=== PATIENT | male | born 1945 | race Caucasian/White ===

== ENCOUNTER 2019-12-04 12:25 | Outpatient (CLI) | payer MEDICARE, SELFPAY ==
--- NOTE | ~2019-12-04 | US_ITS ---
EXAMINATION: US thyroid DATE: 12/04/2019 14:14 INDICATION: Enlarged thyroid. TECHNIQUE: Multiple ultrasound images of the thyroid were obtained. COMPARISON: None. FINDINGS: The right thyroid lobe measures 3.4 x 2.0 x 1.7 cm. The left thyroid lobe measures 3.1 x 1.6 x 1.8 c m. There is normal echotexture and echogenicity throughout the thyroid gland. No discrete nodules id entified. Normal vascular flow is present. IMPRESSION: 1. Normal thyroid. Reviewed, dictated and finalized at location A. IMPRESSION: 1. Normal thyroid.
== END 2019-12-04 12:26 | disposition home or self-care (01) ==
PROVIDERS: PCP Family Medicine; Visit Provider Internal Medicine Endocrinology, Diabetes & Metabolism
DX: E04.9 Nontoxic goiter, unspecified (principal)
CPT/HCPCS: 76536

== ENCOUNTER 2020-07-29 08:45 | Outpatient (CLI) | payer MEDICARE, SELFPAY | END 2020-07-29 08:46 | disposition home or self-care (01) | LOC: ANHCOVIDVC 08:45 | PROVIDERS: PCP Family Medicine | DX: Z23 Encounter for immunization (principal) | CPT/HCPCS: 0001A; 91300 ==

== ENCOUNTER 2020-08-19 08:44 | Outpatient (CLI) | payer MEDICARE, SELFPAY | END 2020-08-19 08:45 | disposition home or self-care (01) | LOC: ANHCOVIDVC 08:44 | PROVIDERS: PCP Family Medicine | DX: Z23 Encounter for immunization (principal) | CPT/HCPCS: 0002A; 91300 ==

== ENCOUNTER → 2020-12-05 07:36 | Outpatient (CLI) | payer MEDICARE, SELFPAY ==
--- NOTE | ~2020-12-05 | XR_ITS ---
EXAMINATION: XR knee LT min 4V DATE: 12/05/2020 08:15 INDICATION: Left knee pain. TECHNIQUE: 4 views of left knee were obtained. COMPARISON: None. FINDINGS: Bone alignment is normal. No fracture. There is moderate osteoarthritis of medial compartme nt and mild osteoarthritis of lateral and patellofemoral compartments. No knee joint effusion. IMPRESSION: 1. Moderate left knee osteoarthritis. Reviewed, dictated and finalized at location A.
== END ==
PROVIDERS: PCP Family Medicine; Visit Provider Physician Assistant
DX: M17.12 Unilateral primary osteoarthritis, left knee (principal)
CPT/HCPCS: 73564

== ENCOUNTER → 2021-08-12 10:40 | Outpatient (CLI) | payer MEDICARE, SELFPAY ==
--- NOTE | ~2021-08-12 | XR_ITS ---
XR lumbar spine 2-3V 08/12/2021 11:04 Indication: Low back pain Procedure: 3 views lumbar spine Comparison: No prior studies for comparison. Findings: There is mild wedge-shaped appearance to T12 and L1 which is likely chronic. There are prom inent ventral osteophytes at this level. There is endplate degenerative change at L2-3 and L5-S1. The re is disc narrowing at L4-5 and L5-S1. There is mild facet hypertrophy at these levels. There is ath erosclerosis of the aorta. There are splenic arterial calcifications. Impression: 1: No acute abnormality of the lumbar spine. 2: Moderate lumbar spondylosis. Reviewed, dictated and finalized at location A. Impression: 1: No acute abnormality of the lumbar spine. 2: Moderate lumbar spondylosis.
== END ==
PROVIDERS: PCP Family Medicine; Visit Provider Physician Assistant
DX: M47.896 Other spondylosis, lumbar region (principal)
CPT/HCPCS: 72100

== ENCOUNTER 2021-09-25 14:19 | Inpatient (IN) | payer MEDICARE, SELFPAY ==
[2021-09-25] VITALS (10 sets, daily range): BP systolic 141–224; BP diastolic 61–96; PULSE 72–96; RESP 18–22; TEMP 36.3–36.7; O2SAT 93–96; BMI 46.4
--- NOTE | ~2021-09-25 | XR_ITS ---
EXAMINATION: XR chest 2V DATE: 09/25/2021 14:54 INDICATION: Shortness of breath TECHNIQUE: Frontal and lateral views of the chest are obtained COMPARISON: 03/23/2014 FINDINGS: There is a mild diffuse interstitial pattern. The heart size is upper limits of normal for technique. There are trace pleural effusions. There is no pneumothorax. There is moderate thoracic sp ondylosis. IMPRESSION: 1. Mild pulmonary edema. 2. Small pleural effusions. Reviewed, dictated and finalized at location A.
--- NOTE | ~2021-09-25 | US_ITS ---
EXAMINATION: US venous doppler [facility] DATE: 09/27/2021 09:42 INDICATION: Lower limb swelling and erythema TECHNIQUE: Grayscale ultrasound images without and with compression and Doppler ultrasound images of the bilateral lower extremity veins were obtained. COMPARISON: None. FINDINGS: The visualized portions of right common femoral vein, profunda (deep) femoral vein, femoral vein, pop liteal vein, posterior tibial veins, peroneal veins, gastrocnemius vein and greater saphenous vein ou tflow are patent. The visualized portions of left common femoral vein, profunda femoral vein, femoral vein, popliteal v ein, posterior tibial veins, peroneal veins, gastrocnemius vein and greater saphenous vein outflow ar e patent. IMPRESSION: 1. No deep venous thrombosis in either lower limb. Reviewed, dictated and finalized at location A.
--- NOTE | 2021-09-25 14:27 | ECG_ITS ---
Measurements Intervals [place] Rate: 70 P: 15 RI: 160 QRS: 4 QRSD: 94 T: 23 QT: 391 QTc: 422 Interpretive Statements SINUS RHYTHM LOW QRS VOLTAGE IN PRECORDIAL LEADS BORDERLINE ST-T WAVE ABNORMALITY- HIGH LATERAL LEADS BASELINE ARTIFACT- I, II, AVR, AVL, AVF, V1-V6 BORDERLINE ECG Electronically Signed On 09-25-2021 16:51:50 CDT by Khoi Maldonado D.O.
[2021-09-25 14:44] LABS: Basophils Percent Auto 0.5 % (0.2-1.2); Eosinophils Absolute Auto 0.3 K/mm3 (0-0.3); Eosinophils Percent Auto 4.3 % (0-4.4); Hematocrit 35.6 % (42.0-52.0); Hemoglobin 10.4 g/dL (14.0-18.0); Immature Granulocyte Absolute 0.07 K/mm3 (0.00-0.031); Immature Granulocyte Percent A 0.9 % (0-0.5); Lymphocytes Absolute Auto 1.19 K/mm3 (0.9-3.2); Lymphocytes Percent Auto 15.2 % (18.3-44.2); Mean Corpuscular HGB Conc 29.2 g/dl (32-36); Mean Corpuscular Hemoglobin 25.7 pg (26-34); Mean Corpuscular Volume 87.9 fl (80-100); Monocytes Absolute Auto 0.9 K/mm3 (0.1-0.6); Neutrophils Absolute Auto 5.3 K/mm3 (1.3-6.7); Neutrophils Percent Auto 67.1 % (45.5-73.1); Platelet Count Result 206 k/mm3 (150-375); Red Blood Count 4.05 M/mm3 (4.6-6.20); Red Cell Distribution Width 14.8 % (11.5-14.5); White Blood Count 7.8 K/mm3 (4.5-10.0)
[2021-09-25 14:52] LABS: Alanine Aminotransferase 14 U/L (4-50); Albumin Level 3.9 g/dL (3.5-5.1); Alkaline Phosphatase 82 U/L (38-126); Anion Gap 8 mmol/L (8-16); Aspartate Amino Transferase 19 U/L (17-59); Bilirubin,Total 0.5 mg/dL (0.2-1.3); Blood Urea Nitrogen 15 mg/dL (9-20); Calcium 8.6 mg/dL (8.4-10.2); Carbon Dioxide 29 mmol/L (22-30); Chloride 99 mmol/L (98-107); Estimated CRCL calculation 68 ml/min; Estimated Glomerular Filt Rate > 60; Glucose 124 mg/dL (65-110); Sodium 136 mmol/L (137-145)
[2021-09-25 14:53] LABS: INR 1.1; Prothrombin Time 13.9 Seconds (11.1-14.7)
[2021-09-25 14:54] LABS: Partial Thromboplastin Time 31.1 SECONDS (22.3-36.8)
[2021-09-25 15:00] LABS: Anisocytosis 1+ (NORMAL); Ovalocytes 1+ (NORMAL); Platelet Estimate Adequate (Adequate)
[2021-09-25 15:04] LABS: NT Pro B Type Natriuretic Pept 796 pg/mL (5-100); Troponin I 0.024 ng/mL (0.000-0.034)
[2021-09-25] MEDS: FUROSEMIDE INJ 100 MG/10 ML VIAL 80 MG IV PUSH (18:23)
[2021-09-25 18:46] LABS: Troponin I 0.028 ng/mL (0.000-0.034)
--- NOTE | 2021-09-25 19:01 | ED.SOB ---
HPI - SOB/Dyspnea General Chief Complaint: Shortness of Breath/Dyspnea Stated Complaint: SOB, Cant Sleep, Multiple Issues Time Seen by Provider: 09/25/21 17:12 Source: patient Mode of arrival: ambulatory History of Present Illness HPI Narrative: 76 year old male with history of MO and CHF presents today with complaints of SOB x 2 weeks. Patient takes lasix 40mg po daily and has not missed any doses. He has noticed he cannot walk very far without getting SOB. Patient denies chest pain, cough, but does endorse BLE edema, distended abdomen. Patient sees Dr. Sherman. Related Data Home Medications Medication Instructions Recorded Confirmed amlodipine 10 mg tablet 10 mg PO DAILY 06/18/19 09/25/21 atorvastatin 40 mg tablet 40 mg PO DAILY 06/18/19 09/25/21 aspirin 81 mg tablet,delayed 81 mg PO DAILY 03/04/20 09/25/21 release glimepiride 2 mg tablet 4 mg PO BID tablet 03/04/20 09/25/21 dulaglutide 1.5 mg/0.5 mL 1.5 mg SUBCUT WEEKLY 06/16/20 09/25/21 subcutaneous pen injector insulin degludec 200 unit/mL (3 30 unit SUBCUT DAILY ml 06/16/20 09/25/21 mL) subcutaneous pen ferrous sulfate [FeroSul] 325 mg PO DAILY 09/25/21 09/25/21 furosemide 40 mg PO DAILY 09/25/21 09/25/21 metformin 500 mg PO BID 09/25/21 09/25/21 metoprolol succinate 100 mg PO DAILY 09/25/21 09/25/21 Allergies Allergy/AdvReac Type Severity Reaction Status Date / Time No Known Allergies Allergy Verified 09/25/21 13:51 Review of Systems Review of Systems: CONSTITUTIONAL: Denies fever, chills, or sweats. EYES: Denies visual changes, redness, or discharge. ENT: Denies rhinorrhea, congestion, sore throat, or otalgia. CARDIOVASCULAR: Bilateral lower extremity edema and distended abdomen. Denies chest pain, palpitations. RESPIRATORY: Dyspnea increasing over the last 2 weeks. Denies cough. GASTROINTESTINAL: Denies abdominal pain, nausea, vomiting, or diarrhea. GENITOURINARY: Denies dysuria or hematuria. SKIN: Denies rash or itching. MUSCULOSKELETAL: Denies back pain, joint pain, or myalgia. NEUROLOGIC: Denies headache, numbness, dizziness, or weakness. PSYCHIATRIC: Denies anxiety or depression. [facility] Past Medical History Medical History (Updated 09/26/21 @ 00:11 by Crista Chavez APRN) Hepatitis C antibody test negative (09/10/17) Myocardial infarction Peripheral artery disease Surgical History Surgical History H/O cardiac catheterization H/O colonoscopy History of esophagogastroduodenoscopy (EGD) Family History Family History Grandparent Diabetes mellitus Mother Diabetes mellitus Hypertension Family history of cardiovascular disease Other No family history of cardiovascular disease Social History Social History Smoking packs per day: 2 Smoking cigarettes per day: 40.0 Years smoked: 40 Smoking pack-years: 80.00 Smoking status: Former smoker Tobacco type: cigarettes Second hand tobacco smoke exposure: No Alcohol intake: current Drinks per week: 2 Substance use: never Substance use type: does not use Gender identity (if verbalized by the patient): Male Spiritual care concerns: No Agree to blood products: Yes Exam Narrative: GENERAL: Well-appearing, well-nourished, and in no acute distress. HEAD: Normocephalic, atraumatic. EYES: PERRLA and EOMI. ENT: Nares clear, no rhinorrhea or epistaxis. Mucous membranes moist. Oropharynx without tonsillar hypertrophy exudate or other lesions. Bilateral TMs pearly ybarra nonbulging NECK: Supple. No adenopathy or masses. No carotid bruits or JVD CHEST: Diminished to auscultation. No respiratory distress. No wheezes rales or rhonchi HEART: Regular rate and rhythm. No murmur heard. Normal peripheral pulses. ABDOMEN: Soft, nontender, distended, normal active bowel sounds. EXTREMITIES: Normal range of renata
--- NOTE | 2021-09-25 19:30 | PC.NURSE ---
Report received and care of pt assumed at this time.
--- NOTE | 2021-09-25 19:58 | PC.NURSE ---
KERRY RICKS , INSERT [facility] CATH
[2021-09-25] MEDS: LIDOCAINE HCL 2% GEL UROJET 10 ML PKG MUCOUS MEM (20:12)
--- NOTE | 2021-09-25 21:25 | ADMGEN ---
This patient, Paul Ag, was admitted to Medical Room 249-01. Patient/family oriented to hospital policies and general routines including ID bracelet, bed and alarms, visiting hours, pain management, procedures, bathroom and other care routines, personal items, smoking policy, room service/diet, and visiting hours. Information on how to activate the Rapid Response Team has been discussed. Patient/Family are encouraged to report perceived risks to care and to ask questions if they do not understand what they are told or what they should do.
--- NOTE | 2021-09-25 22:17 | PM.IMHP ---
H&P: HPI History of Present Illness Date/Time: 09/25/21 22:17 Chief Complaint: SOB Narrative: 76 yo M PMHx of CAD, HF, insulin dependent DM c/b neuropathy, CKD, PAD. Presents with 1 week h/o SOB he reports he noticed while cutting the grass. Also reports increasing LE edema and orthopnea for one week. Denies fevers/chills, cough, CP, palpitations, n/v/d/c, trouble urinating, dysuria, hematuria, blood in stool. He states he is compliant with all of his meds, but sometimes forgets to take his evening dose of medications. In ED labs remarkable for 10.4 (baseline around 12-13). BNP 796, CXR showing mild pulmonary edema. EKG showing NSR. Patient given dose of lasix 80 IV in ED. Review of Systems Review of Systems: All systems reviewed & are unremarkable except as noted in HPI and below PMFSH Past Medical History Medical History (Updated 09/25/21 @ 22:29 by Clarke Quintana DO) Hepatitis C antibody test negative (09/10/17) Myocardial infarction Peripheral artery disease Surgical History Surgical History H/O cardiac catheterization H/O colonoscopy History of esophagogastroduodenoscopy (EGD) Family History Family History Grandparent Diabetes mellitus Mother Diabetes mellitus Hypertension Family history of cardiovascular disease Other No family history of cardiovascular disease Social History Social History Smoking packs per day: 2 Smoking cigarettes per day: 40.0 Years smoked: 40 Smoking pack-years: 80.00 Smoking status: Former smoker Tobacco type: cigarettes Second hand tobacco smoke exposure: No Alcohol intake: current Drinks per week: 2 Substance use: never Substance use type: does not use Gender identity (if verbalized by the patient): Male Spiritual care concerns: No Agree to blood products: Yes Meds Home Medications and Allergies Home Medications Medication Instructions Recorded Confirmed Type amlodipine 10 mg tablet 10 mg PO DAILY 06/18/19 09/25/21 History atorvastatin 40 mg tablet 40 mg PO DAILY 06/18/19 09/25/21 History aspirin 81 mg tablet,delayed 81 mg PO DAILY 03/04/20 09/25/21 History release glimepiride 2 mg tablet 4 mg PO BID tablet 03/04/20 09/25/21 History dulaglutide 1.5 mg/0.5 mL 1.5 mg SUBCUT WEEKLY 06/16/20 09/25/21 History subcutaneous pen injector insulin degludec 200 unit/mL (3 30 unit SUBCUT DAILY ml 06/16/20 09/25/21 History mL) subcutaneous pen ramipril 10 mg capsule 10 mg PO DAILY #90 cap 07/13/21 09/25/21 Rx albuterol sulfate 90 mcg/actuation 2 puff INHALATION Q4H PRN #8.5 gm 07/21/21 09/25/21 Rx aerosol inhaler gabapentin 300 mg capsule 300 mg PO QHS #90 cap 08/25/21 09/25/21 Rx ferrous sulfate [FeroSul] 325 mg PO DAILY 09/25/21 09/25/21 History furosemide 40 mg PO DAILY 09/25/21 09/25/21 History metformin 500 mg PO BID 09/25/21 09/25/21 History metoprolol succinate 100 mg PO DAILY 09/25/21 09/25/21 History Allergies Allergy/AdvReac Type Severity Reaction Status Date / Time No Known Allergies Allergy Verified 09/25/21 13:51 Vital Signs Vital Signs - 24 hr 09/25/21 14:26 09/25/21 17:07 09/25/21 17:09 Temperature 98.0 F 97.8 F Pulse Rate 72 91 87 Respiratory Rate 18 21 H 20 Blood Pressure 156/80 H 208/96 H 224/93 H Pulse Oximetry 95 96 95 09/25/21 17:12 09/25/21 18:02 09/25/21 18:25 Temperature Pulse Rate 91 90 88 Respiratory Rate 20 22 H 18 Blood Pressure 208/96 H 173/75 H 167/83 H Pulse Oximetry 96 94 96 09/25/21 19:29 09/25/21 20:21 09/25/21 21:16 Temperature Pulse Rate 96 90 Respiratory Rate 18 20 Blood Pressure 161/67 H 141/74 H 163/95 H Pulse Oximetry 95 93 09/25/21 21:42 Temperature 97.3 F L Pulse Rate 87 Respiratory Rate 20 Blood Pressure 177/61 H Pulse Oximetry 94 Exam Const: General: no acute distress O
[2021-09-25] MEDS: GABAPENTIN 300 MG CAPSULE PO (22:53)
[2021-09-25] MEDS: INSULIN GLARGINE (*BKC) 100 UNITS/ML 39 UNITS SUB-Q (22:54)
[2021-09-26] VITALS (16 sets, daily range): BP systolic 123–175; BP diastolic 63–71; PULSE 66–99; RESP 18–20; TEMP 36.2–36.8; O2SAT 89–96
[2021-09-26 01:15] LABS: Glucose Point of Care 192 mg/dl (65-105)
[2021-09-26 05:17] LABS: Basophils Percent Auto 0.3 % (0.2-1.2); Eosinophils Absolute Auto 0.2 K/mm3 (0-0.3); Hematocrit 32.3 % (42.0-52.0); Hemoglobin 9.9 g/dL (14.0-18.0); Immature Granulocyte Absolute 0.05 K/mm3 (0.00-0.031); Immature Granulocyte Percent A 0.8 % (0-0.5); Lymphocytes Percent Auto 19.8 % (18.3-44.2); Mean Corpuscular HGB Conc 30.7 g/dl (32-36); Mean Corpuscular Hemoglobin 25.8 pg (26-34); Mean Corpuscular Volume 84.3 fl (80-100); Mean Platelet Volume 10.2 fl (7.4-10.4); Monocytes Absolute Auto 0.9 K/mm3 (0.1-0.6); Neutrophils Absolute Auto 3.7 K/mm3 (1.3-6.7); Neutrophils Percent Auto 61.1 % (45.5-73.1); Platelet Count Result 207 k/mm3 (150-375); Red Blood Count 3.83 M/mm3 (4.6-6.20); White Blood Count 6.1 K/mm3 (4.5-10.0)
[2021-09-26 05:33] LABS: Anion Gap 3 mmol/L (8-16); Blood Urea Nitrogen 16 mg/dL (9-20); Calcium 8.3 mg/dL (8.4-10.2); Carbon Dioxide 33 mmol/L (22-30); Chloride 100 mmol/L (98-107); Estimated CRCL calculation 66 ml/min; Estimated Glomerular Filt Rate > 60; Glucose 115 mg/dL (65-110); Potassium 3.8 mmol/L (3.4-5.0); Sodium 136 mmol/L (137-145)
[2021-09-26 05:38] LABS: Hemoglobin A1C 7.5 % (<5.7)
[2021-09-26 05:53] LABS: Iron 31 ug/dL (49-181)
[2021-09-26 06:03] LABS: Percent Iron Saturation 11 % (20-50)
[2021-09-26 07:43] LABS: Glucose Point of Care 98 mg/dl (65-105)
[2021-09-26] MEDS: FUROSEMIDE INJ 40 MG/4 ML VIAL IV PUSH ×3 (08:49→23:12)
[2021-09-26] MEDS: ENOXAPARIN 40 MG/0.4 ML SYRINGE SUB-Q (08:49)
[2021-09-26] MEDS: METOPROLOL SUCCINATE EXT REL 100 MG TABCR PO (08:50)
[2021-09-26] MEDS: amLODIPine BESYLATE 5 MG TABLET 10 MG PO (08:50)
[2021-09-26] MEDS: ASPIRIN 81 MG ENTERIC TABLET PO (08:50)
[2021-09-26] MEDS: ATORVASTATIN 40 MG TABLET PO (08:50)
[2021-09-26] MEDS: PERFLUTREN LIPID MICROSPHERES 1.5 ML VIAL DILUTED TO 10 ML TOTAL VOLUME IV PUSH (10:04)
--- NOTE | 2021-09-26 10:05 | IVDEFINITY ---
Prior to administration of IV Definity the patient was educated on the risks and benefits of the imaging enhancing agent including potential adverse side effects. The patient verbalized understanding. Allergies were verified. No exclusion criteria were identified and at least one of the following inclusion criteria were met: 1) physician request, 2) patient technically difficult to image (per the [place] [employer] Echocardi[employer] guidelines of two or more segments not discernable within the apical view), or 3) questionable left ventricular function. ?
[2021-09-26 11:28] LABS: Glucose Point of Care 152 mg/dl (65-105)
--- NOTE | 2021-09-26 11:32 | PM.CNCAR ---
Assessment and Plan Assessment and plan (1) Acute exacerbation of CHF (congestive heart failure): Qualifiers: Heart failure type: unspecified Qualified Code(s): I50.9 - Heart failure, unspecified Code(s): I50.9 - Heart failure, unspecified Status: Acute Assessment and Plan: Presents with shortness of breath, swelling, orthopnea. Pleural effusions and pulmonary edema on chest Xray consistent with mild CHF exacerbation. Has been diuresed with some symptomatic improvement. Agree with furosemide 40mg IV b.i.d. for now Check echo Monitor renal function and electrolytes with daily BMP Discontinue Rampiril, with plans to start Entresto after 36 hour TEJAL washout period Further optimization of medical regimen to be made when results of echo are available. Daily weights Will have continuity manager hiv counselor him regarding low Na diet He has SISI hose in place (2) Atherosclerotic heart disease of [place] coronary artery with other forms of angina pectoris: Code(s): I25.118 - Atherosclerotic heart disease of [place] coronary artery with other forms of angina pectoris Status: Acute Assessment and Plan: STEMI and PCI in 2014. No angina. This is stable. Continue ASA, statin History of Present Illness History of Present Illness Consult date/time: 09/26/21 11:32 Requesting physician: Clarke Quintana DO Consult reason: congestive heart failure Reason For Visit: acute exacerbation, CHF Narrative: Mr. Ag Is a 75-year-old male with a history of coronary artery disease, history inferior ST-elevation CO, status post primary PCI /drug-eluting stent placement of mid RCA, and balloon angioplasty of the RPDA in 2013, hypertension, asthma, Peripheral arterial disease, insulin-dependent diabetes mellitus, and morbid obesity. This is a patient who presents to the hospital with shortness of breath, swelling, and orthopnea. He began experiencing shortness of breath about 1 week ago and it progressed over a week's time. He also says that he was unable to sleep at night because he was unable to breathe when he was lying down. He is not known to a cardiomyopathy but I am unable to find record of an echocardiogram peer however, his ejection fraction in 2013 was estimated to be 55-60% by left heart catheterization. His initial work up did show evidence of congestive heart failure with pulmonary edema and small pleural effusions on chest x-ray. his BNP was minimally elevated at 796. He was given 80 mg of IV Lasix in the emergency department. He reports improvement in his lower extremity swelling with diuresis. Still having some shortness of breath and orthopnea. He denies any chest pain, palpitations, syncope, presyncope. Review of Systems Constitutional: Constitutional: Denies fatigue, Denies lethargy and Denies weakness Eyes: Eyes: Denies change in vision ENT: Reports Normal hearing present, Denies nasal congestion, Denies nasal discharge and Denies tinnitus Cardiovascular: Cardiovascular: Denies chest pain, Denies diaphoresis, Reports pedal edema, Reports leg edema, Denies lightheadedness and Denies palpitations Respiratory: Respiratory: Denies cough, Denies hemoptysis, Reports dyspnea, Reports dyspnea on exertion and Denies wheezing Gastrointestinal: Gastrointestinal: Denies constipation and Denies diarrhea Genitourinary: Genitourinary: Denies hematuria, Denies dysuria, Denies urinary hesitancy and Denies urinary urgency Musculoskeletal: Musculoskeletal: Denies back pain, Denies neck pain and Reports tingling Integumentary/Breasts: Skin/Breast: Denies pruritus, Denies rash and Denies skin pain Neurologic: Denies Abnormal speech present, Denies abnormal gait, Denies headache(s) and Denies numbness Psychiatric: Psychiatric: Denies anxiety and Denies depression Endocrine: Endocrine: Denies cold intolerance, Denies excessive sweating, Denies fatigue, Denies heat intolerance and Denies palpitations Hematologi
[2021-09-26 16:16] LABS: Glucose Point of Care 166 mg/dl (65-105)
--- NOTE | 2021-09-26 17:59 | PM.IMPN ---
Progress Note: A&P Assessment and Plan (1) Heart failure, unspecified: Code(s): I50.9 - Heart failure, unspecified Status: Acute Assessment and Plan: Patient presents with SOB and pedal edema. BNP 796. Trop negative x3. CXR showing mild pulmonary edema. Echo shows normal LV systolic and diastolic function. EF 60-65%. No significant valve disease and mild pulmonary HTN. Consider right sided failure from untreated JH. Norvasc and Gabapentin can cause pedal edema and he just started the Niki. Lasix IV started with excellent UOP. Medications being adjusted by Cardiology. Will hole Norvasc. Will try to find an alternative to the Niki. Check Apnea link. (2) Iron deficiency anemia: Code(s): D50.9 - Iron deficiency anemia, unspecified Status: Acute Assessment and Plan: Hgb close to normal at baseline but was 10.4 on admission and now 9.9. No evidence of acute blood loss. Iron studies showing iron deficiency. Oral iron on his med list. Start IV iron while here. (3) Diabetic neuropathy: Code(s): E11.40 - Type 2 diabetes mellitus with diabetic neuropathy, unspecified Status: Acute Assessment and Plan: As above. Gabapentin seeming to help him but can worsen pedeal edema. Will check dopplers to exclude DVT but feel less likely. Continue gabapentin for now but will try to find an alternative (4) Atherosclerotic heart disease of [place] coronary artery with other forms of angina pectoris: Code(s): I25.118 - Atherosclerotic heart disease of [place] coronary artery with other forms of angina pectoris Status: Acute Assessment and Plan: Patient with hx of CAD. Continue ASA, Toprol and statin. (5) Chronic kidney disease, stage III (moderate): Code(s): N18.30 - Chronic kidney disease, stage 3 unspecified Status: Acute Assessment and Plan: Baseline Cr 1.2-1.4 but better on admission at 1.1. Creatinine remaining stable with diuresis. Continue to monitor while on diuretic therapy. (6) Essential (primary) hypertension: Code(s): I10 - Essential (primary) hypertension Status: Acute Assessment and Plan: BP elevated yesterday and the morning but better now. Continue Toprol. Will hold amlodipine and use other medications to control BP. If unable, will try to use the lowest dose of amlodipine. Ramipril on hold so may start Entresto per Cards note. (7) Mixed hyperlipidemia: Code(s): E78.2 - Mixed hyperlipidemia Status: Acute Assessment and Plan: LFTs okay. Continue lipitor (8) Type 2 diabetes mellitus with hyperglycemia: Code(s): E11.65 - Type 2 diabetes mellitus with hyperglycemia Status: Acute Assessment and Plan: A1c 7.5. Lantus 39 U qhs resumed. Glucose reasonably well controlled. Continue AccuCheks covering with sliding scale. Hypoglycemia protocol available as needed. Continue current medications. (9) Peripheral artery disease: Code(s): I73.9 - Peripheral vascular disease, unspecified Status: Inactive Assessment and Plan: Patient reports he was taken off cilostazol, but he restarted this because of pain in his legs. Patient was advised that this is not a good medication for him to take in setting of CHF and advised him to discontinue. (10) DVT prophylaxis: Code(s): Z29.9 - Encounter for prophylactic measures, unspecified Status: Acute Assessment and Plan: Lovenox Subjective Date/time seen: 09/26/21 18:00 Interval history: 76yo male with CAD, CHF, DM c/b neuropathy, CKD and PAD who presents with 1 week h/o SOB. Patient was up to a chair today. No n/v. No SOB. No CP. Does have daytime somnolence. Just started Gabapentin 3-4 weeks ago. The pedal edema began 2 weeks ago. No BMs but having flatus. Exam Narrative: AF 97.8 123/63 66 18 96% ra Gen - NARD lyiing semi-recumbent in bed Chest - CTA bilaterally, nml RR CV - RRR S1/S2
[2021-09-26] MEDS: GABAPENTIN 300 MG CAPSULE PO (20:01)
[2021-09-26] MEDS: metFORMIN HCL XR 500 MG TAB.SR.24H PO (20:01)
[2021-09-26] MEDS: INSULIN GLARGINE (*BKC) 100 UNITS/ML 39 UNITS SUB-Q (20:09)
[2021-09-26 21:53] LABS: Glucose Point of Care 210 mg/dl (65-105)
--- NOTE | 2021-09-26 22:07 | ECHO_ITS ---
Patient Info Name: Paul Ag Age: 76 years : 1945 Gender: Male Ht: 65 in Wt: 287 lbs BSA: 2.52 m2 HR: 94 bpm BP: 151 / 71 mmHg Heart Rhythm: Sinus Rhythm Technical Quality: Fair Exam Date: 09/26/2021 9:35 AM Exam Location: [facility] Pulmonary Patient Status: Inpatient Admit Date: 09/25/2021 Staff Ordering Physician: Clarke Quintana DO Wire Bender Hand: Chanell Roberts RDCS Attending Provider: Clarke Quintana DO Exam Type: CA echo dop color flow w con Study Info Indications - chf Complete two-dimensional, color flow and Doppler transthoracic echocardiogram is performed with contrast to opacify the left ventricle and to improve the deliniation of the left ventricle endocardial borders. Contrast/Agitated Saline Contrast/Ag. Saline: Definity Amount: 2.00 ml Administered By: Chanell Roberts RDCS Existing IV Access: Yes IV Access Condition: patent with no signs of infiltration Summary 1. Left ventricular chamber dimension is mildly enlarged. 2. Left ventricular systolic function is normal, estimated at 60-65%. 3. There is mildly increased left ventricular wall thickness. 4. The left ventricular diastolic function is normal. 5. Left atrial chamber dimension is mildly enlarged. 6. There is mild mitral valve regurgitation. 7. Mild pulmonary hypertension, estimated pulmonary arterial systolic pressure is 39 mmHg. Left Ventricle Left ventricular chamber dimension is mildly enlarged. Left ventricular systolic function is normal, estimated at 60-65%. There is mildly increased left ventricular wall thickness. The left ventricular diastolic function is normal. Right Ventricle Right ventricular chamber dimension is normal. Right ventricular systolic function is normal. Left Atria Left atrial chamber dimension is mildly enlarged. Right Atria Right atrial chamber dimension is normal. Atrial Septum Intact interatrial septum visualized by color flow imaging. Aortic Valve The aortic valve is trileaflet. There is mild aortic valve sclerosis. There is no aortic valve stenosis. There is trace aortic valve regurgitation. Pulmonic Valve The pulmonic valve is not well visualized. There is no pulmonic valve stenosis. There is trace pulmonic regurgitation. Mitral Valve The mitral valve has normal leaflets. There is no mitral valve stenosis. There is mild mitral valve regurgitation. Tricuspid Valve The tricuspid valve leaflets are normal. There is no significant tricuspid valve stenosis. There is trace tricuspid valve regurgitation. Mild pulmonary hypertension, estimated pulmonary arterial systolic pressure is 39 mmHg. Pericardium/Pleural The pericardium appears normal. There is trivial pericardial effusion. Inferior Vena Cava Normal inferior vena cava with >50% collapse upon inspiration consistent with normal right atrial pressure, 10 mmHg. Aorta The aortic root size at the sinus of Valsalva is normal. The prox ascending aorta size is normal. Left Ventricular Outflow Tract Name Value Normal LVOT 2D LVOT Diameter 2.12 cm LVOT Doppler
[2021-09-27] VITALS (14 sets, daily range): BP systolic 130–168; BP diastolic 50–65; PULSE 62–90; RESP 16–18; TEMP 36.3–36.4; O2SAT 92–99
--- NOTE | 2021-09-27 02:01 | PCRCNOTE ---
Pt on overnight sleep study ([facility]). Checked patient at approximately 01:55 to ensure equipment was still on patient properly and all lights were green. Pt was awake and wanted to move to chair to sleep. Pt states that he normally sleeps in bed for a couple of hours of then moves to his chair for the remainder of the night. With the assistance of the nurse, pt was moved to the chair. This move took approximately 5 minutes and the pt was left alone to go back to sleep.
[2021-09-27] MEDS: FUROSEMIDE INJ 40 MG/4 ML VIAL IV PUSH ×3 (05:50→21:32)
[2021-09-27 06:00] LABS: Hematocrit 33.1 % (42.0-52.0); Hemoglobin 10.1 g/dL (14.0-18.0); Mean Corpuscular HGB Conc 30.5 g/dl (32-36); Mean Corpuscular Hemoglobin 25.6 pg (26-34); Mean Platelet Volume 10.3 fl (7.4-10.4); Platelet Count Result 195 k/mm3 (150-375); Red Blood Count 3.94 M/mm3 (4.6-6.20); Red Cell Distribution Width 14.9 % (11.5-14.5); White Blood Count 7.2 K/mm3 (4.5-10.0)
[2021-09-27 06:11] LABS: Anion Gap 3 mmol/L (8-16); Blood Urea Nitrogen 21 mg/dL (9-20); Calcium 8.8 mg/dL (8.4-10.2); Carbon Dioxide 35 mmol/L (22-30); Chloride 99 mmol/L (98-107); Estimated CRCL calculation 60 ml/min; Estimated Glomerular Filt Rate 59; Glucose 135 mg/dL (65-110); Phosphorus 4.3 mg/dL (2.5-4.5); Potassium 4.1 mmol/L (3.4-5.0); Sodium 137 mmol/L (137-145)
[2021-09-27 07:40] LABS: Glucose Point of Care 126 mg/dl (65-105)
--- NOTE | 2021-09-27 08:17 | PM.IMPN ---
Progress Note: A&P Assessment and Plan (1) Heart failure, unspecified: Code(s): I50.9 - Heart failure, unspecified Status: Acute Assessment and Plan: Patient presents with SOB and pedal edema. BNP 796. Trop negative x3. CXR showing mild pulmonary edema. Echo shows normal LV systolic and diastolic function. EF 60-65%. No significant valve disease and mild pulmonary HTN. Norvasc and Gabapentin can cause pedal edema and he just started the Gabapentin. Lasix IV started with excellent UOP. Medications being adjusted by Cardiology. We considered right sided failure and ApneaLink obtained on room air. His AHI 6.3 and RI 6.9 with only 4 apnea spells but spent 161 minutes with SpO2<88%. Continue to hold Norvasc. Will arrange for nocturnal O2. (2) Iron deficiency anemia: Code(s): D50.9 - Iron deficiency anemia, unspecified Status: Acute Assessment and Plan: Hgb close to normal at baseline but was 10.4 on admission and dropped to 9.9. Hgb better today. No evidence of acute blood loss. Iron studies showing iron deficiency. Fluid overload could give a falsely lower Hgb as well. Oral iron on his med list. Continue IV iron while here. Stool guaiac ordered. (3) Diabetic neuropathy: Code(s): E11.40 - Type 2 diabetes mellitus with diabetic neuropathy, unspecified Status: Acute Assessment and Plan: As above. Gabapentin seeming to help him but can worsen pedeal edema. LE venous dopplers pending. Lyrica also causes pedal edema so continue Niki for now. (4) Atherosclerotic heart disease of [place] coronary artery with other forms of angina pectoris: Code(s): I25.118 - Atherosclerotic heart disease of [place] coronary artery with other forms of angina pectoris Status: Acute Assessment and Plan: Patient with hx of CAD. Continue ASA, Toprol and statin. (5) Chronic kidney disease, stage III (moderate): Code(s): N18.30 - Chronic kidney disease, stage 3 unspecified Status: Acute Assessment and Plan: Baseline Cr 1.2-1.4 but better on admission at 1.1. Creatinine remaining stable with diuresis. Continue to monitor while on diuretic therapy. (6) Essential (primary) hypertension: Code(s): I10 - Essential (primary) hypertension Status: Acute Assessment and Plan: BP well controlled now. Continue Toprol. Will continue to hold amlodipine. Ramipril on hold to wash out so may start Entresto per Cards note. (7) Mixed hyperlipidemia: Code(s): E78.2 - Mixed hyperlipidemia Status: Acute Assessment and Plan: LFTs okay. Continue Lipitor (8) Type 2 diabetes mellitus with hyperglycemia: Code(s): E11.65 - Type 2 diabetes mellitus with hyperglycemia Status: Acute Assessment and Plan: A1c 7.5. Lantus 39 U qhs resumed. Glucose reasonably well controlled this morning. Continue AccuCheks covering with sliding scale. Hypoglycemia protocol available as needed. Continue current medications. (9) Peripheral artery disease: Code(s): I73.9 - Peripheral vascular disease, unspecified Status: Inactive Assessment and Plan: Patient reports he was taken off cilostazol, but he restarted this because of pain in his legs. Patient was advised that this is not a good medication for him to take in setting of CHF and advised him to discontinue. (10) DVT prophylaxis: Code(s): Z29.9 - Encounter for prophylactic measures, unspecified Status: Acute Assessment and Plan: Lovenox Subjective Date/time seen: 09/27/21 08:17 Interval history: 76yo male with CAD, CHF, DM c/b neuropathy, CKD and PAD who presents with 1 week h/o SOB. Patient up to a chair this morning. SOB better. Denies feeling HERNANDEZ with getting up to the chair. No CP. Eating normally. No n/v. Flatus but no BMs. Exam Narrative: AF 97.6 130/50 73 18 92% ra Gen - NARD sitting up in chair finishing his breakfast
[2021-09-27] MEDS: METOPROLOL SUCCINATE EXT REL 100 MG TABCR PO (09:03)
[2021-09-27] MEDS: IRON SUCROSE COMPLEX 100 MG in SODIUM CHLORIDE 0.9% IV 50 ML 220 MG IVPB (09:03)
[2021-09-27] MEDS: metFORMIN HCL XR 500 MG TAB.SR.24H PO ×2 (09:03→16:26)
[2021-09-27] MEDS: ATORVASTATIN 40 MG TABLET PO (09:04)
[2021-09-27] MEDS: ENOXAPARIN 40 MG/0.4 ML SYRINGE SUB-Q (09:04)
[2021-09-27] MEDS: ASPIRIN 81 MG ENTERIC TABLET PO (09:04)
--- NOTE | 2021-09-27 09:31 | PM.PNCARD ---
Progress Note: A&P Assessment and Plan (1) Acute exacerbation of CHF (congestive heart failure): Qualifiers: Heart failure type: unspecified Qualified Code(s): I50.9 - Heart failure, unspecified Code(s): I50.9 - Heart failure, unspecified Status: Acute Assessment and Plan: Presents with shortness of breath, swelling, orthopnea. Pleural effusions and pulmonary edema on chest Xray consistent with mild CHF exacerbation. Has been diuresed with some symptomatic improvement. I increased furosemide to 40 mg IV q.8 hours yesterday. This should continue. Will order CXR for tomorrow Monitor renal function and electrolytes with daily BMP Discontinue Rampiril, with plans to start Entresto after 36 hour TEJAL washout period Further optimization of medical regimen to be made when results of echo are available. Daily weights Will have naturalist education counselor him regarding low Na diet He has SISI hose in place (2) Atherosclerotic heart disease of [place] coronary artery with other forms of angina pectoris: Code(s): I25.118 - Atherosclerotic heart disease of [place] coronary artery with other forms of angina pectoris Status: Acute Assessment and Plan: STEMI and PCI in 2013. No angina. This is stable. Continue ASA, statin (3) Obstructive sleep apnea: Code(s): G47.33 - Obstructive sleep apnea (adult) (pediatric) Status: Acute Assessment and Plan: Apnea link was abnormal. Evidence of at least mild sleep apnea. Recommend outpatient sleep study Subjective Date/time seen: 09/27/21 09:31 Interval history: 76yo male with CAD, CHF, DM c/b neuropathy, CKD and PAD who presents with 1 week h/o SOB. Date of service 09/27/2021: Is a little better today. Continue to diurese. No chest pain. No dyspnea Review of Systems Constitutional: Constitutional: Denies excessive sweating, Denies fatigue, Denies headache(s), Denies lethargy and Denies weakness Eyes: Eyes: Denies change in vision ENT: Reports Normal hearing present, Denies headache(s), Denies lip swelling, Denies nasal congestion, Denies nasal discharge, Denies neck pain and Denies tinnitus Cardiovascular: Cardiovascular: Denies chest pain, Denies diaphoresis, Reports pedal edema, Reports leg edema, Denies lightheadedness, Denies palpitations, Reports dyspnea and Reports dyspnea on exertion Respiratory: Respiratory: Denies cough, Denies hemoptysis, Reports dyspnea, Reports dyspnea on exertion and Denies wheezing Gastrointestinal: Gastrointestinal: Denies constipation and Denies diarrhea Genitourinary: Genitourinary: Denies hematuria, Denies dysuria, Denies urinary hesitancy and Denies urinary urgency Musculoskeletal: Musculoskeletal: Denies abnormal gait, Denies back pain, Denies neck pain, Denies numbness and Reports tingling Integumentary/Breasts: Skin/Breast: Denies pruritus, Denies rash and Denies skin pain Neurologic: Reports Normal hearing present, Denies Abnormal speech present, Denies abnormal gait, Denies headache(s), Denies numbness, Reports tingling and Denies weakness Psychiatric: Psychiatric: Denies anxiety and Denies depression Endocrine: Endocrine: Denies cold intolerance, Denies excessive sweating, Denies fatigue, Denies heat intolerance and Denies palpitations Hematologic/Lymphatic: Hematologic/Lymphatic: Denies easy bleeding and Denies easy bruising Allergic/Immunologic: Allergic/Immunologic: Denies GI upset with certain foods, Denies lip swelling and Denies wheezing Exam Narrative: Obese male sitting in the chair. Appears stated age. Const: General: comfortable and no acute distress HENMT: Head: normal to inspection Ears: hearing grossly normal bilaterally Face and sinus: normal facial exam Mouth: Yes moist mucous membranes Eyes: General: appearance normal, both eyes and all related structures Pupils: Equal, round and reactive pupils present Neck: Neck: supple and no JVD Resp: Effort
[2021-09-27 11:18] LABS: Glucose Point of Care 201 mg/dl (65-105)
[2021-09-27] MEDS: INSULIN ASPART (*BKC) 100 UNITS/ML SUB-Q (11:31)
--- NOTE | 2021-09-27 12:31 | PCNSR ---
On 09/27/21, the student, Martha Millard, provided care and completed [facility] documentation on this patient. I have reviewed the student's documentation and agree with the findings.
[2021-09-27 13:10] LABS: IFOB Positive Control Positive; Immunochemical Fecal Occult Bl Negative (N)
[2021-09-27 16:21] LABS: Glucose Point of Care 146 mg/dl (65-105)
[2021-09-27 20:17] LABS: Glucose Point of Care 147 mg/dl (65-105)
[2021-09-27] MEDS: GABAPENTIN 300 MG CAPSULE PO (21:33)
[2021-09-27] MEDS: INSULIN GLARGINE (*BKC) 100 UNITS/ML 39 UNITS SUB-Q (21:34)
[2021-09-28] VITALS (8 sets, daily range): BP systolic 141–156; BP diastolic 61–78; PULSE 61–91; RESP 19–20; TEMP 35.9–36.6; O2SAT 94–100
[2021-09-28] MEDS: FUROSEMIDE INJ 40 MG/4 ML VIAL IV PUSH ×2 (06:09→20:59)
[2021-09-28 06:15] LABS: Hemoglobin 10.2 g/dL (14.0-18.0); Mean Corpuscular Hemoglobin 25.4 pg (26-34); Mean Corpuscular Volume 84.8 fl (80-100); Mean Platelet Volume 9.9 fl (7.4-10.4); Platelet Count Result 198 k/mm3 (150-375); Red Blood Count 4.01 M/mm3 (4.6-6.20); Red Cell Distribution Width 14.9 % (11.5-14.5); White Blood Count 7.2 K/mm3 (4.5-10.0)
[2021-09-28 06:30] LABS: Anion Gap 7 mmol/L (8-16); Blood Urea Nitrogen 27 mg/dL (9-20); Calcium 8.6 mg/dL (8.4-10.2); Carbon Dioxide 32 mmol/L (22-30); Chloride 96 mmol/L (98-107); Estimated CRCL calculation 52 ml/min; Estimated Glomerular Filt Rate 49; Glucose 111 mg/dL (65-110); Magnesium 1.9 mg/dL (1.6-2.3); Potassium 3.9 mmol/L (3.4-5.0); Sodium 135 mmol/L (137-145)
[2021-09-28 07:26] LABS: Folic Acid 10.7 ng/mL (2.76->20)
[2021-09-28 07:48] LABS: Glucose Point of Care 105 mg/dl (65-105)
[2021-09-28] MEDS: IRON SUCROSE COMPLEX 100 MG in SODIUM CHLORIDE 0.9% IV 50 ML 220 MG IVPB (08:53)
[2021-09-28] MEDS: metFORMIN HCL XR 500 MG TAB.SR.24H PO ×2 (08:54→16:28)
[2021-09-28] MEDS: ASPIRIN 81 MG ENTERIC TABLET PO (08:54)
[2021-09-28] MEDS: METOPROLOL SUCCINATE EXT REL 100 MG TABCR PO (08:54)
[2021-09-28] MEDS: ATORVASTATIN 40 MG TABLET PO (08:54)
[2021-09-28] MEDS: ENOXAPARIN 40 MG/0.4 ML SYRINGE SUB-Q (08:54)
--- NOTE | 2021-09-28 09:24 | PCOTNOTE ---
Attempted to see patient this am, however patient refused stating, I just got back into bed. Maybe later.
--- NOTE | 2021-09-28 09:31 | PM.PNCARD ---
Progress Note: A&P Assessment and Plan (1) Acute exacerbation of CHF (congestive heart failure): Qualifiers: Heart failure type: unspecified Qualified Code(s): I50.9 - Heart failure, unspecified Code(s): I50.9 - Heart failure, unspecified Status: Acute Assessment and Plan: Presents with shortness of breath, swelling, orthopnea. Pleural effusions and pulmonary edema on chest Xray consistent with mild CHF exacerbation. Has been diuresed with some symptomatic improvement. continue furosemide to 40 mg IV q.12 hours yesterday. Monitor renal function and electrolytes with daily BMP Discontinue Rampiril, with plans to start Entresto after 36 hour TEJAL washout period. Will start Entresto once renal function improves Further optimization of medical regimen to be made when results of echo are available. Daily weights Will have diamond powder mixer counseling services director him regarding low Na diet He has SISI hose in place (2) Atherosclerotic heart disease of [place] coronary artery with other forms of angina pectoris: Code(s): I25.118 - Atherosclerotic heart disease of [place] coronary artery with other forms of angina pectoris Status: Acute Assessment and Plan: STEMI and PCI in 2013. No angina. This is stable. Continue ASA, statin (3) Obstructive sleep apnea: Code(s): G47.33 - Obstructive sleep apnea (adult) (pediatric) Status: Acute Assessment and Plan: Apnea link was abnormal. Evidence of at least mild sleep apnea. Recommend outpatient sleep study Subjective Date/time seen: 09/28/21 09:31 Interval history: 76yo male with CAD, CHF, DM c/b neuropathy, CKD and PAD who presents with 1 week h/o SOB. Date of service 09/28/2021: Continue to diurese. No chest pain. No dyspnea Review of Systems Constitutional: Constitutional: Denies excessive sweating, Denies fatigue, Denies headache(s), Denies lethargy and Denies weakness Eyes: Eyes: Denies change in vision ENT: Reports Normal hearing present, Denies headache(s), Denies lip swelling, Denies nasal congestion, Denies nasal discharge, Denies neck pain and Denies tinnitus Cardiovascular: Cardiovascular: Denies chest pain, Denies diaphoresis, Reports pedal edema, Reports leg edema, Denies lightheadedness, Denies palpitations, Reports dyspnea and Reports dyspnea on exertion Respiratory: Respiratory: Denies cough, Denies hemoptysis, Reports dyspnea, Reports dyspnea on exertion and Denies wheezing Gastrointestinal: Gastrointestinal: Denies constipation and Denies diarrhea Genitourinary: Genitourinary: Denies hematuria, Denies dysuria, Denies urinary hesitancy and Denies urinary urgency Musculoskeletal: Musculoskeletal: Denies abnormal gait, Denies back pain, Denies neck pain, Denies numbness and Reports tingling Integumentary/Breasts: Skin/Breast: Denies pruritus, Denies rash and Denies skin pain Neurologic: Reports Normal hearing present, Denies Abnormal speech present, Denies abnormal gait, Denies headache(s), Denies numbness, Reports tingling and Denies weakness Psychiatric: Psychiatric: Denies anxiety and Denies depression Endocrine: Endocrine: Denies cold intolerance, Denies excessive sweating, Denies fatigue, Denies heat intolerance and Denies palpitations Hematologic/Lymphatic: Hematologic/Lymphatic: Denies easy bleeding and Denies easy bruising Allergic/Immunologic: Allergic/Immunologic: Denies GI upset with certain foods, Denies lip swelling and Denies wheezing Exam Narrative: Obese male sitting in the chair. Appears stated age. Const: General: comfortable and no acute distress HENMT: Head: normal to inspection Ears: hearing grossly normal bilaterally Face and sinus: normal facial exam Mouth: Yes moist mucous membranes Eyes: General: appearance normal, both eyes and all related structures Pupils: Equal, round and reactive pupils present Neck: Neck: supple and no JVD Resp: Effort & Inspection: normal re
[2021-09-28 12:01] LABS: Glucose Point of Care 117 mg/dl (65-105)
--- NOTE | 2021-09-28 13:29 | PM.IMPN ---
Progress Note: A&P Assessment and Plan (1) Heart failure, unspecified: Code(s): I50.9 - Heart failure, unspecified Status: Acute Assessment and Plan: Patient presents with SOB and pedal edema. BNP 796. Trop negative x3. CXR showing mild pulmonary edema. Echo shows normal LV systolic and diastolic function. EF 60-65%. No significant valve disease and mild pulmonary HTN. Norvasc and Gabapentin can cause pedal edema and he just started the Gabapentin. Lasix IV started with excellent UOP (2800mL yesterday). Medications being adjusted by Cardiology. [place] patient with acute on chronic right sided CHF. His ApneaLink obtained on room air showed AHI 6.3 and RI 6.9 with only 4 apnea spells but spent 161 minutes with SpO2<88%. Apnea link on 3L showing improvement in the hypoxia. Continue to hold Norvasc. Will arrange for nocturnal O2 at home. Add Chau hose (2) Iron deficiency anemia: Code(s): D50.9 - Iron deficiency anemia, unspecified Status: Acute Assessment and Plan: Hgb close to normal at baseline but was 10.4 on admission and dropped to 10 range. Hgb stable. No evidence of acute blood loss. Iron studies showing iron deficiency and B12 defciency. Fluid overload could give a falsely lower Hgb as well. Oral iron on his med list. Continue IV iron while here. Stool guaiac ordered. (3) B12 deficiency anemia: Code(s): D51.9 - Vitamin B12 deficiency anemia, unspecified Status: Acute Assessment and Plan: B12 level 193. Add cyanocobalamin IM weekly x 4 weeks and also oral regiment. (4) Diabetic neuropathy: Code(s): E11.40 - Type 2 diabetes mellitus with diabetic neuropathy, unspecified Status: Acute Assessment and Plan: As above. Gabapentin seeming to help him but can worsen pedal edema. LE venous dopplers negative for DVT. Lyrica also causes pedal edema so continue Gabapentin for now. (5) Atherosclerotic heart disease of [place] coronary artery with other forms of angina pectoris: Code(s): I25.118 - Atherosclerotic heart disease of [place] coronary artery with other forms of angina pectoris Status: Acute Assessment and Plan: Patient with hx of CAD. Continue ASA, Toprol and statin. (6) Chronic kidney disease, stage III (moderate): Code(s): N18.30 - Chronic kidney disease, stage 3 unspecified Status: Acute Assessment and Plan: Baseline Cr 1.2-1.4 but better on admission at 1.1. Related to fluid overload? Creatinine back up to 1.4 but more likely this is more his baseline since closer to his dry weight. Continue to monitor while on diuretic therapy. (7) Essential (primary) hypertension: Code(s): I10 - Essential (primary) hypertension Status: Acute Assessment and Plan: BP reasonably well controlled. Continue Toprol. Will continue to hold amlodipine. Ramipril on hold to wash out so may start Entresto per Cards note. (8) Mixed hyperlipidemia: Code(s): E78.2 - Mixed hyperlipidemia Status: Acute Assessment and Plan: LFTs okay. Continue Lipitor (9) Type 2 diabetes mellitus with hyperglycemia: Code(s): E11.65 - Type 2 diabetes mellitus with hyperglycemia Status: Acute Assessment and Plan: A1c 7.5. Lantus 39 U qhs resumed. Glucose well controlled this morning. Continue AccuCheks covering with sliding scale. Hypoglycemia protocol available as needed. Continue current medications. (10) Peripheral artery disease: Code(s): I73.9 - Peripheral vascular disease, unspecified Status: Inactive Assessment and Plan: Patient reports he was taken off cilostazol, but he restarted this because of pain in his legs. Patient was advised that this is not a good medication for him to take in setting of CHF and advised him to discontinue. (11) DVT prophylaxis: Code(s): Z29.9 - Encounter for prophylactic measures, unspecified Status: Acute Ass
[2021-09-28] MEDS: CYANOCOBALAMIN INJ 1,000 MCG/ML VIAL 1000 MCG IM (14:58)
[2021-09-28 16:32] LABS: Glucose Point of Care 157 mg/dl (65-105)
[2021-09-28] MEDS: INSULIN GLARGINE (*BKC) 100 UNITS/ML 39 UNITS SUB-Q (20:59)
[2021-09-28] MEDS: GABAPENTIN 300 MG CAPSULE PO (20:59)
[2021-09-28 23:01] LABS: Glucose Point of Care 119 mg/dl (65-105)
[2021-09-29 04:28] VITALS: BP 129/58; PULSE 69; RESP 20; TEMP 35.9; O2SAT 94
[2021-09-29 05:46] LABS: Hematocrit 34.6 % (42.0-52.0); Hemoglobin 10.4 g/dL (14.0-18.0); Mean Corpuscular HGB Conc 30.1 g/dl (32-36); Mean Corpuscular Hemoglobin 25.5 pg (26-34); Mean Corpuscular Volume 84.8 fl (80-100); Mean Platelet Volume 9.4 fl (7.4-10.4); Platelet Count Result 194 k/mm3 (150-375); Red Blood Count 4.08 M/mm3 (4.6-6.20); Red Cell Distribution Width 14.7 % (11.5-14.5); White Blood Count 7.1 K/mm3 (4.5-10.0)
[2021-09-29 05:59] LABS: Anion Gap 5 mmol/L (8-16); Blood Urea Nitrogen 30 mg/dL (9-20); Calcium 8.8 mg/dL (8.4-10.2); Carbon Dioxide 35 mmol/L (22-30); Chloride 97 mmol/L (98-107); Estimated CRCL calculation 55 ml/min; Estimated Glomerular Filt Rate 54; Glucose 96 mg/dL (65-110); Potassium 4.2 mmol/L (3.4-5.0); Sodium 137 mmol/L (137-145)
--- NOTE | 2021-09-29 08:43 | PM.PNCARD ---
Progress Note: A&P Assessment and Plan (1) Acute exacerbation of CHF (congestive heart failure): Qualifiers: Heart failure type: unspecified Qualified Code(s): I50.9 - Heart failure, unspecified Code(s): I50.9 - Heart failure, unspecified Status: Acute Assessment and Plan: Presents with shortness of breath, swelling, orthopnea. Pleural effusions and pulmonary edema on chest Xray consistent with mild CHF exacerbation. Has been diuresed with symptomatic improvement. Transition furosemide to 40mg p.o. b.i.d. Restart ramipril - no need for Entresto his systolic and diastolic function are normal BMP in 2 weeks as outpatient Follow up in our office in 2-3 weeks Low sodium diet (2) Atherosclerotic heart disease of [place] coronary artery with other forms of angina pectoris: Code(s): I25.118 - Atherosclerotic heart disease of [place] coronary artery with other forms of angina pectoris Status: Acute Assessment and Plan: STEMI and PCI in 2013. No angina. This is stable. Continue ASA, statin (3) Obstructive sleep apnea: Code(s): G47.33 - Obstructive sleep apnea (adult) (pediatric) Status: Acute Assessment and Plan: Apnea link was abnormal. Evidence of at least mild sleep apnea. Recommend outpatient sleep study Subjective Date/time seen: 09/29/21 08:43 Interval history: 76yo male with CAD, CHF, DM c/b neuropathy, CKD and PAD who presents with 1 week h/o SOB. Date of service 09/28/2021: Continue to diurese. No chest pain. No dyspnea Date of service 09/29/2021: Feels better today. Denies shortness of breath, no chest pain. Swelling continues to improve. Review of Systems Constitutional: Constitutional: Denies excessive sweating, Denies fatigue, Denies headache(s), Denies lethargy and Denies weakness Eyes: Eyes: Denies change in vision ENT: Reports Normal hearing present, Denies headache(s), Denies lip swelling, Denies nasal congestion, Denies nasal discharge, Denies neck pain and Denies tinnitus Cardiovascular: Cardiovascular: Denies chest pain, Denies diaphoresis, Reports pedal edema, Reports leg edema, Denies lightheadedness, Denies palpitations, Reports dyspnea and Reports dyspnea on exertion Respiratory: Respiratory: Denies cough, Denies hemoptysis, Reports dyspnea, Reports dyspnea on exertion and Denies wheezing Gastrointestinal: Gastrointestinal: Denies constipation and Denies diarrhea Genitourinary: Genitourinary: Denies hematuria, Denies dysuria, Denies urinary hesitancy and Denies urinary urgency Musculoskeletal: Musculoskeletal: Denies abnormal gait, Denies back pain, Denies neck pain, Denies numbness and Reports tingling Integumentary/Breasts: Skin/Breast: Denies pruritus, Denies rash and Denies skin pain Neurologic: Reports Normal hearing present, Denies Abnormal speech present, Denies abnormal gait, Denies headache(s), Denies numbness, Reports tingling and Denies weakness Psychiatric: Psychiatric: Denies anxiety and Denies depression Endocrine: Endocrine: Denies cold intolerance, Denies excessive sweating, Denies fatigue, Denies heat intolerance and Denies palpitations Hematologic/Lymphatic: Hematologic/Lymphatic: Denies easy bleeding and Denies easy bruising Allergic/Immunologic: Allergic/Immunologic: Denies GI upset with certain foods, Denies lip swelling and Denies wheezing Exam Narrative: Obese male sitting in the chair. Appears stated age. Const: General: comfortable and no acute distress HENMT: Head: normal to inspection Ears: hearing grossly normal bilaterally Face and sinus: normal facial exam Mouth: Yes moist mucous membranes Eyes: General: appearance normal, both eyes and all related structures Pupils: Equal, round and reactive pupils present Neck: Neck: supple and no JVD Resp: Effort & Inspection: normal respiratory effort Cardio: Rate: regular rate Rhythm: regular rhythm Heart sounds: no murmurs GI:
[2021-09-29 08:59] VITALS: PULSE 69
[2021-09-29] MEDS: ATORVASTATIN 40 MG TABLET PO (08:59)
[2021-09-29] MEDS: METOPROLOL SUCCINATE EXT REL 100 MG TABCR PO (08:59)
[2021-09-29] MEDS: ASPIRIN 81 MG ENTERIC TABLET PO (08:59)
[2021-09-29] MEDS: CYANOCOBALAMIN 1,000 MCG TABLET 1000 MCG PO (08:59)
[2021-09-29] MEDS: metFORMIN HCL XR 500 MG TAB.SR.24H PO ×2 (08:59→16:50)
[2021-09-29] MEDS: IRON SUCROSE COMPLEX 100 MG in SODIUM CHLORIDE 0.9% IV 50 ML 220 MG IVPB (09:03)
[2021-09-29] MEDS: FUROSEMIDE INJ 40 MG/4 ML VIAL IV PUSH (09:05)
[2021-09-29] MEDS: ENOXAPARIN 40 MG/0.4 ML SYRINGE SUB-Q (09:05)
[2021-09-29 09:52] LABS: Glucose Point of Care 172 mg/dl (65-105)
[2021-09-29 11:59] LABS: Glucose Point of Care 130 mg/dl (65-105)
[2021-09-29] MEDS: ACETAMINOPHEN 325 MG TABLET 650 MG PO (13:06)
[2021-09-29 14:00] VITALS: BP 130/58; PULSE 71; RESP 18; TEMP 36.9; O2SAT 94
--- NOTE | 2021-09-29 16:15 | PM.DS ---
DS: Admitting Diagnosis Discharge Date 09/29/21 Admitting Diagnosis Shortness of breath DS: Discharge Diagnosis Discharge Diagnosis (1) Heart failure, unspecified: Code(s): I50.9 - Heart failure, unspecified Status: Acute Assessment and Plan: Patient presents with SOB and pedal edema. BNP 796. Trop negative x3. CXR showing mild pulmonary edema. Echo shows normal LV systolic and diastolic function. EF 60-65%. No significant valve disease and mild pulmonary HTN. Norvasc and Gabapentin can cause pedal edema and he just started the Gabapentin. Lasix IV started with excellent UOP. [place] patient with acute on chronic right sided CHF. His ApneaLink obtained on room air showed AHI 6.3 and RI 6.9 with only 4 apnea spells but spent 161 minutes with SpO2<88%. Apnea link on 3L at night showing improvement in the hypoxia. Will arrange for nocturnal O2 at home. Encourage Chau hose use. (2) Iron deficiency anemia: Code(s): D50.9 - Iron deficiency anemia, unspecified Status: Acute Assessment and Plan: Baseline Hgb close to normal but was 10.4 on admission and remained stable. No evidence of acute blood loss. Iron studies showing iron deficiency and B12 deficiency. Fluid overload could give a falsely lower Hgb as well. Oral iron on his med list. Continue IV iron while here. Stool guaiac was negative. (3) B12 deficiency anemia: Code(s): D51.9 - Vitamin B12 deficiency anemia, unspecified Status: Acute Assessment and Plan: B12 level 193. Cyanocobalamin IM weekly x 4 weeks and also oral regiment. (4) Diabetic neuropathy: Code(s): E11.40 - Type 2 diabetes mellitus with diabetic neuropathy, unspecified Status: Acute Assessment and Plan: As above. Gabapentin seeming to help him but this can worsen pedal edema. LE venous dopplers negative for DVT. Lyrica also causes pedal edema so continue Gabapentin for now. (5) Atherosclerotic heart disease of [place] coronary artery with other forms of angina pectoris: Code(s): I25.118 - Atherosclerotic heart disease of [place] coronary artery with other forms of angina pectoris Status: Acute Assessment and Plan: Patient with hx of CAD. We continued ASA, Toprol and statin. (6) Chronic kidney disease, stage III (moderate): Code(s): N18.30 - Chronic kidney disease, stage 3 unspecified Status: Acute Assessment and Plan: Baseline Cr 1.2-1.4 but better on admission at 1.1. Related to fluid overload? Creatinine back up to 1.4 but more likely this is more his baseline since closer to his dry weight. Cr 1.3 at discharge. (7) Essential (primary) hypertension: Code(s): I10 - Essential (primary) hypertension Status: Acute Assessment and Plan: BP reasonably well controlled. We continued Toprol. We held amlodipine. Ramipril was on hold as we considered Entresto but Echo okay so Rampril resumed at discharge. (8) Mixed hyperlipidemia: Code(s): E78.2 - Mixed hyperlipidemia Status: Acute Assessment and Plan: LFTs were okay. We continued Lipitor (9) Type 2 diabetes mellitus with hyperglycemia: Code(s): E11.65 - Type 2 diabetes mellitus with hyperglycemia Status: Acute Assessment and Plan: A1c 7.5. Lantus resumed. Glucose monitored closely with AccuCheks covering with sliding scale. Hypoglycemia protocol was available as needed. (10) Peripheral artery disease: Code(s): I73.9 - Peripheral vascular disease, unspecified Status: Inactive Assessment and Plan: Patient reports he was taken off cilostazol, but he restarted this because of pain in his legs. Patient was advised that this is not a good medication for him to take in setting of CHF and advised him to discontinue. DS: Summary Hospital Course Reason for hospitalization: 76yo male with CAD, CHF, DM c/b neuropathy, CKD and PAD who presents with 1 week h/o
[2021-09-29 16:36] LABS: Glucose Point of Care 176 mg/dl (65-105)
--- NOTE | 2021-10-01 11:20 | PCRCNOTE ---
SET PT. UP WITH NOCTURNAL O2 (3LPM) WITH [facility]. CALLED EXCHANGED AND REQUESTED O2 BE SETUP GRACE.
== END 2021-09-29 18:25 | disposition home or self-care (01) | DRG 292 ==
LOC: ANHED 18:17 → ANH2MED 20:40
PROVIDERS: Emergency Medicine; Admitting Provider Internal Medicine; Emergency Provider Nurse Practitioner Family; PCP Family Medicine; Visit Provider Internal Medicine
DX: I13.0 Hypertensive heart and chronic kidney disease with heart failure and stage 1 through stage 4 chronic kidney disease, or unspecified chronic kidney disease (principal); Z68.41 Body mass index [BMI] 40.0-44.9, adult; I50.813 Acute on chronic right heart failure; N18.30 Chronic kidney disease, stage 3 unspecified; D50.9 Iron deficiency anemia, unspecified; D51.9 Vitamin B12 deficiency anemia, unspecified; E11.42 Type 2 diabetes mellitus with diabetic polyneuropathy; I25.10 Atherosclerotic heart disease of native coronary artery without angina pectoris; E11.65 Type 2 diabetes mellitus with hyperglycemia; E11.22 Type 2 diabetes mellitus with diabetic chronic kidney disease; N18.9 Chronic kidney disease, unspecified; I73.9 Peripheral vascular disease, unspecified; E78.2 Mixed hyperlipidemia; G47.33 Obstructive sleep apnea (adult) (pediatric); E66.01 Morbid (severe) obesity due to excess calories; Z79.82 Long term (current) use of aspirin; I25.2 Old myocardial infarction; Z87.891 Personal history of nicotine dependence
CPT/HCPCS: 36415; 51702; 71046; 80048; 80053; 82274; 82607; 82728; 82746; 82948; 83036; 83540; 83550; 83735; 83880; 84100; 84484; 85025; 85027; 85610; 85730; 93005; 93970; 94762; 96365; 96372; 96374; 96375; 96376; 97161; 97165; 97535; 99285; A9270; C8929; G0378; J1650; J1756; J1815; J1940; J3420; Q9957

== ENCOUNTER 2021-12-10 01:08 | Inpatient (IN) | payer MEDICARE, SELFPAY ==
[2021-12-10] VITALS (39 sets, daily range): BP systolic 115–178; BP diastolic 54–86; PULSE 49–107; RESP 12–25; TEMP 35.9–36.6; O2SAT 95–100; BMI 42.7
--- NOTE | ~2021-12-10 | XR_ITS ---
XR chest 1V portable DATE: 12/10/2021 01:54 INDICATION: Shortness of breath TECHNIQUE: Portable upright AP chest on 12/10/2021 at 0150 hours COMPARISON: 09/25/2021 PA and lateral chest FINDINGS: Cardiomegaly. Aortic arch calcification and minimal aortic tortuosity. Pulmonary vascular c ongestion and redistribution. Mild prominence of the minor fissure consistent with subpleural edema. Mild predominantly central and lower lung zone infiltrates are likely due to pulmonary edema. No blunting of the right costophrenic angle suggests small right pleural effusion. No pneumothorax. Diffuse osteopenia. IMPRESSION: Congestive heart failure, stable or minimally increased since 09/25/2021 Reviewed, dictated and finalized at location A. IMPRESSION: Congestive heart failure, stable or minimally increased since 022
--- NOTE | ~2021-12-10 | XR_ITS ---
EXAMINATION: XR chest 2V Exam Date/Time: 12/11/2021 13:53 CDT HISTORY: shortness of breath Comparison: 12/10/2021. RESULT: Lines, tubes, and devices: None. Lungs and pleura: Improving mid and lower lung opacities. Decreased vascular congestion. Cardiomediastinal silhouette: Stable cardiomediastinal silhouette. Other: No acute osseous or upper abdominal finding. IMPRESSION: Improving pulmonary edema. Reviewed, dictated and finalized at location K. IMPRESSION: Improving pulmonary edema.
--- NOTE | 2021-12-10 01:19 | ECG_ITS ---
Measurements Intervals [place] Rate: 108 P: GA: 0 QRS: 10 QRSD: 101 T: 70 QT: 352 QTc: 473 Interpretive Statements ATRIAL FIBRILLATION WITH RAPID VENTRICULAR RESPONSE VENTRICULAR PREMATURE COMPLEX BORDERLINE R WAVE PROGRESSION, ANTERIOR LEADS BORDERLINE ST-T WAVE ABNORMALITY- INF/HIGH LAT LEADS BASELINE WANDER- I, II, III, AVR, AVL, AVF, V1, V3-V6 ABNORMAL ECG Electronically Signed On 12-10-2021 9:40:28 CDT by Khoi Maldonado D.O.
[2021-12-10] MEDS: IPRATROPIUM BR 0.02% INH SOLN 0.5 MG/2.5 ML VIAL INHALATION ×4 (01:25→20:20)
[2021-12-10] MEDS: ALBUTEROL SULFATE NEB 2.5 MG/3 ML INH 5 MG INHALATION ×3 (01:25→14:33)
--- NOTE | 2021-12-10 01:30 | ED.GENADULT ---
HPI - General Adult General Chief complaint: Shortness of Breath/Dyspnea Stated complaint: sob Time Seen by Provider: 12/10/21 01:16 History of Present Illness HPI narrative: Patient is a 76-year-old gentleman who presents the emergency department with chief complaint of shortness of breath. Patient reports that he has history of congestive heart failure and noticed that he started having increased work of breathing. EMS was called today to the house they found him to be hypoxic and tachypneic they started him on CPAP of which she had significant improvement in his oxygenation status. Patient states that he may have missed 1 doses of his Lasix and reports that he has some mild trace lower extremity edema. Patient denies fever or chills Related Data Home Medications Medication Instructions Recorded Confirmed amlodipine 10 mg tablet 10 mg PO DAILY 06/18/19 11/21/21 atorvastatin 40 mg tablet 40 mg PO DAILY 06/18/19 11/21/21 aspirin 81 mg tablet,delayed 81 mg PO DAILY 03/04/20 11/21/21 release (Adult Aspirin Regimen) glimepiride 2 mg tablet 4 mg PO BID 03/04/20 11/21/21 insulin degludec 200 unit/mL (3 30 unit subcut DAILY 06/16/20 11/21/21 mL) subcutaneous pen (Tresiba FlexTouch U-200 insulin) dulaglutide 4.5 mg/0.5 mL 4.5 mg subcut WEEKLY 10/05/21 11/21/21 subcutaneous pen injector (Trulicity) dapagliflozin 5 mg tablet (Farxiga) 5 mg PO DAILY 11/21/21 11/21/21 furosemide 40 mg tablet 40 mg PO BID 11/21/21 11/21/21 Allergies Allergy/AdvReac Type Severity Reaction Status Date / Time No Known Allergies Allergy Verified 11/21/21 13:42 Review of Systems Review of Systems: A 10 system review of systems was completed on the patient and is negative except for what is stated in the HPI. Nursing and ancillary documentation was reviewed. [facility] Past Medical History Medical History Hepatitis C antibody test negative (09/10/17) Myocardial infarction Peripheral artery disease Surgical History Surgical History H/O cardiac catheterization H/O colonoscopy History of esophagogastroduodenoscopy (EGD) Family History Family History Grandparent Diabetes mellitus Mother Diabetes mellitus Hypertension Family history of cardiovascular disease Other No family history of cardiovascular disease Social History Social History Smoking packs per day: 2 Smoking cigarettes per day: 40.0 Years smoked: 40 Smoking pack-years: 80.00 Smoking status: Former smoker Tobacco type: cigarettes Second hand tobacco smoke exposure: No Alcohol intake: current Drinks per week: 2 Substance use: never Substance use type: does not use Gender identity (if verbalized by the patient): Male Spiritual care concerns: No Agree to blood products: Yes Exam Narrative: GENERAL: Well-appearing, well-nourished, and in moderate acute respiratory distress. HEAD: Normocephalic, atraumatic. EYES: PERRLA and EOMI. ENT: Nares clear, no rhinorrhea or epistaxis. Mucous membranes moist. NECK: Supple. CHEST: Diminished breath sounds to auscultation. Moderate respiratory distress. Tachypnea HEART: Regular rate and rhythm. No murmur heard. Normal peripheral pulses. ABDOMEN: Soft, nontender, nondistended, normal active bowel sounds. EXTREMITIES: Normal range of motion. No edema. SKIN: Warm, dry, no rash. NEURO: No focal deficits. Alert and oriented x3. PSYCH: Normal mood and affect. Course Vital Signs Vital signs: Vital Signs Pulse Rate 97 12/10/21 01:13 Respiratory Rate 25 H 12/10/21 01:13 Pulse Oximetry 96 12/10/21 01:13 Pulse Rate 87 12/10/21 02:31 Respiratory Rate 18 12/10/21 02:31 Blood Pressure 116/62 12/10/21 02:31 Pulse Oximetry 97
[2021-12-10] MEDS: FUROSEMIDE INJ 40 MG/4 ML VIAL IV PUSH ×3 (01:34→20:30)
[2021-12-10 01:36] LABS: Basophils Percent Auto 0.6 % (0.2-1.2); Eosinophils Absolute Auto 0.4 K/mm3 (0-0.3); Eosinophils Percent Auto 5.3 % (0-4.4); Hematocrit 41.8 % (42.0-52.0); Hemoglobin 11.7 g/dL (14.0-18.0); Immature Granulocyte Absolute 0.04 K/mm3 (0.00-0.031); Immature Granulocyte Percent A 0.6 % (0-0.5); Lymphocytes Absolute Auto 1.74 K/mm3 (0.9-3.2); Lymphocytes Percent Auto 24.3 % (18.3-44.2); Mean Corpuscular Hemoglobin 23.9 pg (26-34); Mean Corpuscular Volume 85.5 fl (80-100); Mean Platelet Volume 11.2 fl (7.4-10.4); Monocytes Absolute Auto 0.8 K/mm3 (0.1-0.6); Monocytes Percent Auto 11.2 % (2.6-8.5); Neutrophils Absolute Auto 4.2 K/mm3 (1.3-6.7); Platelet Count Result 183 k/mm3 (150-375); Red Blood Count 4.89 M/mm3 (4.6-6.20); Red Cell Distribution Width 18.6 % (11.5-14.5); White Blood Count 7.2 K/mm3 (4.5-10.0)
[2021-12-10 01:46] LABS: Alanine Aminotransferase 20 U/L (6-50); Albumin Level 4.1 g/dL (3.5-5.1); Alkaline Phosphatase 87 U/L (38-126); Anion Gap 5 mmol/L (8-16); Aspartate Amino Transferase 24 U/L (17-59); Bilirubin,Total 0.3 mg/dL (0.2-1.3); Blood Urea Nitrogen 20 mg/dL (9-20); Calcium 8.7 mg/dL (8.4-10.2); Carbon Dioxide 33 mmol/L (22-30); Chloride 104 mmol/L (98-107); Estimated CRCL calculation 60 ml/min; Estimated Glomerular Filt Rate 59; Glucose 226 mg/dL (65-110); Lactic Acid Reflex 2.1 mmol/L (0.7-2.0); Magnesium 2.1 mg/dL (1.6-2.3); Potassium 3.9 mmol/L (3.4-5.0); Sodium 142 mmol/L (137-145)
[2021-12-10 01:51] LABS: INR 1.2; Prothrombin Time 14.3 Seconds (11.1-14.7)
[2021-12-10 01:52] LABS: Partial Thromboplastin Time 34.9 SECONDS (22.3-36.8)
[2021-12-10 01:55] LABS: Platelet Estimate Adequate (Adequate); Poikilocytosis 1+ (NORMAL)
[2021-12-10 01:57] LABS: NT Pro B Type Natriuretic Pept 2050 pg/mL (5-100); Troponin I 0.022 ng/mL (0.000-0.034)
[2021-12-10 02:17] LABS: Influenza A QL RT-PCR Negative (Negative); Influenza B QL RT-PCR Negative (Negative); SARS-CoV-2 RNA PCR Negative
--- NOTE | 2021-12-10 02:32 | PM.IMHP ---
H&P: HPI History of Present Illness Date/Time: 12/10/21 02:32 Chief Complaint: Shortness of breath Narrative: This is a 76-year-old male with past medical history significant for morbid obesity, obstructive sleep apnea on 3 L by nasal cannula at nighttime, hypertension, type 2 diabetes mellitus, preceptor ejection fraction congestive heart failure. Patient presents to the emergency room due to shortness of breath he does not asleep in his bed and sleeps in a recliner, has been progressively getting in worsening shortness of breast for the last 3 days or so today he called his daughter when he was in respiratory distress when daughter arrived called EMS patient was brought to the emergency room where he was placed on BiPAP. Patient had a recent hospitalization in September 25 [facility] where he was treated for heart failure. Patient has noticed bilateral lower extremity edema as well denies any cough or sputum production or fevers rigors chills no nausea no vomiting no abdominal pain no diarrhea no palpitations no chest pain no syncope or near syncope. Preliminary workup was significant for brain natriuretic peptide of 2050, chest x-ray with pulmonary edema. Patient was placed on BiPAP and somehow history was limited by these daughter who was at bedside aided in history taking. Patient is been admitted for further evaluation management and treatment. Review of Systems Review of Systems: ROS unobtainable: Yes unobtainable due to medical condition (On BiPAP) PMFSH Past Medical History Medical History Hepatitis C antibody test negative (09/10/17) Myocardial infarction Peripheral artery disease Surgical History Surgical History H/O cardiac catheterization H/O colonoscopy History of esophagogastroduodenoscopy (EGD) Family History Family History Grandparent Diabetes mellitus Mother Diabetes mellitus Hypertension Family history of cardiovascular disease Other No family history of cardiovascular disease Social History Social History Smoking packs per day: 2 Smoking cigarettes per day: 40.0 Years smoked: 40 Smoking pack-years: 80.00 Smoking status: Former smoker Tobacco type: cigarettes Second hand tobacco smoke exposure: No Alcohol intake: current Drinks per week: 2 Substance use: never Substance use type: does not use Gender identity (if verbalized by the patient): Male Spiritual care concerns: No Agree to blood products: Yes Meds Home Medications and Allergies Home Medications Medication Instructions Recorded Confirmed Type amlodipine 10 mg tablet 10 mg PO DAILY 06/18/19 11/21/21 History atorvastatin 40 mg tablet 40 mg PO DAILY 06/18/19 11/21/21 History aspirin 81 mg tablet,delayed 81 mg PO DAILY 03/04/20 11/21/21 History release (Adult Aspirin Regimen) glimepiride 2 mg tablet 4 mg PO BID 03/04/20 11/21/21 History insulin degludec 200 unit/mL (3 30 unit subcut DAILY 06/16/20 11/21/21 History mL) subcutaneous pen (Tresiba FlexTouch U-200 insulin) ramipril 10 mg capsule 10 mg PO DAILY #90 caps 07/13/21 11/21/21 Rx albuterol sulfate 90 mcg/actuation 2 puff inhalation Q4H PRN 07/21/21 11/21/21 Rx aerosol inhaler (ProAir HFA) shortness of breath or wheezing #8.5 grams gabapentin 300 mg capsule 300 mg PO QHS #90 caps 08/25/21 11/21/21 Rx cyanocobalamin (vitamin B-12) 1,000 mcg PO QAM #30 tabs 09/29/21 11/21/21 Rx 1,000 mcg tablet (Vitamin B-12) cyanocobalamin (vitamin B-12) 1,000 mcg IM WEEKLY #3 mL 09/29/21 11/21/21 Rx 1,000 mcg/mL injection solution metformin 500 mg tablet,extended 500 mg PO BIDWM #0 tabs 09/29/21 11/21/21 Rx release 24 hr dulaglutide 4.5 mg/0.5 mL 4.5 mg subcut WEEKLY 10/05/21 11/21/21 History bertrand
--- NOTE | 2021-12-10 04:20 | ADMGEN ---
This patient, Paul Ag, was admitted to IMU Room 207-01 on 12/10/21 at 0419. Patient/family oriented to hospital policies and general routines including ID bracelet, bed and alarms, visiting hours, pain management, procedures, bathroom and other care routines, personal items, smoking policy, room service/diet, and visiting hours. Information on how to activate the Rapid Response Team has been discussed. Patient/Family are encouraged to report perceived risks to care and to ask questions if they do not understand what they are told or what they should do.
[2021-12-10 04:35] LABS: Reflex Lactic Acid Yes or No Add Lactic
[2021-12-10 05:01] LABS: Lactic Acid 2.2 mmol/L (0.7-2.0)
[2021-12-10 05:19] LABS: Troponin I 0.083 ng/mL (0.000-0.034)
[2021-12-10 08:22] LABS: Glucose Point of Care 162 mg/dl (65-105)
[2021-12-10] MEDS: ramipriL 5 MG CAPSULE 10 MG PO (08:50)
[2021-12-10] MEDS: ASPIRIN 81 MG ENTERIC TABLET PO (08:50)
[2021-12-10] MEDS: ATORVASTATIN 40 MG TABLET PO (08:50)
[2021-12-10] MEDS: DOCUSATE SODIUM 100 MG CAPSULE PO (08:51)
[2021-12-10] MEDS: FERROUS SULFATE 324 MG TABLET PO ×2 (08:51→18:30)
[2021-12-10] MEDS: METOPROLOL SUCCINATE EXT REL 100 MG TABCR PO (08:51)
[2021-12-10] MEDS: APIXABAN 5 MG TABLET PO ×2 (08:52→20:30)
--- NOTE | 2021-12-10 09:06 | PM.IMPN ---
Progress Note: A&P Additional Plan Please see full H&P after midnight. Patient seen and examined this morning. It is unclear why troponin was checked in the ED as patient denies chest pain but the 2nd troponin is significantly elevated and repeat continues to rise. Cardiology consulted. Patient is already on anticoagulation with apixaban. Also already on BB, high intensity statin and aspirin. Will monitor. Subjective Date/time seen: 12/10/21 09:06 Patient denies chest pain, lightheadedness. Is requiring oxygen at 4LPM at this time but says he does not normally wear oxygen during the day. Says he feels a little better than when he came to the emergency department. Reports having MD about 20 years ago. Previously smoked 2 packs a day but quit when he had the MD. Had stents placed at the time. Currently denies chest pain. Exam Narrative: GENERAL: NAD, cooperative HEENT: Normocephalic, atraumatic, anicteric NECK:Supple CV: Normal S1, S2, RRR, No MRG RESP: Distant breath sounds - poor air movement EXTREMITIES: Warm and well perfused, no clubbing, cyanosis. SKIN: warm, dry and intact. NEURO: CN 2-12 grossly intact. Objective Data Vital Signs Vital Signs: Vital Signs - 24 hr 12/10/21 01:14 12/10/21 01:25 12/10/21 01:25 Temperature Pulse Rate 107 H 102 H 88 Respiratory Rate 24 H 25 H Blood Pressure 178/83 H Pulse Oximetry 96 Oxygen Delivery CPAP Oxygen Flow Rate 10 12/10/21 01:25 12/10/21 01:40 12/10/21 01:43 Temperature Pulse Rate 80 92 Respiratory Rate 22 H 21 H Blood Pressure Pulse Oximetry 96 96 Oxygen Delivery BiPAP BiPAP Oxygen Flow Rate 12/10/21 01:13 12/10/21 01:15 12/10/21 01:16 Temperature Pulse Rate 97 99 107 H Respiratory Rate 25 H 25 H 25 H Blood Pressure 178/83 H Pulse Oximetry 96 96 96 Oxygen Delivery Oxygen Flow Rate 12/10/21 01:30 12/10/21 01:31 12/10/21 01:32 Temperature Pulse Rate 102 H 91 91 Respiratory Rate 23 H 23 H 22 H Blood Pressure 159/86 H Pulse Oximetry 98 98 99 Oxygen Delivery Oxygen Flow Rate 12/10/21 01:45 12/10/21 01:46 12/10/21 02:00 Temperature Pulse Rate 98 89 87 Respiratory Rate 22 H 21 H 20 Blood Pressure 130/74 Pulse Oximetry 95 95 96 Oxygen Delivery Oxygen Flow Rate 12/10/21 02:01 12/10/21 02:15 12/10/21 02:16 Temperature Pulse Rate 79 91 88 Respiratory Rate 21 H 22 H 19 Blood Pressure 136/76 140/84 Pulse Oximetry 96 97 97 Oxygen Delivery Oxygen Flow Rate 12/10/21 02:30 12/10/21 02:31 12/10/21 04:13 Temperature 97.3 F L Pulse Rate 86 87 85 Respiratory Rate 19 18 15 Blood Pressure 116/62 116/62 Pulse Oximetry 97 97 98 Oxygen Delivery Oxygen Flow Rate 12/10/21 04:15 12/10/21 04:25 12/10/21 04:29 Temperature 97.6 F Pulse Rate 100 100 79 Respiratory Rate 20 20 Blood Pressure 136/63 Pulse Oximetry 100 100 Oxygen Delivery Nasal Cannula Oxygen Flow Rate 4 12/10/21 06:00 12/10/21 08:00 12/10/21 08:51 Temperature 96.7 F L Pulse Rate 77 69 80 Respiratory Rate 12 Blood Pressure 140/68 Pulse Oximetry 100 Oxygen Delivery Oxygen Flow Rate Intake/Output Intake/Output: Intake & Output 12/07/21 12/08/21 12/09/21 12/10/21 23:59 23:59 23:59 23:59 Output Total 100 Balance -100 Meds/Results Medications: Active Medications Generic Name Dose Route Start Last Admin Trade Name Freq PRN Reason Stop Dose Admin Acetaminophen 650 mg 12/10/21 02:39 Acetaminophen 325 Mg Tablet PO Q4H PRN Mild Pain (1-3) or Fever Albuterol 5 mg 12/10/21 08:00 Albuterol Sulfate Neb 2.5 Mg/3 Ml Inh INHALATION Q6HRT [facility] Albuterol 2 puff 12/10/21 05:47 Albuterol Sulfate (*Sp) Aerosol 1 Puff INHALATION Q4H PRN shortness of breath or wheezing Apixaban 5 mg 12/10/21 09:00 12/10/21 08:52 Apixaban 5 Mg Tablet PO 5 mg Q12HR [facility] Administration Aspirin 81 mg
[2021-12-10 09:55] LABS: Troponin I 0.144 ng/mL (0.000-0.034)
[2021-12-10 12:58] LABS: Glucose Point of Care 172 mg/dl (65-105)
--- NOTE | 2021-12-10 14:34 | PM.CNCAR ---
Assessment and Plan Assessment and plan (1) Atrial fibrillation by electrocardiogram: Code(s): I48.91 - Unspecified atrial fibrillation Status: Acute Plan This is a 76-year-old man coming into the hospital because of dyspnea. He is found to a have atrial fibrillation back in the end of September of this year in the office. Since then he has been anticoagulated with apixaban and has been compliant with his regimen. He has underlying coronary artery disease as detailed above. Recent echocardiogram in September of this year when he was in the hospital showed good LV systolic function and he is not reporting any ischemic chest pain. I believe at this point we should make an attempt to restore sinus rhythm since he is in the hospital. I am going to start by transitioning him from metoprolol to sotalol and observing his telemetry. After he takes sotalol for a couple of days if AF persists we can consider DC cardioversion since he has been anticoagulated for about 7 weeks Chace Jimenez MD [facility] History of Present Illness History of Present Illness Consult date/time: 12/10/21 14:34 Reason For Visit: Acute CHF Exacerbation Narrative: This is a 76-year-old man with history of coronary artery disease am seeing at the request of the hospitalist because of an elevated troponin level. He came to the hospital yesterday because of shortness of breath which he says was gradually coming on for about a week or so. Last night when he was in bed he felt more significantly dyspneic and so he became obviously concerned and came to the emergency room for evaluation. In the emergency department his electrocardiogram demonstrated atrial fibrillation with a controlled ventricular response. He was not having any chest pain symptoms for reasons that are not entirely clear to us he had a series of troponin levels done and they were modestly elevated. He is reporting some mild lower extremity edema that is present chronically he thinks it might be a little bit worse than it typically is. He is sitting in a bedside chair all watching television when I came in the room to see him today he does not have any significant complaints. Patient has a known history of coronary artery disease dating back to 2013. He came to the hospital at [place] at that time with acute inferior wall AZ and underwent emergent right coronary intervention involving a PTCA and stenting of the mid right coronary and angioplasty of the RPDA. He did have some left main disease and some significant mid circumflex disease. He was brought back to the hospital in a staged fashion I believe over at [facility] and underwent PCI of the mid circumflex. Apparently the procedure was difficult and challenging his left main was not evaluated at that time and not felt to be flow limiting. Since then he had done relatively well I do not believe he is had any additional coronary interventions. He was in the hospital here at [place] in September of this year with some shortness of breath and volume overload. His echocardiogram at that time demonstrated well-preserved left ventricular systolic function and without any significant valvular disease. He was treated with a higher dose of furosemide in became symptomatic Kristin improved and was discharged. He was in sinus rhythm during that hospitalization. He came to our office for a follow-up in the end of September of this year and was doing relatively well and was found to be in atrial fibrillation for the 1st time on 10/17/2021. Since he was asymptomatic with this he was anticoagulated with apixaban and scheduled for ongoing follow-up with Dr Peoples in our office. He now is admitted with the above symptomatology. His current medical regimen consists of apixaban, low-dose aspirin, a tarp a statin, furosemide, metoprolol, ramipril and his insulin. Review of Systems Constitutional: Constitutional: Reports lethargy Eyes: Eyes: Reports no additional eye complaints ENT: Reports
[2021-12-10 17:01] LABS: Glucose Point of Care 209 mg/dl (65-105)
[2021-12-10 20:17] LABS: Glucose Point of Care 225 mg/dl (65-105)
[2021-12-10] MEDS: GABAPENTIN 300 MG CAPSULE PO (20:30)
[2021-12-10] MEDS: CYANOCOBALAMIN 1,000 MCG TABLET 1000 MCG PO (20:30)
[2021-12-10] MEDS: INSULIN GLARGINE (*BKC) 100 UNITS/ML 36 UNITS SUB-Q (20:30)
[2021-12-10] MEDS: MELATONIN 5 MG TABLET 10 MG PO (23:03)
[2021-12-11] VITALS (20 sets, daily range): BP systolic 111–155; BP diastolic 48–65; PULSE 51–80; RESP 16–22; TEMP 36.1–36.9; O2SAT 97–100
--- NOTE | 2021-12-11 08:05 | PM.IMPN ---
Progress Note: A&P Assessment and Plan (1) Atrial fibrillation by electrocardiogram: Code(s): I48.91 - Unspecified atrial fibrillation Status: Acute Assessment and Plan: Metoprolol changed to sotalol overnight. Will monitor. Appreciate recommendations from Cardiology -Continue apixaban -Continue sotalol (2) Acute exacerbation of CHF (congestive heart failure): Code(s): I50.9 - Heart failure, unspecified Status: Acute Assessment and Plan: CXR with cardiomegaly and mild central and lower lung infiltrated likely due to pulmonary edema. Positive 885 yesterday. Continues to require oxygen but is down to 2LPM. -Fluid restriction 1.5L per day -Repeat CXR -Continue furosemide 40 mg IV BID (3) Obstructive sleep apnea: Code(s): G47.33 - Obstructive sleep apnea (adult) (pediatric) Status: Acute Assessment and Plan: On 3 L by nasal cannula at nighttime. (4) Diabetic neuropathy: Code(s): E11.40 - Type 2 diabetes mellitus with diabetic neuropathy, unspecified Status: Acute Assessment and Plan: -Hold metformin -Continue dulaglutide and dapagliflozin home medication -SSI with POC glucose TIDWM (5) Obesity, Class III, BMI 40-49.9 (morbid obesity): Code(s): E66.01 - Morbid (severe) obesity due to excess calories Status: Acute Assessment and Plan: Lifestyle and diet modifications Carb consistent diet (6) Atherosclerotic heart disease of zuni coronary artery with other forms of angina pectoris: Code(s): I25.118 - Atherosclerotic heart disease of zuni coronary artery with other forms of angina pectoris Status: Acute Assessment and Plan: HX of GA and cardiac catheterization. Continue statin, aspirin and nichole. (7) Chronic kidney disease, stage III (moderate): Code(s): N18.30 - Chronic kidney disease, stage 3 unspecified Status: Acute Assessment and Plan: Baseline creatinine 1.1-1.2. Stable. Will monitor. (8) Essential (primary) hypertension: Code(s): I10 - Essential (primary) hypertension Status: Acute Assessment and Plan: Metoprolol changed to sotalol overnight due to heart rhythm. Continue home ramipril. (9) Anemia: Code(s): D64.9 - Anemia, unspecified Status: Acute Assessment and Plan: Hx of iron deficiency anemia based on iron studies 09/26/21 and vitamin b deficiency. -Continue home b12 and iron supplement Subjective Date/time seen: 12/11/21 08:05 Patient reports sotalol was held overnight due to low blood pressure. Patient says he feels about the same as yesterday. Denies chest pain, difficulty breathing, palpitations. Review of Systems Cardiovascular: Cardiovascular: Denies chest pain and Denies palpitations Respiratory: Respiratory: Denies dyspnea Exam Narrative: GENERAL: NAD, cooperative HEENT: Normocephalic, atraumatic, anicteric NECK:Supple CV: regular rate RESP: Distant breath sounds, no rhonchi EXTREMITIES: Warm and well perfused, no clubbing, cyanosis. SKIN: warm, dry and intact. NEURO: CN 2-12 grossly intact. Objective Data Vital Signs Vital Signs: Vital Signs - 24 hr 12/10/21 08:51 12/10/21 09:21 12/10/21 10:00 Temperature Pulse Rate 80 70 76 Respiratory Rate 22 H Blood Pressure Pulse Oximetry Oxygen Delivery Oxygen Flow Rate 12/10/21 12:00 12/10/21 12:00 12/10/21 12:00 Temperature 97.8 F Pulse Rate 77 74 80 Respiratory Rate 16 Blood Pressure 119/54 L Pulse Oximetry 98 100 Oxygen Delivery Nasal Cannula Oxygen Flow Rate 2 12/10/21 14:00 12/10/21 14:30 12/10/21 14:30 Temperature Pulse Rate 63 75 Respiratory Rate 16 Blood Pressure Pulse Oximetry 98 Oxygen Delivery Nasal Cannula Oxygen Flow Rate 2 12/10/21 14:37 12/10/21 14:37 12/10/21 16:00 Temperature Pulse Rate 72 68 Respira
[2021-12-11 08:21] LABS: Glucose Point of Care 123 mg/dl (65-105)
[2021-12-11 08:40] LABS: Basophils Percent Auto 0.5 % (0.2-1.2); Eosinophils Absolute Auto 0.4 K/mm3 (0-0.3); Eosinophils Percent Auto 4.5 % (0-4.4); Hematocrit 34.5 % (42.0-52.0); Hemoglobin 9.8 g/dL (14.0-18.0); Immature Granulocyte Absolute 0.03 K/mm3 (0.00-0.031); Immature Granulocyte Percent A 0.4 % (0-0.5); Lymphocytes Absolute Auto 1.31 K/mm3 (0.9-3.2); Lymphocytes Percent Auto 15.7 % (18.3-44.2); Mean Corpuscular HGB Conc 28.4 g/dl (32-36); Mean Corpuscular Hemoglobin 24.3 pg (26-34); Mean Corpuscular Volume 85.6 fl (80-100); Mean Platelet Volume 11.4 fl (7.4-10.4); Monocytes Percent Auto 11.8 % (2.6-8.5); Neutrophils Absolute Auto 5.6 K/mm3 (1.3-6.7); Neutrophils Percent Auto 67.1 % (45.5-73.1); Platelet Count Result 141 k/mm3 (150-375); Red Blood Count 4.03 M/mm3 (4.6-6.20); Red Cell Distribution Width 18.4 % (11.5-14.5); White Blood Count 8.4 K/mm3 (4.5-10.0)
[2021-12-11 08:49] LABS: Anion Gap 5 mmol/L (8-16); Blood Urea Nitrogen 22 mg/dL (9-20); Calcium 8.4 mg/dL (8.4-10.2); Carbon Dioxide 31 mmol/L (22-30); Chloride 103 mmol/L (98-107); Estimated CRCL calculation 65 ml/min; Estimated Glomerular Filt Rate > 60; Glucose 119 mg/dL (65-110); Potassium 3.9 mmol/L (3.4-5.0); Sodium 139 mmol/L (137-145)
[2021-12-11] MEDS: ramipriL 5 MG CAPSULE 10 MG PO (09:46)
[2021-12-11] MEDS: FUROSEMIDE INJ 40 MG/4 ML VIAL IV PUSH ×2 (09:47→20:18)
[2021-12-11] MEDS: FERROUS SULFATE 324 MG TABLET PO ×2 (09:48→18:11)
[2021-12-11] MEDS: APIXABAN 5 MG TABLET PO ×2 (09:48→20:18)
[2021-12-11] MEDS: SOTALOL HCL 80 MG TABLET PO (09:48)
[2021-12-11 09:49] LABS: Platelet Estimate Adequate (Adequate)
[2021-12-11] MEDS: ATORVASTATIN 40 MG TABLET PO (09:49)
[2021-12-11] MEDS: ASPIRIN 81 MG ENTERIC TABLET PO (09:49)
[2021-12-11] MEDS: DOCUSATE SODIUM 100 MG CAPSULE PO (09:50)
--- NOTE | 2021-12-11 10:36 | PM.PNCARD ---
Progress Note: A&P Assessment and Plan (1) Atrial fibrillation by electrocardiogram: Code(s): I48.91 - Unspecified atrial fibrillation Status: Acute Assessment and Plan: This is a 76-year-old man coming into the hospital because of dyspnea. He is found to a have atrial fibrillation back in the end of September of this year in the office. Since then he has been anticoagulated with apixaban and has been compliant with his regimen. He has been started on sotalol in an attempt to restore sinus rhythm. He remains in sinus rhythm today. Discussed the option of DCCV if his atrial fibrillation persists. Obtain EKG 2 hours post sotalol dose x 5 doses. Daily BMP and mag with K+ goal >4.0, Mag >2.0. QTc stable thus far (435msec) Subjective Date/time seen: 12/11/21 10:36 Cardiology follow up for Afib Feeling better today, not having any shortness of breath or palpitations. Remains in atrial fibrillation Review of Systems Constitutional: Constitutional: Reports lethargy Eyes: Eyes: Reports no additional eye complaints ENT: Reports system reviewed and no additional complaints, except as documented Cardiovascular: Cardiovascular: Reports pedal edema and Reports dyspnea Respiratory: Respiratory: Reports as per HPI and Reports dyspnea Gastrointestinal: Gastrointestinal: Reports no additional gastrointestinal complaints Musculoskeletal: Musculoskeletal: Reports no additional musculoskeletal complaints Integumentary/Breasts: Skin/Breast: Reports system reviewed and no additional complaints, except as docu Neurologic: Reports system reviewed and no additional complaints, except as documented Endocrine: Endocrine: Reports no additional endocrine complaints Hematologic/Lymphatic: Hematologic/Lymphatic: Reports no additional hematologic/lymphatic complaints Allergic/Immunologic: Allergic/Immunologic: Reports no additional allergic/immunologic complaints Exam Const: General: comfortable and no acute distress Other: Morbidly obese gentleman seated in the bedside chair no distress at this time HENMT: Mouth: Yes moist mucous membranes Eyes: Sclera: sclerae normal Pupils: Equal, round and reactive pupils present Neck: Neck: supple and no JVD Resp: Effort & Inspection: normal respiratory effort Auscultation: clear to auscultation bilaterally and diminished lung sounds Cardio: Rhythm: abnormal rhythm irregularly irregular GI: Auscultation: normal bowel sounds Skin: General skin exam: normal color Neuro: Cranial nerves: Yes Equal, round and reactive pupils present Other: Normal cognition Extrem: Other: Mild to moderate bipedal edema Objective Data Vital Signs Vital Signs: Vital Signs - 24 hr 12/10/21 12:00 12/10/21 12:00 12/10/21 12:00 Temperature 36.6 C Pulse Rate 77 74 80 Respiratory Rate 16 Blood Pressure 119/54 L Pulse Oximetry 98 100 Oxygen Delivery Nasal Cannula Oxygen Flow Rate 2 12/10/21 14:00 12/10/21 14:30 12/10/21 14:30 Temperature Pulse Rate 63 75 Respiratory Rate 16 Blood Pressure Pulse Oximetry 98 Oxygen Delivery Nasal Cannula Oxygen Flow Rate 2 12/10/21 14:37 12/10/21 14:37 12/10/21 16:00 Temperature Pulse Rate 72 68 Respiratory Rate 16 Blood Pressure Pulse Oximetry 98 99 Oxygen Delivery Nasal Cannula Oxygen Flow Rate 2 12/10/21 16:00 12/10/21 16:00 12/10/21 18:00 Temperature 36.6 C Pulse Rate 68 76 81 Respiratory Rate 14 Blood Pressure 141/81 H Pulse Oximetry 100 Oxygen Delivery Oxygen Flow Rate 12/10/21 20:20 12/10/21 20:24 12/10/21 20:30 Temperature Pulse Rate 64 64 62 Respiratory Rate 18 18 Blood Pressure Pulse Oximetry 100 Oxygen Delivery Nasal Cannula Oxygen Flow Rate 2 12/10/21 20:00 12/10/21 20:00 12/10/21 20:30 Temperature 36.2 C L Pulse Rate 62 49 L Respiratory Rate 20 Blood Pressure 115/57 L Pulse Oximetry 100 99 Oxygen Delivery Nasal Cannula
[2021-12-11 11:28] LABS: Glucose Point of Care 251 mg/dl (65-105)
--- NOTE | 2021-12-11 11:45 | ECG_ITS ---
Measurements Intervals [place] Rate: 65 P: [place]: 0 QRS: 13 QRSD: 95 T: 76 QT: 416 QTc: 435 Interpretive Statements ATRIAL FIBRILLATION LOW QRS VOLTAGE IN LIMB LEADS T WAVE ABNORMALITY IN ANTERIOR LEADS- CONSIDER ISCHEMIA ABNORMAL ECG Electronically Signed On 12-11-2021 12:03:23 CDT by Khoi Maldonado D.O.
[2021-12-11] MEDS: IPRATROPIUM BR 0.02% INH SOLN 0.5 MG/2.5 ML VIAL INHALATION ×2 (14:21→20:45)
[2021-12-11 16:40] LABS: Glucose Point of Care 164 mg/dl (65-105)
--- NOTE | 2021-12-11 16:54 | PHAR ---
HOME MEDICATION VERIFIED BY PHARMACY: FARXIGA 5MG TABLETS TAKE 1 TAB PO QA RX [id number]
[2021-12-11] MEDS: MELATONIN 5 MG TABLET 10 MG PO (20:18)
[2021-12-11] MEDS: CYANOCOBALAMIN 1,000 MCG TABLET 1000 MCG PO (20:18)
[2021-12-11] MEDS: GABAPENTIN 300 MG CAPSULE PO (20:18)
[2021-12-11] MEDS: INSULIN GLARGINE (*BKC) 100 UNITS/ML 36 UNITS SUB-Q (20:30)
[2021-12-11 20:31] LABS: Glucose Point of Care 180 mg/dl (65-105)
[2021-12-12] VITALS (21 sets, daily range): BP systolic 127–152; BP diastolic 45–80; PULSE 59–78; RESP 16–24; TEMP 36.1–37.2; O2SAT 96–100
[2021-12-12 05:04] LABS: Basophils Percent Auto 0.6 % (0.2-1.2); Eosinophils Absolute Auto 0.5 K/mm3 (0-0.3); Eosinophils Percent Auto 7.4 % (0-4.4); Hematocrit 35.7 % (42.0-52.0); Hemoglobin 9.9 g/dL (14.0-18.0); Immature Granulocyte Absolute 0.03 K/mm3 (0.00-0.031); Immature Granulocyte Percent A 0.4 % (0-0.5); Lymphocytes Absolute Auto 1.26 K/mm3 (0.9-3.2); Lymphocytes Percent Auto 17.6 % (18.3-44.2); Mean Corpuscular HGB Conc 27.7 g/dl (32-36); Mean Corpuscular Volume 86.4 fl (80-100); Mean Platelet Volume 11.1 fl (7.4-10.4); Monocytes Absolute Auto 0.9 K/mm3 (0.1-0.6); Monocytes Percent Auto 12.1 % (2.6-8.5); Neutrophils Absolute Auto 4.4 K/mm3 (1.3-6.7); Neutrophils Percent Auto 61.9 % (45.5-73.1); Platelet Count Result 139 k/mm3 (150-375); Red Blood Count 4.13 M/mm3 (4.6-6.20); Red Cell Distribution Width 18.1 % (11.5-14.5); White Blood Count 7.2 K/mm3 (4.5-10.0)
[2021-12-12 05:18] LABS: Anion Gap 1 mmol/L (8-16); Blood Urea Nitrogen 24 mg/dL (9-20); Calcium 8.3 mg/dL (8.4-10.2); Carbon Dioxide 37 mmol/L (22-30); Chloride 99 mmol/L (98-107); Estimated CRCL calculation 61 ml/min; Estimated Glomerular Filt Rate 59; Glucose 115 mg/dL (65-110); Potassium 4.1 mmol/L (3.4-5.0); Sodium 137 mmol/L (137-145)
--- NOTE | 2021-12-12 06:31 | PCRCNOTE ---
Patient refused 0200 breathing treatment stating he does not want to be awakened.
[2021-12-12 08:38] LABS: Glucose Point of Care 112 mg/dl (65-105)
--- NOTE | 2021-12-12 08:38 | PM.IMPN ---
Progress Note: A&P Assessment and Plan (1) Atrial fibrillation by electrocardiogram: Code(s): I48.91 - Unspecified atrial fibrillation Status: Acute Assessment and Plan: On sotalol with rate control. Appreciate recommendations from Cardiology -Continue apixaban -Continue sotalol (2) Acute exacerbation of CHF (congestive heart failure): Code(s): I50.9 - Heart failure, unspecified Status: Acute Assessment and Plan: CXR with cardiomegaly and mild central and lower lung infiltrated likely due to pulmonary edema. Negative 1.3L. On 1LPM this morning and can probably wean oxygen off today. -Fluid restriction 1.5L per day -Continue furosemide 40 mg IV BID (3) Obstructive sleep apnea: Code(s): G47.33 - Obstructive sleep apnea (adult) (pediatric) Status: Acute Assessment and Plan: On 3 L by nasal cannula at nighttime. (4) Diabetic neuropathy: Code(s): E11.40 - Type 2 diabetes mellitus with diabetic neuropathy, unspecified Status: Acute Assessment and Plan: -Hold metformin -Continue dulaglutide and dapagliflozin home medication -SSI with POC glucose TIDWM (5) Obesity, Class III, BMI 40-49.9 (morbid obesity): Code(s): E66.01 - Morbid (severe) obesity due to excess calories Status: Acute Assessment and Plan: Lifestyle and diet modifications Carb consistent diet (6) Atherosclerotic heart disease of [place] coronary artery with other forms of angina pectoris: Code(s): I25.118 - Atherosclerotic heart disease of [place] coronary artery with other forms of angina pectoris Status: Acute Assessment and Plan: HX of [place] and cardiac catheterization. Continue statin, aspirin and nichole. (7) Chronic kidney disease, stage III (moderate): Code(s): N18.30 - Chronic kidney disease, stage 3 unspecified Status: Acute Assessment and Plan: Baseline creatinine 1.1-1.2. Stable. Will monitor. (8) Essential (primary) hypertension: Code(s): I10 - Essential (primary) hypertension Status: Acute Assessment and Plan: Metoprolol changed to sotalol overnight due to heart rhythm. Continue home ramipril. (9) Anemia: Code(s): D64.9 - Anemia, unspecified Status: Acute Assessment and Plan: Hx of iron deficiency anemia based on iron studies 09/26/21 and vitamin b deficiency. -Continue home b12 and iron supplement Subjective Date/time seen: 12/12/21 08:38 Patient denies chest pain, shortness of breath, difficulty breathing. Says he feels better than when he presented to the ED but is not back to himself. Review of Systems Cardiovascular: Cardiovascular: Denies palpitations Respiratory: Respiratory: Denies dyspnea Exam Narrative: GENERAL: NAD, cooperative HEENT: Normocephalic, atraumatic, anicteric NECK:Supple CV: regular rate RESP: Distant breath sounds, no rhonchi EXTREMITIES: Warm and well perfused, no clubbing, cyanosis. SKIN: warm, dry and intact. NEURO: CN 2-12 grossly intact. Objective Data Vital Signs Vital Signs: Vital Signs - 24 hr 12/11/21 09:48 12/11/21 10:00 12/11/21 12:00 Temperature Pulse Rate 76 70 56 L Respiratory Rate Blood Pressure Pulse Oximetry Oxygen Delivery Oxygen Flow Rate 12/11/21 12:00 12/11/21 12:00 12/11/21 14:15 Temperature 97.4 F L Pulse Rate 75 68 Respiratory Rate 16 18 Blood Pressure 111/51 L Pulse Oximetry 100 100 Oxygen Delivery Nasal Cannula Oxygen Flow Rate 2 12/11/21 14:23 12/11/21 14:00 12/11/21 16:00 Temperature 98.4 F Pulse Rate 70 65 58 L Respiratory Rate 18 16 Blood Pressure 136/59 L Pulse Oximetry 99 Oxygen Delivery Oxygen Flow Rate 12/11/21 16:00 12/11/21 16:00 12/11/21 18:00 Temperature Pulse Rate 57 L 68 Respiratory Rate Blood Pressure Pulse Oximetry 100 Oxygen Delivery
[2021-12-12] MEDS: IPRATROPIUM BR 0.02% INH SOLN 0.5 MG/2.5 ML VIAL INHALATION ×3 (09:11→19:25)
[2021-12-12] MEDS: FUROSEMIDE INJ 40 MG/4 ML VIAL IV PUSH ×2 (09:28→21:04)
[2021-12-12] MEDS: ramipriL 5 MG CAPSULE 10 MG PO (09:29)
[2021-12-12] MEDS: ASPIRIN 81 MG ENTERIC TABLET PO (09:29)
[2021-12-12] MEDS: APIXABAN 5 MG TABLET PO ×2 (09:29→21:06)
[2021-12-12] MEDS: ATORVASTATIN 40 MG TABLET PO (09:29)
[2021-12-12] MEDS: DOCUSATE SODIUM 100 MG CAPSULE PO (09:29)
[2021-12-12] MEDS: FERROUS SULFATE 324 MG TABLET PO ×2 (09:30→17:28)
--- NOTE | 2021-12-12 10:41 | PM.PNCARD ---
Progress Note: A&P Assessment and Plan (1) Atrial fibrillation by electrocardiogram: Code(s): I48.91 - Unspecified atrial fibrillation Status: Acute Assessment and Plan: 76-year-old male with multiple medical problems, admitted with dyspnea. He is found to a have atrial fibrillation back in the end of September of this year in the office. Since then he has been anticoagulated with apixaban and has been compliant with his regimen. He was initiated on sotalol during this hospitalization in an attempt to restore sinus rhythm. He remains in atrial fibrillation. Sotalol was put on hold due to significant bradycardia with heart rate in 30s. Patient is not NPO today. Discussed the option of DCCV and he is in agreement. DC cardioversion will be planned for tomorrow if patient remains in atrial fibrillation. He has been on chronic anticoagulation apixaban, and ISXTO is not necessary. Continue to monitor on telemetry. Subjective Date/time seen: 12/12/21 10:41 Interval history: Date of service 12/12/2021-patient is sitting up in the recliner, reports improvement in shortness of breath. He denies chest pain, palpitation, dizziness or syncope. Lower extremity swelling is modestly improved. His sotalol was put on hold due to significant bradycardia with heart rate in 30s. At present, he is in atrial fibrillation with heart rates in 70s and 80s. Exam Narrative: PHYSICAL EXAMINATION: GENERAL: Obese, Alert, oriented, no acute distress MENTAL STATUS: affect appropriate to mood EYES: Extraocular movements intact, no pallor EARS: External ears appear normal, hearing grossly normal NOSE: Normal and patent, no discharge MOUTH: Mucous membranes moist, tongue normal NECK: Supple, no JVD CHEST: Decreased breath sounds due to body habitus HEART: Normal rate, irregularly irregular rhythm ABDOMEN: Soft, nontender NEUROLOGICAL: Alert, oriented, normal speech, no gross motor deficits MUSCULOSKELETAL: No major deformity, no amputation EXTREMITIES: Bilateral pedal edema SKIN: no rash on the exposed area, no cyanosis PSYCHIATRIC: Normal mood, appropriate affect Objective Data Vital Signs Vital Signs: Vital Signs - 24 hr 12/11/21 12:00 12/11/21 12:00 12/11/21 12:00 Temperature 36.3 C L Pulse Rate 56 L 75 Respiratory Rate 16 Blood Pressure 111/51 L Pulse Oximetry 100 100 Oxygen Delivery Nasal Cannula Oxygen Flow Rate 2 12/11/21 14:15 07/18/22 14:23 12/11/21 14:00 Temperature Pulse Rate 68 70 65 Respiratory Rate 18 18 Blood Pressure Pulse Oximetry Oxygen Delivery Oxygen Flow Rate 12/11/21 16:00 12/11/21 16:00 12/11/21 16:00 Temperature 36.9 C Pulse Rate 58 L 57 L Respiratory Rate 16 Blood Pressure 136/59 L Pulse Oximetry 99 100 Oxygen Delivery Nasal Cannula Oxygen Flow Rate 2 12/11/21 18:00 12/11/21 20:00 12/11/21 20:00 Temperature 36.9 C Pulse Rate 68 62 58 L Respiratory Rate 20 Blood Pressure 146/55 H Pulse Oximetry 100 Oxygen Delivery Oxygen Flow Rate 12/11/21 20:00 12/11/21 20:45 12/11/21 20:46 Temperature Pulse Rate 58 L 69 69 Respiratory Rate 20 18 Blood Pressure Pulse Oximetry 100 98 Oxygen Delivery Nasal Cannula Nasal Cannula Oxygen Flow Rate 2 1 12/11/21 21:00 12/11/21 23:26 12/11/21 22:00 Temperature 36.5 C Pulse Rate 67 70 65 Respiratory Rate 18 22 H Blood Pressure 155/52 H Pulse Oximetry 97 Oxygen Delivery Oxygen Flow Rate 12/12/21 00:00 12/12/21 00:00 12/12/21 02:00 Temperature Pulse Rate 64 64 60 Respiratory Rate 22 H Blood Pressure Pulse Oximetry 97 Oxygen Delivery Nasal Cannula Oxygen Flow Rate 2 12/12/21 03:58 12/12/21 04:00 12/12/21 04:00 Temperature 36.2 C L Pulse Rate 68 64 64 Respiratory Rate 24 H 24 H Blood Pressure 152/80 H Pulse Oximetry 96 96 Oxygen Delivery Nasal Cannula Oxygen Flow Rate 2 12/12/21 05:22 12/12/21 08:00
[2021-12-12 12:45] LABS: Glucose Point of Care 249 mg/dl (65-105)
[2021-12-12] MEDS: INSULIN ASPART (*BKC) 100 UNITS/ML SUB-Q (12:55)
[2021-12-12 17:27] LABS: Glucose Point of Care 150 mg/dl (65-105)
[2021-12-12] MEDS: MELATONIN 5 MG TABLET 10 MG PO (21:05)
[2021-12-12] MEDS: GABAPENTIN 300 MG CAPSULE PO (21:06)
[2021-12-12] MEDS: CYANOCOBALAMIN 1,000 MCG TABLET 1000 MCG PO (21:06)
[2021-12-12] MEDS: INSULIN GLARGINE (*BKC) 100 UNITS/ML 36 UNITS SUB-Q (21:07)
[2021-12-12 21:23] LABS: Glucose Point of Care 170 mg/dl (65-105)
[2021-12-13] VITALS (25 sets, daily range): BP systolic 118–154; BP diastolic 53–92; PULSE 69–92; RESP 16–20; TEMP 36.2–37.1; O2SAT 98–100
--- NOTE | 2021-12-13 02:32 | PCRCNOTE ---
Patient requested to not be awaken for neb treatment if he was asleep. Patient asleep in the chair. Neb not given at this time.
[2021-12-13 05:15] LABS: Basophils Percent Auto 0.4 % (0.2-1.2); Eosinophils Absolute Auto 0.5 K/mm3 (0-0.3); Eosinophils Percent Auto 7.7 % (0-4.4); Hematocrit 36.3 % (42.0-52.0); Hemoglobin 10.1 g/dL (14.0-18.0); Immature Granulocyte Absolute 0.03 K/mm3 (0.00-0.031); Immature Granulocyte Percent A 0.4 % (0-0.5); Lymphocytes Absolute Auto 1.25 K/mm3 (0.9-3.2); Lymphocytes Percent Auto 18.5 % (18.3-44.2); Mean Corpuscular HGB Conc 27.8 g/dl (32-36); Mean Corpuscular Hemoglobin 23.9 pg (26-34); Mean Platelet Volume 10.5 fl (7.4-10.4); Monocytes Absolute Auto 0.8 K/mm3 (0.1-0.6); Monocytes Percent Auto 11.4 % (2.6-8.5); Neutrophils Absolute Auto 4.2 K/mm3 (1.3-6.7); Neutrophils Percent Auto 61.6 % (45.5-73.1); Platelet Count Result 146 k/mm3 (150-375); Red Blood Count 4.22 M/mm3 (4.6-6.20); Red Cell Distribution Width 18.2 % (11.5-14.5); White Blood Count 6.8 K/mm3 (4.5-10.0)
[2021-12-13 05:33] LABS: Anion Gap 3 mmol/L (8-16); Blood Urea Nitrogen 21 mg/dL (9-20); Calcium 8.8 mg/dL (8.4-10.2); Carbon Dioxide 37 mmol/L (22-30); Chloride 99 mmol/L (98-107); Estimated CRCL calculation 60 ml/min; Estimated Glomerular Filt Rate 59; Glucose 115 mg/dL (65-110); Magnesium 2.1 mg/dL (1.6-2.3); Phosphorus 3.9 mg/dL (2.5-4.5); Sodium 139 mmol/L (137-145)
--- NOTE | 2021-12-13 08:30 | ECG_ITS ---
Measurements Intervals [place] Rate: 75 P: [place]: 0 QRS: 12 QRSD: 105 T: 74 QT: 416 QTc: 467 Interpretive Statements ATRIAL FIBRILLATION VENTRICULAR PREMATURE COMPLEX BORDERLINE T WAVE ABNORMALITY- ANTERIOR LEADS ABNORMAL ECG Electronically Signed On 12-13-2021 22:20:01 CDT by Khoi Maldonado D.O.
[2021-12-13] MEDS: ASPIRIN 81 MG ENTERIC TABLET PO (08:36)
[2021-12-13] MEDS: FUROSEMIDE INJ 40 MG/4 ML VIAL IV PUSH ×2 (08:36→20:45)
[2021-12-13] MEDS: APIXABAN 5 MG TABLET PO ×2 (08:36→20:45)
[2021-12-13] MEDS: ATORVASTATIN 40 MG TABLET PO (08:37)
[2021-12-13] MEDS: DOCUSATE SODIUM 100 MG CAPSULE PO (08:37)
[2021-12-13] MEDS: IPRATROPIUM BR 0.02% INH SOLN 0.5 MG/2.5 ML VIAL INHALATION ×3 (09:09→20:51)
--- NOTE | 2021-12-13 10:45 | ECG_ITS ---
Measurements Intervals [place] Rate: 83 P: 266 [place]: 130 QRS: 39 QRSD: 105 T: 83 QT: 400 QTc: 471 Interpretive Statements SINUS RHYTHM VENTRICULAR PREMATURE COMPLEX LOW QRS VOLTAGE IN LIMB LEADS BORDERLINE T WAVE ABNORMALITY- ANT/HIGH LAT LEADS BORDERLINE ECG Electronically Signed On 12-13-2021 22:38:27 CDT by Khoi Maldonado D.O.
--- NOTE | 2021-12-13 11:04 | WPDCDIQUERY2 ---
CDI Query Clarification Request ?12/12 Hositalist documented: Acute exacerbation of CHF (congestive heart failure): ?Code(s): I50.9 - Heart failure, unspecified ?Status:?Acute ?Assessment and Plan: CXR with cardiomegaly and mild central and lower lung infiltrated likely due to pulmonary edema. Negative 1.3L. On 1LPM this morning and can probably wean oxygen off today.? -Fluid restriction 1.5L per day -Continue furosemide 40 mg IV BID ? ? DATE: 12/10/2021 01:54 INDICATION: Shortness of breath? TECHNIQUE: Portable upright AP chest on 12/10/2021 at 0150 hours? COMPARISON: 09/25/2021 PA and lateral chest? FINDINGS: Cardiomegaly. Aortic arch calcification and minimal aortic tortuosity. Pulmonary vascular congestion and redistribution. Mild prominence of the minor fissure consistent with subpleural edema. Mild predominantly central and lower lung zone infiltrates are likely due to pulmonary edema. No blunting of the right costophrenic angle suggests small right pleural effusion. No pneumothorax. Diffuse osteopenia.? IMPRESSION: Congestive heart failure, stable or minimally increased since 09/25/2021? Please clarify if diagnosis: Acute Congestive Heart Failure is: Systolic, Diastolic, Combined or unable to determine. <Karina Abbott - Last Filed: 12/13/21 11:09> ?12/12 Hositalist documented: Acute exacerbation of CHF (congestive heart failure): ?Code(s): I50.9 - Heart failure, unspecified ?Status:?Acute ?Assessment and Plan: CXR with cardiomegaly and mild central and lower lung infiltrated likely due to pulmonary edema. Negative 1.3L. On 1LPM this morning and can probably wean oxygen off today.? -Fluid restriction 1.5L per day -Continue furosemide 40 mg IV BID ? ? Unable to determine DATE: 12/10/2021 01:54 INDICATION: Shortness of breath? TECHNIQUE: Portable upright AP chest on 12/10/2021 at 0150 hours? COMPARISON: 09/25/2021 PA and lateral chest? FINDINGS: Cardiomegaly. Aortic arch calcification and minimal aortic tortuosity. Pulmonary vascular congestion and redistribution. Mild prominence of the minor fissure consistent with subpleural edema. Mild predominantly central and lower lung zone infiltrates are likely due to pulmonary edema. No blunting of the right costophrenic angle suggests small right pleural effusion. No pneumothorax. Diffuse osteopenia.? IMPRESSION: Congestive heart failure, stable or minimally increased since 09/25/2021? Please clarify if diagnosis: Acute Congestive Heart Failure is: Systolic, Diastolic, Combined or unable to determine. <Angelita Hdz MD - Last Filed: 12/14/21 13:02> Clarified Diagnosis (1) Acute on chronic diastolic CHF (congestive heart failure): Code(s): I50.33 - Acute on chronic diastolic (congestive) heart failure <Karina Abbott - Last Filed: 12/13/21 11:09> Status: Acute <Karina Abbott - Last Filed: 12/13/21 11:09> Assessment and Plan: Unable to determine. <Angelita Hdz MD - Last Filed: 12/14/21 13:02>
[2021-12-13] MEDS: ramipriL 5 MG CAPSULE 10 MG PO (11:49)
[2021-12-13 12:16] LABS: Glucose Point of Care 127 mg/dl (65-105)
--- NOTE | 2021-12-13 13:34 | WPDHPUPDATE1 ---
History and Physical Update Update Date/Time: 12/13/21 13:34 Patient with recent recurrence of atrial fibrillation, followed by Dr. Valente, chronically anticoagulated with and a Eliquis, has not missed any doses. Loading on sotalol which was started 12/11/2021 Feeling okay today, breathing back to baseline, some edema, no chest pain. Was on CPAP but says he no longer has sleep apnea. Diuresing well, 4 L out yesterday. Planning cardioversion today with anesthesia assistance. Exam reveals a morbidly obese male, sitting up in a chair no distress. Decreased breath sounds in the right base. Heart is irregular. Mild to moderate lower pretibial edema. EKG this morning on my personal review shows AFib rate 75 with a QTC of 467 milliseconds, acceptable. One PVC. Labs reviewed History and Physical has been reviewed, including an updated exam of the patient. There are NO changes in the patient's condition. Risks, benefits, and alternatives have been discussed and questions answered. Patient agrees to proceed with procedure.
--- NOTE | 2021-12-13 13:37 | WPDANESEPPF ---
Anes - Initial Pre Proc Eval Procedure: Operation Date: 12/13/21 14:00 Proposed Procedures p Electrical Cardioversion - Maria A Dunlap MD Date/Time: 12/13/21 13:37 Surgeon: Efrain Shannon MD Pre Op Diagnosis: Acute CHF Exacerbation Patient Data Age: 76 Gender: M Height: 1.7 m Weight: 124.3 kg Last Vital Signs Temp 97.1 F L 12/13/21 12:00 Pulse 74 12/13/21 13:27 Resp 18 12/13/21 13:27 BP 132/59 L 12/13/21 12:00 Pulse Ox 100 12/13/21 12:00 O2 Del Method Nasal Cannula 12/13/21 09:11 O2 Flow Rate 2 12/13/21 09:11 Allergies Allergy/AdvReac Type Severity Reaction Status Date / Time No Known Allergies Allergy Verified 12/10/21 04:31 Home Medications Medication Instructions Recorded Confirmed Type atorvastatin 40 mg tablet 40 mg PO DAILY 06/18/19 12/10/21 History aspirin 81 mg tablet,delayed 81 mg PO DAILY 03/04/20 12/10/21 History release (Adult Aspirin Regimen) insulin degludec 200 unit/mL (3 36 unit subcut HS 06/16/20 12/10/21 History mL) subcutaneous pen (Tresiba FlexTouch U-200 insulin) ramipril 10 mg capsule 10 mg PO DAILY #90 caps 07/13/21 12/10/21 Rx albuterol sulfate 90 mcg/actuation 2 puff inhalation Q4H PRN 07/21/21 12/10/21 Rx aerosol inhaler (ProAir HFA) shortness of breath or wheezing #8.5 grams gabapentin 300 mg capsule 300 mg PO QHS #90 caps 08/25/21 12/10/21 Rx metformin 500 mg tablet,extended 500 mg PO BIDWM #0 tabs 09/29/21 12/10/21 Rx release 24 hr dulaglutide 4.5 mg/0.5 mL 4.5 mg subcut WEEKLY 10/05/21 12/10/21 History subcutaneous pen injector (Trulicity) dapagliflozin 5 mg tablet (Farxiga) 5 mg PO DAILY 11/21/21 12/10/21 History ferrous sulfate 325 mg (65 mg 325 mg PO BIDWM #60 tabs 11/21/21 12/10/21 Rx iron) tablet (FeroSul) furosemide 40 mg tablet 40 mg PO BID 11/21/21 12/10/21 History apixaban 5 mg tablet (Eliquis) 5 mg PO BID 12/10/21 12/10/21 History cyanocobalamin (vitamin B-12) 1,000 mcg PO QHS 12/10/21 12/10/21 History 1,000 mcg tablet (Vitamin B-12) docusate sodium 100 mg capsule 100 mg PO DAILY 12/10/21 12/10/21 History (Colace) glipizide 5 mg tablet 2 tablet PO BIDWM 12/10/21 12/10/21 History melatonin 10 mg tablet 10 mg PO HS 12/10/21 12/10/21 History metoprolol succinate 100 mg 100 mg PO DAILY 12/10/21 12/10/21 History tablet,extended release 24 hr Laboratory Tests 12/12/21 12/12/21 12/13/21 16:28 20:27 04:54 WBC 6.8 K/mm3 K/mm3 (4.5-10.0) RBC 4.22 M/mm3 L M/mm3 (4.6-6.20) Hgb 10.1 g/dL L g/dL (14.0-18.0) Hct 36.3 % L % (42.0-52.0) MCV 86.0 fl fl (80-100) MCH 23.9 pg L pg (26-34) MCHC 27.8 g/dl L g/dl (32-36) RDW 18.2 % H % (11.5-14.5) Plt Count 146 k/mm3 L k/mm3 (150-375) MPV 10.5 fl H fl (7.4-10.4) Immature Gran % (Auto) 0.4 % % (0-0.5) Neut % (Auto) 61.6 % % (45.5-73.1) Lymph % (Auto) 18.5 % % (18.3-44.2) [place] % (Auto) 11.4 % H % (2.6-8.5) Eos % (Auto) 7.7 % H % (0-4.4) Baso % (Auto) 0.4 % % (0.2-1.2) Lymph # (Auto) 1.25 K/mm3 K/mm3 (0.9-3.2) [place] # (Auto) 0.8 K/mm3 H K/mm3 (0.1-0.6) Eos # (Auto) 0.5 K/mm3 H K/mm3 (0-0.3) Baso # (Auto) 0.0 K/mm3 K/mm3 (0.0-0.1) Abs Immat Gran (auto) 0.03 K/mm3 K/mm3 (0.00-0.031) Absolute Neuts (auto) 4.2 K/mm3 K/mm3 (1.3-6.7) Absolute Nucleated RBC 0.0 K/mm3 K/mm3 (0.0-0.012) Nucleated RBC % 0.0 % % (0.0-0.2) Sodium Potassium Chloride Carbon Dioxide Anion Gap BUN Creatinine Estim Creat Clear Calc Estimated GFR Glucose POC Capillary Glucose 150 mg/dl H mg/dl 170 mg/dl H mg/dl (65-105) (65-105) Calcium Phosphorus
--- NOTE | 2021-12-13 14:25 | PM.OP ---
Procedure Note - Brief Procedure Note - Brief Date of procedure: 12/13/21 Pre-op diagnosis: Acute CHF Exacerbation Atrial fibrillation Post-op diagnosis: Other (Successful cardioversion) Procedure performed: Sedation with anesthesia Cardioversion Description of procedure: Successful cardioversion after 3 attempts to normal sinus rhythm Surgeon: Maria A Dunlap MD Findings: Normal sinus rhythm Continue diuresis for CHF
--- NOTE | 2021-12-13 14:26 | W.PM.PROC2 ---
Procedure Note - Detailed Date of Procedure 12/13/21 Pre-op Diagnosis Atrial fibrillation, Acute CHF Exacerbation Post-op Diagnosis Other (Status post successful cardioversion) Procedure Performed Cardioversion Surgeon Maria A Dunlap MD Anesthesia MAC (See anesthesia notes) Indications Symptomatic atrial fibrillation Description of Procedure Conscious sedation/anesthesia: See anesthesia flow sheet Cardioversion: After informed consent and after some sedation with the assistance of anesthesia, the patient underwent elective electrical synchronized cardioversion with 300 joules of biphasic energy and remained in atrial fibrillation. The patches were adjusted and he underwent a repeat cardioversion with 360 joules of synchronized biphasic energy, converting to an atrial flutter. He then underwent a 3rd cardioversion with 200 joules of synchronized energy and converted to sinus rhythm with APCs. There were no complications. Plan: 1. Resume sotalol at a lower dose, 40 mg b.i.d. (had been held due to bradycardia). 2. Continue Eliquis 3. Continue IV furosemide 40 mg IV push b.i.d. for CHF 4. Daily BMP 5. Add Jardiance 10 mg daily for diastolic CHF 6. Daily EKG monitoring to check QT interval 7. Discharge when CHF improved and after at least 5 doses of sotalol. Urine Output 950 Complications No immediate complications Condition Stable Disposition Floor
--- NOTE | 2021-12-13 14:28 | PC.NURSE ---
1340- To cardiac agriculture laboratory technician for cardioversion accompanied by [facility] staff
--- NOTE | 2021-12-13 15:40 | PC.NURSE ---
1510- pt returned to room post cardioversion- VSS- monitor SR with PVC's - denies pain
[2021-12-13 16:08] LABS: Glucose Point of Care 105 mg/dl (65-105)
[2021-12-13] MEDS: FERROUS SULFATE 324 MG TABLET PO (18:13)
--- NOTE | 2021-12-13 19:41 | PM.IMPN ---
Progress Note: A&P Assessment and Plan (1) Atrial fibrillation by electrocardiogram: Code(s): I48.91 - Unspecified atrial fibrillation Status: Acute Assessment and Plan: On sotalol with rate control. Appreciate recommendations from Cardiology. Planned for cardioversion today. -NPO -Continue apixaban -Continue sotalol (2) Acute exacerbation of CHF (congestive heart failure): Code(s): I50.9 - Heart failure, unspecified Status: Acute Assessment and Plan: CXR with cardiomegaly and mild central and lower lung infiltrated likely due to pulmonary edema. Negative -2.6L. Oxygen increased this morning but appears clinically stable. -Fluid restriction 1.5L per day -Continue furosemide 40 mg IV BID (3) Obstructive sleep apnea: Code(s): G47.33 - Obstructive sleep apnea (adult) (pediatric) Status: Acute Assessment and Plan: On 3 L by nasal cannula at nighttime. 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 Continue statin, aspirin and nichole. (7) Chronic kidney disease, stage III (moderate): Code(s): N18.30 - Chronic kidney disease, stage 3 unspecified Status: Acute Assessment and Plan: Baseline creatinine 1.1-1.2. Stable. Will monitor. (8) Essential (primary) hypertension: Code(s): I10 - Essential (primary) hypertension Status: Acute Assessment and Plan: Metoprolol changed to sotalol overnight due to heart rhythm. Continue home ramipril. (9) Anemia: Code(s): D64.9 - Anemia, unspecified Status: Acute Assessment and Plan: Hx of iron deficiency anemia based on iron studies 09/26/21 and vitamin b deficiency. -Continue home b12 and iron supplement Subjective Date/time seen: 12/13/21 09:41 Patient denies palpitations, shortness of breath, chest pain. Review of Systems Cardiovascular: Cardiovascular: Denies chest pain and Denies palpitations Respiratory: Respiratory: Denies dyspnea Exam Narrative: GENERAL: NAD, cooperative HEENT: Normocephalic, atraumatic, anicteric NECK:Supple CV: regular rate RESP: Distant breath sounds, no rhonchi EXTREMITIES: Warm and well perfused, no clubbing, cyanosis. SKIN: warm, dry and intact. NEURO: CN 2-12 grossly intact. Objective Data Vital Signs Vital Signs: Vital Signs - 24 hr 12/12/21 20:00 12/12/21 20:00 12/12/21 20:00 Temperature 99.0 F Pulse Rate 67 77 77 Respiratory Rate 20 20 Blood Pressure 150/68 H Pulse Oximetry 100 100 Oxygen Delivery Nasal Cannula Oxygen Flow Rate 1 12/12/21 22:00 12/12/21 23:49 12/13/21 00:00 Temperature 97.5 F L Pulse Rate 75 69 76 Respiratory Rate 20 Blood Pressure 136/58 L Pulse Oximetry 98 Oxygen Delivery Oxygen Flow Rate 12/13/21 00:00 12/13/21 02:00 12/13/21 04:00 Temperature Pulse Rate 76 86 88 Respiratory Rate 20 Blood Pressure Pulse Oximetry 98 Oxygen Delivery Nasal Cannula Oxygen Flow Rate 2 12/13/21 04:00 12/13/21 04:00 12/13/21 06:00 Temperature 97.5 F L Pulse Rate 88 75 92 Respiratory Rate 20 20 Blood Pressure 154/82 H Pulse Oximetry 98 100 Oxygen
[2021-12-13 20:25] LABS: Glucose Point of Care 192 mg/dl (65-105)
[2021-12-13] MEDS: INSULIN GLARGINE (*BKC) 100 UNITS/ML 36 UNITS SUB-Q (20:42)
[2021-12-13] MEDS: CYANOCOBALAMIN 1,000 MCG TABLET 1000 MCG PO (20:44)
[2021-12-13] MEDS: SOTALOL HCL 40 MG TABLET PO (20:44)
[2021-12-13] MEDS: GABAPENTIN 300 MG CAPSULE PO (20:45)
--- NOTE | 2021-12-13 22:30 | ECG_ITS ---
Measurements Intervals [place] Rate: 79 P: 265 SD: 116 QRS: 12 QRSD: 100 T: 71 QT: 399 QTc: 458 Interpretive Statements SINUS RHYTHM BORDERLINE R WAVE PROGRESSION, ANTERIOR LEADS BORDERLINE ST-T WAVE ABNORMALITY- ANT/HIGH LAT LEADS BORDERLINE ECG Electronically Signed On 12-13-2021 22:50:54 CDT by Khoi Maldonado D.O.
[2021-12-13] MEDS: MELATONIN 5 MG TABLET 10 MG PO (22:34)
[2021-12-14] VITALS (25 sets, daily range): BP systolic 98–169; BP diastolic 41–71; PULSE 70–102; RESP 12–24; TEMP 36.1–37.6; O2SAT 85–100
[2021-12-14] MEDS: IPRATROPIUM BR 0.02% INH SOLN 0.5 MG/2.5 ML VIAL INHALATION ×4 (01:55→20:48)
[2021-12-14 04:53] LABS: Basophils Percent Auto 0.6 % (0.2-1.2); Eosinophils Absolute Auto 0.4 K/mm3 (0-0.3); Eosinophils Percent Auto 5.9 % (0-4.4); Hematocrit 36.9 % (42.0-52.0); Hemoglobin 10.7 g/dL (14.0-18.0); Immature Granulocyte Absolute 0.02 K/mm3 (0.00-0.031); Immature Granulocyte Percent A 0.3 % (0-0.5); Lymphocytes Absolute Auto 1.07 K/mm3 (0.9-3.2); Lymphocytes Percent Auto 16.1 % (18.3-44.2); Mean Corpuscular Hemoglobin 24.5 pg (26-34); Mean Corpuscular Volume 84.6 fl (80-100); Mean Platelet Volume 10.7 fl (7.4-10.4); Monocytes Absolute Auto 0.8 K/mm3 (0.1-0.6); Monocytes Percent Auto 11.8 % (2.6-8.5); Neutrophils Absolute Auto 4.3 K/mm3 (1.3-6.7); Neutrophils Percent Auto 65.3 % (45.5-73.1); Platelet Count Result 160 k/mm3 (150-375); Red Blood Count 4.36 M/mm3 (4.6-6.20); Red Cell Distribution Width 17.9 % (11.5-14.5); White Blood Count 6.6 K/mm3 (4.5-10.0)
[2021-12-14 05:15] LABS: Blood Urea Nitrogen 25 mg/dL (9-20); Calcium 8.7 mg/dL (8.4-10.2); Carbon Dioxide > 40 mmol/L (22-30); Chloride 96 mmol/L (98-107); Estimated CRCL calculation 52 ml/min; Estimated Glomerular Filt Rate 49; Glucose 109 mg/dL (65-110); Potassium 4.3 mmol/L (3.4-5.0); Sodium 139 mmol/L (137-145)
--- NOTE | 2021-12-14 08:00 | ECG_ITS ---
Measurements Intervals [place] Rate: 79 P: [place]: 0 QRS: 14 QRSD: 101 T: 71 QT: 412 QTc: 475 Interpretive Statements SINUS RHYTHM VENTRICULAR PREMATURE COMPLEX BORDERLINE R WAVE PROGRESSION, ANTERIOR LEADS LOW QRS VOLTAGE IN PRECORDIAL LEADS BORDERLINE ST-T WAVE ABNORMALITY- ANT/HIGH LAT LEADS BORDERLINE ECG Electronically Signed On 12-14-2021 16:18:46 CDT by Khoi Maldonado D.O.
[2021-12-14 08:10] LABS: Glucose Point of Care 112 mg/dl (65-105)
[2021-12-14] MEDS: SOTALOL HCL 40 MG TABLET PO ×2 (08:51→20:14)
[2021-12-14] MEDS: FUROSEMIDE INJ 40 MG/4 ML VIAL IV PUSH (08:51)
[2021-12-14] MEDS: DOCUSATE SODIUM 100 MG CAPSULE PO (08:51)
[2021-12-14] MEDS: ramipriL 5 MG CAPSULE 10 MG PO (08:51)
[2021-12-14] MEDS: ASPIRIN 81 MG ENTERIC TABLET PO (08:51)
[2021-12-14] MEDS: FERROUS SULFATE 324 MG TABLET PO ×2 (08:52→17:12)
[2021-12-14] MEDS: ATORVASTATIN 40 MG TABLET PO (08:52)
[2021-12-14] MEDS: EMPAGLIFLOZIN 10 MG TABLET PO (08:52)
[2021-12-14] MEDS: APIXABAN 5 MG TABLET PO ×2 (08:52→20:14)
--- NOTE | 2021-12-14 09:11 | PM.PNCARD ---
Progress Note: A&P Assessment and Plan (1) Persistent atrial fibrillation: Code(s): I48.19 - Other persistent atrial fibrillation Status: Acute Assessment and Plan: Atrial fibrillation since September, anticoagulated Status post successful cardioversion on 12/13/2021, maintaining sinus rhythm Continue Eliquis (2) Medication monitoring encounter: Code(s): Z51.81 - Encounter for therapeutic drug level monitoring Status: Acute Assessment and Plan: Being loaded on sotalol. On 80 mg b.i.d. he was bradycardic. So far tolerating 40 mg b.i.d.. Needs periodic monitoring of QT interval to avoid prolongation and proarrhythmic effect. So for the QT interval is acceptable. Continue to monitor EKG and QT interval (3) Acute on chronic diastolic CHF (congestive heart failure): Code(s): I50.33 - Acute on chronic diastolic (congestive) heart failure Status: Acute Assessment and Plan: Acute on chronic diastolic heart failure. Diuresing well Renal function relatively stable Continue furosemide 40 mg IV push BID Home Saturday or Saturday, when oxygenation is better Taking Jardiance in the hospital but takes Farxiga at home; will resume Farxiga on discharge. Reviewed risk of UTI etc. which the patient has already experienced. Very inactive; will request a Ph Tx eval (4) Hypertension: Code(s): I10 - Essential (primary) hypertension Status: Acute Assessment and Plan: Intermittent high blood pressure Metoprolol was discontinued when sotalol was started. Continue treatment with diuretic, ramipril Add amlodipine 2.5 mg daily (5) Chronic kidney disease, stage III (moderate): Code(s): N18.30 - Chronic kidney disease, stage 3 unspecified Status: Acute Assessment and Plan: Relatively stable renal function Daily BMP Subjective Date/time seen: 12/14/21 09:11 Interval history: FU recurrent AF and Acute/chronic diastolic CHF. Loading w/ sotalol. 12/12/2021-patient is sitting up in the recliner, reports improvement in shortness of breath. He denies chest pain, palpitation, dizziness or syncope. Lower extremity swelling is modestly improved. His sotalol was put on hold due to significant bradycardia with heart rate in 30s. At present, he is in atrial fibrillation with heart rates in 70s and 80s. 12/13/2021: Successful cardioversion; sotalol resumed at lower dose. Date of service 12/14/2021: Doing OK, only moves fr bed to chair to bed. Remains in NSR. Diuresing. 3 L NC; apparently O2 sat in low 80's on RA. BP mildly elevated. Telemetry: NSR, occasional PVCs 12/13/2021 EKG: NSR rate 79, QTc 458 msec, acceptable, nonspecific T changed, personally reviewed. 12/14/2021 EKG: NSR rate 79, 1 PVC, QTC 475 milliseconds, acceptable, personally reviewed Review of Systems Constitutional: Constitutional: Reports difficulty sleeping (chronic) and Denies fever(s) Cardiovascular: Cardiovascular: Denies chest pain, Reports pedal edema, Denies lightheadedness and Denies dyspnea Respiratory: Respiratory: Denies chest congestion and Denies dyspnea Gastrointestinal: Gastrointestinal: Denies abdominal pain and Denies hematochezia Musculoskeletal: Musculoskeletal: Reports no additional musculoskeletal complaints Integumentary/Breasts: Skin/Breast: Reports system reviewed and no additional complaints, except as docu Neurologic: Reports system reviewed and no additional complaints, except as documented, Denies behavioral changes and Denies confusion Psychiatric: Psychiatric: Denies behavioral changes and Denies confusion Exam Const: General: cooperative and comfortable; No confusion Nutritional Appearance: obese morbidly obese Orientation/consciousness: oriented to person, patient oriented x3 and No confusion Other: Sitting up in chair, alert,
--- NOTE | 2021-12-14 09:19 | PM.IMPN ---
Progress Note: A&P Assessment and Plan (1) Atrial fibrillation by electrocardiogram: Code(s): I48.91 - Unspecified atrial fibrillation Status: Acute Assessment and Plan: S/p cardioversion yesterday. -Continue apixaban -Continue sotalol (2) Acute exacerbation of CHF (congestive heart failure): Code(s): I50.9 - Heart failure, unspecified Status: Acute Assessment and Plan: CXR with cardiomegaly and mild central and lower lung infiltrated likely due to pulmonary edema. Negative -2.6L. Oxygen increased this morning but appears clinically stable. -Fluid restriction 1.5L per day -Will hold furosemide today due RADHA (3) Chronic kidney disease, stage III (moderate): Code(s): N18.30 - Chronic kidney disease, stage 3 unspecified Status: Acute Assessment and Plan: Baseline creatinine 1.1-1.2. Stable. Will monitor. Up to 1.4 today. Will hold furosemide but will continue fluid restriction for now. (4) Obstructive sleep apnea: Code(s): G47.33 - Obstructive sleep apnea (adult) (pediatric) Status: Acute Assessment and Plan: On 3 L by nasal cannula at nighttime. (5) Diabetic neuropathy: Code(s): E11.40 - Type 2 diabetes mellitus with diabetic neuropathy, unspecified Status: Acute Assessment and Plan: -Hold metformin -Continue dulaglutide and dapagliflozin home medication -SSI with POC glucose TIDWM (6) Obesity, Class III, BMI 40-49.9 (morbid obesity): Code(s): E66.01 - Morbid (severe) obesity due to excess calories Status: Acute Assessment and Plan: Lifestyle and diet modifications Carb consistent diet (7) Atherosclerotic heart disease of [place] coronary artery with other forms of angina pectoris: Code(s): I25.118 - Atherosclerotic heart disease of [place] coronary artery with other forms of angina pectoris Status: Acute Assessment and Plan: HX of VT and cardiac catheterization. Continue statin, aspirin and nichole. (8) Essential (primary) hypertension: Code(s): I10 - Essential (primary) hypertension Status: Acute Assessment and Plan: Metoprolol changed to sotalol overnight due to heart rhythm. Continue home ramipril. (9) Anemia: Code(s): D64.9 - Anemia, unspecified Status: Acute Assessment and Plan: Hx of iron deficiency anemia based on iron studies 5/3/22 and vitamin b deficiency. -Continue home b12 and iron supplement Subjective Date/time seen: 12/14/21 09:19 Patient denies shortness of breath but says overnight his oxygen was increased because he dropped to the 80s. Denies chest pain, palpitations, lightheadedness. Review of Systems Cardiovascular: Cardiovascular: Denies chest pain and Denies palpitations Respiratory: Respiratory: Denies dyspnea Exam Narrative: GENERAL: NAD, cooperative HEENT: Normocephalic, atraumatic, anicteric NECK:Supple CV: regular rate RESP: Distant breath sounds, no rhonchi EXTREMITIES: Warm and well perfused, no clubbing, cyanosis. SKIN: warm, dry and intact. NEURO: CN 2-12 grossly intact. Objective Data Vital Signs Vital Signs: Vital Signs - 24 hr 12/13/21 10:00 12/13/21 12:00 12/13/21 09:20 Temperature 97.1 F L Pulse Rate 82 73 73 Respiratory Rate 20 18 Blood Pressure 132/59 L Pulse Oximetry 100 Oxygen Delivery Oxygen Flow Rate 12/13/21 13:20 12/13/21 13:27 12/13/21 14:30 Temperature Pulse Rate 72 74 83 Respiratory Rate 18 18 20 Blood Pressure 147/56 H Pulse Oximetry 100 Oxygen Delivery Nasal Cannula Oxygen Flow Rate 3 12/13/21 14:51 12/13/21 14:43 12/13/21 15:20 Temperature Pulse Rate 90 85 85 Respiratory Rate 18 18 Blood Pressure 149/78 H 141/53 H Pulse Oximetry 100 100 Oxygen Delivery Nasal Cannula Nasal Cannula Oxygen Flow Rate 3 3 12/13/21 15:20 12/13/21 16:00 12/13/21 15:1
[2021-12-14 12:15] LABS: Glucose Point of Care 186 mg/dl (65-105)
[2021-12-14] MEDS: PHENYLEPHRINE 1% NA SPR (*BKC) 15 ML BTL 1 SPRAY NASAL ×2 (12:22→20:13)
[2021-12-14] MEDS: FLUTICASONE PROPIONATE 0.05% NA SPR 16 GM BTL (*BKC) 1 SPRAY NASAL ×2 (12:23→20:13)
[2021-12-14 16:27] LABS: Glucose Point of Care 181 mg/dl (65-105)
[2021-12-14] MEDS: MELATONIN 5 MG TABLET 10 MG PO (20:12)
[2021-12-14] MEDS: INSULIN GLARGINE (*BKC) 100 UNITS/ML 36 UNITS SUB-Q (20:12)
[2021-12-14] MEDS: GABAPENTIN 300 MG CAPSULE PO (20:14)
[2021-12-14] MEDS: CYANOCOBALAMIN 1,000 MCG TABLET 1000 MCG PO (20:14)
--- NOTE | 2021-12-14 22:00 | ECG_ITS ---
Measurements Intervals [place] Rate: 76 P: -86 OR: 120 QRS: 9 QRSD: 98 T: 68 QT: 425 QTc: 480 Interpretive Statements SINUS RHTYHM LOW QRS VOLTAGE IN PRECORDIAL LEADS BORDERLINE R WAVE PROGRESSION, ANTERIOR LEADS BORDERLINE ST-T WAVE ABNORMALITY- ANT/HIGH LAT LEADS BORDERLINE ECG Electronically Signed On 12-15-2021 16:41:21 CDT by Khoi Maldonado D.O.
[2021-12-15] VITALS (26 sets, daily range): BP systolic 128–152; BP diastolic 59–64; PULSE 66–92; RESP 16–22; TEMP 36.2–36.6; O2SAT 95–100
[2021-12-15] MEDS: IPRATROPIUM BR 0.02% INH SOLN 0.5 MG/2.5 ML VIAL INHALATION ×4 (02:04→20:17)
[2021-12-15 08:30] LABS: Glucose Point of Care 124 mg/dl (65-105)
[2021-12-15] MEDS: SOTALOL HCL 40 MG TABLET PO ×2 (08:56→20:31)
[2021-12-15] MEDS: ramipriL 5 MG CAPSULE 10 MG PO (08:56)
[2021-12-15] MEDS: PHENYLEPHRINE 1% NA SPR (*BKC) 15 ML BTL 1 SPRAY NASAL (08:57)
[2021-12-15] MEDS: ASPIRIN 81 MG ENTERIC TABLET PO (08:57)
[2021-12-15] MEDS: FLUTICASONE PROPIONATE 0.05% NA SPR 16 GM BTL (*BKC) 1 SPRAY NASAL (08:57)
--- NOTE | 2021-12-15 08:57 | PM.IMPN ---
Progress Note: A&P Assessment and Plan (1) Atrial fibrillation by electrocardiogram: Code(s): I48.91 - Unspecified atrial fibrillation Status: Acute Assessment and Plan: S/p cardioversion 12/13. -Continue apixaban -Continue sotalol (2) Acute exacerbation of CHF (congestive heart failure): Code(s): I50.9 - Heart failure, unspecified Status: Acute Assessment and Plan: CXR with cardiomegaly and mild central and lower lung infiltrated likely due to pulmonary edema. Negative -500 yesterday. Still requiring oxygen. -Fluid restriction 1.5L per day ordered again -Furosemide 40 mg IV x 1 given today (3) Chronic kidney disease, stage III (moderate): Code(s): N18.30 - Chronic kidney disease, stage 3 unspecified Status: Acute Assessment and Plan: Baseline creatinine 1.1-1.2. Back down to 1.1 today after RADHA to 1.4 yesterday. -Avoid nephrotoxic agents -Renally dose medications (4) Obstructive sleep apnea: Code(s): G47.33 - Obstructive sleep apnea (adult) (pediatric) Status: Acute Assessment and Plan: On 3 L by nasal cannula at nighttime. (5) Diabetic neuropathy: Code(s): E11.40 - Type 2 diabetes mellitus with diabetic neuropathy, unspecified Status: Acute Assessment and Plan: -Hold metformin -Continue dulaglutide and dapagliflozin home medication -SSI with POC glucose TIDWM (6) Obesity, Class III, BMI 40-49.9 (morbid obesity): Code(s): E66.01 - Morbid (severe) obesity due to excess calories Status: Acute Assessment and Plan: Lifestyle and diet modifications Carb consistent diet (7) Atherosclerotic heart disease of [place] coronary artery with other forms of angina pectoris: Code(s): I25.118 - Atherosclerotic heart disease of [place] coronary artery with other forms of angina pectoris Status: Acute Assessment and Plan: HX of [place] and cardiac catheterization. Continue statin, aspirin and nichole. (8) Essential (primary) hypertension: Code(s): I10 - Essential (primary) hypertension Status: Acute Assessment and Plan: Metoprolol changed to sotalol overnight due to heart rhythm. Continue home ramipril. (9) Anemia: Code(s): D64.9 - Anemia, unspecified Status: Acute Assessment and Plan: Hx of iron deficiency anemia based on iron studies 09/26/21 and vitamin b deficiency. -Continue home b12 and iron supplement Subjective Date/time seen: 12/15/21 08:57 Patient says when the staff tries to take him off of oxygen he drops, so they always put it back on. Patient denies chest pain, shortness of breath, difficulty breathing. Review of Systems Cardiovascular: Cardiovascular: Denies palpitations Respiratory: Respiratory: Reports dyspnea Exam Narrative: GENERAL: NAD, cooperative HEENT: Normocephalic, atraumatic, anicteric NECK:Supple CV: regular rate, no murmur, RESP: Distant breath sounds, no rhonchi EXTREMITIES: Warm and well perfused, no clubbing, cyanosis. SKIN: warm, dry and intact. NEURO: CN 2-12 grossly intact. Objective Data Vital Signs Vital Signs: Vital Signs - 24 hr 12/14/21 10:00 12/14/21 12:00 12/14/21 12:00 Temperature Pulse Rate 86 86 72 Respiratory Rate 14 Blood Pressure Pulse Oximetry 100 Oxygen Delivery Nasal Cannula Oxygen Flow Rate 3 12/14/21 12:00 12/14/21 13:38 12/14/21 13:41 Temperature 99.2 F Pulse Rate 72 72 78 Respiratory Rate 18 12 12 Blood Pressure 98/41 L Pulse Oximetry 98 Oxygen Delivery Oxygen Flow Rate 12/14/21 14:00 12/14/21 16:00 12/14/21 16:00 Temperature Pulse Rate 70 70 80 Respiratory Rate 12 Blood Pressure Pulse Oximetry 95 Oxygen Delivery Nasal Cannula Oxygen Flow Rate 1 12/14/21 16:00 12/14/21 18:00 12/14/21 20:14 Temperature 98.6 F Pulse Rate 78 77 86 Respiratory Rate 24 H
[2021-12-15] MEDS: ATORVASTATIN 40 MG TABLET PO (08:59)
[2021-12-15] MEDS: APIXABAN 5 MG TABLET PO ×2 (08:59→20:32)
[2021-12-15] MEDS: FERROUS SULFATE 324 MG TABLET PO ×2 (08:59→17:30)
[2021-12-15] MEDS: amLODIPine BESYLATE 2.5 MG TABLET PO (08:59)
[2021-12-15] MEDS: EMPAGLIFLOZIN 10 MG TABLET PO (09:00)
[2021-12-15] MEDS: DOCUSATE SODIUM 100 MG CAPSULE PO (09:00)
[2021-12-15 09:40] LABS: Anion Gap 2 mmol/L (8-16); Blood Urea Nitrogen 24 mg/dL (9-20); Calcium 9.1 mg/dL (8.4-10.2); Carbon Dioxide 36 mmol/L (22-30); Chloride 99 mmol/L (98-107); Estimated CRCL calculation 65 ml/min; Estimated Glomerular Filt Rate > 60; Glucose 119 mg/dL (65-110); Potassium 4.7 mmol/L (3.4-5.0); Sodium 137 mmol/L (137-145)
[2021-12-15] MEDS: polyethylene glycoL 3350 17 GM POWD.PACK PO (09:48)
--- NOTE | 2021-12-15 11:00 | ECG_ITS ---
Rate 76 [place] 148 QRSd 98 QT 415 QTc 467 --[place]-- P 26 QRS 5 T 62 SINUS RHYTHM SUPRAVENTRICULAR TRIGEMINY BORDERLINE R WAVE PROGRESSION, ANTERIOR LEADS T WAVE ABNORMALITY IN ANTERIOR LEADS- CONSIDER ISCHEMIA ABNORMAL ECG Electronically Signed On 12-15-2021 16:45:32 CDT by Khoi OSORIO
[2021-12-15 11:58] LABS: Glucose Point of Care 259 mg/dl (65-105)
[2021-12-15] MEDS: INSULIN ASPART (*BKC) 100 UNITS/ML SUB-Q (12:07)
--- NOTE | 2021-12-15 14:48 | PM.PNCARD ---
Progress Note: A&P Assessment and Plan (1) Persistent atrial fibrillation: Code(s): I48.19 - Other persistent atrial fibrillation Status: Acute Assessment and Plan: Atrial fibrillation since September, anticoagulated Status post successful cardioversion on 12/13/2021, maintaining sinus rhythm Continue Eliquis (2) Medication monitoring encounter: Code(s): Z51.81 - Encounter for therapeutic drug level monitoring Status: Acute Assessment and Plan: Being loaded on sotalol. On 80 mg b.i.d. he was bradycardic. So far tolerating 40 mg b.i.d. Needs periodic monitoring of QT interval to avoid prolongation and proarrhythmic effect. So for the QT interval is acceptable, 467 msec today Continue to monitor EKG and QT interval (3) Acute on chronic diastolic CHF (congestive heart failure): Code(s): I50.33 - Acute on chronic diastolic (congestive) heart failure Status: Acute Assessment and Plan: Acute on chronic diastolic heart failure. Diuresing well Renal function relatively stable Will shift him to p.o. furosemide today with the intention of discharge perhaps tomorrow. Taking Jardiance in the hospital but takes Farxiga at home; will resume Farxiga on discharge. Reviewed risk of UTI etc. which the patient has already experienced. Very inactive, PT eval (4) Hypertension: Code(s): I10 - Essential (primary) hypertension Status: Acute Assessment and Plan: Intermittent high blood pressure Metoprolol was discontinued when sotalol was started. Continue treatment with diuretic, ramipril Add amlodipine 2.5 mg daily (5) Chronic kidney disease, stage III (moderate): Code(s): N18.30 - Chronic kidney disease, stage 3 unspecified Status: Acute Assessment and Plan: Relatively stable renal function Daily BMP Subjective Date/time seen: 12/15/21 14:48 Cardiology follow up for Afib, CHF Interval history: FU recurrent AF and Acute/chronic diastolic CHF. Loading w/ sotalol. 12/12/2021-patient is sitting up in the recliner, reports improvement in shortness of breath. He denies chest pain, palpitation, dizziness or syncope. Lower extremity swelling is modestly improved. His sotalol was put on hold due to significant bradycardia with heart rate in 30s. At present, he is in atrial fibrillation with heart rates in 70s and 80s. 12/13/2021: Successful cardioversion; sotalol resumed at lower dose. Date of service 12/14/2021: Doing OK, only moves fr bed to chair to bed. Remains in NSR. Diuresing. 3 L NC; apparently O2 sat in low 80's on RA. BP mildly elevated. Telemetry: NSR, occasional PVCs 12/13/2021 EKG: NSR rate 79, QTc 458 msec, acceptable, nonspecific T changed, personally reviewed. 12/14/2021 EKG: NSR rate 79, 1 PVC, QTC 475 milliseconds, acceptable, personally reviewed Date of service 12/15/2021: Feeling okay. Does not have any shortness of breath today. Swelling is improving. EKG showing NSR with PAC's, QTc stable, 467msec Review of Systems Constitutional: Constitutional: Reports difficulty sleeping (chronic), Denies fever(s) and Reports lethargy Eyes: Eyes: Reports no additional eye complaints ENT: Reports system reviewed and no additional complaints, except as documented Cardiovascular: Cardiovascular: Denies chest pain, Reports pedal edema, Denies lightheadedness and Denies dyspnea Respiratory: Respiratory: Reports as per HPI, Denies chest congestion and Denies dyspnea Gastrointestinal: Gastrointestinal: Reports no additional gastrointestinal complaints, Denies abdominal pain and Denies hematochezia Musculoskeletal: Musculoskeletal: Reports no additional musculoskeletal complaints Integumentary/Breasts: Skin/Breast: Reports system reviewed and no additional complaints, except as docu Neurologic: Reports system reviewed and no
[2021-12-15 16:38] LABS: Glucose Point of Care 176 mg/dl (65-105)
[2021-12-15] MEDS: FUROSEMIDE 40 MG TABLET PO (17:30)
[2021-12-15] MEDS: FUROSEMIDE INJ 40 MG/4 ML VIAL IV PUSH (19:17)
[2021-12-15 20:02] LABS: Glucose Point of Care 204 mg/dl (65-105)
[2021-12-15] MEDS: CYANOCOBALAMIN 1,000 MCG TABLET 1000 MCG PO (20:31)
[2021-12-15] MEDS: GABAPENTIN 300 MG CAPSULE PO (20:32)
[2021-12-15] MEDS: INSULIN GLARGINE (*BKC) 100 UNITS/ML 36 UNITS SUB-Q (20:33)
--- NOTE | 2021-12-15 22:15 | ECG_ITS ---
Measurements Intervals [place] Rate: 77 P: 266 [place]: 128 QRS: 6 QRSD: 102 T: 68 QT: 433 QTc: 492 Interpretive Statements SINUS OR ECTOPIC ATRIAL RHYTHM DELAYED PRECORDIAL R/S TRANSITION LOW QRS VOLTAGE IN PRECORDIAL LEADS BORDERLINE ST-T WAVE ABNORMALITY- ANT/HIGH LAT LEADS BORDERLINE ECG Electronically Signed On 12-16-2021 7:05:34 CDT by Khoi Maldonado D.O.
[2021-12-15] MEDS: MELATONIN 5 MG TABLET 10 MG PO (22:50)
[2021-12-16] VITALS (20 sets, daily range): BP systolic 116–157; BP diastolic 48–79; PULSE 50–92; RESP 14–24; TEMP 36.4–37.1; O2SAT 95–100
[2021-12-16] MEDS: IPRATROPIUM BR 0.02% INH SOLN 0.5 MG/2.5 ML VIAL INHALATION ×2 (02:00→19:59)
[2021-12-16 07:47] LABS: Glucose Point of Care 130 mg/dl (65-105)
[2021-12-16] MEDS: APIXABAN 5 MG TABLET PO ×2 (08:28→20:12)
[2021-12-16] MEDS: SOTALOL HCL 40 MG TABLET PO ×2 (08:28→20:12)
[2021-12-16] MEDS: FERROUS SULFATE 324 MG TABLET PO ×2 (08:28→17:17)
[2021-12-16] MEDS: amLODIPine BESYLATE 2.5 MG TABLET PO (08:29)
[2021-12-16] MEDS: FUROSEMIDE 40 MG TABLET PO ×2 (08:29→17:17)
[2021-12-16] MEDS: DOCUSATE SODIUM 100 MG CAPSULE PO (08:29)
[2021-12-16] MEDS: ramipriL 5 MG CAPSULE 10 MG PO (08:29)
[2021-12-16] MEDS: ASPIRIN 81 MG ENTERIC TABLET PO (08:29)
[2021-12-16] MEDS: ATORVASTATIN 40 MG TABLET PO (08:29)
[2021-12-16] MEDS: EMPAGLIFLOZIN 10 MG TABLET PO (08:29)
[2021-12-16] MEDS: FLUTICASONE PROPIONATE 0.05% NA SPR 16 GM BTL (*BKC) 1 SPRAY NASAL ×2 (08:29→20:13)
[2021-12-16] MEDS: PHENYLEPHRINE 1% NA SPR (*BKC) 15 ML BTL 1 SPRAY NASAL ×2 (08:29→20:13)
[2021-12-16] MEDS: polyethylene glycoL 3350 17 GM POWD.PACK PO (08:31)
--- NOTE | 2021-12-16 10:30 | ECG_ITS ---
Measurements Intervals [place] Rate: 84 P: [place]: 0 QRS: 9 QRSD: 97 T: 69 QT: 429 QTc: 507 Interpretive Statements ATRIAL FIBRILLATION VENTRICULAR PREMATURE COMPLEXES LOW QRS VOLTAGE IN PRECORDIAL LEADS BORDERLINE ST-T WAVE ABNORMALITY- HIGH LATERAL LEADS ABNORMAL ECG Electronically Signed On 12-16-2021 16:57:20 CDT by Khoi Maldonado D.O.
[2021-12-16 11:44] LABS: Glucose Point of Care 205 mg/dl (65-105)
--- NOTE | 2021-12-16 12:53 | PM.IMPN ---
Progress Note: A&P Assessment and Plan (1) Atrial fibrillation by electrocardiogram: Code(s): I48.91 - Unspecified atrial fibrillation Status: Acute Assessment and Plan: S/p cardioversion 12/13. -Continue apixaban -Continue sotalol (2) Acute exacerbation of CHF (congestive heart failure): Code(s): I50.9 - Heart failure, unspecified Status: Acute Assessment and Plan: CXR with cardiomegaly and mild central and lower lung infiltrated likely due to pulmonary edema. Negative -500 yesterday. Still requiring oxygen. -Fluid restriction 1.5L per day ordered again -Furosemide 40 mg IV x 1 given today (3) Chronic kidney disease, stage III (moderate): Code(s): N18.30 - Chronic kidney disease, stage 3 unspecified Status: Acute Assessment and Plan: Baseline creatinine 1.1-1.2. Back down to 1.1 today after RADHA to 1.4 yesterday. -Avoid nephrotoxic agents -Renally dose medications (4) Obstructive sleep apnea: Code(s): G47.33 - Obstructive sleep apnea (adult) (pediatric) Status: Acute Assessment and Plan: On 3 L by nasal cannula at nighttime. (5) Diabetic neuropathy: Code(s): E11.40 - Type 2 diabetes mellitus with diabetic neuropathy, unspecified Status: Acute Assessment and Plan: -Hold metformin -Continue dulaglutide and dapagliflozin home medication -SSI with POC glucose TIDWM (6) Obesity, Class III, BMI 40-49.9 (morbid obesity): Code(s): E66.01 - Morbid (severe) obesity due to excess calories Status: Acute Assessment and Plan: Lifestyle and diet modifications Carb consistent diet (7) Atherosclerotic heart disease of [place] coronary artery with other forms of angina pectoris: Code(s): I25.118 - Atherosclerotic heart disease of [place] coronary artery with other forms of angina pectoris Status: Acute Assessment and Plan: HX of DC and cardiac catheterization. Continue statin, aspirin and nichole. (8) Essential (primary) hypertension: Code(s): I10 - Essential (primary) hypertension Status: Acute Assessment and Plan: Metoprolol changed to sotalol overnight due to heart rhythm. Continue home ramipril. (9) Anemia: Code(s): D64.9 - Anemia, unspecified Status: Acute Assessment and Plan: Hx of iron deficiency anemia based on iron studies 09/26/21 and vitamin b deficiency. -Continue home b12 and iron supplement Additional Plan 12/16/2021 plan is to continue current treatment. Continue with Lasix. Patient Is improving, will increase activity as tolerated. Discharge home soon. Subjective Date/time seen: 12/16/21 12:53 patient was seen during the morning rounds today. Patient is feeling slightly better. Decreased shortness of breath. No chest pain. No abdominal pain, nausea, no vomiting. Mood stable. Review of Systems Review of Systems: ROS unobtainable: Yes unobtainable due to medical condition (On BiPAP) Cardiovascular: Cardiovascular: Denies chest pain, Denies palpitations and Reports dyspnea Respiratory: Respiratory: Reports dyspnea Endocrine: Endocrine: Denies palpitations Exam Narrative: GENERAL: NAD, cooperative HEENT: Normocephalic, atraumatic, anicteric NECK:Supple CV: regular rate, no murmur, RESP: Distant breath sounds, no rhonchi EXTREMITIES: Warm and well perfused, no clubbing, cyanosis. 1+ edema SKIN: warm, dry and intact. NEURO: CN 2-12 grossly intact. Const: General: comfortable, no acute distress, well developed, alert, awake and ill appearing acutely Nutritional Appearance: obese morbidly obese Orientation/consciousness: patient oriented x3 HENMT: Head: normal to inspection, normocephalic and atraumatic Ears: hearing grossly normal bilaterally Face and sinus: normal facial exam Eyes: General: appearance normal, both eyes and all related structures Pupils
[2021-12-16] MEDS: INSULIN ASPART (*BKC) 100 UNITS/ML SUB-Q (12:58)
--- NOTE | 2021-12-16 13:55 | PM.PNCARD ---
Progress Note: A&P Assessment and Plan (1) Persistent atrial fibrillation: Code(s): I48.19 - Other persistent atrial fibrillation Status: Acute Assessment and Plan: Atrial fibrillation since September, anticoagulated Status post successful cardioversion on 12/13/2021, patient back in atrial fibrillation although heart rate well controlled. Remains on sotalol 40 mg twice daily. QT corrected interval stable repeat EKG later this morning. Continue Eliquis Stable for discharge from this perspective. (2) Medication monitoring encounter: Code(s): Z51.81 - Encounter for therapeutic drug level monitoring Status: Acute Assessment and Plan: Being loaded on sotalol. On 80 mg b.i.d. he was bradycardic. So far tolerating 40 mg b.i.d. Needs periodic monitoring of QT interval to avoid prolongation and proarrhythmic effect. So for the QT interval is acceptable, 467 msec repeat 12 lead EKG. QT corrected interval stable. EKG earlier today difficult to interpret given PVC versus aberrant conduction and AFib. Will repeat for better assessment prior to discharge consideration. Continue to monitor EKG and QT interval (3) Acute on chronic diastolic CHF (congestive heart failure): Code(s): I50.33 - Acute on chronic diastolic (congestive) heart failure Status: Acute Assessment and Plan: Acute on chronic diastolic heart failure. Diuresing well Renal function relatively stable Continue Lasix 40 mg p.o. b.i.d.. Taking Jardiance in the hospital but takes Farxiga at home; resume Farxiga on discharge. Reviewed risk of UTI etc. which the patient has already experienced. Very inactive, PT eval Wean O2 during the day as tolerated. Defer to hospitalist service. Stable for discharge home from cardiac perspective at this time. Follow-up in 2 weeks with Cardiology as an outpatient. (4) Hypertension: Code(s): I10 - Essential (primary) hypertension Status: Acute Assessment and Plan: Intermittent high blood pressure Metoprolol was discontinued when sotalol was started. Continue treatment with diuretic, ramipril Continue amlodipine 2.5 mg daily BP stable. (5) Chronic kidney disease, stage III (moderate): Code(s): N18.30 - Chronic kidney disease, stage 3 unspecified Status: Acute Assessment and Plan: Relatively stable renal function Subjective Date/time seen: Date of service: 12/16/21 13:55 Interval history: FU recurrent AF and Acute/chronic diastolic CHF. Loading w/ sotalol. 12/12/2021-patient is sitting up in the recliner, reports improvement in shortness of breath. He denies chest pain, palpitation, dizziness or syncope. Lower extremity swelling is modestly improved. His sotalol was put on hold due to significant bradycardia with heart rate in 30s. At present, he is in atrial fibrillation with heart rates in 70s and 80s. 12/13/2021: Successful cardioversion; sotalol resumed at lower dose. Date of service 12/14/2021: Doing OK, only moves fr bed to chair to bed. Remains in NSR. Diuresing. 3 L NC; apparently O2 sat in low 80's on RA. BP mildly elevated. Telemetry: NSR, occasional PVCs 12/13/2021 EKG: NSR rate 79, QTc 458 msec, acceptable, nonspecific T changed, personally reviewed. 12/14/2021 EKG: NSR rate 79, 1 PVC, QTC 475 milliseconds, acceptable, personally reviewed Date of service 12/15/2021: Feeling okay. Does not have any shortness of breath today. Swelling is improving. EKG showing NSR with PAC's, QTc stable, 467msec 12/16/2021 patient feeling fairly well. Ambulated up and down the angulo without significant difficulty. Denies significant exertional dyspnea, chest pain or palpitation. Denies dizziness or lightheadedness. Edema much improved but not completely resolved. Patient states he feels well enough to go home. He remains on o
--- NOTE | 2021-12-16 13:58 | ECG_ITS ---
Measurements Intervals [place] Rate: 65 P: VA: 0 QRS: -3 QRSD: 109 T: 54 QT: 476 QTc: 496 Interpretive Statements ATRIAL FIBRILLATION VENTRICULAR PREMATURE COMPLEXES LOW QRS VOLTAGE IN PRECORDIAL LEADS BORDERLINE R WAVE PROGRESSION, ANTERIOR LEADS T WAVE ABNORMALITY IN ANTERIOR LEADS- CONSIDER ISCHEMIA BASELINE WANDER- II, III, V2 ABNORMAL ECG Electronically Signed On 12-16-2021 17:04:55 CDT by Khoi Maldonado D.O.
[2021-12-16 16:31] LABS: Glucose Point of Care 154 mg/dl (65-105)
[2021-12-16] MEDS: CYANOCOBALAMIN 1,000 MCG TABLET 1000 MCG PO (20:12)
[2021-12-16] MEDS: GABAPENTIN 300 MG CAPSULE PO (20:12)
[2021-12-16 20:13] LABS: Glucose Point of Care 213 mg/dl (65-105)
[2021-12-16] MEDS: INSULIN GLARGINE (*BKC) 100 UNITS/ML 36 UNITS SUB-Q (20:13)
[2021-12-16] MEDS: MELATONIN 5 MG TABLET 10 MG PO (23:06)
[2021-12-17] VITALS (9 sets, daily range): BP systolic 110–137; BP diastolic 43–63; PULSE 50–104; RESP 16–24; TEMP 36.7–36.9; O2SAT 90–100
[2021-12-17 08:09] LABS: Glucose Point of Care 112 mg/dl (65-105)
[2021-12-17] MEDS: IPRATROPIUM BR 0.02% INH SOLN 0.5 MG/2.5 ML VIAL INHALATION (08:17)
[2021-12-17] MEDS: FUROSEMIDE 40 MG TABLET PO (08:59)
[2021-12-17] MEDS: FERROUS SULFATE 324 MG TABLET PO (08:59)
[2021-12-17] MEDS: SOTALOL HCL 40 MG TABLET PO (08:59)
[2021-12-17] MEDS: ramipriL 5 MG CAPSULE 10 MG PO (08:59)
[2021-12-17] MEDS: APIXABAN 5 MG TABLET PO (08:59)
[2021-12-17] MEDS: ATORVASTATIN 40 MG TABLET PO (08:59)
[2021-12-17] MEDS: DOCUSATE SODIUM 100 MG CAPSULE PO (08:59)
[2021-12-17] MEDS: amLODIPine BESYLATE 2.5 MG TABLET PO (08:59)
[2021-12-17] MEDS: ASPIRIN 81 MG ENTERIC TABLET PO (08:59)
[2021-12-17] MEDS: EMPAGLIFLOZIN 10 MG TABLET PO (08:59)
[2021-12-17] MEDS: FLUTICASONE PROPIONATE 0.05% NA SPR 16 GM BTL (*BKC) 1 SPRAY NASAL (09:00)
[2021-12-17] MEDS: PHENYLEPHRINE 1% NA SPR (*BKC) 15 ML BTL 1 SPRAY NASAL (09:00)
[2021-12-17] MEDS: polyethylene glycoL 3350 17 GM POWD.PACK PO (09:01)
--- NOTE | 2021-12-17 11:00 | ECG_ITS ---
Measurements Intervals [place] Rate: 69 P: VT: 0 QRS: 5 QRSD: 108 T: 56 QT: 455 QTc: 489 Interpretive Statements ATRIAL FIBRILLATION VENTRICULAR PREMATURE COMPLEX BORDERLINE R WAVE PROGRESSION, ANTERIOR LEADS CONSIDER INFERIOR INFARCT, AGE INDETERMINATE T WAVE ABNORMALITY IN ANTERIOR LEADS- CONSIDER ISCHEMIA ABNORMAL ECG Electronically Signed On 12-17-2021 14:17:14 CDT by Khoi Maldonado D.O.
[2021-12-17 11:42] LABS: Glucose Point of Care 319 mg/dl (65-105)
[2021-12-17] MEDS: INSULIN ASPART (*BKC) 100 UNITS/ML SUB-Q (12:11)
--- NOTE | 2021-12-17 12:18 | PM.DS ---
DS: Admitting Diagnosis Discharge Date 12/17/2021 Admitting Diagnosis atrial fibrillation acute exacerbation of CHF DS: Discharge Diagnosis Discharge Diagnosis (1) Atrial fibrillation by electrocardiogram: Code(s): I48.91 - Unspecified atrial fibrillation Status: Acute (2) Acute exacerbation of CHF (congestive heart failure): Code(s): I50.9 - Heart failure, unspecified Status: Acute (3) Chronic kidney disease, stage III (moderate): Code(s): N18.30 - Chronic kidney disease, stage 3 unspecified Status: Acute (4) Obstructive sleep apnea: Code(s): G47.33 - Obstructive sleep apnea (adult) (pediatric) Status: Acute (5) Diabetic neuropathy: Code(s): E11.40 - Type 2 diabetes mellitus with diabetic neuropathy, unspecified Status: Acute (6) Obesity, Class III, BMI 40-49.9 (morbid obesity): Code(s): E66.01 - Morbid (severe) obesity due to excess calories Status: Acute (7) Atherosclerotic heart disease of [place] coronary artery with other forms of angina pectoris: Code(s): I25.118 - Atherosclerotic heart disease of [place] coronary artery with other forms of angina pectoris Status: Acute (8) Essential (primary) hypertension: Code(s): I10 - Essential (primary) hypertension Status: Acute (9) Anemia: Code(s): D64.9 - Anemia, unspecified Status: Acute DS: Summary Hospital Course Reason for hospitalization: atrial fibrillation acute exacerbation of CHF Hospital Course: 76 years old male was admitted complains of having shortness of breath patient was found to have atrial fibrillation acute exacerbation congestive heart failure. Patient was given diuresis and sotalol, cardiology was also consulted. Patient was continued on treatment for his diabetes. Today patient is feeling better so patient discharged in stable condition. Time Spent with Patient Time attestation: Total time spent providing and/or coordinating discharge services: DS: Data Data Completed and Pending Labs on day of discharge: Labs from last 24 hours 12/17/21 12/17/21 12/16/21 11:31 07:56 20:10 POC Capillary Glucose 319 H 112 H 213 H 12/16/21 16:17 POC Capillary Glucose 154 H Discharge Plan Discharge Attending physician on discharge: Joshua Hayes Consulting providers: Chace Jimenez Discharging Clinician: Joshua Hayes Patient Disposition: Home, Self-Care Activity: as tolerated Diet: as tolerated and heart healthy Patient Instructions: Antibiotic Form, Sotalol (By mouth), Apixaban (By mouth), Heart Failure (DC) Stand Alone Forms: General Discharge Information Follow-up/Referrals: Chace Jimenez MD [Physician] - Adela Gillespie DO [Primary Care Provider] - Discharge Medications: New amlodipine 2.5 mg Tablet 2.5 mg PO QAM Qty: 30 0RF sotalol [Betapace] 80 mg tablet 40 mg PO BID Qty: 30 0RF Continued atorvastatin 40 mg tablet 40 mg PO DAILY aspirin [Adult Aspirin Regimen] 81 mg tablet,delayed release (DR/EC) 81 mg PO DAILY Tresiba FlexTouch U-200 200 unit/mL (3 mL) insulin pen 36 unit subcut HS albuterol sulfate [ProAir HFA] 90 mcg/actuation HFA aerosol inhaler 2 puff INHALATION Q4H PRN (Reason: shortness of breath or wheezing) Qty: 8.5 5RF Farxiga 5 mg tablet 5 mg PO DAILY furosemide 40 mg tablet 40 mg PO BID ferrous sulfate [FeroSul] 325 mg (65 mg iron) tablet 325 mg PO BIDWM Qty: 60 5RF Trulicity 4.5 mg/0.5 mL pen injector 4.5 mg subcut WEEKLY Rx Instructions: Wednesdays gabapentin 300 mg capsule 300 mg PO QHS Qty: 90 1RF metformin 500 mg tablet extended release 24 hr 500 mg PO BIDWM Qty: 0 0RF glipizide 5 mg tablet 2 tablet PO BIDWM Eliquis 5 mg tablet 5 mg PO BID cyanocobalamin (vitamin B-12) [Vitamin B-12] 1,000 mcg tablet 1,000 mcg PO QHS docusate sodium [Cola
--- NOTE | 2021-12-17 12:41 | PM.PNCARD ---
Progress Note: A&P Assessment and Plan (1) Persistent atrial fibrillation: Code(s): I48.19 - Other persistent atrial fibrillation Status: Acute Assessment and Plan: Atrial fibrillation since September, anticoagulated Status post successful cardioversion on 12/13/2021, patient back in atrial fibrillation although heart rate well controlled. Remains on sotalol 40 mg twice daily. Continue Eliquis Stable for discharge follow-up as an outpatient. (2) Medication monitoring encounter: Code(s): Z51.81 - Encounter for therapeutic drug level monitoring Status: Acute Assessment and Plan: Being loaded on sotalol. On 80 mg b.i.d. he was bradycardic. So far tolerating 40 mg b.i.d. Needs periodic monitoring of QT interval to avoid prolongation and proarrhythmic effect. So for the QT interval is acceptable. QT corrected interval stable manually measured approximately 460 milliseconds by EKG this a.m.. Twelve lead EKG in 2 weeks as an outpatient. Continue to monitor EKG and QT interval (3) Acute on chronic diastolic CHF (congestive heart failure): Code(s): I50.33 - Acute on chronic diastolic (congestive) heart failure Status: Acute Assessment and Plan: Acute on chronic diastolic heart failure. Diuresing well Renal function relatively stable Continue Lasix 40 mg p.o. b.i.d.. Taking Jardiance in the hospital but takes Farxiga at home; resume Farxiga on discharge. Reviewed risk of UTI etc. which the patient has already experienced. Very inactive, PT eval Off O2 nasal cannula while awake. (4) Hypertension: Code(s): I10 - Essential (primary) hypertension Status: Acute Assessment and Plan: Intermittent high blood pressure Metoprolol was discontinued when sotalol was started. Continue treatment with diuretic, ramipril Continue amlodipine 2.5 mg daily BP stable. (5) Chronic kidney disease, stage III (moderate): Code(s): N18.30 - Chronic kidney disease, stage 3 unspecified Status: Acute Assessment and Plan: Relatively stable renal function Subjective Date/time seen: Date of service: 12/17/21 12:41 Follow-up for atrial fibrillation, acute on chronic diastolic heart failure, sotalol loading Patient was not discharged home yesterday. Patient feels the same ambulating halls without great difficulty. Edema persists although slightly improved. Denies significant shortness of breath, chest pain or dizziness. Remains in atrial fibrillation with controlled ventricular response on telemetry. Review of Systems Constitutional: Constitutional: Reports difficulty sleeping (chronic), Denies fever(s) and Reports lethargy Eyes: Eyes: Reports no additional eye complaints ENT: Reports system reviewed and no additional complaints, except as documented Cardiovascular: Cardiovascular: Denies chest pain, Reports pedal edema, Denies lightheadedness and Denies dyspnea Respiratory: Respiratory: Reports as per HPI, Denies chest congestion and Denies dyspnea Gastrointestinal: Gastrointestinal: Reports no additional gastrointestinal complaints, Denies abdominal pain and Denies hematochezia Musculoskeletal: Musculoskeletal: Reports no additional musculoskeletal complaints Integumentary/Breasts: Skin/Breast: Reports system reviewed and no additional complaints, except as docu Neurologic: Reports system reviewed and no additional complaints, except as documented, Denies behavioral changes and Denies confusion Psychiatric: Psychiatric: Denies behavioral changes and Denies confusion Endocrine: Endocrine: Reports no additional endocrine complaints Hematologic/Lymphatic: Hematologic/Lymphatic: Reports no additional hematologic/lymphatic complaints Allergic/Immunologic: Allergic/Immunologic: Reports no additional allergic/immunologic complaints Exam Const:
== END 2021-12-17 13:45 | disposition home or self-care (01) | DRG 308 ==
LOC: ANHED 02:43 → ANHIMU 02:56
PROVIDERS: Family Medicine; Internal Medicine Cardiovascular Disease; Admitting Provider Internal Medicine; Emergency Provider Emergency Medicine; PCP Family Medicine; Visit Provider Internal Medicine
PROC: 5A2204Z Restoration of Cardiac Rhythm, Single (ICD-10-PCS; principal; 2021-12-13 14:00)
DX: I48.19 Other persistent atrial fibrillation (principal); I50.33 Acute on chronic diastolic (congestive) heart failure; I13.0 Hypertensive heart and chronic kidney disease with heart failure and stage 1 through stage 4 chronic kidney disease, or unspecified chronic kidney disease; Z68.41 Body mass index [BMI] 40.0-44.9, adult; E11.22 Type 2 diabetes mellitus with diabetic chronic kidney disease; N18.30 Chronic kidney disease, stage 3 unspecified; G47.33 Obstructive sleep apnea (adult) (pediatric); E66.01 Morbid (severe) obesity due to excess calories; I25.10 Atherosclerotic heart disease of native coronary artery without angina pectoris; D64.9 Anemia, unspecified; Z20.822 Contact with and (suspected) exposure to COVID-19; R00.1 Bradycardia, unspecified; I73.9 Peripheral vascular disease, unspecified; E11.42 Type 2 diabetes mellitus with diabetic polyneuropathy; D51.9 Vitamin B12 deficiency anemia, unspecified; D50.9 Iron deficiency anemia, unspecified; R09.02 Hypoxemia; Z51.81 Encounter for therapeutic drug level monitoring; Z79.82 Long term (current) use of aspirin; Z79.4 Long term (current) use of insulin; I25.2 Old myocardial infarction; Z87.891 Personal history of nicotine dependence; Z79.01 Long term (current) use of anticoagulants
CPT/HCPCS: 36415; 71045; 71046; 80048; 80053; 82948; 83605; 83735; 83880; 84100; 84484; 85025; 85610; 85730; 87040; 87502; 92960; 93005; 94002; 94640; 96374; 96376; 97161; 99285; A9270; C9803; G0378; J1815; J1940; J2704; J7040; U0003; U0005

== ENCOUNTER 2022-01-18 20:27 | Inpatient (IN) | payer MEDICARE, SELFPAY ==
[2022-01-18] VITALS (12 sets, daily range): BP systolic 127–174; BP diastolic 63–93; PULSE 86–119; RESP 16–28; TEMP 36.4; O2SAT 96–100
--- NOTE | ~2022-01-18 | XR_ITS ---
EXAMINATION: XR chest 1V portable DATE: 01/18/2022 21:29 INDICATION: Shortness of breath TECHNIQUE: frontal view of the chest was obtained. COMPARISON: Chest radiograph dated 12/11/2021 FINDINGS: Persistent mild opacities in the bilateral mid and lower lung zones with bronchial wall thickening ve rsus peribronchial cuffing in the right infrahilar region. No pleural effusion or pneumothorax. Borde rline heart size accounting for AP technique. Atherosclerotic aorta. IMPRESSION: 1. Mild opacities in bilateral mid and lower lung zones which could represent pulmonary edema or pneu monia. Reviewed, dictated and finalized at location A. IMPRESSION: 1. Mild opacities in bilateral mid and lower lung zones which could represent p ulmonary edema or pneumonia.
--- NOTE | 2022-01-18 20:31 | ECG_ITS ---
Measurements Intervals [place] Rate: 109 P: AR: 0 QRS: 12 QRSD: 95 T: 84 QT: 328 QTc: 442 Interpretive Statements ATRIAL FIBRILLATION WITH RAPID VENTRICULAR RESPONSE WITH VENTRICULAR PREMATURE COMPLEXES OCCURRING IN A PATTERN OF BIGEMINY LOW QRS VOLTAGE IN PRECORDIAL LEADS [QRS DEFLECTION < 1.0 mV IN CHEST LEADS] COMPARED TO ECG 12/17/2021 11:03:05 MORE VENTRICULAR ECTOPIC ACTIVITY Electronically Signed On 01-19-2022 12:44:54 CDT by Chace Jimenez M.D.
[2022-01-18] MEDS: NITROGLYCERIN SL 0.4 MG TABLET SUBLINGUAL (20:41)
[2022-01-18] MEDS: FUROSEMIDE INJ 40 MG/4 ML VIAL IV PUSH (20:57)
[2022-01-18 21:15] LABS: Basophils Percent Auto 0.4 % (0.2-1.2); Eosinophils Absolute Auto 0.5 K/mm3 (0-0.3); Eosinophils Percent Auto 4.2 % (0-4.4); Hematocrit 40.8 % (42.0-52.0); Hemoglobin 11.7 g/dL (14.0-18.0); Immature Granulocyte Absolute 0.05 K/mm3 (0.00-0.031); Immature Granulocyte Percent A 0.5 % (0-0.5); Lymphocytes Absolute Auto 1.18 K/mm3 (0.9-3.2); Mean Corpuscular HGB Conc 28.7 g/dl (32-36); Mean Corpuscular Hemoglobin 24.2 pg (26-34); Mean Corpuscular Volume 84.5 fl (80-100); Mean Platelet Volume 10.5 fl (7.4-10.4); Monocytes Absolute Auto 0.8 K/mm3 (0.1-0.6); Monocytes Percent Auto 7.5 % (2.6-8.5); Neutrophils Absolute Auto 8.2 K/mm3 (1.3-6.7); Neutrophils Percent Auto 76.4 % (45.5-73.1); Platelet Count Result 188 k/mm3 (150-375); Red Blood Count 4.83 M/mm3 (4.6-6.20); Red Cell Distribution Width 18.4 % (11.5-14.5); White Blood Count 10.7 K/mm3 (4.5-10.0)
[2022-01-18 21:24] LABS: Hypochromasia 1+ (NORMAL); Lactic Acid Reflex 1.7 mmol/L (0.7-2.0); Ovalocytes 1+ (NORMAL); Platelet Estimate Adequate (Adequate)
[2022-01-18 21:26] LABS: Alanine Aminotransferase 19 U/L (6-50); Albumin Level 4.2 g/dL (3.5-5.1); Alkaline Phosphatase 82 U/L (38-126); Anion Gap 9 mmol/L (8-16); Aspartate Amino Transferase 29 U/L (17-59); Bilirubin,Total 0.6 mg/dL (0.2-1.3); Blood Urea Nitrogen 25 mg/dL (9-20); Calcium 8.8 mg/dL (8.4-10.2); Carbon Dioxide 33 mmol/L (22-30); Chloride 97 mmol/L (98-107); Estimated CRCL calculation 63 ml/min; Estimated Glomerular Filt Rate > 60; Glucose 167 mg/dL (65-110); Potassium 4.6 mmol/L (3.4-5.0); Sodium 139 mmol/L (137-145)
[2022-01-18 21:38] LABS: NT Pro B Type Natriuretic Pept 2610 pg/mL (5-100); Troponin I 0.015 ng/mL (0.000-0.034)
[2022-01-18 21:53] LABS: Influenza A QL RT-PCR Negative (Negative); Influenza B QL RT-PCR Negative (Negative); SARS-CoV-2 RNA PCR Negative
[2022-01-18 22:08] LABS: INR 1.4; Prothrombin Time 16.2 Seconds (11.1-14.7)
--- NOTE | 2022-01-18 22:17 | ED.GENADULT ---
HPI - General Adult General Chief complaint: Shortness of Breath/Dyspnea Stated complaint: SOB, CHF Time Seen by Provider: 01/18/22 20:28 History of Present Illness HPI narrative: Patient 76-year-old gentleman who presents the emergency department with chief complaint of shortness of breath. The patient reports that he has history of CHF reports he may have missed a couple doses of his diuretic and reports that he is noticed that he has had increased peripheral edema. The patient states that he started getting very short of breath when EMS arrived the patient was extremely tachypneic and required CPAP in the field. Patient was also extremely hypertensive with a pressure in the 200s. The patient was given sublingual nitro in the field and had some improvement in his blood pressure and breathing. Related Data Home Medications Medication Instructions Recorded Confirmed atorvastatin 40 mg tablet 40 mg PO DAILY 06/18/19 12/10/21 aspirin 81 mg tablet,delayed 81 mg PO DAILY 03/04/20 12/10/21 release (Adult Aspirin Regimen) insulin degludec 200 unit/mL (3 36 unit subcut HS 06/16/20 12/10/21 mL) subcutaneous pen (Tresiba FlexTouch U-200 insulin) dulaglutide 4.5 mg/0.5 mL 4.5 mg subcut WEEKLY 10/05/21 12/10/21 subcutaneous pen injector (Trulicity) apixaban 5 mg tablet (Eliquis) 5 mg PO BID 12/10/21 12/10/21 cyanocobalamin (vitamin B-12) 1,000 mcg PO QHS 12/10/21 12/10/21 1,000 mcg tablet (Vitamin B-12) docusate sodium 100 mg capsule 100 mg PO DAILY 12/10/21 12/10/21 (Colace) glipizide 5 mg tablet 2 tablet PO BIDWM 12/10/21 12/10/21 melatonin 10 mg tablet 10 mg PO HS 12/10/21 12/10/21 dapagliflozin 10 mg tablet 10 mg PO DAILY 12/28/21 (Farxiga) Allergies Allergy/AdvReac Type Severity Reaction Status Date / Time No Known Allergies Allergy Verified 12/28/21 09:28 Review of Systems Review of Systems: A 10 system review of systems was completed on the patient and is negative except for what is stated in the HPI. Nursing and ancillary documentation was reviewed. [facility] Past Medical History Medical History Hepatitis C antibody test negative (09/10/17) Myocardial infarction Peripheral artery disease Surgical History Surgical History H/O cardiac catheterization H/O colonoscopy History of esophagogastroduodenoscopy (EGD) Family History Family History Grandparent Diabetes mellitus Mother Family history of cardiovascular disease Diabetes mellitus Hypertension Social History Social History Smoking packs per day: 2 Smoking cigarettes per day: 40.0 Years smoked: 50 Smoking pack-years: 100.00 Smoking status: Former smoker Tobacco type: cigarettes Second hand tobacco smoke exposure: No Alcohol intake: never Drinks per week: 2 Substance use: never Substance use type: does not use Gender identity (if verbalized by the patient): Male Spiritual care concerns: No Agree to blood products: Yes Exam Narrative: GENERAL: Well-appearing, well-nourished, and in no acute distress. HEAD: Normocephalic, atraumatic. EYES: PERRLA and EOMI. ENT: Nares clear, no rhinorrhea or epistaxis. Mucous membranes moist. NECK: Supple. CHEST: Clear to auscultation. No respiratory distress. HEART: Regular rate and rhythm. No murmur heard. Normal peripheral pulses. ABDOMEN: Soft, nontender, nondistended, normal active bowel sounds. EXTREMITIES: Normal range of motion. +2 edema. SKIN: Warm, dry, no rash. NEURO: No focal deficits. Alert and oriented x3. PSYCH: Normal mood and affect. Course Course Emergency Course: The patient was given sublingual nitro and IV Lasix in the emergency department patient's blood pressure has come down to 170s over
--- NOTE | 2022-01-18 22:25 | PM.IMHP ---
H&P: HPI History of Present Illness Date/Time: 01/18/22 22:25 Chief Complaint: shortness of breath Narrative: This is a 76-year-old male with past medical history significant for morbid obesity, hypertension, coronary artery disease, type 2 diabetes mellitus,Persistent atrial fibrillation, rate controlled anticoagulated, cardioversion, on 3 L by nasal cannula at nighttime for sleep. Patient was brought to the emergency room due to acute onset shortness of breath most of the history has been obtained by daughter who is at bedside as patient is currently on BiPAP. Patient was found to have a systolic blood pressure of 200 and required nitro which brought his blood pressure down had a 2nd dose of nitro patient was placed on BiPAP. Patient has been in his usual state of health up until this time he had prior or hospitalization on in November and went home after he was treated for persistent atrial fibrillation was cardioverted and congestive heart failure as well. Preliminary workup was significant for BNP of 2500. patient received Lasix in the emergency room and brought further relieve. Patient found to be on atrial fibrillation with rapid ventricular response. Patient admitted for further evaluation management and treatment. Review of Systems Review of Systems: ROS unobtainable: Yes unobtainable due to medical condition ( On BiPAP) PMFSH Past Medical History Medical History Hepatitis C antibody test negative (09/10/17) Myocardial infarction Peripheral artery disease Surgical History Surgical History H/O cardiac catheterization H/O colonoscopy History of esophagogastroduodenoscopy (EGD) Family History Family History Grandparent Diabetes mellitus Mother Family history of cardiovascular disease Diabetes mellitus Hypertension Social History Social History Smoking packs per day: 2 Smoking cigarettes per day: 40.0 Years smoked: 50 Smoking pack-years: 100.00 Smoking status: Former smoker Tobacco type: cigarettes Second hand tobacco smoke exposure: No Alcohol intake: current Drinks per week: 2 Substance use: never Substance use type: does not use Gender identity (if verbalized by the patient): Male Spiritual care concerns: No Agree to blood products: Yes Meds Home Medications and Allergies Home Medications Medication Instructions Recorded Confirmed Type atorvastatin 40 mg tablet 40 mg PO DAILY 06/18/19 01/19/22 History aspirin 81 mg tablet,delayed 81 mg PO DAILY 03/04/20 01/19/22 History release (Adult Aspirin Regimen) insulin degludec 200 unit/mL (3 36 unit subcut HS 06/16/20 01/19/22 History mL) subcutaneous pen (Tresiba FlexTouch U-200 insulin) albuterol sulfate 90 mcg/actuation 2 puff inhalation Q4H PRN 07/21/21 01/19/22 Rx aerosol inhaler (ProAir HFA) shortness of breath or wheezing #8.5 grams gabapentin 300 mg capsule 300 mg PO QHS #90 caps 08/25/21 01/19/22 Rx metformin 500 mg tablet,extended 500 mg PO BIDWM #0 tabs 09/29/21 01/19/22 Rx release 24 hr dulaglutide 4.5 mg/0.5 mL 4.5 mg subcut WEEKLY 10/05/21 01/19/22 History subcutaneous pen injector (Trulicity) ferrous sulfate 325 mg (65 mg 325 mg PO BIDWM #60 tabs 11/21/21 01/19/22 Rx iron) tablet (FeroSul) apixaban 5 mg tablet (Eliquis) 5 mg PO BID 12/10/21 01/19/22 History cyanocobalamin (vitamin B-12) 1,000 mcg PO QHS 12/10/21 01/19/22 History 1,000 mcg tablet (Vitamin B-12) docusate sodium 100 mg capsule 100 mg PO DAILY 12/10/21 01/19/22 History (Colace) glipizide 5 mg tablet 2 tablet PO BIDWM 12/10/21 01/19/22 History melatonin 10 mg tablet 10 mg PO HS 12/10/21 01/19/22 History amlodipine 2.5 mg tablet 2.5 mg PO QAM #30 tabs 12/17/21 01/19/22
[2022-01-19] VITALS (18 sets, daily range): BP systolic 116–167; BP diastolic 46–70; PULSE 55–86; RESP 14–24; TEMP 36.4–37.1; O2SAT 98–100; BMI 42.2
[2022-01-19 00:36] LABS: Troponin I 0.024 ng/mL (0.000-0.034)
--- NOTE | 2022-01-19 02:30 | ADMGEN ---
This patient, Paul Ag, was admitted to IMU Room 207-01 @ 0013. Patient/family oriented to hospital policies and general routines including ID bracelet, bed and alarms, visiting hours, pain management, procedures, bathroom and other care routines, personal items, smoking policy, room service/diet, and visiting hours. Information on how to activate the Rapid Response Team has been discussed. Patient/Family are encouraged to report perceived risks to care and to ask questions if they do not understand what they are told or what they should do.
[2022-01-19 04:19] LABS: Basophils Percent Auto 0.5 % (0.2-1.2); Eosinophils Absolute Auto 0.2 K/mm3 (0-0.3); Eosinophils Percent Auto 2.5 % (0-4.4); Hematocrit 35.1 % (42.0-52.0); Hemoglobin 10.2 g/dL (14.0-18.0); Immature Granulocyte Absolute 0.03 K/mm3 (0.00-0.031); Immature Granulocyte Percent A 0.4 % (0-0.5); Lymphocytes Absolute Auto 1.36 K/mm3 (0.9-3.2); Lymphocytes Percent Auto 16.9 % (18.3-44.2); Mean Corpuscular HGB Conc 29.1 g/dl (32-36); Mean Corpuscular Hemoglobin 24.3 pg (26-34); Mean Corpuscular Volume 83.8 fl (80-100); Mean Platelet Volume 11.1 fl (7.4-10.4); Monocytes Absolute Auto 0.9 K/mm3 (0.1-0.6); Monocytes Percent Auto 11.1 % (2.6-8.5); Neutrophils Absolute Auto 5.5 K/mm3 (1.3-6.7); Neutrophils Percent Auto 68.6 % (45.5-73.1); Platelet Count Result 161 k/mm3 (150-375); Red Blood Count 4.19 M/mm3 (4.6-6.20); Red Cell Distribution Width 18.4 % (11.5-14.5); White Blood Count 8.1 K/mm3 (4.5-10.0)
[2022-01-19 04:38] LABS: Anion Gap 4 mmol/L (8-16); Blood Urea Nitrogen 24 mg/dL (9-20); Calcium 8.4 mg/dL (8.4-10.2); Carbon Dioxide 36 mmol/L (22-30); Chloride 99 mmol/L (98-107); Estimated CRCL calculation 65 ml/min; Estimated Glomerular Filt Rate > 60; Glucose 109 mg/dL (65-110); Potassium 4.2 mmol/L (3.4-5.0); Sodium 139 mmol/L (137-145)
[2022-01-19 05:11] LABS: Troponin I 0.035 ng/mL (0.000-0.034)
[2022-01-19 05:24] LABS: Anisocytosis 1+ (NORMAL); Hypochromasia 1+ (NORMAL); Platelet Estimate Adequate (Adequate)
[2022-01-19 07:52] LABS: Glucose Point of Care 107 mg/dl (65-105)
[2022-01-19] MEDS: METOPROLOL SUCCINATE EXT REL 100 MG TABCR PO (08:05)
[2022-01-19] MEDS: FERROUS SULFATE 324 MG TABLET PO ×2 (08:05→17:03)
[2022-01-19] MEDS: ASPIRIN 81 MG ENTERIC TABLET PO (08:06)
[2022-01-19] MEDS: ramipriL 5 MG CAPSULE 10 MG PO (08:06)
[2022-01-19] MEDS: ATORVASTATIN 40 MG TABLET PO (08:07)
[2022-01-19] MEDS: DOCUSATE SODIUM 100 MG CAPSULE PO (08:07)
[2022-01-19] MEDS: FUROSEMIDE INJ 40 MG/4 ML VIAL IV PUSH ×2 (08:07→20:08)
[2022-01-19] MEDS: APIXABAN 5 MG TABLET PO ×2 (08:07→20:08)
[2022-01-19] MEDS: amLODIPine BESYLATE 2.5 MG TABLET PO (09:29)
--- NOTE | 2022-01-19 09:59 | PM.IMPN ---
Progress Note: A&P Assessment and Plan (1) Acute exacerbation of CHF (congestive heart failure): Code(s): I50.9 - Heart failure, unspecified Status: Acute Assessment and Plan: Likely precipitated by hypertensive urgency. Symptomatically improving with aggressive diuresis. Continue Lasix IV 40 q.12, monitor urine output. Patient had echo done 09/2021 that showed LVEF 60-65%, mildly enlarged LA, with mild pulmonary hypertension RVSP 39 mmHg. (2) Hypertensive emergency: Code(s): I16.1 - Hypertensive emergency Status: Acute Assessment and Plan: Patient reports he had missed a dose of his home meds prior to coming in to the ED. significant improvement in blood pressure after restarting home meds. Continue ramipril, amlodipine (3) Persistent atrial fibrillation: Code(s): I48.19 - Other persistent atrial fibrillation Status: Acute Assessment and Plan: Continue Toprol and Eliquis (4) Obstructive sleep apnea: Code(s): G47.33 - Obstructive sleep apnea (adult) (pediatric) Status: Acute Assessment and Plan: Patient refusing BiPAP (5) Iron deficiency anemia: Code(s): D50.9 - Iron deficiency anemia, unspecified Status: Acute Assessment and Plan: Continue iron supplement (6) Diabetes mellitus: Code(s): E11.9 - Type 2 diabetes mellitus without complications Status: Acute Assessment and Plan: Blood sugar in the low 100s this a.m.. Lower Lantus to 32 units, start medium dose sliding scale insulin. Check A1c Subjective Date/time seen: 01/19/22 09:59 Patient examined, chart reviewed. Pressures improved today, patient with adequate urine output. Reports symptomatically feeling much better. Review of Systems Review of Systems: Ten point ROS reviewed, negative unless otherwise specified for subjective Exam Const: General: comfortable, no acute distress, well developed, alert and awake Nutritional Appearance: obese morbidly obese Orientation/consciousness: patient oriented x3 HENMT: Head: normal to inspection, normocephalic and atraumatic Ears: hearing grossly normal bilaterally Face and sinus: normal facial exam Eyes: General: appearance normal, both eyes and all related structures Pupils: Equal, round and reactive pupils present EOM: EOMs intact bilaterally Neck: Neck: full ROM, no lymphadenopathy and no JVD Thyroid: thyroid normal Lymphatic: no lymphadenopathy noted Resp: Effort & Inspection: normal respiratory effort and able to speak in complete sentences Auscultation: crackles bilateral at the base and diminished lung sounds Cardio: Jugular venous distension: no JVD Rate: regular rate Rhythm: abnormal rhythm irregularly irregular Heart sounds: S1 normal heart sound present and S2 normal heart sound present GI: Inspection: Pannus present and obesity GI Palp: Yes Soft to palpation and Yes No hepatosplenomegaly present : General: Yes deferred Skin: Rashes: no rashes Wounds: no wounds Neuro: General: patient oriented x3 and CN's II-XI intact bilaterally Cranial nerves: Yes CN's II-XII intact bilaterally and Yes Equal, round and reactive pupils present Cognition (Neuro): normal cognition Speech: normal speech Gait exam (Neuro): Unable to assess gait Motor exam (neuro): 5/5 motor strength present throughout Extrem: General: edema bilateral (pitting 1+ up to mid locke) Objective Data Vital Signs Vital Signs: Vital Signs - 24 hr 01/18/22 20:28 01/18/22 20:35 01/18/22 21:00 Temperature 97.6 F Pulse Rate 102 H 93 99 Respiratory Rate 17 24 H Blood Pressure 174/92 H 174/92 H Pulse Oximetry 96 98 Oxygen Delivery Oxygen Flow Rate 01/18/22 21:15 01/18/22 21:30 01/18/22 21:45 Temperature Pulse Rate 98 98 86 Respiratory Rate 21 H 18 17 Blood Pressure Pulse Oximetry 100 100 Oxygen Delivery Oxygen Flow Rate 01/18/22 20:40 01/18/22 22:21 01/18/22 22:45 Temperat
--- NOTE | 2022-01-19 10:53 | PM.CNCAR ---
Assessment and Plan Assessment and plan (1) Persistent atrial fibrillation: Code(s): I48.19 - Other persistent atrial fibrillation Status: Acute (2) Acute on chronic diastolic CHF (congestive heart failure): Code(s): I50.33 - Acute on chronic diastolic (congestive) heart failure Status: Acute Plan This is a 76-year-old man with coronary disease revascularization emergently in 2013 as described above. He has not had any clinically relevant ischemic problems since then. He has been in the hospital now couple of times recently shortness of breath presumably because of the combination of diastolic dysfunction and the development of atrial fibrillation. His Lasix is being given intravenously now with nice response. I would continue this at least another 24-48 hours I would expect he probably will be able to be discharged over the weekend. Given this situation it would be reasonable to arrange for an electrophysiology consult as an outpatient to see if he cannot be restored in sinus rhythm more effectively since he has been hospitalized a couple of times at were after going into atrial fibrillation. I do not see any reason to repeat cardioversion in the hospital this time since he was cardioverted a 1 month ago and he was only in sinus rhythm for approximately 48 hours after that Chace Jimenez MD [facility] History of Present Illness History of Present Illness Consult date/time: 01/19/22 10:53 Consult reason: atrial fibrillation and congestive heart failure Reason For Visit: acute CHF exacerbation Narrative: This is a 76-year-old man known to our practice who follows with my partner, Dr. Peoples. He has a history of coronary artery disease as well as atrial fibrillation and has the diagnosis of diastolic heart failure. The patient came into the hospital yesterday evening when his family who came to see him in his home perceived him to be more short of breath than he typically has. The patient states that of for the last 5 or 6 days he has been noticing some increasing breathlessness it apparently was concerning enough last evening where they brought him to the hospital. He has not really noticed the sense of increasing lower extremity edema orthopnea or PND. He is not having any chest pain. Upon evaluation in the emergency room he was felt to have some a volume overload by exam and by chest x-ray he was admitted and has been given some intravenous furosemide. He feels relatively well this morning he is seated in the bedside chair watching television Aranda catheter bag is nearly full of urinary output. He does not have any other complaints at this time. He is history of coronary artery disease as well delineated in recent notes in the chart. In summary he presented in 2013 with an acute inferior infarction and underwent emergency right coronary revascularization in this hospital. He underwent staged circumflex intervention I believe over at [facility] following that as that procedure was angiographically more complex and higher risk. In any event he did well and has not had any obvious ischemic problems since then. He was found to be in atrial fibrillation for the 1st time I believe in September of this year. He was anticoagulated and admitted to the hospital about a month ago with shortness of breath. I thought a an attempt at restoring sinus rhythm might be beneficial so I transition to his beta-karen to sotalol and anticipated cardioverting him electrically if he persisted in AFib. The sotalol was actually discontinued because apparently he became significantly bradycardic on that medication. He was electrically cardioverted back to sinus rhythm but unfortunately that did not persist for more than about 48 hours. He was discharged home in improved condition. He saw my nurse practitioner in the office couple of weeks after the discharge and was doing reasonably well. He enters the hospital now again the as yeny
[2022-01-19 11:30] LABS: Glucose Point of Care 134 mg/dl (65-105)
[2022-01-19 16:10] LABS: Glucose Point of Care 158 mg/dl (65-105)
[2022-01-19] MEDS: MELATONIN 5 MG TABLET 10 MG PO (20:09)
[2022-01-19] MEDS: GABAPENTIN 300 MG CAPSULE PO (20:09)
[2022-01-19 21:40] LABS: Glucose Point of Care 197 mg/dl (65-105)
[2022-01-19] MEDS: INSULIN GLARGINE (*BKC) 100 UNITS/ML 32 UNITS SUB-Q (21:54)
[2022-01-20] VITALS (15 sets, daily range): BP systolic 116–131; BP diastolic 51–69; PULSE 51–89; RESP 18–20; TEMP 36.2–36.9; O2SAT 95–100
[2022-01-20 05:27] LABS: Hemoglobin A1C 6.5 % (<5.7)
[2022-01-20 08:14] LABS: Glucose Point of Care 122 mg/dl (65-105)
[2022-01-20] MEDS: amLODIPine BESYLATE 2.5 MG TABLET PO (10:25)
[2022-01-20] MEDS: APIXABAN 5 MG TABLET PO ×2 (10:25→20:13)
[2022-01-20] MEDS: DOCUSATE SODIUM 100 MG CAPSULE PO (10:25)
[2022-01-20] MEDS: FERROUS SULFATE 324 MG TABLET PO ×2 (10:25→18:08)
[2022-01-20] MEDS: ramipriL 5 MG CAPSULE 10 MG PO (10:25)
[2022-01-20] MEDS: ATORVASTATIN 40 MG TABLET PO (10:25)
[2022-01-20] MEDS: ASPIRIN 81 MG ENTERIC TABLET PO (10:25)
[2022-01-20] MEDS: METOPROLOL SUCCINATE EXT REL 100 MG TABCR PO (10:25)
[2022-01-20] MEDS: FUROSEMIDE INJ 40 MG/4 ML VIAL IV PUSH ×2 (10:26→20:13)
[2022-01-20 12:35] LABS: Glucose Point of Care 181 mg/dl (65-105)
--- NOTE | 2022-01-20 14:15 | PM.PNCARD ---
Progress Note: A&P Assessment and Plan (1) Persistent atrial fibrillation: Code(s): I48.19 - Other persistent atrial fibrillation Status: Acute Assessment and Plan: On anticoagulation. Heart rate control. (2) Acute on chronic diastolic CHF (congestive heart failure): Code(s): I50.33 - Acute on chronic diastolic (congestive) heart failure Status: Acute Assessment and Plan: Continue IV Lasix. Will give a dose of metolazone 2.5 mg p.o. x1. Basic metabolic panel morning. Continue his other regimen (3) Hypertension: Code(s): I10 - Essential (primary) hypertension Status: Acute Assessment and Plan: Near goal (4) Obstructive sleep apnea: Code(s): G47.33 - Obstructive sleep apnea (adult) (pediatric) Status: Acute Assessment and Plan: Imperative that he uses his CPAP Plan Given this situation it would be reasonable to arrange for an electrophysiology consult as an outpatient to see if he cannot be restored in sinus rhythm more effectively since [facility]. Subjective Date/time seen: 01/20/22 14:15 Interval history: 76-year-old with CAD and CHF. Admitted for worsening shortness of breath Date of service 01/20/2022: Still has significant lower extremity edema. Still has some shortness of breath. Not wearing CPAP while napping. No chest pain. Review of Systems Constitutional: Constitutional: Reports no additional constitutional complaints Eyes: Eyes: Reports no additional eye complaints ENT: Reports system reviewed and no additional complaints, except as documented Cardiovascular: Cardiovascular: Reports no additional cardiovascular complaints and Reports dyspnea Respiratory: Respiratory: Reports dyspnea Gastrointestinal: Gastrointestinal: Reports no additional gastrointestinal complaints Musculoskeletal: Musculoskeletal: Reports back pain Integumentary/Breasts: Skin/Breast: Reports system reviewed and no additional complaints, except as docu Neurologic: Reports system reviewed and no additional complaints, except as documented Endocrine: Endocrine: Reports no additional endocrine complaints Hematologic/Lymphatic: Hematologic/Lymphatic: Reports no additional hematologic/lymphatic complaints Allergic/Immunologic: Allergic/Immunologic: Reports no additional allergic/immunologic complaints Exam Const: General: comfortable and no acute distress Other: Morbidly obese man appears his stated age seated in the bedside chair with nasal cannula oxygen and Aranda catheter in place. Watching television no distress of any kind HENMT: Mouth: Yes moist mucous membranes Eyes: Sclera: sclerae normal Neck: Neck: supple Other: Cannot examine jugular veins given his body habitus Resp: Effort & Inspection: normal respiratory effort Other: Breath sounds largely clear possibly some dullness at the bases Cardio: Rhythm: abnormal rhythm irregularly irregular Other: No murmur no gallop GI: Auscultation: normal bowel sounds Urinary Catheter: Urinary Catheter: patent and draining Skin: General skin exam: normal color Neuro: Other: Alert and oriented x3 Extrem: Other: Modest pretibial edema, significantly obese Objective Data Vital Signs Vital Signs: Vital Signs - 24 hr 01/19/22 16:00 01/19/22 16:00 01/19/22 16:00 Temperature 36.6 C Pulse Rate 72 69 Respiratory Rate 20 Blood Pressure 116/46 L Pulse Oximetry 100 100 Oxygen Delivery Nasal Cannula Oxygen Flow Rate 3 01/19/22 18:00 01/19/22 20:00 01/19/22 20:52 Temperature 37.1 C Pulse Rate 81 70 Respiratory Rate 14 Blood Pressure 133/59 L Pulse Oximetry 100 99 Oxygen Delivery Nasal Cannula Oxygen Flow Rate 2 01/19/22 20:00 01/19/22 20:00 01/19/22 22:00 Temperature Pulse Rate 70 74 74 Respiratory Rate 14 Blood Pressure Pulse Oximetry 100
[2022-01-20 14:50] LABS: Basophils Percent Auto 0.5 % (0.2-1.2); Eosinophils Absolute Auto 0.5 K/mm3 (0-0.3); Eosinophils Percent Auto 6.7 % (0-4.4); Hematocrit 37.9 % (42.0-52.0); Hemoglobin 10.6 g/dL (14.0-18.0); Immature Granulocyte Absolute 0.02 K/mm3 (0.00-0.031); Immature Granulocyte Percent A 0.3 % (0-0.5); Lymphocytes Absolute Auto 1.11 K/mm3 (0.9-3.2); Lymphocytes Percent Auto 15.2 % (18.3-44.2); Mean Corpuscular Hemoglobin 23.9 pg (26-34); Mean Corpuscular Volume 85.6 fl (80-100); Mean Platelet Volume 10.4 fl (7.4-10.4); Monocytes Absolute Auto 0.8 K/mm3 (0.1-0.6); Monocytes Percent Auto 11.5 % (2.6-8.5); Neutrophils Absolute Auto 4.8 K/mm3 (1.3-6.7); Neutrophils Percent Auto 65.8 % (45.5-73.1); Platelet Count Result 160 k/mm3 (150-375); Red Blood Count 4.43 M/mm3 (4.6-6.20); Red Cell Distribution Width 18.2 % (11.5-14.5); White Blood Count 7.3 K/mm3 (4.5-10.0)
[2022-01-20 14:58] LABS: Hypochromasia 1+ (NORMAL); Platelet Estimate Adequate (Adequate)
[2022-01-20 14:59] LABS: Anion Gap 7 mmol/L (8-16); Blood Urea Nitrogen 30 mg/dL (9-20); Calcium 9.1 mg/dL (8.4-10.2); Carbon Dioxide 35 mmol/L (22-30); Chloride 94 mmol/L (98-107); Estimated CRCL calculation 60 ml/min; Estimated Glomerular Filt Rate 59; Glucose 171 mg/dL (65-110); Ovalocytes 1+ (NORMAL); Potassium 4.6 mmol/L (3.4-5.0); Sodium 136 mmol/L (137-145)
[2022-01-20] MEDS: metOLazone 2.5 MG TABLET PO (14:59)
--- NOTE | 2022-01-20 16:20 | PM.IMPN ---
Progress Note: A&P Assessment and Plan (1) Acute exacerbation of CHF (congestive heart failure): Code(s): I50.9 - Heart failure, unspecified Status: Acute Assessment and Plan: Likely precipitated by hypertensive urgency. Symptomatically improving with aggressive diuresis. Cardiology following, continue IV Lasix. Patient given 1 time dose of metolazone 2.5. Patient had echo done 09/2021 that showed LVEF 60-65%, mildly enlarged LA, with mild pulmonary hypertension RVSP 39 mmHg. (2) Hypertensive emergency: Code(s): I16.1 - Hypertensive emergency Status: Acute Assessment and Plan: Patient reports he had missed a dose of his home meds prior to coming in to the ED. significant improvement in blood pressure after restarting home meds. Continue ramipril, amlodipine (3) Persistent atrial fibrillation: Code(s): I48.19 - Other persistent atrial fibrillation Status: Acute Assessment and Plan: Continue Toprol and Eliquis. Cardiology recommending EP consult as an outpatient to evaluate for potential ablation (4) Obstructive sleep apnea: Code(s): G47.33 - Obstructive sleep apnea (adult) (pediatric) Status: Acute Assessment and Plan: Patient refusing BiPAP (5) Iron deficiency anemia: Code(s): D50.9 - Iron deficiency anemia, unspecified Status: Acute Assessment and Plan: Continue iron supplement (6) Diabetes mellitus: Code(s): E11.9 - Type 2 diabetes mellitus without complications Status: Acute Assessment and Plan: Lantus to 32 units, medium dose sliding scale insulin. A1c 6.5% Subjective Date/time seen: 01/20/22 16:20. Patient examined, chart reviewed. No new events, responding well to diuresis. Review of Systems Review of Systems: Ten point ROS reviewed, negative unless otherwise specified for subjective Exam Const: General: comfortable, no acute distress, well developed, alert and awake Nutritional Appearance: obese morbidly obese Orientation/consciousness: patient oriented x3 HENMT: Head: normal to inspection, normocephalic and atraumatic Ears: hearing grossly normal bilaterally Face and sinus: normal facial exam Eyes: General: appearance normal, both eyes and all related structures Pupils: Equal, round and reactive pupils present EOM: EOMs intact bilaterally Neck: Neck: full ROM, no lymphadenopathy and no JVD Thyroid: thyroid normal Lymphatic: no lymphadenopathy noted Resp: Effort & Inspection: normal respiratory effort and able to speak in complete sentences Auscultation: diminished lung sounds Cardio: Jugular venous distension: no JVD Rate: regular rate Rhythm: abnormal rhythm irregularly irregular Heart sounds: S1 normal heart sound present and S2 normal heart sound present GI: Inspection: Pannus present and obesity GI Palp: Yes Soft to palpation and Yes No hepatosplenomegaly present : General: Yes deferred Skin: Rashes: no rashes Wounds: no wounds Neuro: General: patient oriented x3 and CN's II-XI intact bilaterally Cranial nerves: Yes CN's II-XII intact bilaterally and Yes Equal, round and reactive pupils present Cognition (Neuro): normal cognition Speech: normal speech Gait exam (Neuro): Unable to assess gait Motor exam (neuro): 5/5 motor strength present throughout Extrem: General: edema bilateral (pitting 1+ up to mid locke) Objective Data Vital Signs Vital Signs: Vital Signs - 24 hr 01/19/22 18:00 01/19/22 20:00 01/19/22 20:52 Temperature 98.7 F Pulse Rate 81 70 Respiratory Rate 14 Blood Pressure 133/59 L Pulse Oximetry 100 99 Oxygen Delivery Nasal Cannula Oxygen Flow Rate 2 01/19/22 20:00 01/19/22 20:00 01/19/22 22:00 Temperature Pulse Rate 70 74 74 Respiratory Rate 14 Blood Pressure Pulse Oximetry 100 Oxygen Delivery Nasal Cannula Oxygen Flow Rate 2 01/19/22 23:44 01/20/22 00:00 01/20/22 00:00 Temperature 97.9 F Pulse
[2022-01-20 17:18] LABS: Glucose Point of Care 161 mg/dl (65-105)
--- NOTE | 2022-01-20 18:20 | PC.NURSE ---
Patient transferred from IMU to [address] [place] [address] at 1810 via bed.
[2022-01-20] MEDS: INSULIN GLARGINE (*BKC) 100 UNITS/ML 32 UNITS SUB-Q (20:13)
[2022-01-20] MEDS: GABAPENTIN 300 MG CAPSULE PO (20:13)
[2022-01-20] MEDS: MELATONIN 5 MG TABLET 10 MG PO (20:13)
[2022-01-20 20:41] LABS: Glucose Point of Care 158 mg/dl (65-105)
[2022-01-21] VITALS (12 sets, daily range): BP systolic 102–113; BP diastolic 50–63; PULSE 46–85; RESP 18–20; TEMP 36.4–36.8; O2SAT 95–100
[2022-01-21 05:59] LABS: Basophils Percent Auto 0.4 % (0.2-1.2); Eosinophils Absolute Auto 0.5 K/mm3 (0-0.3); Eosinophils Percent Auto 7.4 % (0-4.4); Hematocrit 37.4 % (42.0-52.0); Hemoglobin 10.6 g/dL (14.0-18.0); Immature Granulocyte Absolute 0.04 K/mm3 (0.00-0.031); Immature Granulocyte Percent A 0.6 % (0-0.5); Lymphocytes Absolute Auto 1.04 K/mm3 (0.9-3.2); Lymphocytes Percent Auto 14.8 % (18.3-44.2); Mean Corpuscular HGB Conc 28.3 g/dl (32-36); Mean Corpuscular Hemoglobin 24.2 pg (26-34); Mean Corpuscular Volume 85.4 fl (80-100); Mean Platelet Volume 10.7 fl (7.4-10.4); Monocytes Absolute Auto 0.8 K/mm3 (0.1-0.6); Monocytes Percent Auto 10.8 % (2.6-8.5); Neutrophils Absolute Auto 4.7 K/mm3 (1.3-6.7); Platelet Count Result 154 k/mm3 (150-375); Red Blood Count 4.38 M/mm3 (4.6-6.20); White Blood Count 7.1 K/mm3 (4.5-10.0)
[2022-01-21 06:11] LABS: Anion Gap 7 mmol/L (8-16); Blood Urea Nitrogen 34 mg/dL (9-20); Calcium 9.1 mg/dL (8.4-10.2); Carbon Dioxide 38 mmol/L (22-30); Chloride 93 mmol/L (98-107); Estimated CRCL calculation 60 ml/min; Estimated Glomerular Filt Rate 59; Glucose 108 mg/dL (65-110); Potassium 4.5 mmol/L (3.4-5.0); Sodium 138 mmol/L (137-145)
[2022-01-21 07:45] LABS: Platelet Estimate Adequate (Adequate)
[2022-01-21 07:46] LABS: Ovalocytes 2+ (NORMAL)
[2022-01-21 08:02] LABS: Glucose Point of Care 127 mg/dl (65-105)
[2022-01-21] MEDS: FUROSEMIDE INJ 40 MG/4 ML VIAL IV PUSH (08:08)
[2022-01-21] MEDS: METOPROLOL SUCCINATE EXT REL 100 MG TABCR PO (08:08)
[2022-01-21] MEDS: FERROUS SULFATE 324 MG TABLET PO ×2 (08:08→17:01)
[2022-01-21] MEDS: amLODIPine BESYLATE 2.5 MG TABLET PO (08:08)
[2022-01-21] MEDS: ASPIRIN 81 MG ENTERIC TABLET PO (08:08)
[2022-01-21] MEDS: ramipriL 5 MG CAPSULE 10 MG PO (08:08)
[2022-01-21] MEDS: DOCUSATE SODIUM 100 MG CAPSULE PO (08:08)
[2022-01-21] MEDS: APIXABAN 5 MG TABLET PO ×2 (08:09→20:00)
[2022-01-21] MEDS: ATORVASTATIN 40 MG TABLET PO (08:09)
--- NOTE | 2022-01-21 09:06 | PM.PNCARD ---
Progress Note: A&P Assessment and Plan (1) Persistent atrial fibrillation: Code(s): I48.19 - Other persistent atrial fibrillation Status: Acute Assessment and Plan: On anticoagulation. Heart rate control. (2) Acute on chronic diastolic CHF (congestive heart failure): Code(s): I50.33 - Acute on chronic diastolic (congestive) heart failure Status: Acute Assessment and Plan: Will reduce IV furosemide down is 20 mg IV b.i.d.. Transition oral tomorrow and hopefully discharge. Continue his other regimen (3) Hypertension: Code(s): I10 - Essential (primary) hypertension Status: Acute Assessment and Plan: Near goal (4) Obstructive sleep apnea: Code(s): G47.33 - Obstructive sleep apnea (adult) (pediatric) Status: Acute Assessment and Plan: Imperative that he uses his CPAP Plan Given this situation it would be reasonable to arrange for an electrophysiology consult as an outpatient to see if he cannot be restored in sinus rhythm more effectively since he has been hospitalized a couple of times at [facility] after going into atrial fibrillation. Subjective Date/time seen: 01/21/22 09:06 Interval history: 76-year-old with CAD and CHF. Admitted for worsening shortness of breath Date of service 01/20/2022: Still has significant lower extremity edema. Still has some shortness of breath. Not wearing CPAP while napping. No chest pain. Date of service 01/21/2022: Edema has improved. Less short of breath. No chest pain Review of Systems Constitutional: Constitutional: Reports no additional constitutional complaints Eyes: Eyes: Reports no additional eye complaints ENT: Reports system reviewed and no additional complaints, except as documented Cardiovascular: Cardiovascular: Reports no additional cardiovascular complaints and Reports dyspnea Respiratory: Respiratory: Reports dyspnea Gastrointestinal: Gastrointestinal: Reports no additional gastrointestinal complaints Musculoskeletal: Musculoskeletal: Reports back pain Integumentary/Breasts: Skin/Breast: Reports system reviewed and no additional complaints, except as docu Neurologic: Reports system reviewed and no additional complaints, except as documented Endocrine: Endocrine: Reports no additional endocrine complaints Hematologic/Lymphatic: Hematologic/Lymphatic: Reports no additional hematologic/lymphatic complaints Allergic/Immunologic: Allergic/Immunologic: Reports no additional allergic/immunologic complaints Exam Const: General: comfortable and no acute distress Other: Morbidly obese man appears his stated age seated in the bedside chair with nasal cannula oxygen and Aranda catheter in place. Watching television no distress of any kind HENMT: Mouth: Yes moist mucous membranes Eyes: Sclera: sclerae normal Neck: Neck: supple Other: Cannot examine jugular veins given his body habitus Resp: Effort & Inspection: normal respiratory effort Other: Breath sounds largely clear possibly some dullness at the bases Cardio: Rhythm: abnormal rhythm irregularly irregular Other: No murmur no gallop GI: Auscultation: normal bowel sounds Urinary Catheter: Urinary Catheter: patent and draining Skin: General skin exam: normal color Neuro: Other: Alert and oriented x3 Extrem: Other: Mild pretibial edema, significantly obese Objective Data Vital Signs Vital Signs: Vital Signs - 24 hr 01/20/22 09:15 01/20/22 12:00 01/20/22 10:00 Temperature 36.3 C L Pulse Rate 68 67 Respiratory Rate 20 Blood Pressure 120/64 Pulse Oximetry 98 100 Oxygen Delivery Nasal Cannula Oxygen Flow Rate 3 01/20/22 12:00 01/20/22 12:00 01/20/22 14:00 Temperature Pulse Rate 76 58 L Respiratory Rate Blood Pressure Pulse Oximetry 100 Oxygen Delivery Nasal Cannula Oxygen Flow Rate 2 01/20/22 16:00 01/20/22 16:00 01/20/22 21:12 Temperature 36.2 C L Pu
[2022-01-21 11:24] LABS: Glucose Point of Care 141 mg/dl (65-105)
--- NOTE | 2022-01-21 12:14 | PM.IMPN ---
Progress Note: A&P Assessment and Plan (1) Acute exacerbation of CHF (congestive heart failure): Code(s): I50.9 - Heart failure, unspecified Status: Acute Assessment and Plan: Likely precipitated by hypertensive urgency. Symptomatically improving with aggressive diuresis. Cardiology following, continue IV Lasix. Patient given 1 time dose of metolazone 2.5. Patient had echo done 09/2021 that showed LVEF 60-65%, mildly enlarged LA, with mild pulmonary hypertension RVSP 39 mmHg. 01/21/2022 interval history: 76-year-old male morbidly obese presented with emergently elevated blood pressure secondary to missing his blood pressure medication which was resumed non the blood pressure is trending close to normal, patient also shortness of seen by process chemist suspect congestive heart failure patient had a cardiac echo and September of 2021 which showed preserved LV function and normal diastolic function patient is being diuresed symptoms are improving seen by cardiology and reduced Lasix IV 20mg b.i.d. plan is to taper it to oral tomorrow and possibly discharge, upon arrival patient also had persistent elevated atrial fibrillation, heart rate is controlled with metoprolol succinate 100 mg q.day and anticoagulated, will continue to monitor will have a PT OT evaluate and further recommendation to follow. (2) Hypertensive emergency: Code(s): I16.1 - Hypertensive emergency Status: Acute Assessment and Plan: Patient reports he had missed a dose of his home meds prior to coming in to the ED. significant improvement in blood pressure after restarting home meds. Continue ramipril, amlodipine (3) Persistent atrial fibrillation: Code(s): I48.19 - Other persistent atrial fibrillation Status: Acute Assessment and Plan: Continue Toprol and Eliquis. Cardiology recommending EP consult as an outpatient to evaluate for potential ablation (4) Obstructive sleep apnea: Code(s): G47.33 - Obstructive sleep apnea (adult) (pediatric) Status: Acute Assessment and Plan: Patient refusing BiPAP (5) Iron deficiency anemia: Code(s): D50.9 - Iron deficiency anemia, unspecified Status: Acute Assessment and Plan: Continue iron supplement (6) Diabetes mellitus: Code(s): E11.9 - Type 2 diabetes mellitus without complications Status: Acute Assessment and Plan: Lantus to 32 units, medium dose sliding scale insulin. A1c 6.5% Subjective Date/time seen: 01/21/22 12:14 01/21/2022 interval history: 76-year-old male morbidly obese presented with emergently elevated blood pressure secondary to missing his blood pressure medication which was resumed non the blood pressure is trending close to normal, patient also shortness of seen by process chemist suspect congestive heart failure patient had a cardiac echo and September of 2021 which showed preserved LV function and normal diastolic function patient is being diuresed symptoms are improving seen by cardiology and reduced Lasix IV 20mg b.i.d. plan is to taper it to oral tomorrow and possibly discharge, upon arrival patient also had persistent elevated atrial fibrillation, heart rate is controlled with metoprolol succinate 100 mg q.day and anticoagulated, will continue to monitor will have a PT OT evaluate and further recommendation to follow. Review of Systems Constitutional: Constitutional: Reports no additional constitutional complaints Cardiovascular: Cardiovascular: Reports no additional cardiovascular complaints and Reports dyspnea Exam Narrative: morbidly obese Patient is comfortable, NAD HEENT: eyes are clear and none icteric LUNGS: bilateral fair entry with minimal rales ABD: distended. Lower extremities: no edema SKIN: nonjaundiced Neuro: grossly intact. Objective Data Vital Signs Vital Signs: Vital Signs - 24 hr 01/20/22 14:00 01/20/22 16:00 01/20/22 16:00 Temperature 97.1 F L Pulse Rate 58 L 5
[2022-01-21 16:27] LABS: Glucose Point of Care 132 mg/dl (65-105)
[2022-01-21 19:42] LABS: Glucose Point of Care 214 mg/dl (65-105)
[2022-01-21] MEDS: GABAPENTIN 300 MG CAPSULE PO (20:00)
[2022-01-21] MEDS: MELATONIN 5 MG TABLET 10 MG PO (20:00)
[2022-01-21] MEDS: INSULIN GLARGINE (*BKC) 100 UNITS/ML 32 UNITS SUB-Q (20:01)
[2022-01-21] MEDS: FUROSEMIDE INJ 40 MG/4 ML VIAL 20 MG IV PUSH (20:15)
[2022-01-22] VITALS: PULSE 67
[2022-01-22 04:00] VITALS: PULSE 75
[2022-01-22 05:56] VITALS: BP 111/62; PULSE 95; RESP 20; TEMP 37.5; O2SAT 94
[2022-01-22 06:12] LABS: Basophils Percent Auto 0.4 % (0.2-1.2); Eosinophils Absolute Auto 0.5 K/mm3 (0-0.3); Eosinophils Percent Auto 6.9 % (0-4.4); Hematocrit 37.3 % (42.0-52.0); Hemoglobin 10.7 g/dL (14.0-18.0); Immature Granulocyte Absolute 0.02 K/mm3 (0.00-0.031); Immature Granulocyte Percent A 0.3 % (0-0.5); Lymphocytes Absolute Auto 1.41 K/mm3 (0.9-3.2); Lymphocytes Percent Auto 19.5 % (18.3-44.2); Mean Corpuscular HGB Conc 28.7 g/dl (32-36); Mean Corpuscular Hemoglobin 24.3 pg (26-34); Mean Corpuscular Volume 84.6 fl (80-100); Mean Platelet Volume 10.2 fl (7.4-10.4); Monocytes Percent Auto 13.1 % (2.6-8.5); Neutrophils Absolute Auto 4.3 K/mm3 (1.3-6.7); Neutrophils Percent Auto 59.8 % (45.5-73.1); Platelet Count Result 163 k/mm3 (150-375); Red Blood Count 4.41 M/mm3 (4.6-6.20); Red Cell Distribution Width 17.8 % (11.5-14.5); White Blood Count 7.2 K/mm3 (4.5-10.0)
[2022-01-22 06:23] LABS: Anion Gap 7 mmol/L (8-16); Blood Urea Nitrogen 41 mg/dL (9-20); Calcium 8.8 mg/dL (8.4-10.2); Carbon Dioxide 37 mmol/L (22-30); Chloride 92 mmol/L (98-107); Estimated CRCL calculation 58 ml/min; Estimated Glomerular Filt Rate 59; Glucose 106 mg/dL (65-110); Magnesium 2.1 mg/dL (1.6-2.3); Potassium 4.2 mmol/L (3.4-5.0); Sodium 136 mmol/L (137-145)
[2022-01-22 06:52] LABS: Platelet Estimate Adequate (Adequate)
[2022-01-22 06:53] LABS: Anisocytosis 1+ (NORMAL); Hypochromasia 1+ (NORMAL)
[2022-01-22 07:40] LABS: Glucose Point of Care 114 mg/dl (65-105)
[2022-01-22 08:00] VITALS: PULSE 88
[2022-01-22] MEDS: ATORVASTATIN 40 MG TABLET PO (08:45)
[2022-01-22] MEDS: FUROSEMIDE INJ 40 MG/4 ML VIAL 20 MG IV PUSH (08:45)
[2022-01-22] MEDS: DOCUSATE SODIUM 100 MG CAPSULE PO (08:46)
[2022-01-22] MEDS: METOPROLOL SUCCINATE EXT REL 100 MG TABCR PO (08:46)
[2022-01-22] MEDS: ASPIRIN 81 MG ENTERIC TABLET PO (08:46)
[2022-01-22] MEDS: amLODIPine BESYLATE 2.5 MG TABLET PO (08:46)
[2022-01-22] MEDS: APIXABAN 5 MG TABLET PO (08:46)
[2022-01-22] MEDS: ramipriL 5 MG CAPSULE 10 MG PO (08:46)
[2022-01-22] MEDS: FERROUS SULFATE 324 MG TABLET PO (08:46)
[2022-01-22 09:56] VITALS: O2SAT 92
[2022-01-22 11:25] LABS: Glucose Point of Care 197 mg/dl (65-105)
[2022-01-22 12:00] VITALS: PULSE 80
--- NOTE | 2022-01-22 12:45 | PM.PNCARD ---
Progress Note: A&P Assessment and Plan (1) Persistent atrial fibrillation: Code(s): I48.19 - Other persistent atrial fibrillation Status: Acute Assessment and Plan: On anticoagulation. Heart rate control. (2) Acute on chronic diastolic CHF (congestive heart failure): Code(s): I50.33 - Acute on chronic diastolic (congestive) heart failure Status: Acute Assessment and Plan: Will shift him back to oral furosemide 40mg b.i.d. in anticipation for discharge today. (3) Hypertension: Code(s): I10 - Essential (primary) hypertension Status: Acute Assessment and Plan: Near goal (4) Obstructive sleep apnea: Code(s): G47.33 - Obstructive sleep apnea (adult) (pediatric) Status: Acute Assessment and Plan: Imperative that he uses his CPAP Subjective Date/time seen: 01/22/22 10:45 Cardiology follow up for CHF, Afib He feels well today. Denies any shortness of breath, chest pain, palpitations, or swelling Review of Systems Constitutional: Constitutional: Reports no additional constitutional complaints Eyes: Eyes: Reports no additional eye complaints ENT: Reports system reviewed and no additional complaints, except as documented Cardiovascular: Cardiovascular: Reports no additional cardiovascular complaints and Reports dyspnea Respiratory: Respiratory: Reports dyspnea Gastrointestinal: Gastrointestinal: Reports no additional gastrointestinal complaints Musculoskeletal: Musculoskeletal: Reports back pain Integumentary/Breasts: Skin/Breast: Reports system reviewed and no additional complaints, except as docu Neurologic: Reports system reviewed and no additional complaints, except as documented Endocrine: Endocrine: Reports no additional endocrine complaints Hematologic/Lymphatic: Hematologic/Lymphatic: Reports no additional hematologic/lymphatic complaints Allergic/Immunologic: Allergic/Immunologic: Reports no additional allergic/immunologic complaints Exam Const: General: comfortable and no acute distress Other: Morbidly obese man appears his stated age seated in the bedside chair. Comfortable, no distress. HENMT: Mouth: Yes moist mucous membranes Eyes: Sclera: sclerae normal Neck: Neck: supple Other: Cannot examine jugular veins given his body habitus Resp: Effort & Inspection: normal respiratory effort Other: Breath sounds largely clear possibly some dullness at the bases Cardio: Rate: regular rate Rhythm: abnormal rhythm irregularly irregular Heart sounds: no murmurs GI: Auscultation: normal bowel sounds Urinary Catheter: Urinary Catheter: patent and draining Skin: General skin exam: normal color Neuro: Other: Alert and oriented x3 Extrem: Other: No edema Objective Data Vital Signs Vital Signs: Vital Signs - 24 hr 01/21/22 16:00 01/21/22 17:15 01/21/22 14:00 Temperature 36.4 C L Pulse Rate 61 85 Respiratory Rate 20 Blood Pressure 102/63 Pulse Oximetry 95 98 Oxygen Delivery Room Air 01/21/22 22:01 01/21/22 22:00 01/21/22 20:00 Temperature 36.7 C Pulse Rate 69 65 68 Respiratory Rate 18 Blood Pressure 113/50 L Pulse Oximetry 95 100 Oxygen Delivery Room Air 01/21/22 20:00 01/22/22 00:00 01/22/22 04:00 Temperature Pulse Rate 67 75 Respiratory Rate Blood Pressure Pulse Oximetry Oxygen Delivery Room Air 01/22/22 05:56 01/22/22 08:54 01/22/22 09:56 Temperature 37.5 C Pulse Rate 95 Respiratory Rate 20 Blood Pressure 111/62 Pulse Oximetry 94 92 Oxygen Delivery Room Air Room Air Intake/Output Intake/Output: Intake & Output 01/19/22 01/20/22 01/21/22 01/22/22 23:59 23:59 23:59 23:59 Intake Total 1020 990 720 240 Output Total 2700 1600 1600 4237 [facility] [phone] Meds/Results Medications: Active Medications Generic Name Dose Route Start Last Admin Trade Name Freq PRN Reason Stop Dose Admin Albuterol
--- NOTE | 2022-01-22 13:32 | PM.DS ---
DS: Admitting Diagnosis Discharge Date 01/22/2022 Admitting Diagnosis shortness of breath DS: Discharge Diagnosis Discharge Diagnosis (1) Acute exacerbation of CHF (congestive heart failure): Code(s): I50.9 - Heart failure, unspecified Status: Acute Assessment and Plan: Likely precipitated by hypertensive urgency. Symptomatically improving with aggressive diuresis. Cardiology following, continue IV Lasix. Patient given 1 time dose of metolazone 2.5. Patient had echo done 09/2021 that showed LVEF 60-65%, mildly enlarged LA, with mild pulmonary hypertension RVSP 39 mmHg. 01/21/2022 interval history: 76-year-old male morbidly obese presented with emergently elevated blood pressure secondary to missing his blood pressure medication which was resumed non the blood pressure is trending close to normal, patient also shortness of seen by welfare eligibility worker suspect congestive heart failure patient had a cardiac echo and September of 2021 which showed preserved LV function and normal diastolic function patient is being diuresed symptoms are improving seen by cardiology and reduced Lasix IV 20mg b.i.d. plan is to taper it to oral tomorrow and possibly discharge, upon arrival patient also had persistent elevated atrial fibrillation, heart rate is controlled with metoprolol succinate 100 mg q.day and anticoagulated, will continue to monitor will have a PT OT evaluate and further recommendation to follow. (2) Hypertensive emergency: Code(s): I16.1 - Hypertensive emergency Status: Acute Assessment and Plan: Patient reports he had missed a dose of his home meds prior to coming in to the ED. significant improvement in blood pressure after restarting home meds. Continue ramipril, amlodipine (3) Persistent atrial fibrillation: Code(s): I48.19 - Other persistent atrial fibrillation Status: Acute Assessment and Plan: Continue Toprol and Eliquis. Cardiology recommending EP consult as an outpatient to evaluate for potential ablation (4) Obstructive sleep apnea: Code(s): G47.33 - Obstructive sleep apnea (adult) (pediatric) Status: Acute Assessment and Plan: Patient refusing BiPAP (5) Iron deficiency anemia: Code(s): D50.9 - Iron deficiency anemia, unspecified Status: Acute Assessment and Plan: Continue iron supplement (6) Diabetes mellitus: Code(s): E11.9 - Type 2 diabetes mellitus without complications Status: Acute Assessment and Plan: Lantus to 32 units, medium dose sliding scale insulin. A1c 6.5% DS: Summary Hospital Course Reason for hospitalization: shortness of breath Narrative: ?This is a 76-year-old male with past medical history significant for morbid obesity, hypertension, coronary artery disease, type 2 diabetes mellitus,Persistent atrial fibrillation, rate controlled anticoagulated, cardioversion, on 3 L by nasal cannula at nighttime for sleep.? Patient was brought to the emergency room due to acute onset shortness of breath? most of the history has been obtained by daughter who is at bedside as patient is currently on BiPAP.? Patient was found to have a systolic blood pressure of 200 and required nitro which brought his blood pressure down had a 2nd dose of nitro patient was placed on BiPAP.? Patient has been in his usual state of health up until this time he had prior or hospitalization on in November and went home after he was treated for persistent atrial fibrillation was cardioverted and congestive heart failure as well.? Preliminary workup was significant for? BNP of 2500. patient received Lasix in the emergency room and brought further relieve.? Patient found to be on? atrial fibrillation with rapid ventricular response.? Patient admitted for further evaluation management and treatment. Hospital Course: 76-year-old male morbidly obese presented with emergently elevated blood pressure secondary to missing his blood pressure medication which w
== END 2022-01-22 14:01 | disposition home or self-care (01) | DRG 291 ==
LOC: ANHED 22:21 → ANHIMU 23:28 → ANH3MEDSUR 01-20 18:00
PROVIDERS: Internal Medicine; Admitting Provider Internal Medicine; Emergency Provider Emergency Medicine; PCP Family Medicine; Visit Provider Family Medicine
DX: I11.0 Hypertensive heart disease with heart failure (principal); I50.33 Acute on chronic diastolic (congestive) heart failure; I48.19 Other persistent atrial fibrillation; Z68.41 Body mass index [BMI] 40.0-44.9, adult; I16.1 Hypertensive emergency; G47.33 Obstructive sleep apnea (adult) (pediatric); E11.65 Type 2 diabetes mellitus with hyperglycemia; Z20.822 Contact with and (suspected) exposure to COVID-19; D50.9 Iron deficiency anemia, unspecified; I73.9 Peripheral vascular disease, unspecified; E66.01 Morbid (severe) obesity due to excess calories; I25.10 Atherosclerotic heart disease of native coronary artery without angina pectoris; I25.2 Old myocardial infarction; Z79.82 Long term (current) use of aspirin; Z79.4 Long term (current) use of insulin; Z87.891 Personal history of nicotine dependence; Z79.84 Long term (current) use of oral hypoglycemic drugs; Z91.11 Patient's noncompliance with dietary regimen
CPT/HCPCS: 36415; 71045; 80048; 80053; 82948; 83036; 83605; 83735; 83880; 84484; 85025; 85610; 85730; 87040; 87502; 93005; 94002; 97161; 97165; A9270; C9803; J1815; J1940; U0003; U0005

== ENCOUNTER 2022-08-20 09:36 | Inpatient (IN) | payer MEDICARE, SELFPAY ==
[2022-08-20] VITALS (30 sets, daily range): BP systolic 110–151; BP diastolic 54–84; PULSE 61–82; RESP 12–24; TEMP 36.5–36.9; O2SAT 90–100
--- NOTE | ~2022-08-20 | XR_ITS ---
EXAMINATION: XR chest 1V portable INDICATION: Pleural effusion TECHNIQUE: Portable AP chest at 0805 hours COMPARISON: 08/28/2022 FINDINGS: Cardiomegaly is noted. There are small to moderate-sized pleural effusions with slight wors ening. There are bilateral perihilar opacities. More focal airspace opacities are seen in the lung ba ses. There is no pneumothorax. IMPRESSION: 1. Cardiomegaly with possible mild pulmonary edema. 2. Moderate-sized pleural effusions. 3. Bibasilar airspace opacities, likely atelectasis. Reviewed, dictated and finalized at location B.
--- NOTE | ~2022-08-20 | US_ITS ---
EXAMINATION: US abdomen complete DATE: 08/25/2022 09:23 INDICATION: Abdominal distention. TECHNIQUE: Multiple grayscale and Doppler ultrasound images of the abdomen were obtained. COMPARISON: CT abdomen and pelvis 08/21/2010 FINDINGS: The visualized portions of the head, body, and tail of the pancreas are normal. There is a 1.7 cm hyperechoic mass in the liver. There is antegrade flow in main portal vein. The gallbladder is normal in size. No gallstones or gallbladder wall thickening. There is no sonographic Cummins sign. T he common duct is normal and measures 5 mm. The kidneys are normal in size. The spleen is normal in s ize. Abdominal aorta is normal in caliber. The inferior vena cava is normal. There is trace ascites. IMPRESSION: 1. 1.7 cm hyperechoic liver mass. In the absence of known malignancy or chronic liver disease, this f inding is likely a benign finding such as a hemangioma. Reviewed, dictated and finalized at location A. IMPRESSION: 1. 1.7 cm hyperechoic liver mass. In the absence of known malignancy or chronic liver disease, this finding is likely a benign finding such as a hemangioma.
--- NOTE | ~2022-08-20 | US_ITS ---
EXAMINATION: US venous doppler [facility] DATE: 08/24/2022 17:50 INDICATION: Lower limb swelling TECHNIQUE: Burgos scale images without and with compression and Doppler images of the bilateral lower e xtremity veins were obtained. COMPARISON: 09/27/2021 FINDINGS: The right common femoral vein, profunda femoral vein, femoral vein, popliteal vein, peroneal trunk, p osterior tibial veins, and greater saphenous vein are patent. The left common femoral vein, profunda femoral vein, femoral vein, popliteal vein, peroneal trunk, po sterior tibial veins, and greater saphenous vein are patent. IMPRESSION: 1. Patent bilateral lower extremity veins. No evidence of deep venous thrombosis. Reviewed, dictated and finalized at location F. IMPRESSION: 1. Patent bilateral lower extremity veins. No evidence of deep venous thrombosi s.
--- NOTE | ~2022-08-20 | US_ITS ---
EXAMINATION: US renal BI DATE: 08/23/2022 17:56 INDICATION: Acute on chronic kidney disease TECHNIQUE: Multiple grayscale and Doppler ultrasound images of the kidneys were obtained. COMPARISON: None. FINDINGS: The right kidney measures 11.0 x 5.8 x 6.4 cm. The left kidney measures 10.9 x 5.4 x 6.5 cm . The kidneys demonstrate normal parenchymal echogenicity. There is no hydronephrosis. The bladder is decompressed by Aranda catheter. IMPRESSION: 1. Normal kidneys without hydronephrosis. Reviewed, dictated and finalized at location F.
--- NOTE | ~2022-08-20 | US_ITS ---
EXAMINATION: US venous doppler E DATE: 08/24/2022 17:51 INDICATION: Upper extremity swelling TECHNIQUE: Grayscale ultrasound images without and with compression and Doppler ultrasound images of the bilateral upper extremity veins were obtained. COMPARISON: None. FINDINGS: The right internal jugular vein, subclavian vein, axillary vein, basilic vein, radial vein, and ulnar vein are patent. The distal brachial vein is not well demonstrated. The cephalic vein is obscured by dressing material. The left internal jugular vein, subclavian vein, axillary vein, brachial veins, basilic vein, and ul lamin vein are patent. The left cephalic and radial veins have reportedly been harvested. IMPRESSION: 1. No evidence of deep venous thrombosis. Reviewed, dictated and finalized at location F.
--- NOTE | ~2022-08-20 | US_ITS ---
EXAMINATION: US thoracentesis DATE: 08/28/2022 13:31 INDICATION: Left pleural effusion TECHNIQUE: The procedure and its risks and benefits were discussed with the patient. Potential risks discussed included bleeding, infection, and pneumothorax. The patient understood the risks and agreed to proceed. The skin was prepped and draped in sterile fashion. 1% lidocaine was used for local anes thesia. Under ultrasound guidance, a 5 Fr catheter with trochar was advanced into the left pleural ef fusion. Fluid was aspirated. The catheter was removed, and a dressing was applied. There were no imme diate complications. FINDINGS: Ultrasound images demonstrate a small to moderate left pleural effusion and the catheter within the f luid. IMPRESSION: 1. Successful ultrasound-guided thoracentesis yielding 1000 mL of slightly turbid ramesh-colored flui d. Reviewed, dictated and finalized at location A. IMPRESSION: 1. Successful ultrasound-guided thoracentesis yielding 1000 mL of slightly tur bid ramesh-colored fluid.
--- NOTE | ~2022-08-20 | XR_ITS ---
EXAMINATION: XR chest 1V portable DATE: 08/25/2022 05:21 INDICATION: Fluid overload. TECHNIQUE: A single frontal view of the chest was obtained. COMPARISON: Chest single view 08/24/2022, CT abdomen and pelvis 08/21/2010 FINDINGS: There are airspace opacities in all lung zones with a perihilar and lower lung predominance . There are small pleural effusions. No pneumothorax. Cardiomegaly is noted. There is a closure devic e at left atrial appendage. There are changes of median sternotomy. IMPRESSION: 1. Diffuse lung disease with mild worsening on the right, consistent with pulmonary edema versus pneu monia. 2. Stable small pleural effusions. 3. Cardiomegaly. Reviewed, dictated and finalized at location A. IMPRESSION: 1. Diffuse lung disease with mild worsening on the right, consistent with pulmo nary edema versus pneumonia. 2. Stable small pleural effusions. 3. Cardiomegaly.
--- NOTE | ~2022-08-20 | XR_ITS ---
EXAMINATION: [id number] DATE: 08/28/2022 13:09 INDICATION: Left pleural effusion status post thoracentesis. TECHNIQUE: A single frontal view of the chest was obtained. COMPARISON: Chest CT 08/27/2022, chest single view 08/25/2022 FINDINGS: There are small pleural effusions. There are airspace opacities in the mid and lower lung z ones. No pneumothorax. Cardiomegaly is noted. There are changes of median sternotomy. There is a clos ure device at the left atrial appendage. There is displacement of the inferior sternotomy wire, consi stent with sternal dehiscence. IMPRESSION: 1. Small pleural effusions with improvement on the left status post thoracentesis. 2. Airspace opacities in the mid and lower lung zones with interval improvement, consistent with atel ectasis versus pneumonia. 3. Cardiomegaly. 4. Inferior sternal dehiscence. Reviewed, dictated and finalized at location A. IMPRESSION: 1. Small pleural effusions with improvement on the left status post thoracentes is. 2. Airspace opacities in the mid and lower lung zones with interval improvement , consistent with atelectasis versus pneumonia. 3. Cardiomegaly. 4. Inferior sternal dehiscence.
--- NOTE | ~2022-08-20 | XR_ITS ---
Portable chest x-ray Comparison: 08/20/2022 Clinical History: Heart failure Findings: Small bilateral pleural effusions are present. Moderate pulmonary edema pattern present, p robably minimally improved. Cardiomediastinal silhouette is stable. Bones and soft tissues are unrem arkable. Impression: Moderate pulmonary edema pattern is probably minimally improved from prior exam. Small bilateral pleural effusions. Reviewed, dictated and finalized at location . Impression: Moderate pulmonary edema pattern is probably minimally improved from prior exam . Small bilateral pleural effusions.
--- NOTE | ~2022-08-20 | CT_ITS ---
EXAMINATION:CT diagnostic chest wo con DATE: 08/27/2022 13:30 INDICATION: Fluid overload. TECHNIQUE: Computed tomography (CT) of the chest was performed without intravenous contrast. Automate d exposure control and iterative reconstruction technique were employed. The dose-length product (DLP ) was 977.35 mGy-cm. COMPARISON: CT abdomen and pelvis 08/21/2010 FINDINGS: There is a moderate-sized right pleural effusion. There is a large loculated left pleural e ffusion. There is atelectasis bilaterally with a dependent predominance. There are centrilobular nodu les and tree-in-bud opacities in right upper lobe and right middle lobe, consistent with mild pneumon ia. Cardiomegaly is noted. There are coronary artery calcifications. There are changes of recent yuan nary artery bypass grafting. There is a closure device at the left atrial appendage. No pericardial e ffusion. The central pulmonary arteries are enlarged, consistent with pulmonary arterial hypertension . There is mild mediastinal lymphadenopathy, likely reactive. There is sternal dehiscence inferiorly. There is a 8.0 x 6.8 x 4.5 cm mass around the inferior sternum. There is mild thoracic spondylosis. There is mild chronic anterior wedging of T10-T12 vertebral bodies. IMPRESSION: 1. Moderate-sized right pleural effusion and large loculated left pleural effusion. 2. Mild right-sided pneumonia. 3. Recent median sternotomy with inferior dehiscence. 4. 8.0 x 6.8 x 4.5 cm mass around the inferior sternum, likely hematoma. 5. Mild mediastinal lymphadenopathy, likely reactive. Reviewed, dictated and finalized at location A. IMPRESSION: 1. Moderate-sized right pleural effusion and large loculated left pleural effus ion. 2. Mild right-sided pneumonia. 3. Recent median sternotomy with inferior dehiscence. 4. 8.0 x 6.8 x 4.5 cm mass around the inferior sternum, likely hematoma. 5. Mild mediastinal lymphadenopathy, likely reactive.
--- NOTE | ~2022-08-20 | XR_ITS ---
EXAMINATION: XR chest 1V portable DATE: 08/20/2022 10:17 INDICATION: Dyspnea. TECHNIQUE: A single frontal view of the chest was obtained. COMPARISON: Chest single view 01/18/2022 FINDINGS: There are small right and moderate-sized left pleural effusions. There are airspace opaciti es in the mid and lower lung zones with a basilar predominance. No pneumothorax. Cardiomegaly is note d. There is a closure device at left atrial appendage. There are changes of median sternotomy. IMPRESSION: 1. Small right and moderate-sized left pleural effusion. 2. Airspace opacities in the mid and lower lung zones, consistent with atelectasis versus pneumonia. 3. Cardiomegaly. Reviewed, dictated and finalized at location A. IMPRESSION: 1. Small right and moderate-sized left pleural effusion. 2. Airspace opacities in the mid and lower lung zones, consistent with atelecta sis versus pneumonia. 3. Cardiomegaly.
--- NOTE | 2022-08-20 09:43 | ECG_ITS ---
Measurements Intervals [place] Rate: 74 P: [place]: 0 QRS: 0 QRSD: 130 T: 2 QT: 401 QTc: 445 Interpretive Statements ATRIAL FIBRILLATION BORDERLINE R WAVE PROGRESSION, ANTERIOR LEADS CONSIDER INFERIOR INFARCT, AGE INDETERMINATE BASELINE WANDER- III, V1, V3-4 ABNORMAL ECG COMPARED TO ECG 01/18/2022 20:34:51 HEART RATE HAS DECREASED Electronically Signed On 08-20-2022 14:15:00 CDT by Khoi Maldonado D.O.
--- NOTE | 2022-08-20 09:55 | ED.SOB ---
HPI - SOB/Dyspnea General Chief Complaint: Shortness of Breath/Dyspnea Stated Complaint: sob Time Seen by Provider: 08/20/22 09:55 Source: patient and EMS Mode of arrival: EMS History of Present Illness HPI Narrative: Patient came to the emergency room by ambulance from [facility] with increasing shortness of breath over the last few days. Patient arrived to the ED on BiPAP. 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 Patient on Eliquis. Related Data Home Medications Medication Instructions Recorded Confirmed atorvastatin 40 mg tablet 40 mg PO DAILY 06/18/19 01/19/22 aspirin 81 mg tablet,delayed 81 mg PO DAILY 03/04/20 01/19/22 release (Adult Aspirin Regimen) insulin degludec 200 unit/mL (3 36 unit subcut HS 06/16/20 01/19/22 mL) subcutaneous pen (Tresiba FlexTouch U-200 insulin) dulaglutide 4.5 mg/0.5 mL 4.5 mg subcut WEEKLY 10/05/21 01/19/22 subcutaneous pen injector (Trulicity) apixaban 5 mg tablet (Eliquis) 5 mg PO BID 12/10/21 01/19/22 cyanocobalamin (vitamin B-12) 1,000 mcg PO QHS 12/10/21 01/19/22 1,000 mcg tablet (Vitamin B-12) docusate sodium 100 mg capsule 100 mg PO DAILY 12/10/21 01/19/22 (Colace) glipizide 5 mg tablet 2 tablet PO BIDWM 12/10/21 01/19/22 melatonin 10 mg tablet 10 mg PO HS 12/10/21 01/19/22 dapagliflozin 10 mg tablet 10 mg PO DAILY 12/28/21 01/19/22 (Farxiga) furosemide 40 mg tablet 40 mg PO BID 01/19/22 01/19/22 metoprolol succinate 100 mg 100 mg PO DAILY 01/19/22 01/19/22 tablet,extended release 24 hr pantoprazole 40 mg tablet,delayed 40 mg PO QAM 08/07/22 release Allergies Allergy/AdvReac Type Severity Reaction Status Date / Time ciprofloxacin Allergy Hives Verified 08/20/22 11:07 Review of Systems Review of Systems: ROS unobtainable: Yes unobtainable due to medical condition PMFSH Past Medical History Medical History Hepatitis C antibody test negative (09/10/17) Myocardial infarction Peripheral artery disease Surgical History Surgical History H/O cardiac catheterization H/O colonoscopy History of esophagogastroduodenoscopy (EGD) Family History Family History Grandparent Diabetes mellitus Mother Family history of cardiovascular disease Diabetes mellitus Hypertension Social History Social History Smoking packs per day: 2 Smoking cigarettes per day: 40.0 Years smoked: 50 Smoking pack-years: 100.00 Smoking status: Former smoker Second hand tobacco smoke exposure: No Alcohol intake: unknown Drinks per week: 2 Substance use: unknown Substance use type: does not use Lack of Transportation: No Lack of Food: Never True Current Housing: I Have Housing Concerned About Future Housing: No Difficulty Paying Gas/Electric Bills: No Difficulty Paying for Meds: No Currently Unemployed: No Education: High School Diploma/GED Difficulty w/ Childcare or Family Care: No Living arrangements: alone Occupation/Education: retired Gender identity (if verbalized by the patient): Male Spiritual care concerns: No Agree to blood products: Yes Exam Narrative: General appearance: Well-developed, well-nourished Skin: Normal color, chest surgical wound, clean and dry Head: Normocephalic, nontraumatic Eyes: Clear conjunctiva ENT: Oropharynx normal, ears normal, nose normal Neck: Supple, nontender Chest and respiratory: Generalized diminution of air entry bilaterally Heart: Regular rate/rhythm Abdomen: Soft, nontender, no organomegaly, quiet bowel sounds Vascular: Normal peripheral pulses, normal capillary refill. Neurologic: Alert and oriented ?3
[2022-08-20 10:02] LABS: Basophils Percent Auto 0.1 % (0.2-1.2); Eosinophils Percent Auto 0.1 % (0-4.4); Hematocrit 28.7 % (42.0-52.0); Hemoglobin 7.9 g/dL (14.0-18.0); Immature Granulocyte Absolute 0.14 K/mm3 (0.00-0.031); Immature Granulocyte Percent A 1.7 % (0-0.5); Lymphocytes Absolute Auto 0.48 K/mm3 (0.9-3.2); Lymphocytes Percent Auto 5.9 % (18.3-44.2); Mean Corpuscular HGB Conc 27.5 g/dl (32-36); Mean Corpuscular Hemoglobin 27.6 pg (26-34); Mean Corpuscular Volume 100.3 fl (80-100); Monocytes Absolute Auto 0.9 K/mm3 (0.1-0.6); Monocytes Percent Auto 10.5 % (2.6-8.5); Neutrophils Absolute Auto 6.6 K/mm3 (1.3-6.7); Neutrophils Percent Auto 81.7 % (45.5-73.1); Nucleated Red Blood Cells Absolute Auto 0.1 K/mm3 (0.0-0.012); Nucleated Red Blood Cells Perc 0.9 % (0.0-0.2); Platelet Count Result 140 k/mm3 (150-375); Red Blood Count 2.86 M/mm3 (4.6-6.20); Red Cell Distribution Width 18.6 % (11.5-14.5); White Blood Count 8.1 K/mm3 (4.5-10.0)
[2022-08-20 10:10] LABS: Anisocytosis 1+ (NORMAL); Hypochromasia 1+ (NORMAL); Platelet Estimate Adequate (Adequate); Stomatocytes 2+ (NORMAL)
[2022-08-20 10:11] LABS: Schistocytes None Seen (NORMAL)
[2022-08-20 10:13] LABS: INR 1.3; Prothrombin Time 15.2 Seconds (11.1-14.7)
[2022-08-20 10:14] LABS: Partial Thromboplastin Time 33.5 SECONDS (22.3-36.8)
[2022-08-20] MEDS: NITROGLYCERIN OINTMENT 1 INCH DOSE TRANSDERM ×2 (10:15→19:56)
[2022-08-20] MEDS: FUROSEMIDE INJ 40 MG/4 ML VIAL 60 MG IV PUSH (10:15)
[2022-08-20 10:24] LABS: Alanine Aminotransferase 28 U/L (6-50); Albumin Level 3.6 g/dL (3.5-5.1); Alkaline Phosphatase 116 U/L (38-126); Aspartate Amino Transferase 27 U/L (17-59); Bilirubin,Total 0.5 mg/dL (0.2-1.3); Blood Urea Nitrogen 83 mg/dL (9-20); Calcium 8.2 mg/dL (8.4-10.2); Carbon Dioxide > 40 mmol/L (22-30); Chloride 82 mmol/L (98-107); Estimated CRCL calculation 27 ml/min; Estimated Glomerular Filt Rate 23; Glucose 293 mg/dL (65-110); NT Pro B Type Natriuretic Pept 9240 pg/mL (19.9-100); Potassium 6.4 mmol/L (3.4-5.0); Sodium 127 mmol/L (137-145)
[2022-08-20 10:27] LABS: Alveolar/Arterial O2 Gradient 273.5 mmHg; Base Excess ABG 8.6 mEq/l (+/-2.0); Carboxyhemoglobin 1.7 % THb (0-2.0); Fractional Inspired Oxygen 80 %; HCO3 ABG 38.4 mEq/l (22.0-26.0); Methemoglobin ABG 0.1 %THb (0-1.5); Oxygen Content ABG 12.9 %vol (16.0-22.0); Oxyhemoglobin 97.1 % THb (90.0-100.0); PO2 ABG 196.2 mmHg (80.0-100.0); PO2 FiO2 Ratio Arterial Blood 2.45 %; Reduced Hemoglobin 1.1 %THb (0-5.0); Total Hemoglobin 9.1 g/dL (12.0-18.0)
[2022-08-20 10:28] LABS: Device NON-INVASIVE VENT; Modified Allen's Test Pass; PCO2 ABG 95.9 mmHg (35.0-45.0); Site Drawn RIGHT RADIAL
[2022-08-20 10:29] LABS: Non-Invasive Expiratory Pressure 8 CMH2O; Non-Invasive Inspiratory Pressure 14 CMH2O; Non-Invasive Vent Rate 16 /MIN
[2022-08-20] MEDS: ALBUTEROL SULFATE NEB 2.5 MG/3 ML INH 5 MG INHALATION ×3 (10:35→10:36)
[2022-08-20] MEDS: SODIUM BICARBONATE 8.4% 50 MEQ/50 ML SYRINGE IV PUSH (11:17)
[2022-08-20] MEDS: INSULIN HUMAN REGULAR (*BKC) 100 UNITS/ML 10 UNITS IV PUSH (11:17)
[2022-08-20] MEDS: DEXTROSE 50% 25 GM/50 ML SYRINGE IV PUSH (11:17)
[2022-08-20] MEDS: CALCIUM GLUCONATE 1,000 MG/10 ML VIAL 1000 MG IV PUSH (11:18)
[2022-08-20] MEDS: SODIUM CHLORIDE 0.9% IV 50 ML 500 ML (11:24)
[2022-08-20 11:35] LABS: Alveolar/Arterial O2 Gradient 68.1 mmHg; Fractional Inspired Oxygen 30 %; HCO3 ABG 40.5 mEq/l (22.0-26.0); Oxygen Content ABG 10.4 %vol (16.0-22.0); PO2 ABG 58.7 mmHg (80.0-100.0); PO2 FiO2 Ratio Arterial Blood 1.96 %; Total Hemoglobin 8.4 g/dL (12.0-18.0); pH ABG 7.355 (7.350-7.450)
[2022-08-20 11:36] LABS: PCO2 ABG 74.1 mmHg (35.0-45.0)
[2022-08-20 11:37] LABS: Oxygen Saturation ABG 87.9 % (95.0-100.0)
[2022-08-20 11:38] LABS: Device NON-INVASIVE VENT; Modified Allen's Test Pass; Non-Invasive Expiratory Pressure 8 CMH2O; Non-Invasive Inspiratory Pressure 16 CMH2O; Non-Invasive Vent Rate 20 /MIN; Oxyhemoglobin 87.2 % THb (90.0-100.0); Site Drawn RIGHT RADIAL
[2022-08-20] MEDS: IPRATROPIUM BR 0.02% INH SOLN 0.5 MG/2.5 ML VIAL INHALATION ×2 (13:30→20:23)
[2022-08-20] MEDS: ALBUTEROL SULFATE NEB 2.5 MG/3 ML INH INHALATION ×2 (13:30→20:22)
[2022-08-20 15:43] LABS: Troponin I 0.059 ng/mL (0.000-0.034)
--- NOTE | 2022-08-20 17:00 | PM.IMHP ---
H&P: HPI History of Present Illness Date/Time: 08/20/22 17:00 Chief Complaint: Shortness of breath. Narrative: This is a 77-year-old male with hypertension, hyperlipidemia, chronic obstructive pulmonary disease, type 2 diabetes mellitus, chronic kidney disease, paroxysmal atrial fibrillation, chronic respiratory failure on nocturnal oxygen, and coronary artery disease status post 2 vessel bypass (WATSON to LAD, radial T graft to OM), left atrial appendage clip, and sternal plating per Dr. Chappell at [facility] on 07/23/2022 who presented to the emergency department via EMS from [facility] for evaluation of shortness of breath. The patient is currently on BiPAP is not able to provide a good history. His daughter Dorian provides a majority of the following. His electronic medical records were also reviewed. He was hospitalized for 3 weeks at the time of his bypass and Dorian indicates that he had several setbacks including symptomatic anemia requiring transfusion (upper and lower endoscopies reportedly did not show evidence of bleeding) and acute on chronic kidney disease. He was discharged to rehab on August 15 and daughter indicates that he has gained 20 lb since the surgery. He has had several adjustments in his diuretics without much improvement. The last couple of days he has had some mild confusion and she noticed yesterday that he seemed to be short of breath. Yesterday he was very sleepy and was less interactive. Today he was more short of breath and confused and was brought to the ER. ABG on arrival showed a pH of 7.220, pCO2 95.9, and a bicarb of 38.4. He was immediately placed on BiPAP with significant improvement on his repeat ABG. Pertinent labs include a WBC count 8.1, hemoglobin 7.9, platelets 140, sodium 127, potassium 6.4, BUN 83, creatinine 2.70, troponin 0.06 for, proBNP 9240. Chest x-ray showed small right and moderate size left pleural effusions and airspace opacities in the mid and lower lung zones consistent with atelectasis versus pneumonia and cardiomegaly. In the ED he was given furosemide 60 mg IV push in addition to appropriate treatment for hyperkalemia. Repeat BMP has showed improvement in his electrolyte abnormalities. At the time my evaluation he has had out over 1500 and mL of urine. He is currently resting comfortably and will open his eyes and follow commands. He still has difficulty speaking through the BiPAP. He denies fever, chills, sweats, chest pain, shortness a breath, abdominal pain, nausea, and vomiting. He has not necessarily noticed a decrease in urine output. Review of Systems Review of Systems: Twelve systems were reviewed and are negative except for as per HPI. [facility] Past Medical History Medical History Atrial fibrillation Benign hypertension Chronic kidney disease Coronary artery disease Hepatitis C antibody test negative (09/10/17) Myocardial infarction Peripheral artery disease Type 2 diabetes mellitus Surgical History Surgical History History of cardiac catheterization History of colonoscopy History of coronary artery bypass graft x 2 (07/23/22) WATSON to the Left anterior descending, radial artery T graft off the WATSON to the OM by Dr. Chappell at [facility]. History of esophagogastroduodenoscopy (EGD) Family History Family History Grandparent Diabetes mellitus Mother Family history of cardiovascular disease Diabetes mellitus Hypertension Social History Social History (Updated 08/22/22 @ 13:52 by Mandie Kim PA-C) Social History: Surrogate medical decision maker: Ashwin Silverman, daughter. Code status: Full code. Smoking packs per day: 1 Smoking cigarettes per day: 20.0 Years smoked: 50 Smoking pack-years: 50.00 Smoking status: Former smoker Second hand tobacco smoke exposure: No Al
[2022-08-20 18:16] LABS: Blood Urea Nitrogen 85 mg/dL (9-20); Calcium 8.3 mg/dL (8.4-10.2); Carbon Dioxide > 40 mmol/L (22-30); Chloride 81 mmol/L (98-107); Estimated CRCL calculation 27 ml/min; Estimated Glomerular Filt Rate 23; Glucose 164 mg/dL (65-110); Magnesium 2.8 mg/dL (1.6-2.3); Potassium 5.5 mmol/L (3.4-5.0); Sodium 129 mmol/L (137-145)
[2022-08-20 18:47] LABS: Troponin I 0.062 ng/mL (0.000-0.034)
[2022-08-20] MEDS: FUROSEMIDE INJ 40 MG/4 ML VIAL IV PUSH (21:39)
[2022-08-21] VITALS (17 sets, daily range): BP systolic 112–162; BP diastolic 67–91; PULSE 58–86; RESP 14–23; TEMP 36.3–37; O2SAT 93–100
--- NOTE | 2022-08-21 | ECHO_ITS ---
Patient Info Name: Paul Ag Age: 77 years : 1945 Gender: Male Ht: 65 in Wt: 291 lbs BSA: 2.54 m2 HR: 86 bpm BP: 125 / 89 mmHg Heart Rhythm: Sinus Rhythm Technical Quality: Poor Exam Date: 08/21/2022 1:27 PM Exam Location: [facility] Patient Status: Inpatient Admit Date: 08/20/2022 Staff Ordering Physician: Carie Gaston DO Production Support Consultant: Chanell Roberts RDCS Attending Provider: Carie Gaston DO Referring Physician: Marilin RAMON; Exam Type: CA echo dop color flow w con Study Info Indications R06.02 - Shortness of breath Complete two-dimensional, color flow and Doppler transthoracic echocardiogram is performed with contrast to opacify the left ventricle and to improve the deliniation of the left ventricle endocardial borders. Contrast/Agitated Saline Contrast/Ag. Saline: Definity Amount: 3.00 ml Administered By: Chanell Roberts RDCS Existing IV Access: Yes IV Access Condition: patent with no signs of infiltration Summary 1. Technically difficult study with limited views. 2. Left ventricular chamber dimension is normal. 3. Left ventricular systolic function is normal, estimated at 65-70%. 4. There is mildly increased left ventricular wall thickness. 5. Right ventricular chamber dimension is enlarged. 6. Right ventricular systolic function is reduced. 7. Left atrial chamber dimension is mildly enlarged. 8. Right atrial chamber dimension is mildly enlarged. 9. There is mild mitral valve regurgitation. 10. There is mild tricuspid valve regurgitation. 11. There is trivial pericardial effusion. 12. Large left pleural effusion seen. Left Ventricle Left ventricular chamber dimension is normal. Left ventricular systolic function is normal, estimated at 65-70%. There is mildly increased left ventricular wall thickness. Right Ventricle Right ventricular chamber dimension is enlarged. Right ventricular systolic function is reduced. Left Atria Left atrial chamber dimension is mildly enlarged. Right Atria Right atrial chamber dimension is mildly enlarged. Aortic Valve The aortic valve is not well visualized. There is no aortic valve stenosis. There is no aortic valve regurgitation. Pulmonic Valve The pulmonic valve is not well visualized. Mitral Valve There is mild mitral valve regurgitation. Tricuspid Valve There is mild tricuspid valve regurgitation. Pericardium/Pleural Large left pleural effusion seen. The pericardium appears epicardial fat pad. There is trivial pericardial effusion. Aorta The aortic root size at the sinus of Valsalva is normal. Left Ventricular Outflow Tract Name Value Normal LVOT 2D LVOT Diameter 2.12 cm LVOT Doppler LVOT Peak Gradient 5 mmHg LVOT Mean Gradient 2 mmHg LVOT VTI 18.07 cm LVOT VTI/AV VTI Ratio 0.69 LVOT Stroke Volume 64.00 ml LVOT CO 5.85 l/min LVOT CI
[2022-08-21 00:29] LABS: Glucose Point of Care 67 mg/dl (65-105)
[2022-08-21] MEDS: DEXTROSE 50% 25 GM/50 ML SYRINGE IV PUSH ×2 (00:31→05:43)
[2022-08-21 00:57] LABS: Glucose Point of Care 113 mg/dl (65-105)
[2022-08-21 05:12] LABS: Hematocrit 27.6 % (42.0-52.0); Hemoglobin 7.7 g/dL (14.0-18.0); Mean Corpuscular HGB Conc 27.9 g/dl (32-36); Mean Corpuscular Hemoglobin 27.4 pg (26-34); Mean Corpuscular Volume 98.2 fl (80-100); Mean Platelet Volume 10.7 fl (7.4-10.4); Platelet Count Result 134 k/mm3 (150-375); Red Blood Count 2.81 M/mm3 (4.6-6.20); Red Cell Distribution Width 18.9 % (11.5-14.5); White Blood Count 7.6 K/mm3 (4.5-10.0)
[2022-08-21 05:20] LABS: Hemoglobin A1C 5.9 % (<5.7)
[2022-08-21 05:32] LABS: Alanine Aminotransferase 24 U/L (6-50); Albumin Level 3.3 g/dL (3.5-5.1); Alkaline Phosphatase 98 U/L (38-126); Aspartate Amino Transferase 28 U/L (17-59); Bilirubin,Total 0.6 mg/dL (0.2-1.3); Magnesium 2.9 mg/dL (1.6-2.3)
[2022-08-21 05:35] LABS: Blood Urea Nitrogen 89 mg/dL (9-20); Calcium 8.4 mg/dL (8.4-10.2); Carbon Dioxide > 40 mmol/L (22-30); Chloride 85 mmol/L (98-107); Estimated CRCL calculation 28 ml/min; Estimated Glomerular Filt Rate 24; Glucose 50 mg/dL (65-110); Potassium 5.2 mmol/L (3.4-5.0); Sodium 131 mmol/L (137-145)
[2022-08-21 05:39] LABS: Glucose Point of Care 67 mg/dl (65-105)
[2022-08-21 05:42] LABS: Alveolar/Arterial O2 Gradient 165.4 mmHg; Base Excess ABG 15.7 mEq/l (+/-2.0); Carboxyhemoglobin 0.7 % THb (0-2.0); Fractional Inspired Oxygen 45 %; HCO3 ABG 41.5 mEq/l (22.0-26.0); Methemoglobin ABG 0.4 %THb (0-1.5); Oxygen Content ABG 11.6 %vol (16.0-22.0); Oxygen Saturation ABG 96.8 % (95.0-100.0); Oxyhemoglobin 95.1 % THb (90.0-100.0); PCO2 ABG 60.1 mmHg (35.0-45.0); PO2 ABG 87.1 mmHg (80.0-100.0); PO2 FiO2 Ratio Arterial Blood 1.94 %; Reduced Hemoglobin 3.8 %THb (0-5.0); Total Hemoglobin 8.6 g/dL (12.0-18.0); pH ABG 7.457 (7.350-7.450)
[2022-08-21 05:43] LABS: Device BIPAP; Modified Allen's Test Pass; Site Drawn RIGHT RADIAL
[2022-08-21 05:44] LABS: Expiratory Pressure 8 cmH2O; Inspiratory Pressure 16 cmH2O
[2022-08-21 05:45] LABS: Iron 19 ug/dL (49-181)
[2022-08-21 05:54] LABS: Percent Iron Saturation 6 % (20-50)
[2022-08-21 05:56] LABS: Glucose Point of Care 119 mg/dl (65-105)
[2022-08-21 06:51] LABS: Folic Acid 5.7 ng/mL (2.76->20); Vitamin B12 > 1000.0 pg/mL (239-931)
[2022-08-21 07:24] LABS: Free T4 Free Thyroxine Reflex 1.05 ng/dL (0.78-2.19)
[2022-08-21 08:17] LABS: Glucose Point of Care 100 mg/dl (65-105)
--- NOTE | 2022-08-21 08:36 | PM.IMPN ---
Progress Note: A&P Assessment and Plan (1) Acute respiratory failure with hypoxia and hypercarbia: Code(s): J96.01 - Acute respiratory failure with hypoxia; J96.02 - Acute respiratory failure with hypercapnia Status: Acute Assessment and Plan: Weaned from BiPAP admission 08/20 to 93% on 3 L nasal cannula 08/21 Bilateral effusions may require thoracentesis, monitor with diuresis Some concern for pneumonia noted on chest x-ray, no real signs of infection clinically or on CBC Check procalcitonin/CRP/lactate/D-dimer 08/21, continue to monitor off antibiotics for now, although he would be high risk for pneumonia due to his recent CABG and residence at rehab, recently completed course of bactrim for UTI (2) Volume overload: Code(s): E87.70 - Fluid overload, unspecified Status: Acute Assessment and Plan: Concern for possible heart failure exacerbation, echo pending Cardiology consult pending Monitor strict I's/O's and daily weights while IV diuresing Hold oral diuretics, patient was on Lasix 60 mg po twice daily as well as metolazone 10 mg daily per home med rec and rehab notes Nephrology was seeing patient at rehab, will defer diuretic dosing to their management at this time (3) Dqldh-sn-eybovzy kidney injury: Code(s): N17.9 - Acute kidney failure, unspecified; N18.9 - Chronic kidney disease, unspecified Status: Acute Assessment and Plan: Continue Aranda catheter for strict I's/O's documentation Appreciate nephrology consultation, pending (4) Hyperkalemia: Code(s): E87.5 - Hyperkalemia Status: Acute Assessment and Plan: Treated appropriately in ED with improvement in repeat potassium level. Continue to monitor closely. (5) Hyponatremia: Code(s): E87.1 - Hypo-osmolality and hyponatremia Status: Acute Assessment and Plan: Probably due to volume overload. Monitor while diuresing. (6) Coronary artery disease: Code(s): I25.10 - Atherosclerotic heart disease of hughes coronary artery without angina pectoris Status: Acute Assessment and Plan: Status post 2 vessel bypass at [facility] 07/23/22 Continue aspirin 81 mg, Lipitor 40 mg (7) Anemia: Code(s): D64.9 - Anemia, unspecified Status: Acute Assessment and Plan: Likely secondary to chronic disease and recent surgery Iron studies show iron deficiency anemia Venofer to complete 3 doses started 08/21, last dose 08/23 Would discharge on oral iron replacement B12/folate/TSH all within normal limits Trend hemoglobin and hematocrit and transfuse if indicated. Upper GI performed for melena 08/07/22, biopsies taken, showed chronic gastritis and recommended Protonix 40 mg daily (8) Type 2 diabetes mellitus: Code(s): E11.9 - Type 2 diabetes mellitus without complications Status: Acute Assessment and Plan: Initiate sliding scale insulin, Accu-Cheks, and hypoglycemic protocol. A1c 5.9 Lantus increased to 22 units q.h.s. at rehab facility 08/17 Blood glucose reviewed 08/21 (9) Atrial fibrillation: Code(s): I48.91 - Unspecified atrial fibrillation Status: Acute Assessment and Plan: He is rate controlled. Not currently on Eliquis due to anemia. Status post left atrial appendage clip last month. History of cardioversion November 2021 (10) Hypercapnic respiratory failure: Code(s): J96.92 - Respiratory failure, unspecified with hypercapnia Status: Acute Assessment and Plan: Significant hypercapnia noted, no history of COPD, could be secondary to diuresis, may need pulmonology consult, hold off for now, monitor for improvement with further diuresis Plan DVT prophylaxis with SCDs GI prophylaxis with PPI Code status full code Of note, Bactrim seen on patient's home med list, per notes from rehab facility, this was started 08/10 for possible UTI, last date per re
[2022-08-21] MEDS: FUROSEMIDE INJ 40 MG/4 ML VIAL IV PUSH ×2 (09:42→21:18)
--- NOTE | 2022-08-21 11:27 | PM.CNNEP ---
Assessment and Plan Assessment and plan (1) RADHA (acute kidney injury): Code(s): N17.9 - Acute kidney failure, unspecified Status: Acute Assessment and Plan: suspect due to CHF exacerbation possibly worsened by recent use of Bactrim check renal ultrasound (for completeness of evaluation hold off on check urne electrolytes -- on diuretics and needs to continue use for now check urine eosinophils and culture follow repeat labs and UOP (2) Stage 3b chronic kidney disease: Code(s): N18.32 - Chronic kidney disease, stage 3b Status: Chronic Assessment and Plan: prior to recent acute hospitalization, creatinine was running ~ 1.1 - 1.4mg/dl however, now creatinine has been fluctuating between 1.5 - 2.0mg/dl his baseline renal insufficiency is a manifestation of his diabetes, vascular disease (CAD + hyperlipidemia), hypertension and age his higher creatinine currently is due to resolving post-operative ATN coupled with the need of high dose diuretic therapy to maintain his volume/fluid status careful with use of Bactrim follow trend of repeat labs and UOP (3) Acute respiratory failure with hypoxia and hypercarbia: Code(s): J96.01 - Acute respiratory failure with hypoxia; J96.02 - Acute respiratory failure with hypercapnia Status: Acute Assessment and Plan: suspect multifactorial: #4 possible underlying JH/OHS deconditioning pleural effusions element of CHF improved with use of BiPAP supplemental oxygen continue IV diuresis follow respiratory status (4) Volume overload: Code(s): E87.70 - Fluid overload, unspecified Status: Acute Assessment and Plan: IV diuresis suspect due to acute on chronic diastolic heart failure follow daily weights, I/Os, and respiratory status may need to consider thoracentesis depending on response to diuretics follow renal function (suspect some fluctuations/worsening to occur) (5) Hyperkalemia: Code(s): E87.5 - Hyperkalemia Status: Acute Assessment and Plan: better s/p medical management ongoing IV diuresis should help due to RADHA and possible use of bactrim (started at rehab) follow repeat K+ levels (6) Hyponatremia: Code(s): E87.1 - Hypo-osmolality and hyponatremia Status: Acute Assessment and Plan: likdely due to volume overload status as well as RADHA follow trend with current therapy (7) Anemia: Code(s): D64.9 - Anemia, unspecified Status: Acute Assessment and Plan: likely due to RADHA on CKD, and acute illness recent upper and lower endoscopies done at [facility] without no evidence of bleed follow-up on anemia studies trend H/H (8) Hypertension: Code(s): I10 - Essential (primary) hypertension Status: Chronic Assessment and Plan: reasonable control at this time follow trend of hemodynamics (9) Type 2 diabetes mellitus with hyperglycemia: Code(s): E11.65 - Type 2 diabetes mellitus with hyperglycemia Status: Chronic Assessment and Plan: follow accuchecks glycemic control per hospitalists Long extensive discussion (> 25 minutes) with both the patient as well as daughter at bedside with regard to his fluctuating renal function in the context of volume overload /respiratory distress with ongoing interventions as outlined above in the hopes of stabilizing both his respiratory and volume status as well as his overall renal function. I will continue to follow the patient with you while he remains hospitalized and make further recommendations as needed. Thank you for allowing me to participate in the care this patient. History of Present Illness Reason for Consult Consult date: 08/21/22 Reason for consult: acute renal failure (on chronic kidney disease) Chief Complaint Chief complaint: Acute Hypoxic Respiratory Failure/CHF/Hyperkalemia History of Present Illness Narrative:
--- NOTE | 2022-08-21 11:27 | P.CONNP_ITS ---
Assessment and Plan Assessment and plan (1) RADHA (acute kidney injury): Code(s): N17.9 - Acute kidney failure, unspecified Status: Acute Assessment and Plan: * suspect due to CHF exacerbation possibly worsened by recent use of Bactrim * check renal ultrasound (for completeness of evaluation * hold off on check urne electrolytes -- on diuretics and needs to continue use for now * check urine eosinophils and culture * follow repeat labs and UOP (2) Stage 3b chronic kidney disease: Code(s): N18.32 - Chronic kidney disease, stage 3b Status: Chronic Assessment and Plan: * prior to recent acute hospitalization, creatinine was running ~ 1.1 - 1.4mg/dl * however, now creatinine has been fluctuating between 1.5 - 2.0mg/dl * his baseline renal insufficiency is a manifestation of his diabetes, vascular disease (CAD + hyperlipidemia), hypertension and age * his higher creatinine currently is due to resolving post-operative ATN coupled with the need of high dose diuretic therapy to maintain his volume/fluid status * careful with use of Bactrim * follow trend of repeat labs and UOP (3) Acute respiratory failure with hypoxia and hypercarbia: Code(s): J96.01 - Acute respiratory failure with hypoxia; J96.02 - Acute respiratory failure with hypercapnia Status: Acute Assessment and Plan: * suspect multifactorial: * #4 * possible underlying JH/OHS * deconditioning * pleural effusions * element of CHF * improved with use of BiPAP * supplemental oxygen * continue IV diuresis * follow respiratory status (4) Volume overload: Code(s): E87.70 - Fluid overload, unspecified Status: Acute Assessment and Plan: * IV diuresis * suspect due to acute on chronic diastolic heart failure * follow daily weights, I/Os, and respiratory status * may need to consider thoracentesis depending on response to diuretics * follow renal function (suspect some fluctuations/worsening to occur) (5) Hyperkalemia: Code(s): E87.5 - Hyperkalemia Status: Acute Assessment and Plan: * better s/p medical management * ongoing IV diuresis should help * due to RADHA and possible use of bactrim (started at rehab) * follow repeat K+ levels (6) Hyponatremia: Code(s): E87.1 - Hypo-osmolality and hyponatremia Status: Acute Assessment and Plan: * likdely due to volume overload status as well as RADHA * follow trend with current therapy (7) Anemia: Code(s): D64.9 - Anemia, unspecified Status: Acute Assessment and Plan: * likely due to RADHA on CKD, and acute illness * recent upper and lower endoscopies done at [facility] without no evidence of bleed * follow-up on anemia studies * trend H/H (8) Hypertension: Code(s): I10 - Essential (primary) hypertension Status: Chronic Assessment and Plan: * reasonable control at this time * follow trend of hemodynamics (9) Type 2 diabetes mellitus with hyperglycemia: Code(s): E11.65 - Type 2 diabetes mellitus with hyperglycemia Status: Chronic Assessment and Plan: * follow accuchecks * glycemic control per hospitalists Long extensive discussion (> 25 minutes) with both the patient as well as daughter at bedside with regard to his fluctuating renal function in the context of volume overload /respiratory distress with ongoing interventions as outlined above in the hopes of stabilizing both his respiratory and volume status as well as his overall renal functio
[2022-08-21 11:34] LABS: CRP 2.2 mg/dL (<1.0)
[2022-08-21 11:50] LABS: Procalcitonin 0.4 ng/mL
[2022-08-21 11:57] LABS: Lactic Acid Reflex 1.2 mmol/L (0.7-2.0)
[2022-08-21 12:06] LABS: D Dimer 2.85 ug/mL (<0.48)
[2022-08-21 12:15] LABS: Glucose Point of Care 175 mg/dl (65-105)
[2022-08-21] MEDS: IRON SUCROSE COMPLEX 500 MG in SODIUM CHLORIDE 0.9% IV 250 ML 78.57 MG IVPB (12:35)
--- NOTE | 2022-08-21 12:44 | PM.CNCAR ---
Assessment and Plan Assessment and plan (1) Acute on chronic diastolic CHF (congestive heart failure): Code(s): I50.33 - Acute on chronic diastolic (congestive) heart failure Status: Acute Assessment and Plan: Patient has acute on chronic diastolic heart failure with significant volume overload and pleural effusions. This is complicated by his chronic kidney disease. He has been diuresing well since he has been here but his creatinine has increased as well. -- Continue furosemide 40 mg IV push b.i.d. -- continue Jardiance -- daily BMP --DVT prophylasis w/ SCD; change to Lovenox if H&H remains stable. (2) Acute respiratory failure with hypoxia and hypercarbia: Code(s): J96.01 - Acute respiratory failure with hypoxia; J96.02 - Acute respiratory failure with hypercapnia Status: Acute Assessment and Plan: on BiPAP, follow respiratory status (3) RADHA (acute kidney injury): Code(s): N17.9 - Acute kidney failure, unspecified Status: Acute Assessment and Plan: Acute on chronic kidney disease, being followed by Dr. Evans. (4) Coronary artery disease: Code(s): I25.10 - Atherosclerotic heart disease of [place] coronary artery without angina pectoris Status: Acute Assessment and Plan: History of CAD, remote [place], coronary stent, and on 07/23/2022 a 2 vessel CABG. -- CAD is stable. -- Continue aspirin if no overt GI bleeding, continue statin therapy. (5) Persistent atrial fibrillation: Code(s): I48.19 - Other persistent atrial fibrillation Status: Acute Assessment and Plan: Long-term persistent atrial fibrillation with a controlled heart rate. Tends to be bradycardic. Not anticoagulated due to anemia, GI bleeding, and the history of left atrial appendage clipping. (6) Iron deficiency anemia: Code(s): D50.9 - Iron deficiency anemia, unspecified Status: Acute Assessment and Plan: Patient with anemia, status post 2 units of packed cells when hospitalized at [facility]. Anemia. Stable but he is getting another unit of pack cells here. Appears iron deficient. --Agree with iron infusion. --Daily CBC History of Present Illness History of Present Illness Consult date/time: 08/21/22 12:44 Reason For Visit: Acute Hypoxic Respiratory Failure/CHF/Hyperkalemia Narrative: Paul Ag is a 77-year-old male whom we are asked to see at the request of Mandie Kim for our advice and opinion regarding his CHF and pleural effusions status post CABG. He has a history of hypertension, HI, coronary disease with stent, diastolic CHF, CKD, and persistent atrial fibrillation. The patient had CABG x2 ( WATSON to the LAD and radial artery T graft off the WATSON to the OM, and left atrial appendage clip by Dr. Chappell on 07/23/2022. The patient's course was complicated by persistent atrial fibrillation, bradycardia, chronic kidney disease,and a GI bleed requiring 2 units PRBCs ( had colon polyps clipped). Eliquis was held due to his left atrial appendage closure and GI bleed. He was discharged from the hospital on 08/14/2022 To [facility] rehab. Echo prior to discharge showed an ejection fraction of 55%. Hematocrit was 28, BUN 68, creatinine 1.6 on discharge. His discharge medications included furosemide 60 mg b.i.d., metolazone 5 mg daily, aspirin 81 mg daily among others. He is followed by Dr. Peoples. The patient has felt progressive problems with shortness of breath and increased work of breathing of the last few days. His lower extremity edema may be somewhat worse. He denies any anginal symptoms, or overt bleeding. No cough fevers or chills. Much of the history is obtained from the patient's daughter , who was at the bedside, as the patient is in distress and on BiPAP. No h/o JH. Review of Systems Constitutional: Constitutional: Denies fever(s) Eyes: Eyes: Reports no additional eye complaints ENT:
[2022-08-21] MEDS: PERFLUTREN LIPID MICROSPHERES 1.5 ML VIAL DILUTED TO 10 ML TOTAL VOLUME IV PUSH (14:14)
--- NOTE | 2022-08-21 14:15 | IVDEFINITY ---
Prior to administration of IV Definity the patient was educated on the risks and benefits of the imaging enhancing agent including potential adverse side effects. The patient verbalized understanding. Allergies were verified. No exclusion criteria were identified and at least one of the following inclusion criteria were met: 1) physician request, 2) patient technically difficult to image (per the [place] [employer] guidelines of two or more segments not discernable within the apical view), or 3) questionable left ventricular function. ?
[2022-08-21] MEDS: FERROUS SULFATE 324 MG TABLET BY MOUTH (16:41)
[2022-08-21] MEDS: TAMSULOSIN HCL 0.4 MG CAPSULE PO (16:41)
[2022-08-21 17:30] LABS: Glucose Point of Care 171 mg/dl (65-105)
[2022-08-21] MEDS: GABAPENTIN 300 MG CAPSULE PO (21:18)
[2022-08-21] MEDS: MELATONIN 5 MG TABLET 10 MG PO (21:18)
[2022-08-21 23:47] LABS: Glucose Point of Care 198 mg/dl (65-105)
[2022-08-22] VITALS (20 sets, daily range): BP systolic 109–149; BP diastolic 54–74; PULSE 61–100; RESP 18–26; TEMP 36–36.6; O2SAT 95–100
[2022-08-22 04:35] LABS: Hematocrit 25.7 % (42.0-52.0); Hemoglobin 7.2 g/dL (14.0-18.0); Mean Corpuscular Volume 96.3 fl (80-100); Mean Platelet Volume 10.8 fl (7.4-10.4); Platelet Count Result 122 k/mm3 (150-375); Red Blood Count 2.67 M/mm3 (4.6-6.20); White Blood Count 5.3 K/mm3 (4.5-10.0)
[2022-08-22 04:52] LABS: Blood Urea Nitrogen 83 mg/dL (9-20); Carbon Dioxide > 40 mmol/L (22-30); Chloride 83 mmol/L (98-107); Estimated CRCL calculation 25 ml/min; Estimated Glomerular Filt Rate 21; Glucose 135 mg/dL (65-110); Potassium 4.9 mmol/L (3.4-5.0); Sodium 130 mmol/L (137-145)
[2022-08-22 08:27] LABS: Troponin I 0.064 ng/mL (0.000-0.034)
[2022-08-22] MEDS: ASPIRIN 81 MG ENTERIC TABLET PO (08:35)
[2022-08-22] MEDS: CYANOCOBALAMIN 1,000 MCG TABLET 1000 MCG PO (08:35)
[2022-08-22] MEDS: EMPAGLIFLOZIN 10 MG TABLET BY MOUTH (08:35)
[2022-08-22] MEDS: PANTOPRAZOLE 40 MG TABLET PO (08:35)
[2022-08-22] MEDS: ATORVASTATIN 40 MG TABLET PO (08:35)
[2022-08-22] MEDS: FUROSEMIDE INJ 40 MG/4 ML VIAL IV PUSH ×2 (08:35→20:46)
[2022-08-22] MEDS: DOCUSATE SODIUM 100 MG CAPSULE PO (08:35)
[2022-08-22] MEDS: polyethylene glycoL 3350 17 GM POWD.PACK PO (08:35)
[2022-08-22] MEDS: FERROUS SULFATE 324 MG TABLET BY MOUTH ×2 (08:35→17:27)
[2022-08-22 09:30] LABS: Glucose Point of Care 113 mg/dl (65-105)
[2022-08-22] MEDS: ALBUTEROL SULFATE (*SP) AEROSOL 1 PUFF 2 PUFF INHALATION (09:54)
--- NOTE | 2022-08-22 11:53 | PM.IMPN ---
Progress Note: A&P Assessment and Plan (1) Acute respiratory failure with hypoxia and hypercarbia: Code(s): J96.01 - Acute respiratory failure with hypoxia; J96.02 - Acute respiratory failure with hypercapnia Status: Acute Assessment and Plan: Patient presents with acute respiratory failure. Chest x-ray shows small right and moderate size left pleural effusion. He has airspace opacities noted consistent with atelectasis versus pneumonia. Would also consider heart failure. ABG 7.22/96/196 on BiPAP. BiPAP continued. Repeat ABG showing improvement 7.45/60/87. Weaned from BiPAP to 3 L nasal cannula 08/21 but back on BiPAP now. Bilateral effusions may require thoracentesis. Some concern for pneumonia noted on CXR but no real signs of infection clinically. Started on Lasix with excellent UOP. Given his chronic hypercarbia, felt patient has untreated JH. He states he has never been diagnosed with JH but it is listed in his medical hx and he does require O2 at night. Suspect also right sided failure related to his untreated JH. (2) Acute on chronic diastolic CHF (congestive heart failure): Code(s): I50.33 - Acute on chronic diastolic (congestive) heart failure Status: Acute Assessment and Plan: Chest x-ray consistent with CHF. BNP 9240. Echo shows EF of 65-70% with mildly increased LV wall thickness. The RV chamber is enlarged and the RV systolic function is reduced. There is mild biatrial enlargement and mild mitral regurgitation. The right atrial pressure is 10. Patient was on Lasix 60 mg po twice daily as well as metolazone 10 mg daily per home med rec and rehab notes. Nephrology was seeing patient at rehab. He has been started on IV Lasix with excellent urine output. Continue current diuresis plan. Appreciate Cardiology input. (3) [id number] kidney injury: Code(s): N17.9 - Acute kidney failure, unspecified; N18.9 - Chronic kidney disease, unspecified Status: Acute Assessment and Plan: Creatinine was 1.6-2.0 prior to admission at the rehab facility but patient was fluid overloaded so these might have been falsely low. He did abnormal renal function last year last creatinine listed was in December at 1.2. He was also on Bactrim which could have contributed to the worsening renal funciton. Continue Aranda catheter for strict I's/O's documentation. Nephrology is consulted and appreciate their input. Continue IV diuretics. Continue monitor renal function closely. (4) Hyperkalemia: Code(s): E87.5 - Hyperkalemia Status: Acute Assessment and Plan: Potassium was 6.4. This has been treated appropriately. Related to the acute kidney injury. Potassium is now normal today. Continue to follow. (5) Hyponatremia: Code(s): E87.1 - Hypo-osmolality and hyponatremia Status: Acute Assessment and Plan: Sodium was 127. Related to volume overload. Sodium has improved with diuresis. Continue to follow. (6) Coronary artery disease: Code(s): I25.10 - Atherosclerotic heart disease of [place] coronary artery without angina pectoris Status: Acute Assessment and Plan: Patient with CAD status post 2 vessel bypass at [facility] 07/23/22. Continue aspirin 81 mg, Lipitor 40 mg (7) Anemia: Code(s): D64.9 - Anemia, unspecified Status: Acute Assessment and Plan: Likely secondary to chronic disease and recent surgery. Iron studies show iron deficiency anemia B12/folate/TSH all within normal limits Upper GI performed for melena 08/07/22, biopsies taken, showed chronic gastritis and recommended Protonix 40 mg daily Venofer to complete 3 doses started 08/21, last dose 08/23 then would discharge on oral iron replacement Trend hemoglobin and hematocrit and transfuse if indicated. (8) Type 2 diabetes mellitus: Code(s): E11.9 - Type 2 diabetes mellitus without complications Status: Acute Assess
--- NOTE | 2022-08-22 12:42 | P.PNNP_ITS ---
Progress Note: A&P Assessment and Plan (1) RADHA (acute kidney injury): Code(s): N17.9 - Acute kidney failure, unspecified Status: Acute Assessment and Plan: * suspect due to CHF exacerbation possibly worsened by recent use of Bactrim * check renal ultrasound (for completeness of evaluation * hold off on check urne electrolytes -- on diuretics and needs to continue use for now * check urine eosinophils and culture * follow repeat labs and UOP (2) Stage 3b chronic kidney disease: Code(s): N18.32 - Chronic kidney disease, stage 3b Status: Chronic Assessment and Plan: * prior to recent acute hospitalization, creatinine was running ~ 1.1 - 1.4mg/dl * however, now creatinine has been fluctuating between 1.5 - 2.0mg/dl * his baseline renal insufficiency is a manifestation of his diabetes, vascular disease (CAD + hyperlipidemia), hypertension and age * his higher creatinine currently is due to resolving post-operative ATN coupled with the need of high dose diuretic therapy to maintain his volume/fluid status * careful with use of Bactrim * follow trend of repeat labs and UOP (3) Acute respiratory failure with hypoxia and hypercarbia: Code(s): J96.01 - Acute respiratory failure with hypoxia; J96.02 - Acute respiratory failure with hypercapnia Status: Acute Assessment and Plan: * suspect multifactorial: * #4 * possible underlying JH/OHS * deconditioning * pleural effusions * element of CHF * improved with use of BiPAP * supplemental oxygen * continue IV diuresis * follow respiratory status (4) Acute exacerbation of CHF (congestive heart failure): Code(s): I50.9 - Heart failure, unspecified Status: Acute Assessment and Plan: * IV diuresis * suspect due to acute on chronic diastolic heart failure * follow daily weights, I/Os, and respiratory status * may need to consider thoracentesis depending on response to diuretics * Cardiology following * follow renal function (suome worsening noted) (5) Hyperkalemia: Code(s): E87.5 - Hyperkalemia Status: Acute Assessment and Plan: * better s/p medical management * ongoing IV diuresis should help * due to RADHA and possible use of bactrim (started at rehab) * follow repeat K+ levels (6) Hyponatremia: Code(s): E87.1 - Hypo-osmolality and hyponatremia Status: Acute Assessment and Plan: * likdely due to volume overload status as well as RADHA * follow trend with current therapy (7) Anemia: Code(s): D64.9 - Anemia, unspecified Status: Acute Assessment and Plan: * likely due to RADHA on CKD, and acute illness * recent upper and lower endoscopies done at [facility] without no evidence of bleed * evidence of iron deficiency by anemia work-up - dose with IV venofer * follow trend H/H (8) Hypertension: Code(s): I10 - Essential (primary) hypertension Status: Chronic Assessment and Plan: * reasonable control at this time * follow trend of hemodynamics (9) Type 2 diabetes mellitus with hyperglycemia: Code(s): E11.65 - Type 2 diabetes mellitus with hyperglycemia Status: Chronic Assessment and Plan: * follow accuchecks * glycemic control per hospitalists Will continue to follow. Subjective Date/time seen: 08/22/22 12:42 Since last seen, it would seem his breathing/respiratory status seems to be doing better but not back to baseline; he is still requiring supplemental oxygen
--- NOTE | 2022-08-22 12:42 | PM.PNNEP ---
Progress Note: A&P Assessment and Plan (1) RADHA (acute kidney injury): Code(s): N17.9 - Acute kidney failure, unspecified Status: Acute Assessment and Plan: suspect due to CHF exacerbation possibly worsened by recent use of Bactrim check renal ultrasound (for completeness of evaluation hold off on check urne electrolytes -- on diuretics and needs to continue use for now check urine eosinophils and culture follow repeat labs and UOP (2) Stage 3b chronic kidney disease: Code(s): N18.32 - Chronic kidney disease, stage 3b Status: Chronic Assessment and Plan: prior to recent acute hospitalization, creatinine was running ~ 1.1 - 1.4mg/dl however, now creatinine has been fluctuating between 1.5 - 2.0mg/dl his baseline renal insufficiency is a manifestation of his diabetes, vascular disease (CAD + hyperlipidemia), hypertension and age his higher creatinine currently is due to resolving post-operative ATN coupled with the need of high dose diuretic therapy to maintain his volume/fluid status careful with use of Bactrim follow trend of repeat labs and UOP (3) Acute respiratory failure with hypoxia and hypercarbia: Code(s): J96.01 - Acute respiratory failure with hypoxia; J96.02 - Acute respiratory failure with hypercapnia Status: Acute Assessment and Plan: suspect multifactorial: #4 possible underlying JH/OHS deconditioning pleural effusions element of CHF improved with use of BiPAP supplemental oxygen continue IV diuresis follow respiratory status (4) Acute exacerbation of CHF (congestive heart failure): Code(s): I50.9 - Heart failure, unspecified Status: Acute Assessment and Plan: IV diuresis suspect due to acute on chronic diastolic heart failure follow daily weights, I/Os, and respiratory status may need to consider thoracentesis depending on response to diuretics Cardiology following follow renal function (suome worsening noted) (5) Hyperkalemia: Code(s): E87.5 - Hyperkalemia Status: Acute Assessment and Plan: better s/p medical management ongoing IV diuresis should help due to RADHA and possible use of bactrim (started at rehab) follow repeat K+ levels (6) Hyponatremia: Code(s): E87.1 - Hypo-osmolality and hyponatremia Status: Acute Assessment and Plan: likdely due to volume overload status as well as RADHA follow trend with current therapy (7) Anemia: Code(s): D64.9 - Anemia, unspecified Status: Acute Assessment and Plan: likely due to RADHA on CKD, and acute illness recent upper and lower endoscopies done at [facility] without no evidence of bleed evidence of iron deficiency by anemia work-up - dose with IV venofer follow trend H/H (8) Hypertension: Code(s): I10 - Essential (primary) hypertension Status: Chronic Assessment and Plan: reasonable control at this time follow trend of hemodynamics (9) Type 2 diabetes mellitus with hyperglycemia: Code(s): E11.65 - Type 2 diabetes mellitus with hyperglycemia Status: Chronic Assessment and Plan: follow accuchecks glycemic control per hospitalists Will continue to follow. Subjective Date/time seen: 08/22/22 12:42 Since last seen, it would seem his breathing/respiratory status seems to be doing better but not back to baseline; he is still requiring supplemental oxygen support; reasonable diuresis but it appears to be at the expense of his renal function. Exam Narrative: General: elderly WD/WN Caucaisan male in NAD Heart: normal S1 and S2; no rub Lungs: coarse and decreased at bases with some bibasilar crackles Abdomen: soft, nontender, nondistended, positive bowel sounds Extremities: no cyanosis or clubbing; 2+ edema Skin: warm and dry Objective Data Vital Signs Vital Signs: Vital Signs Temp Pulse Resp BP Pulse Ox O2 Del Method O
[2022-08-22] MEDS: IRON SUCROSE COMPLEX 500 MG in SODIUM CHLORIDE 0.9% IV 250 ML 78.57 MG IVPB (13:02)
--- NOTE | 2022-08-22 13:29 | PM.PNCARD ---
Progress Note: A&P Assessment and Plan (1) Acute on chronic diastolic CHF (congestive heart failure): Code(s): I50.33 - Acute on chronic diastolic (congestive) heart failure Status: Acute Assessment and Plan: Patient has acute on chronic diastolic heart failure with significant volume overload and pleural effusions. This is complicated by his chronic kidney disease. He has been diuresing well since he has been here but his creatinine has increased as well. Modest diuresis. -- Prefer to continue furosemide 40 mg IV push b.i.d. , though diuretic management per Dr. Evans. -- continue Jardiance -- daily BMP -- DVT prophylaxis w/ SCD; change to Lovenox if H&H remains stable. (2) Acute respiratory failure with hypoxia and hypercarbia: Code(s): J96.01 - Acute respiratory failure with hypoxia; J96.02 - Acute respiratory failure with hypercapnia Status: Acute Assessment and Plan: on BiPAP, follow respiratory status (3) RADHA (acute kidney injury): Code(s): N17.9 - Acute kidney failure, unspecified Status: Acute Assessment and Plan: Acute on chronic kidney disease, being followed by Dr. Evans. Creatinine rising. (4) Coronary artery disease: Code(s): I25.10 - Atherosclerotic heart disease of [place] coronary artery without angina pectoris Status: Acute Assessment and Plan: History of CAD, remote [place], coronary stent, and on 07/23/2022 a 2 vessel CABG. -- CAD is stable. -- Continue aspirin if no overt GI bleeding, continue statin therapy. (5) Persistent atrial fibrillation: Code(s): I48.19 - Other persistent atrial fibrillation Status: Acute Assessment and Plan: Long-term persistent atrial fibrillation with a controlled heart rate. Tends to be bradycardic. Not anticoagulated due to anemia, GI bleeding, and the history of left atrial appendage clipping. (6) Iron deficiency anemia: Code(s): D50.9 - Iron deficiency anemia, unspecified Status: Acute Assessment and Plan: Patient with anemia, status post 2 units of packed cells when hospitalized at [facility]. H&H has declined. Appears iron deficient. --Agree with iron infusions. --Daily CBC Subjective Date/time seen: FU for Acute on chronic diastolic CHF. Paul Ag is a ? 77-year-old male whom we are asked to see at the request of Mandie Kim for our advice and opinion regarding his CHF and pleural effusions status post CABG.? ? He has a history of hypertension, ME, coronary disease with stent,? diastolic CHF, CKD, and persistent atrial fibrillation.? The patient had CABG x2 ( WATSON to the LAD and radial artery T graft off the WATSON to the OM, and left atrial appendage clip by Dr. Chappell on 07/23/2022. ? The patient's course was complicated by persistent atrial fibrillation, bradycardia, chronic kidney disease,and a GI bleed requiring 2 units PRBCs ( had gastritis, and colon polyps clipped).? Eliquis was held due to his left atrial appendage closure and GI bleed.? He was discharged from the hospital on 08/14/2022?to [facility] rehab.? ? Echo prior to discharge showed an ejection fraction of 55%.? ? 08/21/2022: Continue furosemide 40 mg IV push b.i.d. Jardiance, BiPAP. Rec'd 1 unit PRBCs. 08/22/22 13:29 Pt has been on BiPAP much of the time, occasionally 5 L by nasal cannula. I's and O's yesterday: 960 in, 1300 out. Hematocrit has declined despite the unit of packed cells yesterday. Getting iorn infusion. Review of Systems Review of Systems: difficult to obtain ROS as the patient is on BiPAP but he denies any pain, not short of breath at the present time, no apparent bleeding or melena. Exam Narrative: Lying in bed, napping with BiPAP on, looks more comfortable today. Const: General: cooperative and comfortable; No confusion Orientation/consciousness: oriented to person, patient oriented x3 and No confusion Other: patient nods yes or no
[2022-08-22 13:39] LABS: Glucose Point of Care 186 mg/dl (65-105)
[2022-08-22 17:25] LABS: Glucose Point of Care 168 mg/dl (65-105)
[2022-08-22] MEDS: TAMSULOSIN HCL 0.4 MG CAPSULE PO (17:27)
[2022-08-22 20:09] LABS: Glucose Point of Care 206 mg/dl (65-105)
[2022-08-22] MEDS: GABAPENTIN 300 MG CAPSULE PO (20:46)
[2022-08-22] MEDS: MELATONIN 5 MG TABLET 10 MG PO (20:46)
[2022-08-23] VITALS (17 sets, daily range): BP systolic 123–140; BP diastolic 44–62; PULSE 62–108; RESP 18–26; TEMP 36.2–36.5; O2SAT 88–100
[2022-08-23 04:23] LABS: Basophils Percent Auto 0.6 % (0.2-1.2); Eosinophils Absolute Auto 0.5 K/mm3 (0-0.3); Eosinophils Percent Auto 8.3 % (0-4.4); Hematocrit 27.8 % (42.0-52.0); Hemoglobin 7.6 g/dL (14.0-18.0); Immature Granulocyte Absolute 0.09 K/mm3 (0.00-0.031); Immature Granulocyte Percent A 1.7 % (0-0.5); Lymphocytes Absolute Auto 0.65 K/mm3 (0.9-3.2); Mean Corpuscular HGB Conc 27.3 g/dl (32-36); Mean Corpuscular Hemoglobin 27.5 pg (26-34); Mean Corpuscular Volume 100.7 fl (80-100); Mean Platelet Volume 10.8 fl (7.4-10.4); Monocytes Absolute Auto 0.8 K/mm3 (0.1-0.6); Monocytes Percent Auto 14.8 % (2.6-8.5); Neutrophils Absolute Auto 3.4 K/mm3 (1.3-6.7); Neutrophils Percent Auto 62.6 % (45.5-73.1); Nucleated Red Blood Cells Absolute Auto 0.1 K/mm3 (0.0-0.012); Platelet Count Result 125 k/mm3 (150-375); Red Blood Count 2.76 M/mm3 (4.6-6.20); Red Cell Distribution Width 19.4 % (11.5-14.5); White Blood Count 5.4 K/mm3 (4.5-10.0)
[2022-08-23 04:39] LABS: Alanine Aminotransferase 23 U/L (6-50); Albumin Level 3.2 g/dL (3.5-5.1); Alkaline Phosphatase 100 U/L (38-126); Aspartate Amino Transferase 25 U/L (17-59); Bilirubin,Total 0.8 mg/dL (0.2-1.3); Blood Urea Nitrogen 82 mg/dL (9-20); Calcium 7.9 mg/dL (8.4-10.2); Carbon Dioxide > 40 mmol/L (22-30); Chloride 84 mmol/L (98-107); Creatine Kinase 25 U/L (55-170); Estimated CRCL calculation 32 ml/min; Estimated Glomerular Filt Rate 28; Glucose 121 mg/dL (65-110); Phosphorus 4.5 mg/dL (2.5-4.5); Potassium 4.2 mmol/L (3.4-5.0); Sodium 130 mmol/L (137-145)
[2022-08-23 05:25] LABS: Anisocytosis 1+ (NORMAL); Hypochromasia 1+ (NORMAL); Ovalocytes 1+ (NORMAL); Platelet Estimate Decreased (Adequate); Polychromasia 1+ (NORMAL); Stomatocytes 2+ (NORMAL)
[2022-08-23 05:26] LABS: Schistocytes None Seen (NORMAL)
[2022-08-23 07:21] LABS: Creatinine Urine 95.6 mg/dL; Total Protein Urine Random 19 mg/dL
[2022-08-23] MEDS: ASPIRIN 81 MG ENTERIC TABLET PO (08:07)
[2022-08-23] MEDS: ATORVASTATIN 40 MG TABLET PO (08:08)
[2022-08-23] MEDS: DOCUSATE SODIUM 100 MG CAPSULE PO (08:08)
[2022-08-23] MEDS: CYANOCOBALAMIN 1,000 MCG TABLET 1000 MCG PO (08:08)
[2022-08-23] MEDS: PANTOPRAZOLE 40 MG TABLET PO (08:09)
[2022-08-23] MEDS: EMPAGLIFLOZIN 10 MG TABLET BY MOUTH (08:09)
[2022-08-23] MEDS: FUROSEMIDE INJ 40 MG/4 ML VIAL IV PUSH ×2 (08:09→21:55)
[2022-08-23] MEDS: FERROUS SULFATE 324 MG TABLET BY MOUTH ×2 (08:09→18:00)
[2022-08-23] MEDS: polyethylene glycoL 3350 17 GM POWD.PACK PO (08:10)
[2022-08-23 08:11] LABS: Eosinophil Urine None Seen % (None Seen); Urine Eos QC 2nd Tech Confirmed
[2022-08-23 09:19] LABS: Glucose Point of Care 118 mg/dl (65-105)
--- NOTE | 2022-08-23 10:05 | PM.PNCARD ---
Progress Note: A&P Assessment and Plan (1) Acute on chronic diastolic CHF (congestive heart failure): Code(s): I50.33 - Acute on chronic diastolic (congestive) heart failure Status: Acute Assessment and Plan: Patient has acute on chronic diastolic heart failure with significant volume overload and pleural effusions. This is complicated by his chronic kidney disease. He has been diuresing well since he has been here but his creatinine has increased as well. Modest diuresis. -- Prefer to continue furosemide 40 mg IV push b.i.d. , though diuretic management per Dr. Evans. -- continue Jardiance -- daily BMP -- DVT prophylaxis w/ SCD; change to Lovenox if H&H remains stable. -- Daily standing weights -- Strict I&O (2) Acute respiratory failure with hypoxia and hypercarbia: Code(s): J96.01 - Acute respiratory failure with hypoxia; J96.02 - Acute respiratory failure with hypercapnia Status: Acute Assessment and Plan: Improving, now on supplemental O2 per nasal cannula. BiPAP at night, follow respiratory status (3) RADHA (acute kidney injury): Code(s): N17.9 - Acute kidney failure, unspecified Status: Acute Assessment and Plan: Acute on chronic kidney disease, being followed by Dr. Evans. Creatinine rising. (4) Coronary artery disease: Code(s): I25.10 - Atherosclerotic heart disease of [place] coronary artery without angina pectoris Status: Acute Assessment and Plan: History of CAD, remote [place], coronary stent, and on 07/23/2022 a 2 vessel CABG. -- CAD is stable. -- Continue aspirin if no overt GI bleeding, continue statin therapy. (5) Persistent atrial fibrillation: Code(s): I48.19 - Other persistent atrial fibrillation Status: Acute Assessment and Plan: Long-term persistent atrial fibrillation with a controlled heart rate. Tends to be bradycardic. Not anticoagulated due to anemia, GI bleeding, and the history of left atrial appendage clipping. (6) Iron deficiency anemia: Code(s): D50.9 - Iron deficiency anemia, unspecified Status: Acute Assessment and Plan: Patient with anemia, status post 2 units of packed cells when hospitalized at [facility]. H&H has declined. Appears iron deficient. --Agree with iron infusions. --Daily CBC Subjective Date/time seen: 08/23/22 10:05 Cardiology follow up for CHF He feels like his breathing is a little better today. Still has significant LE edema. No chest pain or palpitations. He just finished getting up to the chair with PT when I saw him, so is having some increased dyspnea. Review of Systems Constitutional: Constitutional: Denies fever(s) Eyes: Eyes: Reports no additional eye complaints ENT: Denies epistaxis Cardiovascular: Cardiovascular: Denies chest pain, Reports pedal edema, Reports leg edema, Denies lightheadedness, Reports dyspnea and Reports dyspnea on exertion Respiratory: Respiratory: Denies chest congestion, Denies cough, Reports dyspnea and Reports dyspnea on exertion Gastrointestinal: Gastrointestinal: Denies abdominal pain and Denies hematochezia Genitourinary: Genitourinary: Denies hematuria Musculoskeletal: Musculoskeletal: Reports no additional musculoskeletal complaints Integumentary/Breasts: Skin/Breast: Reports system reviewed and no additional complaints, except as docu Neurologic: Reports system reviewed and no additional complaints, except as documented, Denies behavioral changes and Denies confusion Psychiatric: Psychiatric: Denies behavioral changes and Denies confusion Exam Narrative: Obese male sitting in the chair with nasal cannula oxygen in place Const: General: cooperative, comfortable, alert and awake Orientation/consciousness: oriented to person, patient oriented x3 and No confusion Other: HENMT: Face/Nose/Sinus: Normal nares present Eyes: EOM: EOMs intact bilaterally Neck: Neck
--- NOTE | 2022-08-23 11:20 | PCOTNOTE ---
Attempted to see Patient for OT treatment session. Patient eating, unavailable.
--- NOTE | 2022-08-23 12:08 | P.PNNP_ITS ---
Progress Note: A&P Assessment and Plan (1) RADHA (acute kidney injury): Code(s): N17.9 - Acute kidney failure, unspecified Status: Acute Assessment and Plan: * suspect due to CHF exacerbation possibly worsened by recent use of Bactrim * hold off on check urne electrolytes -- on diuretics and needs to continue use for now * renal ultrasound without acute issues * urine eosinophils negative * may have to accept a higher creatinine to help stabilize his volume status * follow repeat labs and UOP (2) Stage 3b chronic kidney disease: Code(s): N18.32 - Chronic kidney disease, stage 3b Status: Chronic Assessment and Plan: * prior to recent acute hospitalization, creatinine was running ~ 1.1 - 1.4mg/dl * however, now creatinine has been fluctuating between 1.5 - 2.0mg/dl * his baseline renal insufficiency is a manifestation of his diabetes, vascular disease (CAD + hyperlipidemia), hypertension and age * his higher creatinine currently is due to resolving post-operative ATN coupled with the need of high dose diuretic therapy to maintain his volume/fluid status * as noted above, may need a higher creatinine to maintain/achieve relative euvolemia * follow trend of repeat labs and UOP (3) Acute respiratory failure with hypoxia and hypercarbia: Code(s): J96.01 - Acute respiratory failure with hypoxia; J96.02 - Acute respiratory failure with hypercapnia Status: Acute Assessment and Plan: * suspect multifactorial: * #4 * possible underlying JH/OHS * deconditioning * pleural effusions * element of CHF * improved with use of BiPAP * supplemental oxygen as needed * continue IV diuresis * follow respiratory status (4) Acute exacerbation of CHF (congestive heart failure): Code(s): I50.9 - Heart failure, unspecified Status: Acute Assessment and Plan: * IV diuresis * suspect due to acute on chronic diastolic heart failure * follow daily weights, I/Os, and respiratory status * Cardiology following * follow renal function (some worsening noted) (5) Hyperkalemia: Code(s): E87.5 - Hyperkalemia Status: Acute Assessment and Plan: * better s/p medical management * ongoing IV diuresis should help * due to RADHA and possible use of bactrim (started at rehab) * follow repeat K+ levels (6) Hyponatremia: Code(s): E87.1 - Hypo-osmolality and hyponatremia Status: Acute Assessment and Plan: * likely due to volume overload status as well as RADHA * follow trend with current therapy (7) Anemia: Code(s): D64.9 - Anemia, unspecified Status: Acute Assessment and Plan: * likely due to RADHA on CKD, and acute illness * recent upper and lower endoscopies done at [facility] without no evidence of bleed * evidence of iron deficiency by anemia work-up - dose with IV venofer * follow trend H/H (8) Hypertension: Code(s): I10 - Essential (primary) hypertension Status: Chronic Assessment and Plan: * reasonable control at this time * follow trend of hemodynamics (9) Type 2 diabetes mellitus with hyperglycemia: Code(s): E11.65 - Type 2 diabetes mellitus with hyperglycemia Status: Chronic Assessment and Plan: * follow accuchecks * glycemic control per hospitalists Will continue to follow. Subjective Date/time seen: 08/23/22 12:08 States he feels a little better but still reports some shortness of breath even at rest; off BiPAP a
--- NOTE | 2022-08-23 12:08 | PM.PNNEP ---
Progress Note: A&P Assessment and Plan (1) RADHA (acute kidney injury): Code(s): N17.9 - Acute kidney failure, unspecified Status: Acute Assessment and Plan: suspect due to CHF exacerbation possibly worsened by recent use of Bactrim hold off on check urne electrolytes -- on diuretics and needs to continue use for now renal ultrasound without acute issues urine eosinophils negative may have to accept a higher creatinine to help stabilize his volume status follow repeat labs and UOP (2) Stage 3b chronic kidney disease: Code(s): N18.32 - Chronic kidney disease, stage 3b Status: Chronic Assessment and Plan: prior to recent acute hospitalization, creatinine was running ~ 1.1 - 1.4mg/dl however, now creatinine has been fluctuating between 1.5 - 2.0mg/dl his baseline renal insufficiency is a manifestation of his diabetes, vascular disease (CAD + hyperlipidemia), hypertension and age his higher creatinine currently is due to resolving post-operative ATN coupled with the need of high dose diuretic therapy to maintain his volume/fluid status as noted above, may need a higher creatinine to maintain/achieve relative euvolemia follow trend of repeat labs and UOP (3) Acute respiratory failure with hypoxia and hypercarbia: Code(s): J96.01 - Acute respiratory failure with hypoxia; J96.02 - Acute respiratory failure with hypercapnia Status: Acute Assessment and Plan: suspect multifactorial: #4 possible underlying JH/OHS deconditioning pleural effusions element of CHF improved with use of BiPAP supplemental oxygen as needed continue IV diuresis follow respiratory status (4) Acute exacerbation of CHF (congestive heart failure): Code(s): I50.9 - Heart failure, unspecified Status: Acute Assessment and Plan: IV diuresis suspect due to acute on chronic diastolic heart failure follow daily weights, I/Os, and respiratory status Cardiology following follow renal function (some worsening noted) (5) Hyperkalemia: Code(s): E87.5 - Hyperkalemia Status: Acute Assessment and Plan: better s/p medical management ongoing IV diuresis should help due to RADHA and possible use of bactrim (started at rehab) follow repeat K+ levels (6) Hyponatremia: Code(s): E87.1 - Hypo-osmolality and hyponatremia Status: Acute Assessment and Plan: likely due to volume overload status as well as RADHA follow trend with current therapy (7) Anemia: Code(s): D64.9 - Anemia, unspecified Status: Acute Assessment and Plan: likely due to RADHA on CKD, and acute illness recent upper and lower endoscopies done at [facility] without no evidence of bleed evidence of iron deficiency by anemia work-up - dose with IV venofer follow trend H/H (8) Hypertension: Code(s): I10 - Essential (primary) hypertension Status: Chronic Assessment and Plan: reasonable control at this time follow trend of hemodynamics (9) Type 2 diabetes mellitus with hyperglycemia: Code(s): E11.65 - Type 2 diabetes mellitus with hyperglycemia Status: Chronic Assessment and Plan: follow accuchecks glycemic control per hospitalists Will continue to follow. Subjective Date/time seen: 08/23/22 12:08 States he feels a little better but still reports some shortness of breath even at rest; off BiPAP at the time of my visit but did not appear in any respiratory distress; renal function a tad better by AM labs and continues to have reasonable diuresis with ongoing diuretic therapy; daughter at bedside and we discussed the case. Exam Narrative: General: elderly WD/WN male in NAD Heart: IRRR, normal S1 and S2; no rub Lungs: coarse and decreased at bases Abdomen: soft, nontender, nondistended, positive bowel sounds Extremities: no cyanosis or clubbing; 2+ edema Skin: warm and i
[2022-08-23] MEDS: INSULIN ASPART (*BKC) 100 UNITS/ML SUB-Q ×2 (12:13→18:00)
[2022-08-23] MEDS: IRON SUCROSE COMPLEX 500 MG in SODIUM CHLORIDE 0.9% IV 250 ML 78.6 MG IVPB (12:13)
[2022-08-23 12:45] LABS: Glucose Point of Care 219 mg/dl (65-105)
--- NOTE | 2022-08-23 16:00 | PM.IMPN ---
Progress Note: A&P Assessment and Plan (1) Acute respiratory failure with hypoxia and hypercarbia: Code(s): J96.01 - Acute respiratory failure with hypoxia; J96.02 - Acute respiratory failure with hypercapnia Status: Acute Assessment and Plan: Patient presents with acute respiratory failure. Chest x-ray shows small right and moderate size left pleural effusion. He has airspace opacities noted consistent with atelectasis versus pneumonia. Would also consider heart failure. ABG 7.22/96/196 on BiPAP. BiPAP continued. Repeat ABG showing improvement 7.45/60/87. Weaned from BiPAP. Effusions may require thoracentesis. Some concern for pneumonia noted on CXR but no real signs of infection clinically. Started on Lasix with excellent UOP. Given his chronic hypercarbia, felt patient has untreated JH. He states he has never been diagnosed with JH but it is listed in his medical hx and he does require O2 at night. Suspect also right sided failure related to his untreated JH. Continue IV diuresis. (2) Acute on chronic diastolic CHF (congestive heart failure): Code(s): I50.33 - Acute on chronic diastolic (congestive) heart failure Status: Acute Assessment and Plan: Chest x-ray consistent with CHF. BNP 9240. Echo shows EF of 65-70% with mildly increased LV wall thickness. The RV chamber is enlarged and the RV systolic function is reduced. There is mild biatrial enlargement and mild mitral regurgitation. The right atrial pressure is 10. Patient was on Lasix 60 mg po twice daily as well as metolazone 10 mg daily per home med rec and rehab notes. Nephrology was seeing patient at rehab. He has been started on IV Lasix with excellent urine output. I/O -5.6L. Continue current diuresis plan. Appreciate Cardiology input. (3) Hoaja-fa-wovxzkz kidney injury: Code(s): N17.9 - Acute kidney failure, unspecified; N18.9 - Chronic kidney disease, unspecified Status: Acute Assessment and Plan: Creatinine was 1.6-2.0 prior to admission at the rehab facility but patient was fluid overloaded so these might have been falsely low. He did have normal renal function last year with last creatinine listed was in December at 1.2. He was also on Bactrim just prior to admission which could have contributed to the worsening renal function. Cr peaked at 2.9 but better today. Continue Aranda catheter for strict I's/O's documentation. Nephrology is consulted and appreciate their input. Continue IV diuretics. Continue monitor renal function closely. (4) Hyperkalemia: Code(s): E87.5 - Hyperkalemia Status: Acute Assessment and Plan: Potassium was 6.4. This has been treated appropriately. Related to the acute kidney injury. Potassium is now normal today. Continue to follow. (5) Hyponatremia: Code(s): E87.1 - Hypo-osmolality and hyponatremia Status: Acute Assessment and Plan: Sodium was 127. Related to volume overload. Sodium has improved with diuresis. Continue to follow. (6) Coronary artery disease: Code(s): I25.10 - Atherosclerotic heart disease of [place] coronary artery without angina pectoris Status: Acute Assessment and Plan: Patient with CAD status post 2 vessel bypass at [facility] 07/23/22. Continue aspirin 81 mg, Lipitor 40 mg (7) Anemia: Code(s): D64.9 - Anemia, unspecified Status: Acute Assessment and Plan: Likely secondary to chronic disease and recent surgery. Iron studies show iron deficiency anemia B12/folate/TSH all within normal limits Upper GI with biopsies performed for melena 08/07/22. Biopsies showed chronic gastritis and recommended Protonix 40 mg daily Venofer to complete 3 doses started 08/21, last dose 08/23 then would discharge on oral iron replacement Hgb stable in the 7 range. Trend hemoglobin and hematocrit and transfuse if indicated. (8) Type 2 diabetes mellitus: Code(s): E11.9 - Ty
[2022-08-23 16:33] LABS: Glucose Point of Care 262 mg/dl (65-105)
[2022-08-23] MEDS: TAMSULOSIN HCL 0.4 MG CAPSULE PO (18:00)
[2022-08-23 21:23] LABS: Glucose Point of Care 222 mg/dl (65-105)
[2022-08-23] MEDS: MELATONIN 5 MG TABLET 10 MG PO (21:55)
[2022-08-23] MEDS: GABAPENTIN 300 MG CAPSULE PO (21:55)
[2022-08-24] VITALS (26 sets, daily range): BP systolic 120–139; BP diastolic 50–80; PULSE 60–76; RESP 18–23; TEMP 36.3–36.7; O2SAT 92–100
[2022-08-24 05:24] LABS: Alveolar/Arterial O2 Gradient 104.9 mmHg; Fractional Inspired Oxygen 40 %; HCO3 ABG 49.1 mEq/l (22.0-26.0); Oxygen Content ABG 12.5 %vol (16.0-22.0); Oxygen Saturation ABG 95.7 % (95.0-100.0); Oxyhemoglobin 94.6 % THb (90.0-100.0); PO2 ABG 84.9 mmHg (80.0-100.0); PO2 FiO2 Ratio Arterial Blood 2.12 %; Total Hemoglobin 9.3 g/dL (12.0-18.0)
[2022-08-24 05:27] LABS: Device NON-INVASIVE VENT; Modified Allen's Test Pass; Site Drawn RIGHT RADIAL
[2022-08-24 05:28] LABS: Non-Invasive Expiratory Pressure 8 CMH2O; Non-Invasive Inspiratory Pressure 16 CMH2O; Non-Invasive Vent Rate 18 /MIN
[2022-08-24 07:51] LABS: Basophils Percent Auto 0.3 % (0.2-1.2); Eosinophils Absolute Auto 0.6 K/mm3 (0-0.3); Eosinophils Percent Auto 8.7 % (0-4.4); Hematocrit 30.9 % (42.0-52.0); Hemoglobin 8.2 g/dL (14.0-18.0); Immature Granulocyte Percent A 1.4 % (0-0.5); Lymphocytes Absolute Auto 0.76 K/mm3 (0.9-3.2); Lymphocytes Percent Auto 10.7 % (18.3-44.2); Mean Corpuscular HGB Conc 26.5 g/dl (32-36); Mean Corpuscular Hemoglobin 27.4 pg (26-34); Mean Corpuscular Volume 103.3 fl (80-100); Mean Platelet Volume 10.2 fl (7.4-10.4); Monocytes Absolute Auto 0.9 K/mm3 (0.1-0.6); Monocytes Percent Auto 12.7 % (2.6-8.5); Neutrophils Absolute Auto 4.7 K/mm3 (1.3-6.7); Neutrophils Percent Auto 66.2 % (45.5-73.1); Nucleated Red Blood Cells Absolute Auto 0.2 K/mm3 (0.0-0.012); Nucleated Red Blood Cells Perc 2.4 % (0.0-0.2); Platelet Count Result 129 k/mm3 (150-375); Red Blood Count 2.99 M/mm3 (4.6-6.20); Red Cell Distribution Width 20.3 % (11.5-14.5); White Blood Count 7.1 K/mm3 (4.5-10.0)
[2022-08-24 08:09] LABS: Glucose Point of Care 145 mg/dl (65-105)
[2022-08-24] MEDS: FUROSEMIDE INJ 40 MG/4 ML VIAL IV PUSH ×2 (08:10→21:13)
[2022-08-24] MEDS: polyethylene glycoL 3350 17 GM POWD.PACK PO (08:10)
[2022-08-24] MEDS: EMPAGLIFLOZIN 10 MG TABLET BY MOUTH (08:10)
[2022-08-24] MEDS: ASPIRIN 81 MG ENTERIC TABLET PO (08:10)
[2022-08-24] MEDS: PANTOPRAZOLE 40 MG TABLET PO (08:10)
[2022-08-24] MEDS: CYANOCOBALAMIN 1,000 MCG TABLET 1000 MCG PO (08:10)
[2022-08-24] MEDS: FERROUS SULFATE 324 MG TABLET BY MOUTH ×2 (08:10→18:05)
[2022-08-24] MEDS: DOCUSATE SODIUM 100 MG CAPSULE PO (08:10)
[2022-08-24] MEDS: ATORVASTATIN 40 MG TABLET PO (08:10)
[2022-08-24 08:31] LABS: Albumin Level 3.2 g/dL (3.5-5.1); Blood Urea Nitrogen 74 mg/dL (9-20); Carbon Dioxide > 40 mmol/L (22-30); Chloride 83 mmol/L (98-107); Estimated CRCL calculation 32 ml/min; Estimated Glomerular Filt Rate 28; Glucose 134 mg/dL (65-110); Magnesium 2.9 mg/dL (1.6-2.3); Phosphorus 4.5 mg/dL (2.5-4.5); Sodium 133 mmol/L (137-145)
[2022-08-24 08:49] LABS: Anisocytosis 2+ (NORMAL); Hypochromasia 2+ (NORMAL); Platelet Estimate Decreased (Adequate); Polychromasia 1+ (NORMAL); Schistocytes None Seen (NORMAL)
[2022-08-24] MEDS: ALBUTEROL SULFATE (*SP) AEROSOL 1 PUFF 2 PUFF INHALATION (09:31)
--- NOTE | 2022-08-24 11:00 | P.PNNP_ITS ---
Progress Note: A&P Assessment and Plan (1) RADHA (acute kidney injury): Code(s): N17.9 - Acute kidney failure, unspecified Status: Acute Assessment and Plan: * suspect due to CHF exacerbation possibly worsened by recent use of Bactrim * hold off on check urne electrolytes -- on diuretics and needs to continue use for now * renal ultrasound without acute issues * urine eosinophils negative * may have to accept a higher creatinine to help stabilize his volume status * follow repeat labs and UOP (2) Stage 3b chronic kidney disease: Code(s): N18.32 - Chronic kidney disease, stage 3b Status: Chronic Assessment and Plan: * prior to recent acute hospitalization, creatinine was running ~ 1.1 - 1.4mg/dl * however, now creatinine has been fluctuating between 1.5 - 2.0mg/dl * his baseline renal insufficiency is a manifestation of his diabetes, vascular disease (CAD + hyperlipidemia), hypertension and age * his higher creatinine currently is due to resolving post-operative ATN coupled with the need of high dose diuretic therapy to maintain his volume/fluid status * as noted above, may need a higher creatinine to maintain/achieve relative euvolemia * follow trend of repeat labs and UOP (3) Acute respiratory failure with hypoxia and hypercarbia: Code(s): J96.01 - Acute respiratory failure with hypoxia; J96.02 - Acute respiratory failure with hypercapnia Status: Acute Assessment and Plan: * suspect multifactorial: * #4 * possible underlying JH/OHS * deconditioning * pleural effusions * element of CHF * improved with use of BiPAP * supplemental oxygen as needed * continue IV diuresis * follow respiratory status * Pulmonary consulted for further recommendations (4) Acute exacerbation of CHF (congestive heart failure): Code(s): I50.9 - Heart failure, unspecified Status: Acute Assessment and Plan: * IV diuresis * will add acetazolamide to regimen given elevated CO2 * suspect due to acute on chronic diastolic heart failure * follow daily weights, I/Os, and respiratory status * Cardiology following * follow renal function (5) Hyperkalemia: Code(s): E87.5 - Hyperkalemia Status: Acute Assessment and Plan: * better s/p medical management * ongoing IV diuresis should help * due to RADHA and possible use of bactrim (started at rehab) * follow repeat K+ levels (6) Hyponatremia: Code(s): E87.1 - Hypo-osmolality and hyponatremia Status: Acute Assessment and Plan: * likely due to volume overload status as well as RADHA * follow trend with current therapy (7) Anemia: Code(s): D64.9 - Anemia, unspecified Status: Acute Assessment and Plan: * likely due to RADHA on CKD, and acute illness * recent upper and lower endoscopies done at [facility] without no evidence of bleed * evidence of iron deficiency by anemia work-up - dose with IV venofer * follow trend H/H (8) Hypertension: Code(s): I10 - Essential (primary) hypertension Status: Chronic Assessment and Plan: * reasonable control at this time * follow trend of hemodynamics (9) Type 2 diabetes mellitus with hyperglycemia: Code(s): E11.65 - Type 2 diabetes mellitus with hyperglycemia Status: Chronic Assessment and Plan: * follow accuchecks * glycemic control per hospitalists Will continue to follow. Subjective Date/time seen: 08/24/22 11:00 Toleratin
--- NOTE | 2022-08-24 11:00 | PM.PNNEP ---
Progress Note: A&P Assessment and Plan (1) RADHA (acute kidney injury): Code(s): N17.9 - Acute kidney failure, unspecified Status: Acute Assessment and Plan: suspect due to CHF exacerbation possibly worsened by recent use of Bactrim hold off on check urne electrolytes -- on diuretics and needs to continue use for now renal ultrasound without acute issues urine eosinophils negative may have to accept a higher creatinine to help stabilize his volume status follow repeat labs and UOP (2) Stage 3b chronic kidney disease: Code(s): N18.32 - Chronic kidney disease, stage 3b Status: Chronic Assessment and Plan: prior to recent acute hospitalization, creatinine was running ~ 1.1 - 1.4mg/dl however, now creatinine has been fluctuating between 1.5 - 2.0mg/dl his baseline renal insufficiency is a manifestation of his diabetes, vascular disease (CAD + hyperlipidemia), hypertension and age his higher creatinine currently is due to resolving post-operative ATN coupled with the need of high dose diuretic therapy to maintain his volume/fluid status as noted above, may need a higher creatinine to maintain/achieve relative euvolemia follow trend of repeat labs and UOP (3) Acute respiratory failure with hypoxia and hypercarbia: Code(s): J96.01 - Acute respiratory failure with hypoxia; J96.02 - Acute respiratory failure with hypercapnia Status: Acute Assessment and Plan: suspect multifactorial: #4 possible underlying JH/OHS deconditioning pleural effusions element of CHF improved with use of BiPAP supplemental oxygen as needed continue IV diuresis follow respiratory status Pulmonary consulted for further recommendations (4) Acute exacerbation of CHF (congestive heart failure): Code(s): I50.9 - Heart failure, unspecified Status: Acute Assessment and Plan: IV diuresis will add acetazolamide to regimen given elevated CO2 suspect due to acute on chronic diastolic heart failure follow daily weights, I/Os, and respiratory status Cardiology following follow renal function (5) Hyperkalemia: Code(s): E87.5 - Hyperkalemia Status: Acute Assessment and Plan: better s/p medical management ongoing IV diuresis should help due to RADHA and possible use of bactrim (started at rehab) follow repeat K+ levels (6) Hyponatremia: Code(s): E87.1 - Hypo-osmolality and hyponatremia Status: Acute Assessment and Plan: likely due to volume overload status as well as RADHA follow trend with current therapy (7) Anemia: Code(s): D64.9 - Anemia, unspecified Status: Acute Assessment and Plan: likely due to RADHA on CKD, and acute illness recent upper and lower endoscopies done at [facility] without no evidence of bleed evidence of iron deficiency by anemia work-up - dose with IV venofer follow trend H/H (8) Hypertension: Code(s): I10 - Essential (primary) hypertension Status: Chronic Assessment and Plan: reasonable control at this time follow trend of hemodynamics (9) Type 2 diabetes mellitus with hyperglycemia: Code(s): E11.65 - Type 2 diabetes mellitus with hyperglycemia Status: Chronic Assessment and Plan: follow accuchecks glycemic control per hospitalists Will continue to follow. Subjective Date/time seen: 08/24/22 11:00 Tolerating BiPAP therapy at night but reports shortness of breath during the day and uses BiPAP during the day for this reason; reasonably urine output with current diuretic therapy with relative stability in renal function/creatinine; no acute distress voiced at the time of my visit. Exam Narrative: General: elderly WD/WN male in NAD Heart: IRRR, normal S1 and S2; no rub Lungs: coarse and decreased at bases Abdomen: soft, nontender, nondistended, positive bowel sounds Extremities: no cyanosis
[2022-08-24] MEDS: INSULIN ASPART (*BKC) 100 UNITS/ML SUB-Q ×2 (11:44→17:04)
[2022-08-24] MEDS: acetaZOLAMIDE SODIUM FOR INJ 500 MG VIAL 250 MG IV PUSH (11:44)
[2022-08-24] MEDS: IRON SUCROSE COMPLEX 500 MG in SODIUM CHLORIDE 0.9% IV 250 ML 78.6 MG IVPB (11:44)
[2022-08-24 13:01] LABS: Glucose Point of Care 331 mg/dl (65-105)
[2022-08-24 13:01] LABS: Glucose Point of Care 405 mg/dl (65-105)
--- NOTE | 2022-08-24 13:03 | PM.PNCARD ---
Progress Note: A&P Assessment and Plan (1) Acute on chronic diastolic CHF (congestive heart failure): Code(s): I50.33 - Acute on chronic diastolic (congestive) heart failure Status: Acute Assessment and Plan: Patient has acute on chronic diastolic heart failure with significant volume overload and pleural effusions. This is complicated by his chronic kidney disease. He has been diuresing well since he has been here, ~6.5L negative at this point. Cautiously/slowly diuresing because of his renal function. -- Prefer to continue furosemide 40 mg IV push b.i.d. , though diuretic management per Dr. Evans. -- continue Jardiance -- daily BMP -- DVT prophylaxis Lovenox -- Daily standing weights -- Strict I&O -- CXR continues to show smalll pleural effusions (2) Acute respiratory failure with hypoxia and hypercarbia: Code(s): J96.01 - Acute respiratory failure with hypoxia; J96.02 - Acute respiratory failure with hypercapnia Status: Acute Assessment and Plan: Requiring BiPAP (3) RADHA (acute kidney injury): Code(s): N17.9 - Acute kidney failure, unspecified Status: Acute Assessment and Plan: Acute on chronic kidney disease, being followed by Dr. Evans. (4) Coronary artery disease: Code(s): I25.10 - Atherosclerotic heart disease of [place] coronary artery without angina pectoris Status: Acute Assessment and Plan: History of CAD, remote OR, coronary stent, and on 07/23/2022 a 2 vessel CABG. -- CAD is stable. -- Continue aspirin if no overt GI bleeding, continue statin therapy. (5) Persistent atrial fibrillation: Code(s): I48.19 - Other persistent atrial fibrillation Status: Acute Assessment and Plan: Long-term persistent atrial fibrillation with a controlled heart rate. Tends to be bradycardic. Not anticoagulated due to anemia, GI bleeding, and the history of left atrial appendage clipping. (6) Iron deficiency anemia: Code(s): D50.9 - Iron deficiency anemia, unspecified Status: Acute Assessment and Plan: Patient with anemia, status post 2 units of packed cells when hospitalized at [facility]. H&H has declined. Appears iron deficient. --Agree with iron infusions. --Daily CBC Subjective Date/time seen: 08/24/22 13:03 Cardiology follow up for CAD, CHF, Afib Respiratory status is worse today, he is back to requiring BiPAP. Review of Systems Constitutional: Constitutional: Denies fever(s) Eyes: Eyes: Reports no additional eye complaints ENT: Denies epistaxis Cardiovascular: Cardiovascular: Denies chest pain, Reports pedal edema, Reports leg edema, Denies lightheadedness, Reports dyspnea and Reports dyspnea on exertion Respiratory: Respiratory: Denies chest congestion, Denies cough, Reports dyspnea and Reports dyspnea on exertion Gastrointestinal: Gastrointestinal: Denies abdominal pain and Denies hematochezia Genitourinary: Genitourinary: Denies hematuria Musculoskeletal: Musculoskeletal: Reports no additional musculoskeletal complaints Integumentary/Breasts: Skin/Breast: Reports system reviewed and no additional complaints, except as docu Neurologic: Reports system reviewed and no additional complaints, except as documented, Denies behavioral changes and Denies confusion Psychiatric: Psychiatric: Denies behavioral changes and Denies confusion Exam Narrative: Obese male sitting in the chair with BiPAP mask in place. Daughter at bedside. Const: General: cooperative, comfortable, alert, awake and in distress ( in some respiratory distress due to work of breathing, just put on BiPAP) moderate; No confusion Orientation/consciousness: oriented to person, patient oriented x3 and No confusion Other: HENMT: Face/Nose/Sinus: Normal nares present Eyes: EOM: EOMs intact bilaterally Neck: Neck: supple and no JVD ( Obese neck, could not see any JVD) Thyroid: thyroi
--- NOTE | 2022-08-24 14:02 | PM.CNPUL ---
Assessment and Plan Assessment and plan (1) Acute respiratory failure with hypoxia and hypercarbia: Code(s): J96.01 - Acute respiratory failure with hypoxia; J96.02 - Acute respiratory failure with hypercapnia Status: Acute Plan Patient tells me has asthma all his life and has been on p.r.n. albuterol that does provide him with a benefit. The patient has 80 pack year history of tobacco use and quit in 2011 but has never been told he has COPD. He was never on maintenance bronchodilators. I have no PFTs or CT scan. 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 He were 3 L nasal cannula at night. He is morbidly obese but has never had a sleep study. Currently the patient has fluid overload, chronic renal insufficiency, anasarca with no leukocytosis, no sputum production no focal infiltrates on his chest x-ray. The patient has been off Eliquis for GIB, anemia and left atrial clipping. etiology of his acute on chronic hypercarbic and hypoxemic respiratory failure include fluid overload, post median sternotomy with restrictive physiology, cardiac dysfunction, possible asthma and COPD. I doubt he has pneumonia, asthma exacerbation, COPD exacerbation or pulmonary embolism. Agree with as aggressive diuresis as tolerated by his cardiac and renal Systems per hospitalist, personnel director and medical claims manager. Median sternotomy can cause chest wall restriction and this can take up to 6 months for chest wall remodeling to occur. There is no specific treatment for this other than supportive care. The patient says that he does have a clinical benefit with albuterol for his lifelong asthma. I will initiate levalbuterol 1.25 mg nebs q.6 hours and ipratropium 0.5 mg nebulized Q 6 hours as a therapeutic trial of standing bronchodilators. he has no active wheezing and I do not see a need for inhaled or systemic steroids at this time. I do not feel there is bacterial infection and do not see a need for antibiotics. Patient does have a positive D-dimer but cannot undergo CT angiogram of the chest and a V/Q scan would be difficult to interpret given his chest x-ray. At this time I will order upper and lower extremity Dopplers. His most recent blood gas 7.39/83/85 on BiPAP set rate 18, 6 pressure 16/8 and 40% demonstrate adequate oxygenation and ventilation at this time. The settings were somewhat uncomfortable for the patient and I have switched him to noninvasive ventilator with the AVAPS mode and adjusted settings to comfort which are rate of 20, tidal volume 500, EPAP 8, minimal inspiratory pressure 9, maximal inspiratory pressure 25, inspiratory time 1.2, rise of 5 which is are slowest and 30% FiO2. I will obtain an overnight oximetry on these settings and a blood gas in the morning prior to removal. Discussed with Dr. Pitt Will follow with you History of Present Illness History of Present Illness Consult date: 08/24/22 Chief complaint: Acute Hypoxic Respiratory Failure/CHF/Hyperkalemia Narrative: 08/24/2022: This is a new pulmonary consultation for respiratory failure 76-year-old white male with history of COPD 100 PY tobacco use on no maintenance inhalers on albuterol PRN, no PFTs or CT chest available now, morbid obesity not on CPAP but wears 3 L nasal cannula at night, hypertension, hyperlipidemia, asthma, type 2 diabetes mellitus- hemoglobin A1c 7.7, chronic kidney disease with baseline creatinine of 1.5, myocardial infarction with right coronary stent in 2012, atrial fibrillation on Eliquis. patient was status post CABG x2 on 07/23/2022 at [facility] and admitted to [facility] on 08/15/2022. He has 80 pack year history of tobacco use and quit in 2011 when he had a heart attack. He has never been told he had COPD. He has no remembrance of performing PFTs in the past. He wears 3 L nasal cannula at night and this was prescribed in the summer of 2021 when he
--- NOTE | 2022-08-24 14:40 | PCOTNOTE ---
Attempted to see Patient at this time. Patient unavailable to be seen due to Pulmonologists in the room with respiratory switching out machines.
--- NOTE | 2022-08-24 15:11 | PM.IMPN ---
Progress Note: A&P Assessment and Plan (1) Acute respiratory failure with hypoxia and hypercarbia: Code(s): J96.01 - Acute respiratory failure with hypoxia; J96.02 - Acute respiratory failure with hypercapnia Status: Acute Assessment and Plan: Patient presents with acute respiratory failure. Chest x-ray shows small right and moderate size left pleural effusion and airspace opacities noted consistent with atelectasis versus pneumonia. Would also consider heart failure. ABG 7.22/96/196 on BiPAP. BiPAP adjusted and repeat ABG today showing improvement 7.39/83/85. Weaned from BiPAP during the day. Some concern for pneumonia noted on CXR but no real signs of infection clinically. Started on Lasix with excellent UOP. Given his chronic hypercarbia, felt patient has untreated JH. His pCO2 higher related to metabolic alkalosis. Diamox added. He states he has never been diagnosed with JH but it is listed in his medical hx and he does require O2 at night. Brilliant resp failure from CHF exacerbation, untreated JH and right sided failure. CXR showing onl small effusions and pulmonary edema. Continue IV diuresis. Pulmonary consult since he will need BiPAP at home. Still mildly somnolent. Not taking narcotics. Could be related to increasing pCO2 despite the normal pH . BUN elevated but now trending down. Check ammonia level. Check for ascites (but not seen by renal US) Discussed with Pulmonary and appreciate their input (2) Acute on chronic diastolic CHF (congestive heart failure): Code(s): I50.33 - Acute on chronic diastolic (congestive) heart failure Status: Acute Assessment and Plan: Chest x-ray consistent with CHF. BNP 9240. Echo shows EF of 65-70% with mildly increased LV wall thickness. The RV chamber is enlarged and the RV systolic function is reduced. There is mild biatrial enlargement and mild mitral regurgitation. The right atrial pressure is 10. Patient was on Lasix 40 mg po twice daily as well as metolazone 10 mg daily per home med rec. He has been started on IV Lasix here. Cardiology following. Excellent urine output and cumulative I/O -6.5L. Continue Lasix IV. Add back metolazone at half dose. Monitor elevated serum bicarb. Appreciate Cardiology input. (3) [id number] kidney injury: Code(s): N17.9 - Acute kidney failure, unspecified; N18.9 - Chronic kidney disease, unspecified Status: Acute Assessment and Plan: Creatinine was 1.6-2.0 at the rehab facility but patient was fluid overloaded so these might have been falsely low. He did have normal renal function last year with last creatinine listed was in December at 1.2. He was also on Bactrim just prior to admission which could have contributed to the worsening renal function. Here, Cr peaked at 2.9 but better at 2.3 Continue Aranda catheter. Nephrology followin and appreciate their input. Continue IV diuretics. Continue monitor renal function closely. (4) Hyponatremia: Code(s): E87.1 - Hypo-osmolality and hyponatremia Status: Acute Assessment and Plan: Sodium was 127. Related to volume overload. Sodium has improved with diuresis. Continue to follow. (5) Coronary artery disease: Code(s): I25.10 - Atherosclerotic heart disease of [place] coronary artery without angina pectoris Status: Acute Assessment and Plan: Patient with CAD status post 2 vessel bypass at [facility] 07/23/22. Continue aspirin 81 mg, Lipitor 40 mg (6) Anemia: Code(s): D64.9 - Anemia, unspecified Status: Acute Assessment and Plan: Likely secondary to chronic disease and recent surgery. Iron studies show iron deficiency anemia B12/folate/TSH all within normal limits Upper GI with biopsies performed for melena 08/07/22. Biopsies showed chronic gastritis and recommended Protonix 40 mg daily. Venofer given for 4 doses. Hgb stable in the 7-8 range. Trend hemoglobin and hematocrit and transfuse i
[2022-08-24 16:46] LABS: Glucose Point of Care 254 mg/dl (65-105)
[2022-08-24] MEDS: metOLazone 5 MG TABLET PO (18:05)
[2022-08-24] MEDS: ENOXAPARIN 40 MG/0.4 ML SYRINGE SUB-Q (18:05)
[2022-08-24] MEDS: TAMSULOSIN HCL 0.4 MG CAPSULE PO (18:06)
[2022-08-24] MEDS: LEVALBUTEROL NEB 1.25 MG/3 ML INHALATION (20:15)
[2022-08-24] MEDS: IPRATROPIUM BR 0.02% INH SOLN 0.5 MG/2.5 ML VIAL INHALATION (20:15)
[2022-08-24 20:19] LABS: Glucose Point of Care 228 mg/dl (65-105)
[2022-08-24] MEDS: GABAPENTIN 100 MG CAPSULE PO (21:13)
[2022-08-24] MEDS: MELATONIN 5 MG TABLET 10 MG PO (21:13)
[2022-08-24 21:35] LABS: Ammonia < 9 umol/L (9-30)
[2022-08-25] VITALS (30 sets, daily range): BP systolic 126–140; BP diastolic 47–52; PULSE 60–95; RESP 20–28; TEMP 35.9–37.3; O2SAT 85–99
--- NOTE | 2022-08-25 01:37 | PCRCNOTE ---
Pt on apnea link monitor 0000 tx not given.
[2022-08-25] MEDS: LEVALBUTEROL NEB 1.25 MG/3 ML INHALATION ×5 (04:57→20:36)
[2022-08-25] MEDS: IPRATROPIUM BR 0.02% INH SOLN 0.5 MG/2.5 ML VIAL INHALATION ×5 (04:57→20:36)
[2022-08-25 05:31] LABS: Alveolar/Arterial O2 Gradient 72.6 mmHg; Fractional Inspired Oxygen 30 %; HCO3 ABG 45.5 mEq/l (22.0-26.0); Oxygen Content ABG 12.1 %vol (16.0-22.0); Oxygen Saturation ABG 95.6 % (95.0-100.0); Oxyhemoglobin 93.7 % THb (90.0-100.0); PO2 ABG 73.2 mmHg (80.0-100.0); PO2 FiO2 Ratio Arterial Blood 2.44 %; Total Hemoglobin 9.1 g/dL (12.0-18.0)
[2022-08-25 05:41] LABS: Site Drawn RIGHT RADIAL; pH ABG 7.512 (7.350-7.450)
[2022-08-25 05:42] LABS: Device NON-INVASIVE VENT; Modified Allen's Test Pass
[2022-08-25 05:43] LABS: Non-Invasive Expiratory Pressure 8 CMH2O; Non-Invasive Vent Rate 20 /MIN
--- NOTE | 2022-08-25 06:40 | PM.PNPUL ---
Progress Note: A&P Assessment and Plan (1) Acute respiratory failure with hypoxia and hypercarbia: Code(s): J96.01 - Acute respiratory failure with hypoxia; J96.02 - Acute respiratory failure with hypercapnia Status: Acute Plan Patient tells me has asthma all his life and has been on p.r.n. albuterol that does provide him with a benefit. The patient has 80 pack year history of tobacco use and quit in 2011 but has never been told he has COPD. He was never on maintenance bronchodilators. I have no PFTs or CT scan. 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 He were 3 L nasal cannula at night. He is morbidly obese but has never had a sleep study. 08/24 Currently the patient has fluid overload, chronic renal insufficiency, anasarca with no leukocytosis, no sputum production no focal infiltrates on his chest x-ray. The patient has been off Eliquis for GIB, anemia and left atrial clipping. etiology of his acute on chronic hypercarbic and hypoxemic respiratory failure include fluid overload, post median sternotomy with restrictive physiology, cardiac dysfunction, possible asthma and COPD. I doubt he has pneumonia, asthma exacerbation, COPD exacerbation or pulmonary embolism. Agree with as aggressive diuresis as tolerated by his cardiac and renal Systems per hospitalist, electric drill operator and chemical test engineer. Cumulative diuresis since admission minus 6.5 L. Median sternotomy can cause chest wall restriction and this can take up to 6 months for chest wall remodeling to occur. There is no specific treatment for this other than supportive care. The patient says that he does have a clinical benefit with albuterol for his lifelong asthma. I will initiate levalbuterol 1.25 mg nebs q.6 hours and ipratropium 0.5 mg nebulized Q 6 hours as a therapeutic trial of standing bronchodilators. he has no active wheezing and I do not see a need for inhaled or systemic steroids at this time. I do not feel there is bacterial infection and do not see a need for antibiotics. Patient does have a positive D-dimer but cannot undergo CT angiogram of the chest and a V/Q scan would be difficult to interpret given his chest x-ray. At this time I will order upper and lower extremity Dopplers. His most recent blood gas 7.39/83/85 on BiPAP set rate 18, 6 pressure 16/8 and 40% demonstrate adequate oxygenation and ventilation at this time. The settings were somewhat uncomfortable for the patient and I have switched him to noninvasive ventilator with the AVAPS mode and adjusted settings to comfort which are rate of 20, tidal volume 500, EPAP 8, minimal inspiratory pressure 9, maximal inspiratory pressure 25, inspiratory time 1.2, rise of 5 which is are slowest and 30% FiO2. I will obtain an overnight oximetry on these settings and a blood gas in the morning prior to removal. upper and lower extremity Dopplers are negative for DVT 08/25 patient remained on the noninvasive ventilator with the AVAPS mode as above overnight and per the nighttime nurse slept well with no issues. Patient is currently on that noninvasive ventilator and he says that the breath is comfortable and he is breathing fine. patient had an overnight oximetry on these settings with average saturation 96%, low saturation 88%, time with saturation less than or equal to 88% was 0 minutes, oxygen desaturation index was 17.1. Patient had a blood gas prior to removal of the noninvasive ventilator with a pH of 7.51/58/73. The patient does not remember receiving the in-line nebulization treatments therefore he is unsure if they are helping him. In's and out's for yesterday -680 mL. Cumulative diuresis from admission is 8.1 L. Weight today 131 kilos (admission weight 08/14 at rehab = 127.5, admission weight to [facility] on 08/19 =129.5, weight on 04/03/2021 = 117.48) Plan: Current noninvasive ventilator settings provide adequate ventilation and oxygenation. Would christine
[2022-08-25 07:44] LABS: Glucose Point of Care 146 mg/dl (65-105)
[2022-08-25 08:14] LABS: Albumin Level 3.2 g/dL (3.5-5.1); Blood Urea Nitrogen 62 mg/dL (9-20); Calcium 8.1 mg/dL (8.4-10.2); Carbon Dioxide > 40 mmol/L (22-30); Chloride 85 mmol/L (98-107); Estimated CRCL calculation 33 ml/min; Estimated Glomerular Filt Rate 29; Glucose 162 mg/dL (65-110); Phosphorus 3.9 mg/dL (2.5-4.5); Potassium 3.5 mmol/L (3.4-5.0); Sodium 137 mmol/L (137-145)
[2022-08-25 08:35] LABS: NT Pro B Type Natriuretic Pept 6120 pg/mL (19.9-100)
[2022-08-25] MEDS: ATORVASTATIN 40 MG TABLET PO (09:01)
[2022-08-25] MEDS: FUROSEMIDE INJ 40 MG/4 ML VIAL IV PUSH ×2 (09:01→20:25)
[2022-08-25] MEDS: polyethylene glycoL 3350 17 GM POWD.PACK PO (09:01)
[2022-08-25] MEDS: PANTOPRAZOLE 40 MG TABLET PO (09:01)
[2022-08-25] MEDS: ENOXAPARIN 40 MG/0.4 ML SYRINGE SUB-Q (09:01)
[2022-08-25] MEDS: ASPIRIN 81 MG ENTERIC TABLET PO (09:01)
[2022-08-25] MEDS: metOLazone 5 MG TABLET PO (09:01)
[2022-08-25] MEDS: FERROUS SULFATE 324 MG TABLET BY MOUTH ×2 (09:01→16:24)
[2022-08-25] MEDS: DOCUSATE SODIUM 100 MG CAPSULE PO (09:01)
[2022-08-25] MEDS: CYANOCOBALAMIN 1,000 MCG TABLET 1000 MCG PO (09:02)
[2022-08-25] MEDS: EMPAGLIFLOZIN 10 MG TABLET BY MOUTH (09:02)
[2022-08-25] MEDS: acetaZOLAMIDE TAB 250 MG TABLET PO ×2 (09:02→16:24)
--- NOTE | 2022-08-25 10:15 | P.PNNP_ITS ---
Progress Note: A&P Assessment and Plan (1) RADHA (acute kidney injury): Code(s): N17.9 - Acute kidney failure, unspecified Status: Acute Assessment and Plan: * suspect due to CHF exacerbation possibly worsened by recent use of Bactrim * hold off on checking urne electrolytes -- on diuretics and needs to continue use for now * renal ultrasound without acute issues * urine eosinophils negative * may have to accept a higher creatinine to help stabilize his volume status * follow repeat labs and UOP (2) Stage 3b chronic kidney disease: Code(s): N18.32 - Chronic kidney disease, stage 3b Status: Chronic Assessment and Plan: * prior to recent acute hospitalization, creatinine was running ~ 1.1 - 1.4mg/dl * however, more recently, creatinine has been fluctuating between 1.5 - 2.0mg/dl * his baseline renal insufficiency is a manifestation of his diabetes, vascular disease (CAD + hyperlipidemia), hypertension and age * his higher creatinine currently is due to resolving post-operative ATN coupled with the need of high dose diuretic therapy to maintain his vol ume/fluid status * as noted above, may need a higher creatinine to maintain/achieve relative euvolemia * follow trend of repeat labs and UOP (3) Acute respiratory failure with hypoxia and hypercarbia: Code(s): J96.01 - Acute respiratory failure with hypoxia; J96.02 - Acute respiratory failure with hypercapnia Status: Acute Assessment and Plan: * suspect multifactorial: * #4 * possible underlying JH/OHS * deconditioning * pleural effusions * element of CHF * improved with use of BiPAP * supplemental oxygen as needed * continue IV diuresis * follow respiratory status * Pulmonary following (4) Acute exacerbation of CHF (congestive heart failure): Code(s): I50.9 - Heart failure, unspecified Status: Acute Assessment and Plan: * IV diuresis * added acetazolamide to regimen given elevated CO2 * suspect due to acute on chronic diastolic heart failure * follow daily weights, I/Os, and respiratory status * Cardiology following * follow renal function (5) Hyperkalemia: Code(s): E87.5 - Hyperkalemia Status: Acute Assessment and Plan: * better s/p medical management * ongoing IV diuresis should help * due to RADHA and possible use of bactrim (started at rehab) * follow repeat K+ levels (6) Hyponatremia: Code(s): E87.1 - Hypo-osmolality and hyponatremia Status: Acute Assessment and Plan: * resolved * likely due to volume overload status as well as RADHA * follow trend with current therapy (7) Anemia: Code(s): D64.9 - Anemia, unspecified Status: Acute Assessment and Plan: * likely due to RADHA on CKD, and acute illness * recent upper and lower endoscopies done at [facility] without no evidence of bleed * evidence of iron deficiency by anemia work-up - dosed with IV venofer and on oral iron * follow trend H/H (8) Hypertension: Code(s): I10 - Essential (primary) hypertension Status: Chronic Assessment and Plan: * reasonable control at this time * follow trend of hemodynamics (9) Type 2 diabetes mellitus with hyperglycemia: Code(s): E11.65 - Type 2 diabetes mellitus with hyperglycemia Status: Chronic Assessment and Plan: * follow accuchecks * glycemic control per hospitalists Will continue to follow. Subjective Date/time seen: 08/25/22 10:
--- NOTE | 2022-08-25 10:15 | PM.PNNEP ---
Progress Note: A&P Assessment and Plan (1) RADHA (acute kidney injury): Code(s): N17.9 - Acute kidney failure, unspecified Status: Acute Assessment and Plan: suspect due to CHF exacerbation possibly worsened by recent use of Bactrim hold off on checking urne electrolytes -- on diuretics and needs to continue use for now renal ultrasound without acute issues urine eosinophils negative may have to accept a higher creatinine to help stabilize his volume status follow repeat labs and UOP (2) Stage 3b chronic kidney disease: Code(s): N18.32 - Chronic kidney disease, stage 3b Status: Chronic Assessment and Plan: prior to recent acute hospitalization, creatinine was running ~ 1.1 - 1.4mg/dl however, more recently, creatinine has been fluctuating between 1.5 - 2.0mg/dl his baseline renal insufficiency is a manifestation of his diabetes, vascular disease (CAD + hyperlipidemia), hypertension and age his higher creatinine currently is due to resolving post-operative ATN coupled with the need of high dose diuretic therapy to maintain his volume/fluid status as noted above, may need a higher creatinine to maintain/achieve relative euvolemia follow trend of repeat labs and UOP (3) Acute respiratory failure with hypoxia and hypercarbia: Code(s): J96.01 - Acute respiratory failure with hypoxia; J96.02 - Acute respiratory failure with hypercapnia Status: Acute Assessment and Plan: suspect multifactorial: #4 possible underlying JH/OHS deconditioning pleural effusions element of CHF improved with use of BiPAP supplemental oxygen as needed continue IV diuresis follow respiratory status Pulmonary following (4) Acute exacerbation of CHF (congestive heart failure): Code(s): I50.9 - Heart failure, unspecified Status: Acute Assessment and Plan: IV diuresis added acetazolamide to regimen given elevated CO2 suspect due to acute on chronic diastolic heart failure follow daily weights, I/Os, and respiratory status Cardiology following follow renal function (5) Hyperkalemia: Code(s): E87.5 - Hyperkalemia Status: Acute Assessment and Plan: better s/p medical management ongoing IV diuresis should help due to RADHA and possible use of bactrim (started at rehab) follow repeat K+ levels (6) Hyponatremia: Code(s): E87.1 - Hypo-osmolality and hyponatremia Status: Acute Assessment and Plan: resolved likely due to volume overload status as well as RADHA follow trend with current therapy (7) Anemia: Code(s): D64.9 - Anemia, unspecified Status: Acute Assessment and Plan: likely due to RADHA on CKD, and acute illness recent upper and lower endoscopies done at [facility] without no evidence of bleed evidence of iron deficiency by anemia work-up - dosed with IV venofer and on oral iron follow trend H/H (8) Hypertension: Code(s): I10 - Essential (primary) hypertension Status: Chronic Assessment and Plan: reasonable control at this time follow trend of hemodynamics (9) Type 2 diabetes mellitus with hyperglycemia: Code(s): E11.65 - Type 2 diabetes mellitus with hyperglycemia Status: Chronic Assessment and Plan: follow accuchecks glycemic control per hospitalists Will continue to follow. Subjective Date/time seen: 08/25/22 10:15 States theodora feels okay at the time of my visit; reasonable diuresis at this time with current interventions/therapy with relative stability in renal function/creatinine; seen by Pulmonary yesterday as well as this AM with recommendations noted; no acute issues/events overnight or earlier this morning; discussed with daughter at bedside. Exam Narrative: General: elderly WD/WN male in NAD Heart: IRRR, normal S1 and S2; no rub Lungs: coarse and decreased at bases Abdomen: soft, nonten
--- NOTE | 2022-08-25 11:40 | PC.NURSE ---
Wound found on patient's coccyx. Pt's daughter stated pt was having wound issues while at his rehab center prior to admission. Assessed and charted, see separate documentation. Zinc ointment and mepilex applied to area. Educated pt on frequent turns. pt verbalized understanding. pt turned to right side.
[2022-08-25 11:53] LABS: Glucose Point of Care 243 mg/dl (65-105)
[2022-08-25] MEDS: INSULIN ASPART (*BKC) 100 UNITS/ML SUB-Q ×2 (12:33→16:24)
--- NOTE | 2022-08-25 12:48 | PCOTNOTE ---
Per RN, pt is not appropriate due to being very fatigue and wanting to take a nap. Will continue per POC duration/frequency tomorrow.
--- NOTE | 2022-08-25 12:59 | PM.PNCARD ---
Progress Note: A&P Assessment and Plan (1) Acute on chronic diastolic CHF (congestive heart failure): Code(s): I50.33 - Acute on chronic diastolic (congestive) heart failure Status: Acute Assessment and Plan: Patient has acute on chronic diastolic heart failure with significant volume overload and pleural effusions. This is complicated by his chronic kidney disease. He recently had CABG and prolonged hospitalization at [facility]. -diuresis with furosemide along with metolazone. Nephrology following. Monitor electrolytes and renal function closely. -continue SGLT 2 inhibitor. -- DVT prophylaxis Lovenox -- Daily standing weights -- Strict I&O (2) Atrial fibrillation: Code(s): I48.91 - Unspecified atrial fibrillation Status: Acute Assessment and Plan: Patient in AFib with controlled ventricular response. He recently had clipping of his left atrial appendage during surgical revascularization. He also had GI bleed postoperatively. Anticoagulation not recommended at this time. (3) Obstructive sleep apnea: Code(s): G47.33 - Obstructive sleep apnea (adult) (pediatric) Status: Acute Assessment and Plan: On CPAP (4) CAD (coronary artery disease): Code(s): I25.10 - Atherosclerotic heart disease of [place] coronary artery without angina pectoris Status: Acute Assessment and Plan: No active ischemic symptoms. Status post recent CABG. Continue aspirin and statin. Time Spent With Patient Time with patient: 25 - 35 minutes Subjective Date/time seen: 08/25/22 12:59 Interval history: 08/24/2022: This is a new pulmonary consultation for respiratory failure 76-year-old white male with history of COPD 100 PY tobacco use on no maintenance inhalers on albuterol PRN, no PFTs or CT chest available now,? morbid obesity not on CPAP but wears 3 L nasal cannula at night, hypertension, hyperlipidemia, asthma, type 2 diabetes mellitus- hemoglobin A1c 7.7, chronic kidney disease with baseline creatinine of 1.5, myocardial infarction with right coronary stent in 2012, atrial fibrillation on Eliquis.? patient was status post CABG x2 on 07/23/2022 at [facility] and? admitted to [facility] on 08/15/2022. ? He has 80 pack year history of tobacco use and quit in 2011 when he had a heart attack.? He has never been told he had COPD.? He has no remembrance of performing PFTs in the past.? He wears 3 L nasal cannula at night and this was prescribed in the summer of 2021 when he was hospitalized for fluid overload.? Before his CABG he could walk 1/2 a block. ? The patient does tell me that he had asthma since childhood and that he has had all his life and he takes? albuterol inhaler and that this does help him breathe.? He has never been on maintenance bronchodilators. ? Patient was transferred to the emergency department on 08/20/2021 for shortness of breath.? He arrived on BiPAP.? He had a white blood cell count of 8.1, creatinine of 2.70, BUN of 83, serum bicarb greater than 40, potassium 6.4, sodium 127, BNP 9240, ABG on BiPAP rate of 18 pressure 16/8 and 45% FiO2 of 7.22/96/196. Chest x-ray showed small right and moderate size left pleural effusions and airspace opacities in the mid and lower lung zones consistent with atelectasis versus pneumonia and cardiomegaly. Patient was ? Admitted with volume overload, acute kidney injury and acute on chronic hypercarbic and hypoxemic respiratory failure. Treated for fluid overload with Lasix, nitroglycerin and given bronchodilators.? Cardiology and Nephrology were consulted. 08/21 ? Improved and in no acute distress,? ABG at 5:12 a.m. 7.46/60/87 on BiPAP with no rate listed pressures 16/8 and 45% FiO2.? weight is 132 kilos 08/22 ? Shortness of breath was better. 08/23 ? per cardiology note breathing is a little better today, still has significant lower extremity edema was up to the chair with physical therapy and had increased dysp
--- NOTE | 2022-08-25 16:10 | PCPTNOTE ---
Attempted to see patient for PT and sit patient edge of bed, however patient became very shaky and seemed lethargic. Assisted patient back to supine with nursing staff. Patient unable to participate with therapy this date.
[2022-08-25 16:15] LABS: Glucose Point of Care 276 mg/dl (65-105)
[2022-08-25] MEDS: TAMSULOSIN HCL 0.4 MG CAPSULE PO (16:24)
--- NOTE | 2022-08-25 18:59 | PM.IMPN ---
Progress Note: A&P Assessment and Plan (1) Acute respiratory failure with hypoxia and hypercarbia: Code(s): J96.01 - Acute respiratory failure with hypoxia; J96.02 - Acute respiratory failure with hypercapnia Status: Acute Assessment and Plan: Patient presents with acute respiratory failure. Chest x-ray shows small right and moderate size left pleural effusion and airspace opacities noted consistent with atelectasis versus pneumonia. Would also consider heart failure. ABG 7.22/96/196 on BiPAP. BiPAP adjusted and repeat ABG today showing improvement 7.39/83/85. Weaned from BiPAP during the day. Some concern for pneumonia noted on CXR but no real signs of infection clinically. Started on Lasix with excellent UOP. Given his chronic hypercarbia, felt patient has untreated JH. His pCO2 higher related to metabolic alkalosis. Diamox added. He states he has never been diagnosed with JH but it is listed in his medical hx and he does require O2 at night. [place] resp failure from CHF exacerbation, untreated JH and right sided failure. CXR showing onl small effusions and pulmonary edema. Continue IV diuresis. Pulmonary consult since he will need BiPAP at home. Still mildly somnolent. Not taking narcotics. Could be related to increasing pCO2 despite the normal pH . BUN elevated but now trending down. Check ammonia level. Check for ascites (but not seen by renal US) Discussed with Pulmonary and appreciate their input (2) Acute on chronic diastolic CHF (congestive heart failure): Code(s): I50.33 - Acute on chronic diastolic (congestive) heart failure Status: Acute Assessment and Plan: Chest x-ray consistent with CHF. BNP 9240. Echo shows EF of 65-70% with mildly increased LV wall thickness. The RV chamber is enlarged and the RV systolic function is reduced. There is mild biatrial enlargement and mild mitral regurgitation. The right atrial pressure is 10. Patient was on Lasix 40 mg po twice daily as well as metolazone 10 mg daily per home med rec. He has been started on IV Lasix here. Cardiology following. Excellent urine output and cumulative I/O -6.5L. Continue Lasix IV. Add back metolazone at half dose. Monitor elevated serum bicarb. Appreciate Cardiology input. (3) [id number] kidney injury: Code(s): N17.9 - Acute kidney failure, unspecified; N18.9 - Chronic kidney disease, unspecified Status: Acute Assessment and Plan: Creatinine was 1.6-2.0 at the rehab facility but patient was fluid overloaded so these might have been falsely low. He did have normal renal function last year with last creatinine listed was in December at 1.2. He was also on Bactrim just prior to admission which could have contributed to the worsening renal function. Here, Cr peaked at 2.9 but better at 2.3 Continue Aranda catheter. Nephrology following and appreciate their input. Continue IV diuretics. Continue monitor renal function closely. (4) Hyponatremia: Code(s): E87.1 - Hypo-osmolality and hyponatremia Status: Acute Assessment and Plan: Sodium was 127. Related to volume overload. Sodium has improved with diuresis. Continue to follow. (5) Coronary artery disease: Code(s): I25.10 - Atherosclerotic heart disease of [place] coronary artery without angina pectoris Status: Acute Assessment and Plan: Patient with CAD status post [address] [facility] 07/23/22. Continue aspirin 81 mg, Lipitor 40 mg (6) Anemia: Code(s): D64.9 - Anemia, unspecified Status: Acute Assessment and Plan: Likely secondary to chronic disease and recent surgery. Iron studies show iron deficiency anemia B12/folate/TSH all within normal limits Upper GI with biopsies performed for melena 08/07/22. Biopsies showed chronic gastritis and recommended Protonix 40 mg daily. Venofer given for 4 doses. Hgb stable in the 7-8 range. Trend hemoglobin and hematocrit an
[2022-08-25 19:52] LABS: Glucose Point of Care 224 mg/dl (65-105)
[2022-08-25] MEDS: GABAPENTIN 100 MG CAPSULE PO (20:24)
[2022-08-25] MEDS: MELATONIN 5 MG TABLET 10 MG PO (20:24)
[2022-08-26] VITALS (27 sets, daily range): BP systolic 121–144; BP diastolic 49–67; PULSE 62–84; RESP 18–28; TEMP 35.8–37; O2SAT 86–99
[2022-08-26] MEDS: LEVALBUTEROL NEB 1.25 MG/3 ML INHALATION ×3 (00:15→07:56)
[2022-08-26] MEDS: IPRATROPIUM BR 0.02% INH SOLN 0.5 MG/2.5 ML VIAL INHALATION ×3 (00:15→07:56)
[2022-08-26 08:28] LABS: Glucose Point of Care 172 mg/dl (65-105)
[2022-08-26 08:36] LABS: Albumin Level 3.3 g/dL (3.5-5.1); Blood Urea Nitrogen 65 mg/dL (9-20); Calcium 8.6 mg/dL (8.4-10.2); Carbon Dioxide > 40 mmol/L (22-30); Chloride 93 mmol/L (98-107); Estimated CRCL calculation 34 ml/min; Estimated Glomerular Filt Rate 31; Glucose 176 mg/dL (65-110); Phosphorus 4.1 mg/dL (2.5-4.5); Potassium 4.2 mmol/L (3.4-5.0); Sodium 143 mmol/L (137-145)
--- NOTE | 2022-08-26 08:46 | PM.IMPN ---
Progress Note: A&P Assessment and Plan (1) Acute respiratory failure with hypoxia and hypercarbia: Code(s): J96.01 - Acute respiratory failure with hypoxia; J96.02 - Acute respiratory failure with hypercapnia Status: Acute Assessment and Plan: Patient presents with acute respiratory failure. Chest x-ray shows small right and moderate size left pleural effusion and airspace opacities noted consistent with atelectasis versus pneumonia. Would also consider heart failure. ABG 7.22/96/196 on BiPAP. BiPAP adjusted and repeat ABG today showing improvement 7.39/83/85. Weaned from BiPAP during the day. Some concern for pneumonia noted on CXR but no real signs of infection clinically. Started on Lasix with excellent UOP. Given his chronic hypercarbia, felt patient has untreated JH. His pCO2 higher related to metabolic alkalosis. Diamox added. He states he has never been diagnosed with JH but it is listed in his medical hx and he does require O2 at night. [place] resp failure from CHF exacerbation, untreated JH and right sided failure. CXR showing onl small effusions and pulmonary edema. Continue IV diuresis. Pulmonary consult since he will need BiPAP at home. Still mildly somnolent. Not taking narcotics. Could be related to increasing pCO2 despite the normal pH . BUN elevated but now trending down. Check ammonia level. Check for ascites (but not seen by renal US) Discussed with Pulmonary and appreciate their input 4/2: Improving, weaned off BiPAP at this time, continue IV diuresis (2) Acute on chronic diastolic CHF (congestive heart failure): Code(s): I50.33 - Acute on chronic diastolic (congestive) heart failure Status: Acute Assessment and Plan: Chest x-ray consistent with CHF. BNP 9240. Echo shows EF of 65-70% with mildly increased LV wall thickness. The RV chamber is enlarged and the RV systolic function is reduced. There is mild biatrial enlargement and mild mitral regurgitation. The right atrial pressure is 10. Patient was on Lasix 40 mg po twice daily as well as metolazone 10 mg daily per home med rec. He has been started on IV Lasix here. Cardiology following. Excellent urine output and cumulative I/O -6.5L. Continue Lasix IV. Add back metolazone at half dose. Monitor elevated serum bicarb. Appreciate Cardiology input. (3) Sszri-az-[id number] kidney injury: Code(s): N17.9 - Acute kidney failure, unspecified; N18.9 - Chronic kidney disease, unspecified Status: Acute Assessment and Plan: Creatinine was 1.6-2.0 at the rehab facility but patient was fluid overloaded so these might have been falsely low. He did have normal renal function last year with last creatinine listed was in December at 1.2. He was also on Bactrim just prior to admission which could have contributed to the worsening renal function. Here, Cr peaked at 2.9 but better at 2.3 Continue Aranda catheter. Nephrology following and appreciate their input. Continue IV diuretics. Continue monitor renal function closely. (4) Hyponatremia: Code(s): E87.1 - Hypo-osmolality and hyponatremia Status: Acute Assessment and Plan: Sodium was 127. Related to volume overload. Sodium has improved with diuresis. Continue to follow. Resolved, 136 08/26 (5) Coronary artery disease: Code(s): I25.10 - Atherosclerotic heart disease of [place] coronary artery without angina pectoris Status: Acute Assessment and Plan: Patient with CAD status post 2 vessel bypass at [facility] 07/23/22. Continue aspirin 81 mg, Lipitor 40 mg (6) Anemia: Code(s): D64.9 - Anemia, unspecified Status: Acute Assessment and Plan: Likely secondary to chronic disease and recent surgery. Iron studies show iron deficiency anemia B12/folate/TSH all within normal limits Upper GI with biopsies performed for melena 08/07/22. Biopsies showed chronic gastritis and recommended Protonix 40 mg daily. Veno
[2022-08-26] MEDS: polyethylene glycoL 3350 17 GM POWD.PACK PO (08:50)
[2022-08-26] MEDS: ATORVASTATIN 40 MG TABLET PO (08:50)
[2022-08-26] MEDS: metOLazone 5 MG TABLET PO (08:50)
[2022-08-26] MEDS: acetaZOLAMIDE TAB 250 MG TABLET PO ×2 (08:50→16:47)
[2022-08-26] MEDS: FERROUS SULFATE 324 MG TABLET BY MOUTH ×2 (08:50→16:47)
[2022-08-26] MEDS: FUROSEMIDE INJ 40 MG/4 ML VIAL IV PUSH ×2 (08:50→20:43)
[2022-08-26] MEDS: CYANOCOBALAMIN 1,000 MCG TABLET 1000 MCG PO (08:50)
[2022-08-26] MEDS: EMPAGLIFLOZIN 10 MG TABLET BY MOUTH (08:50)
[2022-08-26] MEDS: ASPIRIN 81 MG ENTERIC TABLET PO (08:50)
[2022-08-26] MEDS: PANTOPRAZOLE 40 MG TABLET PO (08:50)
[2022-08-26] MEDS: DOCUSATE SODIUM 100 MG CAPSULE PO (08:50)
--- NOTE | 2022-08-26 09:24 | PCOTNOTE ---
Per RN, pt is needing to rest at this time and requested therapy to attempt at a later time.
--- NOTE | 2022-08-26 09:28 | PM.PNPUL ---
Progress Note: A&P Assessment and Plan (1) Acute respiratory failure with hypoxia and hypercarbia: Code(s): J96.01 - Acute respiratory failure with hypoxia; J96.02 - Acute respiratory failure with hypercapnia Status: Acute Assessment and Plan: Patient tells me has asthma all his life and has been on p.r.n. albuterol that does provide him with a benefit. The patient has 80 pack year history of tobacco use and quit in 2011 but has never been told he has COPD. He was never on maintenance bronchodilators. I have no PFTs or CT scan. 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 He were 3 L nasal cannula at night. He is morbidly obese but has never had a sleep study. 08/24 Currently the patient has fluid overload, chronic renal insufficiency, anasarca with no leukocytosis, no sputum production no focal infiltrates on his chest x-ray. The patient has been off Eliquis for GIB, anemia and left atrial clipping. etiology of his acute on chronic hypercarbic and hypoxemic respiratory failure include fluid overload, post median sternotomy with restrictive physiology, cardiac dysfunction, possible asthma and possible COPD. I doubt he has pneumonia, asthma exacerbation, COPD exacerbation or pulmonary embolism. 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 Cumulative diuresis since admission minus 6.5 L. Median sternotomy can cause chest wall restriction and this can take up to 6 months for chest wall remodeling to occur. There is no specific treatment for this other than supportive care. The patient says that he does have a clinical benefit with albuterol for his lifelong asthma. I will initiate levalbuterol 1.25 mg nebs q.6 hours and ipratropium 0.5 mg nebulized Q 6 hours as a therapeutic trial of standing bronchodilators. he has no active wheezing and I do not see a need for inhaled or systemic steroids at this time. I do not feel there is bacterial infection and do not see a need for antibiotics. Patient does have a positive D-dimer but cannot undergo CT angiogram of the chest and a V/Q scan would be difficult to interpret given his chest x-ray. At this time I will order upper and lower extremity Dopplers. His most recent blood gas 7.39/83/85 on BiPAP set rate 18, 6 pressure 16/8 and 40% demonstrate adequate oxygenation and ventilation at this time. The settings were somewhat uncomfortable for the patient and I have switched him to noninvasive ventilator with the AVAPS mode and adjusted settings to comfort which are rate of 20, tidal volume 500, EPAP 8, minimal inspiratory pressure 9, maximal inspiratory pressure 25, inspiratory time 1.2, rise of 5 which is are slowest and 30% FiO2. I will obtain an overnight oximetry on these settings and a blood gas in the morning prior to removal. upper and lower extremity Dopplers are negative for DVT 08/25 patient remained on the noninvasive ventilator with the AVAPS mode as above overnight and per the nighttime nurse slept well with no issues. Patient is currently on that noninvasive ventilator and he says that the breath is comfortable and he is breathing fine. patient had an overnight oximetry on these settings with average saturation 96%, low saturation 88%, time with saturation less than or equal to 88% was 0 minutes, oxygen desaturation index was 17.1. Patient had a blood gas prior to removal of the noninvasive ventilator with a pH of 7.51/58/73. The patient does not remember receiving the in-line nebulization treatments therefore he is unsure if they are helping him. In's and out's for yesterday -680 mL. Cumulative diuresis from admission is 8.1 L. Weight today 131 kilos (admission weight 08/14 at rehab = 127.5, admission weight to [facility] on 08/19 =129.5, weight on 04/03/2021 = 117.48). BMP improved from 9240 on 08/20 to 6120 on 08/25. Plan: Current nonin
[2022-08-26 09:59] LABS: Basophils Percent Auto 0.4 % (0.2-1.2); Eosinophils Absolute Auto 0.1 K/mm3 (0-0.3); Eosinophils Percent Auto 2.6 % (0-4.4); Hematocrit 30.1 % (42.0-52.0); Hemoglobin 8.2 g/dL (14.0-18.0); Immature Granulocyte Absolute 0.06 K/mm3 (0.00-0.031); Immature Granulocyte Percent A 1.3 % (0-0.5); Lymphocytes Percent Auto 12.9 % (18.3-44.2); Mean Corpuscular HGB Conc 27.2 g/dl (32-36); Mean Corpuscular Hemoglobin 28.2 pg (26-34); Mean Corpuscular Volume 103.4 fl (80-100); Mean Platelet Volume 11.3 fl (7.4-10.4); Monocytes Absolute Auto 0.8 K/mm3 (0.1-0.6); Monocytes Percent Auto 16.3 % (2.6-8.5); Neutrophils Absolute Auto 3.1 K/mm3 (1.3-6.7); Neutrophils Percent Auto 66.5 % (45.5-73.1); Nucleated Red Blood Cells Perc 0.9 % (0.0-0.2); Platelet Count Result 126 k/mm3 (150-375); Red Blood Count 2.91 M/mm3 (4.6-6.20); White Blood Count 4.7 K/mm3 (4.5-10.0)
[2022-08-26 10:19] LABS: Alanine Aminotransferase 20 U/L (6-50); Albumin Level 3.2 g/dL (3.5-5.1); Alkaline Phosphatase 87 U/L (38-126); Aspartate Amino Transferase 36 U/L (17-59); Blood Urea Nitrogen 57 mg/dL (9-20); Calcium 7.9 mg/dL (8.4-10.2); Carbon Dioxide > 40 mmol/L (22-30); Chloride 85 mmol/L (98-107); Estimated CRCL calculation 36 ml/min; Estimated Glomerular Filt Rate 33; Glucose 218 mg/dL (65-110); Potassium 3.3 mmol/L (3.4-5.0); Sodium 136 mmol/L (137-145)
[2022-08-26 10:57] LABS: Anisocytosis 2+ (NORMAL); Hypochromasia 2+ (NORMAL); Tear Drop Cells 1+ (NORMAL)
[2022-08-26 10:58] LABS: Schistocytes None Seen (NORMAL)
[2022-08-26] MEDS: hydrOXYzine HCL 10 MG TABLET PO ×2 (11:06→17:30)
[2022-08-26] MEDS: ESCITALOPRAM OXALATE 10 MG TABLET PO (11:07)
[2022-08-26] MEDS: ENOXAPARIN 40 MG/0.4 ML SYRINGE SUB-Q (11:07)
[2022-08-26] MEDS: FLUTICASONE/UMECLIDIN/VILANTER 100-62.5-25 MCG ELLIPTA 1 PUFF INHALATION (11:18)
[2022-08-26] MEDS: acetaZOLAMIDE SODIUM FOR INJ 500 MG VIAL IV PUSH (11:39)
[2022-08-26] MEDS: INSULIN ASPART (*BKC) 100 UNITS/ML SUB-Q ×2 (11:39→16:47)
[2022-08-26 11:44] LABS: Glucose Point of Care 256 mg/dl (65-105)
--- NOTE | 2022-08-26 12:13 | PM.PNNEP ---
Progress Note: A&P Assessment and Plan (1) RADHA (acute kidney injury): Code(s): N17.9 - Acute kidney failure, unspecified Status: Acute Assessment and Plan: slow improvment noted suspect due to CHF exacerbation possibly worsened by recent use of Bactrim hold off on checking urne electrolytes -- on diuretics and needs to continue use for now renal ultrasound without acute issues urine eosinophils negative may have to accept a higher creatinine to help stabilize his volume status maybe a component of renal venous HTN present which may explain improvement in creatinine with diuresis follow repeat labs and UOP (2) Stage 3b chronic kidney disease: Code(s): N18.32 - Chronic kidney disease, stage 3b Status: Chronic Assessment and Plan: prior to recent acute hospitalization, creatinine was running ~ 1.1 - 1.4mg/dl however, more recently, creatinine has been fluctuating between 1.5 - 2.0mg/dl his baseline renal insufficiency is a manifestation of his diabetes, vascular disease (CAD + hyperlipidemia), hypertension and age his higher creatinine currently is due to resolving post-operative ATN coupled with the need of high dose diuretic therapy to maintain his volume/fluid status as noted above, may need a higher creatinine to maintain/achieve relative euvolemia follow trend of repeat labs and UOP (3) Acute respiratory failure with hypoxia and hypercarbia: Code(s): J96.01 - Acute respiratory failure with hypoxia; J96.02 - Acute respiratory failure with hypercapnia Status: Acute Assessment and Plan: suspect multifactorial: #4 possible underlying JH/OHS deconditioning pleural effusions element of CHF improved with use of BiPAP supplemental oxygen as needed continue IV diuresis follow respiratory status Pulmonary following (4) Acute exacerbation of CHF (congestive heart failure): Code(s): I50.9 - Heart failure, unspecified Status: Acute Assessment and Plan: IV diuresis added acetazolamide to regimen given elevated CO2 suspect due to acute on chronic diastolic heart failure follow daily weights, I/Os, and respiratory status Cardiology following follow renal function (5) Hyperkalemia: Code(s): E87.5 - Hyperkalemia Status: Acute Assessment and Plan: better s/p medical management ongoing IV diuresis should help due to RADHA and possible use of bactrim (started at rehab) follow repeat K+ levels (6) Hyponatremia: Code(s): E87.1 - Hypo-osmolality and hyponatremia Status: Acute Assessment and Plan: resolved likely due to volume overload status as well as RADHA follow trend with current therapy (7) Anemia: Code(s): D64.9 - Anemia, unspecified Status: Acute Assessment and Plan: likely due to RADHA on CKD, and acute illness recent upper and lower endoscopies done at [facility] without no evidence of bleed evidence of iron deficiency by anemia work-up - dosed with IV venofer and on oral iron follow trend H/H (8) Hypertension: Code(s): I10 - Essential (primary) hypertension Status: Chronic Assessment and Plan: reasonable control at this time follow trend of hemodynamics (9) Type 2 diabetes mellitus with hyperglycemia: Code(s): E11.65 - Type 2 diabetes mellitus with hyperglycemia Status: Chronic Assessment and Plan: follow accuchecks glycemic control per hospitalists Will continue to follow. Subjective Date/time seen: 08/26/22 12:13 Respiratory status seems to be slowly improving with interventions to date; renal function/creatinine relatively stable with ongoing diuresis (almost 10L negative since admission); no other acute issues/events overnight or earlier this morning. Exam Narrative: General: elderly WD/WN male in NAD Heart: IRRR, normal S1 and S2; no rub Lungs: coarse and decreased
--- NOTE | 2022-08-26 12:13 | P.PNNP_ITS ---
Progress Note: A&P Assessment and Plan (1) RADHA (acute kidney injury): Code(s): N17.9 - Acute kidney failure, unspecified Status: Acute Assessment and Plan: * slow improvment noted * suspect due to CHF exacerbation possibly worsened by recent use of Bactrim * hold off on checking urne electrolytes -- on diuretics and needs to continue use for now * renal ultrasound without acute issues * urine eosinophils negative * may have to accept a higher creatinine to help stabilize his volume status * maybe a component of renal venous HTN present which may explain improvement in creatinine with diuresis * follow repeat labs and UOP (2) Stage 3b chronic kidney disease: Code(s): N18.32 - Chronic kidney disease, stage 3b Status: Chronic Assessment and Plan: * prior to recent acute hospitalization, creatinine was running ~ 1.1 - 1.4mg/dl * however, more recently, creatinine has been fluctuating between 1.5 - 2.0mg/dl * his baseline renal insufficiency is a manifestation of his diabetes, vascular disease (CAD + hyperlipidemia), hypertension and age * his higher creatinine currently is due to resolving post-operative ATN coupled with the need of high dose diuretic therapy to maintain his volume/fluid status * as noted above, may need a higher creatinine to maintain/achieve relative euvolemia * follow trend of repeat labs and UOP (3) Acute respiratory failure with hypoxia and hypercarbia: Code(s): J96.01 - Acute respiratory failure with hypoxia; J96.02 - Acute respiratory failure with hypercapnia Status: Acute Assessment and Plan: * suspect multifactorial: * #4 * possible underlying JH/OHS * deconditioning * pleural effusions * element of CHF * improved with use of BiPAP * supplemental oxygen as needed * continue IV diuresis * follow respiratory status * Pulmonary following (4) Acute exacerbation of CHF (congestive heart failure): Code(s): I50.9 - Heart failure, unspecified Status: Acute Assessment and Plan: * IV diuresis * added acetazolamide to regimen given elevated CO2 * suspect due to acute on chronic diastolic heart failure * follow daily weights, I/Os, and respiratory status * Cardiology following * follow renal function (5) Hyperkalemia: Code(s): E87.5 - Hyperkalemia Status: Acute Assessment and Plan: * better s/p medical management * ongoing IV diuresis should help * due to RADHA and possible use of bactrim (started at rehab) * follow repeat K+ levels (6) Hyponatremia: Code(s): E87.1 - Hypo-osmolality and hyponatremia Status: Acute Assessment and Plan: * resolved * likely due to volume overload status as well as RADHA * follow trend with current therapy (7) Anemia: Code(s): D64.9 - Anemia, unspecified Status: Acute Assessment and Plan: * likely due to RADHA on CKD, and acute illness * recent upper and lower endoscopies done at [facility] without no evidence of bleed * evidence of iron deficiency by anemia work-up - dosed with IV venofer and on oral iron * follow trend H/H (8) Hypertension: Code(s): I10 - Essential (primary) hypertension Status: Chronic Assessment and Plan: * reasonable control at this time * follow trend of hemodynamics (9) Type 2 diabetes mellitus with hyperglycemia: Code(s): E11.65 - Type 2 diabetes mellitus with hyperglycemia Status: Chronic Assessment and Plan: * follow accuc
--- NOTE | 2022-08-26 12:41 | PM.PNCARD ---
Progress Note: A&P Assessment and Plan (1) Acute on chronic diastolic CHF (congestive heart failure): Code(s): I50.33 - Acute on chronic diastolic (congestive) heart failure Status: Acute Assessment and Plan: Patient has acute on chronic diastolic heart failure with significant volume overload and pleural effusions.? This is complicated by his chronic kidney disease.? He recently had CABG and prolonged hospitalization at . -patient remains on IV furosemide along with metolazone.? Nephrology following.? Monitor electrolytes and renal function closely. -continue SGLT 2 inhibitor. -DVT prophylaxis Lovenox -Daily standing weights -Strict I&O (2) Atrial fibrillation: Code(s): I48.91 - Unspecified atrial fibrillation Status: Acute Assessment and Plan: Patient is in atrial fibrillation with controlled ventricular response. He recently had surgical clip of left atrial appendage during CABG. Postoperatively, he had GI bleed and anemia. Although anticoagulation may be reasonable post left atrial appendage clipping for 2-3 months until [facility] documents complete closure of the left atrial appendage, however, due to postop bleeding and anemia, would avoid anticoagulation at this time. (3) Hypercapnic respiratory failure: Code(s): J96.92 - Respiratory failure, unspecified with hypercapnia Status: Acute Assessment and Plan: Supplemental oxygen, BiPAP. (4) CAD (coronary artery disease): Code(s): I25.10 - Atherosclerotic heart disease of [place] coronary artery without angina pectoris Status: Acute Assessment and Plan: Status post recent CABG. No active ischemic symptoms at present. Continue at low-dose aspirin, and statin. Subjective Date/time seen: 08/26/22 12:41 Interval history: Date of service 08/26/2022-patient is sitting up in the bed, appears slightly somnolent. Reports dyspnea, denies chest pain. On telemetry, he is in atrial fibrillation with controlled ventricular response. Exam Narrative: PHYSICAL EXAMINATION: GENERAL: Somnolent, no acute distress MENTAL STATUS: Somnolent, no agitation EYES: Extraocular movements intact, pallor EARS: External ears appear normal, hearing grossly normal NOSE: Normal and patent, no discharge MOUTH: Mucous membranes moist, tongue normal NECK: Thick neck CHEST: Diminished breath sounds HEART: Normal rate, irregularly irregular rhythm ABDOMEN: Soft, nontender NEUROLOGICAL: Slightly somnolent, speech coherent MUSCULOSKELETAL: Recent midsternal scar EXTREMITIES: Pedal edema SKIN: no rash on the exposed area, no cyanosis PSYCHIATRIC: Flat affect Objective Data Vital Signs Vital Signs: Vital Signs - 24 hr 08/25/22 14:00 08/25/22 15:39 08/25/22 15:53 Temperature Pulse Rate 83 79 83 Respiratory Rate 20 20 Blood Pressure Pulse Oximetry Oxygen Delivery Oxygen Flow Rate Fraction of Inspired Oxygen 08/25/22 15:53 08/25/22 16:00 08/25/22 16:41 Temperature 37.0 C Pulse Rate 94 95 Respiratory Rate 28 H Blood Pressure 140/49 L Pulse Oximetry 95 99 Oxygen Delivery BiPAP Oxygen Flow Rate Fraction of Inspired Oxygen 30 08/25/22 18:00 08/25/22 19:54 08/25/22 20:38 Temperature 37.0 C Pulse Rate 76 72 81 Respiratory Rate 20 23 H Blood Pressure 127/48 L Pulse Oximetry 96 Oxygen Delivery Oxygen Flow Rate Fraction of Inspired Oxygen 08/25/22 20:39 08/25/22 20:00 08/25/22 20:00 Temperature Pulse Rate 82 76 Respiratory Rate 23 H Blood Pressure Pulse Oximetry 94 85 L Oxygen Delivery BiPAP Oxygen Flow Rate Fraction of Inspired Oxygen 30 08/25/22 22:00 08/25/22 23:30 08/26/22 00:00 Temperature 36.9 C Pulse Rate 86 86 79 Respiratory Rate 20 Blood Pressure 126/52 L Pulse Oximetry 98 Oxygen Delivery Oxygen Flow Rate Fraction of Inspired Oxygen 08/26/22 00:00 08/26/22 00:15 0
--- NOTE | 2022-08-26 15:45 | PCOTNOTE ---
Attempted to see pt for 2nd time today. Per RN, pt is not appropriate due to being on the Bipap and struggling to maintain above 90% O2 levels while supine in bed. Will speak with OTR to discuss decreasing pt's treatment frequency due to changes in medical status.
[2022-08-26 16:32] LABS: Glucose Point of Care 232 mg/dl (65-105)
[2022-08-26] MEDS: TAMSULOSIN HCL 0.4 MG CAPSULE PO (16:47)
[2022-08-26 20:01] LABS: Glucose Point of Care 254 mg/dl (65-105)
[2022-08-26] MEDS: MELATONIN 5 MG TABLET 10 MG PO (20:43)
[2022-08-26] MEDS: GABAPENTIN 100 MG CAPSULE PO (20:43)
[2022-08-27] VITALS (21 sets, daily range): BP systolic 127–151; BP diastolic 42–55; PULSE 61–76; RESP 18–25; TEMP 36.3–37.3; O2SAT 89–97; BMI 47.2
[2022-08-27 05:06] LABS: Basophils Percent Auto 0.5 % (0.2-1.2); Eosinophils Absolute Auto 0.3 K/mm3 (0-0.3); Hematocrit 30.5 % (42.0-52.0); Hemoglobin 8.2 g/dL (14.0-18.0); Immature Granulocyte Absolute 0.04 K/mm3 (0.00-0.031); Immature Granulocyte Percent A 0.9 % (0-0.5); Lymphocytes Absolute Auto 0.77 K/mm3 (0.9-3.2); Lymphocytes Percent Auto 17.4 % (18.3-44.2); Mean Corpuscular HGB Conc 26.9 g/dl (32-36); Mean Corpuscular Hemoglobin 28.5 pg (26-34); Mean Corpuscular Volume 105.9 fl (80-100); Mean Platelet Volume 10.3 fl (7.4-10.4); Monocytes Absolute Auto 0.7 K/mm3 (0.1-0.6); Monocytes Percent Auto 16.7 % (2.6-8.5); Neutrophils Absolute Auto 2.5 K/mm3 (1.3-6.7); Neutrophils Percent Auto 57.5 % (45.5-73.1); Platelet Count Result 109 k/mm3 (150-375); Red Blood Count 2.88 M/mm3 (4.6-6.20); Red Cell Distribution Width 21.9 % (11.5-14.5); White Blood Count 4.4 K/mm3 (4.5-10.0)
[2022-08-27 05:23] LABS: Alanine Aminotransferase 19 U/L (6-50); Albumin Level 2.9 g/dL (3.5-5.1); Alkaline Phosphatase 82 U/L (38-126); Aspartate Amino Transferase 31 U/L (17-59); Bilirubin,Total 0.8 mg/dL (0.2-1.3); Blood Urea Nitrogen 53 mg/dL (9-20); Calcium 7.8 mg/dL (8.4-10.2); Carbon Dioxide > 40 mmol/L (22-30); Chloride 86 mmol/L (98-107); Estimated CRCL calculation 34 ml/min; Estimated Glomerular Filt Rate 31; Glucose 159 mg/dL (65-110); Phosphorus 3.8 mg/dL (2.5-4.5); Potassium 2.7 mmol/L (3.4-5.0); Sodium 139 mmol/L (137-145)
[2022-08-27 05:24] LABS: Hypochromasia 2+ (NORMAL)
[2022-08-27 05:25] LABS: Anisocytosis 1+ (NORMAL)
[2022-08-27 05:27] LABS: Schistocytes None Seen (NORMAL)
[2022-08-27] MEDS: POTASSIUM CHLORIDE 20 MEQ TABLET 80 MEQ PO (06:13)
[2022-08-27 06:40] LABS: Magnesium 2.8 mg/dL (1.6-2.3)
--- NOTE | 2022-08-27 07:40 | PM.IMPN ---
Progress Note: A&P Assessment and Plan (1) Acute respiratory failure with hypoxia and hypercarbia: Code(s): J96.01 - Acute respiratory failure with hypoxia; J96.02 - Acute respiratory failure with hypercapnia Status: Acute Assessment and Plan: Patient presents with acute respiratory failure. Chest x-ray shows small right and moderate size left pleural effusion and airspace opacities noted consistent with atelectasis versus pneumonia. Would also consider heart failure. ABG 7.22/96/196 on BiPAP. BiPAP adjusted and repeat ABG today showing improvement 7.39/83/85. Weaned from BiPAP during the day. Some concern for pneumonia noted on CXR but no real signs of infection clinically. Started on Lasix with excellent UOP. Given his chronic hypercarbia, felt patient has untreated JH. His pCO2 higher related to metabolic alkalosis. Diamox added. He states he has never been diagnosed with JH but it is listed in his medical hx and he does require O2 at night. Congers resp failure from CHF exacerbation, untreated JH and right sided failure. CXR showing onl small effusions and pulmonary edema. Continue IV diuresis. Pulmonary consult since he will need BiPAP at home. Still mildly somnolent. Not taking narcotics. Could be related to increasing pCO2 despite the normal pH . BUN elevated but now trending down. Check ammonia level. Check for ascites (but not seen by renal US) Discussed with Pulmonary and appreciate their input 4/2: Improving, weaned off BiPAP at this time, continue IV diuresis 4/3: Appreciate pulmonology consultation, continue diuresis per Nephrology and Cardiology management, noninvasive ventilation management per pulmonology, started on Trelegy, some trace ascites on abdominal ultrasound noted concerning for anasarca, all cultures negative (2) Acute on chronic diastolic CHF (congestive heart failure): Code(s): I50.33 - Acute on chronic diastolic (congestive) heart failure Status: Acute Assessment and Plan: Chest x-ray consistent with CHF. BNP 9240. Echo shows EF of 65-70% with mildly increased LV wall thickness. The RV chamber is enlarged and the RV systolic function is reduced. There is mild biatrial enlargement and mild mitral regurgitation. The right atrial pressure is 10. Patient was on Lasix 40 mg po twice daily as well as metolazone 10 mg daily per home med rec. He has been started on IV Lasix here. Cardiology following. Excellent urine output and cumulative I/O -6.5L. Continue Lasix IV. Add back metolazone at half dose. Monitor elevated serum bicarb. Appreciate Cardiology input. 08/27: Continue acetazolamide, Lasix, metolazone, continues to diurese without significant clinical improvement (3) [id number] kidney injury: Code(s): N17.9 - Acute kidney failure, unspecified; N18.9 - Chronic kidney disease, unspecified Status: Acute Assessment and Plan: Creatinine was 1.6-2.0 at the rehab facility but patient was fluid overloaded so these might have been falsely low. He did have normal renal function last year with last creatinine listed was in December at 1.2. He was also on Bactrim just prior to admission which could have contributed to the worsening renal function. Here, Cr peaked at 2.9 but better at 2.3 Continue Aranda catheter. Nephrology following and appreciate their input. Continue IV diuretics. Continue monitor renal function closely. 08/27: Creatinine fluctuating around to, could be a new baseline, appreciate nephrology consultation, continue diuretics as above (4) Hyponatremia: Code(s): E87.1 - Hypo-osmolality and hyponatremia Status: Acute Assessment and Plan: Sodium was 127. Related to volume overload. Sodium has improved with diuresis. Continue to follow. Resolved, 136 08/26 (5) Coronary artery disease: Code(s): I25.10 - Atherosclerotic heart disease of kake coronary artery without angina pectoris Status: Acute Asses
[2022-08-27 07:46] LABS: Glucose Point of Care 175 mg/dl (65-105)
[2022-08-27] MEDS: FLUTICASONE/UMECLIDIN/VILANTER 100-62.5-25 MCG ELLIPTA 1 PUFF INHALATION (08:34)
[2022-08-27] MEDS: PANTOPRAZOLE 40 MG TABLET PO (09:50)
[2022-08-27] MEDS: ESCITALOPRAM OXALATE 10 MG TABLET PO (09:50)
[2022-08-27] MEDS: metOLazone 5 MG TABLET PO (09:50)
[2022-08-27] MEDS: FUROSEMIDE INJ 40 MG/4 ML VIAL IV PUSH ×2 (09:50→19:55)
[2022-08-27] MEDS: ASPIRIN 81 MG ENTERIC TABLET PO (09:51)
[2022-08-27] MEDS: EMPAGLIFLOZIN 10 MG TABLET BY MOUTH (09:51)
[2022-08-27] MEDS: FERROUS SULFATE 324 MG TABLET BY MOUTH ×2 (09:51→17:53)
[2022-08-27] MEDS: ATORVASTATIN 40 MG TABLET PO (09:51)
[2022-08-27] MEDS: acetaZOLAMIDE TAB 250 MG TABLET PO ×2 (09:51→17:52)
[2022-08-27] MEDS: ENOXAPARIN 40 MG/0.4 ML SYRINGE SUB-Q (09:51)
[2022-08-27] MEDS: CYANOCOBALAMIN 1,000 MCG TABLET 1000 MCG PO (09:51)
--- NOTE | 2022-08-27 10:55 | PM.PNNEP ---
Progress Note: A&P Assessment and Plan (1) RADHA (acute kidney injury): Code(s): N17.9 - Acute kidney failure, unspecified Status: Acute Assessment and Plan: slow improvment noted suspect due to CHF exacerbation possibly worsened by recent use of Bactrim hold off on checking urne electrolytes -- on diuretics and needs to continue use for now renal ultrasound without acute issues urine eosinophils negative may have to accept a higher creatinine to help stabilize his volume status maybe a component of renal venous HTN present which may explain improvement in creatinine with diuresis follow repeat labs and UOP (2) Stage 3b chronic kidney disease: Code(s): N18.32 - Chronic kidney disease, stage 3b Status: Chronic Assessment and Plan: prior to recent acute hospitalization, creatinine was running ~ 1.1 - 1.4mg/dl however, more recently, creatinine has been fluctuating between 1.5 - 2.0mg/dl his baseline renal insufficiency is a manifestation of his diabetes, vascular disease (CAD + hyperlipidemia), hypertension and age his higher creatinine currently is due to resolving post-operative ATN coupled with the need of high dose diuretic therapy to maintain his volume/fluid status as noted above, may need a higher creatinine to maintain/achieve relative euvolemia follow trend of repeat labs and UOP (3) Acute respiratory failure with hypoxia and hypercarbia: Code(s): J96.01 - Acute respiratory failure with hypoxia; J96.02 - Acute respiratory failure with hypercapnia Status: Acute Assessment and Plan: suspect multifactorial: #4 possible underlying JH/OHS deconditioning pleural effusions element of CHF improved with use of BiPAP supplemental oxygen as needed continue IV diuresis follow respiratory status Pulmonary following (4) Acute exacerbation of CHF (congestive heart failure): Code(s): I50.9 - Heart failure, unspecified Status: Acute Assessment and Plan: IV diuresis added acetazolamide to regimen given elevated CO2 suspect due to acute on chronic diastolic heart failure follow daily weights, I/Os, and respiratory status Cardiology following follow renal function replete K+ as needed (5) Hyperkalemia: Code(s): E87.5 - Hyperkalemia Status: Acute Assessment and Plan: better s/p medical management ongoing IV diuresis should help due to RADHA and possible use of bactrim (started at rehab) follow repeat K+ levels (6) Hyponatremia: Code(s): E87.1 - Hypo-osmolality and hyponatremia Status: Acute Assessment and Plan: resolved likely due to volume overload status as well as RADHA follow trend with current therapy (7) Anemia: Code(s): D64.9 - Anemia, unspecified Status: Acute Assessment and Plan: likely due to RADHA on CKD, and acute illness recent upper and lower endoscopies done at [facility] without no evidence of bleed evidence of iron deficiency by anemia work-up - dosed with IV venofer and on oral iron follow trend H/H (8) Hypertension: Code(s): I10 - Essential (primary) hypertension Status: Chronic Assessment and Plan: reasonable control at this time follow trend of hemodynamics (9) Type 2 diabetes mellitus with hyperglycemia: Code(s): E11.65 - Type 2 diabetes mellitus with hyperglycemia Status: Chronic Assessment and Plan: follow accuchecks glycemic control per hospitalists Will continue to follow. Subjective Date/time seen: 08/27/22 10:55 He reports no worsening shortness of breath at this time but admits this is at rest since he has not been ambulating much; continues to tolerate diuresis and remains in negative fluid balance with current therapy; no other issues/events overnight or earlier this morning. Exam Narrative: General: elderly WD/WN male in NAD Heart: IRRR, no
--- NOTE | 2022-08-27 10:55 | P.PNNP_ITS ---
Progress Note: A&P Assessment and Plan (1) RADHA (acute kidney injury): Code(s): N17.9 - Acute kidney failure, unspecified Status: Acute Assessment and Plan: * slow improvment noted * suspect due to CHF exacerbation possibly worsened by recent use of Bactrim * hold off on checking urne electrolytes -- on diuretics and needs to continue use for now * renal ultrasound without acute issues * urine eosinophils negative * may have to accept a higher creatinine to help stabilize his volume status * maybe a component of renal venous HTN present which may explain improvement in creatinine with diuresis * follow repeat labs and UOP (2) Stage 3b chronic kidney disease: Code(s): N18.32 - Chronic kidney disease, stage 3b Status: Chronic Assessment and Plan: * prior to recent acute hospitalization, creatinine was running ~ 1.1 - 1.4mg/dl * however, more recently, creatinine has been fluctuating between 1.5 - 2.0mg/dl * his baseline renal insufficiency is a manifestation of his diabetes, vascular disease (CAD + hyperlipidemia), hypertension and age * his higher creatinine currently is due to resolving post-operative ATN coupled with the need of high dose diuretic therapy to maintain his volume/fluid status * as noted above, may need a higher creatinine to maintain/achieve relative euvolemia * follow trend of repeat labs and UOP (3) Acute respiratory failure with hypoxia and hypercarbia: Code(s): J96.01 - Acute respiratory failure with hypoxia; J96.02 - Acute respiratory failure with hypercapnia Status: Acute Assessment and Plan: * suspect multifactorial: * #4 * possible underlying JH/OHS * deconditioning * pleural effusions * element of CHF * improved with use of BiPAP * supplemental oxygen as needed * continue IV diuresis * follow respiratory status * Pulmonary following (4) Acute exacerbation of CHF (congestive heart failure): Code(s): I50.9 - Heart failure, unspecified Status: Acute Assessment and Plan: * IV diuresis * added acetazolamide to regimen given elevated CO2 * suspect due to acute on chronic diastolic heart failure * follow daily weights, I/Os, and respiratory status * Cardiology following * follow renal function * replete K+ as needed (5) Hyperkalemia: Code(s): E87.5 - Hyperkalemia Status: Acute Assessment and Plan: * better s/p medical management * ongoing IV diuresis should help * due to RADHA and possible use of bactrim (started at rehab) * follow repeat K+ levels (6) Hyponatremia: Code(s): E87.1 - Hypo-osmolality and hyponatremia Status: Acute Assessment and Plan: * resolved * likely due to volume overload status as well as RADHA * follow trend with current therapy (7) Anemia: Code(s): D64.9 - Anemia, unspecified Status: Acute Assessment and Plan: * likely due to RADHA on CKD, and acute illness * recent upper and lower endoscopies done at [facility] without no evidence of bleed * evidence of iron deficiency by anemia work-up - dosed with IV venofer and on oral iron * follow trend H/H (8) Hypertension: Code(s): I10 - Essential (primary) hypertension Status: Chronic Assessment and Plan: * reasonable control at this time * follow trend of hemodynamics (9) Type 2 diabetes mellitus with hyperglycemia: Code(s): E11.65 - Type 2 diabetes mellitus with hyperglycemia Status: Chronic Assessment an
[2022-08-27 11:35] LABS: Glucose Point of Care 234 mg/dl (65-105)
[2022-08-27] MEDS: INSULIN ASPART (*BKC) 100 UNITS/ML SUB-Q (11:49)
[2022-08-27 16:20] LABS: Glucose Point of Care 198 mg/dl (65-105)
[2022-08-27] MEDS: TAMSULOSIN HCL 0.4 MG CAPSULE PO (17:52)
[2022-08-27 19:41] LABS: Glucose Point of Care 280 mg/dl (65-105)
[2022-08-27] MEDS: GABAPENTIN 100 MG CAPSULE PO (19:53)
[2022-08-27] MEDS: MELATONIN 5 MG TABLET 10 MG PO (19:55)
[2022-08-28] VITALS (23 sets, daily range): BP systolic 117–142; BP diastolic 41–48; PULSE 62–93; RESP 20–25; TEMP 36.4–37.1; O2SAT 89–96
[2022-08-28 04:44] LABS: Basophils Percent Auto 0.2 % (0.2-1.2); Eosinophils Absolute Auto 0.2 K/mm3 (0-0.3); Eosinophils Percent Auto 2.7 % (0-4.4); Hematocrit 31.2 % (42.0-52.0); Hemoglobin 8.2 g/dL (14.0-18.0); Immature Granulocyte Absolute 0.05 K/mm3 (0.00-0.031); Immature Granulocyte Percent A 0.8 % (0-0.5); Lymphocytes Absolute Auto 0.58 K/mm3 (0.9-3.2); Lymphocytes Percent Auto 9.4 % (18.3-44.2); Mean Corpuscular HGB Conc 26.3 g/dl (32-36); Mean Corpuscular Hemoglobin 27.5 pg (26-34); Mean Corpuscular Volume 104.7 fl (80-100); Mean Platelet Volume 10.9 fl (7.4-10.4); Monocytes Absolute Auto 0.8 K/mm3 (0.1-0.6); Monocytes Percent Auto 13.2 % (2.6-8.5); Neutrophils Absolute Auto 4.6 K/mm3 (1.3-6.7); Neutrophils Percent Auto 73.7 % (45.5-73.1); Nucleated Red Blood Cells Perc 0.3 % (0.0-0.2); Platelet Count Result 110 k/mm3 (150-375); Red Blood Count 2.98 M/mm3 (4.6-6.20); Red Cell Distribution Width 21.5 % (11.5-14.5); White Blood Count 6.2 K/mm3 (4.5-10.0)
[2022-08-28 04:56] LABS: INR 1.3; Prothrombin Time 15.2 Seconds (11.1-14.7)
[2022-08-28 04:57] LABS: Partial Thromboplastin Time 42.2 SECONDS (22.3-36.8)
[2022-08-28 05:01] LABS: Alanine Aminotransferase 23 U/L (6-50); Alkaline Phosphatase 89 U/L (38-126); Aspartate Amino Transferase 39 U/L (17-59); Bilirubin,Total 0.9 mg/dL (0.2-1.3); Blood Urea Nitrogen 52 mg/dL (9-20); Calcium 7.6 mg/dL (8.4-10.2); Carbon Dioxide > 40 mmol/L (22-30); Chloride 87 mmol/L (98-107); Estimated CRCL calculation 34 ml/min; Estimated Glomerular Filt Rate 31; Glucose 218 mg/dL (65-110); Phosphorus 3.2 mg/dL (2.5-4.5); Potassium 2.7 mmol/L (3.4-5.0); Sodium 139 mmol/L (137-145)
[2022-08-28 05:41] LABS: Magnesium 2.8 mg/dL (1.6-2.3)
[2022-08-28] MEDS: POTASSIUM CHLORIDE INJ 40 MEQ in SODIUM CHLORIDE 0.9% IV 500 ML 130 MEQ IVPB (06:09)
[2022-08-28 07:49] LABS: Glucose Point of Care 204 mg/dl (65-105)
--- NOTE | 2022-08-28 08:30 | P.PNPL_ITS ---
Progress Note: A&P Assessment and Plan (1) Acute respiratory failure with hypoxia and hypercarbia: Code(s): J96.01 - Acute respiratory failure with hypoxia; J96.02 - Acute respiratory failure with hypercapnia Status: Acute Assessment and Plan: Patient tells me has asthma all his life and has been on p.r.n. albuterol that does provide him with a benefit. The patient has 80 pack year history of tobacco use and quit in 2011 but has never been told he has COPD. He was never on maintenance bronchodilators. I have no PFTs or CT scan. 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 He were 3 L nasal cannula at night. He is morbidly obese but has never had a sleep study. 08/24 Currently the patient has fluid overload, chronic renal insufficiency, anasarca with no leukocytosis, no sputum production no focal infiltrates on his chest x-ray. The patient has been off Eliquis for GIB, anemia and left atrial clipping. etiology of his acute on chronic hypercarbic and hypoxemic respiratory failure include fluid overload, post median sternotomy with restrictive physiology, cardiac dysfunction, possible asthma and possible COPD. I doubt he has pneumonia, asthma exacerbation, COPD exacerbation or pulmonary embolism. 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 Cumulative diuresis since admission minus 6.5 L. Median sternotomy can cause chest wall restriction and this can take up to 6 months for chest wall remodeling to occur. There is no specific treatment for this other than supportive care. The patient says that he does have a clinical benefit with albuterol for his lifelong asthma. I will initiate levalbuterol 1.25 mg nebs q.6 hours and ipratropium 0.5 mg nebulized Q 6 hours as a therapeutic trial of standing bronchodilators. he has no active wheezing and I do not see a need for inhaled or systemic steroids at this time. I do not feel there is bacterial infection and do not see a need for antibiotics. Patient does have a positive D-dimer but cannot undergo CT angiogram of the chest and a V/Q scan would be difficult to interpret given his chest x-ray. At this time I will order upper and lower extremity Dopplers. His most recent blood gas 7.39/83/85 on BiPAP set rate 18, 6 pressure 16/8 and 40% demonstrate adequate oxygenation and ventilation at this time. The settings were somewhat uncomfortable for the patient and I have switched him to noninvasive ventilator with the AVAPS mode and adjusted settings to comfort which are rate of 20, tidal volume 500, EPAP 8, minimal inspiratory pressure 9, maximal inspiratory pressure 25, inspiratory time 1.2, rise of 5 which is are slowest and 30% FiO2. I will obtain an overnight oximetry on these settings and a blood gas in the morning prior to removal. upper and lower extremity Dopplers are negative for DVT 08/25 patient remained on the noninvasive ventilator with the AVAPS mode as above overnight and per the nighttime nurse slept well with no issues. Patient is currently on that noninvasive ventilator and he says that the breath is comfortable and he is breathing fine. patient had an overnight oximetry on these settings with average saturation 96%, low saturation 88%, time with saturation less than or equal to 88% was 0 minutes, oxygen desaturation index was 17.1. Patient had a blood gas prior to removal of the noninvasive ventilator with a pH of 7.51/58/73. The patient does not remember receiving the in-line nebulization treatments therefore he is unsure if they are helping him. In's and out's for yesterday -680 mL. Cumulative diuresis from admission is 8.1 L.
[2022-08-28 08:53] LABS: Lactate Dehydrogenase 289 U/L (120-246)
--- NOTE | 2022-08-28 09:20 | P.PNNP_ITS ---
Progress Note: A&P Assessment and Plan (1) RADHA (acute kidney injury): Code(s): N17.9 - Acute kidney failure, unspecified Status: Acute Assessment and Plan: * slow improvment noted * suspect due to CHF exacerbation possibly worsened by recent use of Bactrim * hold off on checking urne electrolytes -- on diuretics and needs to continue use for now * renal ultrasound without acute issues * urine eosinophils negative * may have to accept a higher creatinine to help stabilize his volume status * maybe a component of renal venous HTN present which may explain improvement in creatinine with diuresis * follow repeat labs and UOP (2) Stage 3b chronic kidney disease: Code(s): N18.32 - Chronic kidney disease, stage 3b Status: Chronic Assessment and Plan: * prior to recent acute hospitalization, creatinine was running ~ 1.1 - 1.4mg/dl * however, more recently, creatinine has been fluctuating between 1.5 - 2.0mg/dl * his baseline renal insufficiency is a manifestation of his diabetes, vascular disease (CAD + hyperlipidemia), hypertension and age * his higher creatinine currently is due to resolving post-operative ATN coupled with the need of diuretic therapy to maintain his volume/fluid status * as noted above, may need a higher creatinine to maintain/achieve relative euvolemia * follow trend of repeat labs and UOP (3) Acute respiratory failure with hypoxia and hypercarbia: Code(s): J96.01 - Acute respiratory failure with hypoxia; J96.02 - Acute respiratory failure with hypercapnia Status: Acute Assessment and Plan: * suspect multifactorial: * #4 * possible underlying JH/OHS * deconditioning * bilateral pleural effusions * pneumonia * element of CHF * improved with use of BiPAP * supplemental oxygen as needed * continue IV diuresis * left thoracentesis today give large loculated left pleural effusion * follow respiratory status * Pulmonary following (4) Acute exacerbation of CHF (congestive heart failure): Code(s): I50.9 - Heart failure, unspecified Status: Acute Assessment and Plan: * IV diuresis * added acetazolamide to regimen given elevated CO2 * suspect due to acute on chronic diastolic heart failure * follow daily weights, I/Os, and respiratory status * Cardiology following * follow renal function * replete K+ as needed (5) Hyponatremia: Code(s): E87.1 - Hypo-osmolality and hyponatremia Status: Acute Assessment and Plan: * resolved * likely due to volume overload status as well as RADHA * follow trend with current therapy (6) Anemia: Code(s): D64.9 - Anemia, unspecified Status: Acute Assessment and Plan: * likely due to RADHA on CKD, and acute illness * recent upper and lower endoscopies done at [facility] without no evidence of bleed * evidence of iron deficiency by anemia work-up - dosed with IV venofer and on oral iron * follow trend H/H (7) Hypertension: Code(s): I10 - Essential (primary) hypertension Status: Chronic Assessment and Plan: * reasonable control at this time * follow trend of hemodynamics (8) Type 2 diabetes mellitus with hyperglycemia: Code(s): E11.65 - Type 2 diabetes mellitus with hyperglycemia Status: Chronic Assessment and Plan: * follow accuchecks * glycemic control per hospitalists Will continue to follow. Subjective Date/time seen: 08/28/22 09:20 Respiratory status se
--- NOTE | 2022-08-28 09:20 | PM.PNNEP ---
Progress Note: A&P Assessment and Plan (1) RADHA (acute kidney injury): Code(s): N17.9 - Acute kidney failure, unspecified Status: Acute Assessment and Plan: slow improvment noted suspect due to CHF exacerbation possibly worsened by recent use of Bactrim hold off on checking urne electrolytes -- on diuretics and needs to continue use for now renal ultrasound without acute issues urine eosinophils negative may have to accept a higher creatinine to help stabilize his volume status maybe a component of renal venous HTN present which may explain improvement in creatinine with diuresis follow repeat labs and UOP (2) Stage 3b chronic kidney disease: Code(s): N18.32 - Chronic kidney disease, stage 3b Status: Chronic Assessment and Plan: prior to recent acute hospitalization, creatinine was running ~ 1.1 - 1.4mg/dl however, more recently, creatinine has been fluctuating between 1.5 - 2.0mg/dl his baseline renal insufficiency is a manifestation of his diabetes, vascular disease (CAD + hyperlipidemia), hypertension and age his higher creatinine currently is due to resolving post-operative ATN coupled with the need of diuretic therapy to maintain his volume/fluid status as noted above, may need a higher creatinine to maintain/achieve relative euvolemia follow trend of repeat labs and UOP (3) Acute respiratory failure with hypoxia and hypercarbia: Code(s): J96.01 - Acute respiratory failure with hypoxia; J96.02 - Acute respiratory failure with hypercapnia Status: Acute Assessment and Plan: suspect multifactorial: #4 possible underlying JH/OHS deconditioning bilateral pleural effusions pneumonia element of CHF improved with use of BiPAP supplemental oxygen as needed continue IV diuresis left thoracentesis today give large loculated left pleural effusion follow respiratory status Pulmonary following (4) Acute exacerbation of CHF (congestive heart failure): Code(s): I50.9 - Heart failure, unspecified Status: Acute Assessment and Plan: IV diuresis added acetazolamide to regimen given elevated CO2 suspect due to acute on chronic diastolic heart failure follow daily weights, I/Os, and respiratory status Cardiology following follow renal function replete K+ as needed (5) Hyponatremia: Code(s): E87.1 - Hypo-osmolality and hyponatremia Status: Acute Assessment and Plan: resolved likely due to volume overload status as well as RADHA follow trend with current therapy (6) Anemia: Code(s): D64.9 - Anemia, unspecified Status: Acute Assessment and Plan: likely due to RADHA on CKD, and acute illness recent upper and lower endoscopies done at [facility] without no evidence of bleed evidence of iron deficiency by anemia work-up - dosed with IV venofer and on oral iron follow trend H/H (7) Hypertension: Code(s): I10 - Essential (primary) hypertension Status: Chronic Assessment and Plan: reasonable control at this time follow trend of hemodynamics (8) Type 2 diabetes mellitus with hyperglycemia: Code(s): E11.65 - Type 2 diabetes mellitus with hyperglycemia Status: Chronic Assessment and Plan: follow accuchecks glycemic control per hospitalists Will continue to follow. Subjective Date/time seen: 08/28/22 09:20 Respiratory status seems relatively stable with current interventions; on BiPAP at the time of my visit; continues tgo diuresis with relative stability in renal function; in-spite of ongoing diuresis, CT of chest yesterday with moderate right pleural effusion and large loculated left pleural effsion -- noted plans for left thoracentesis today Exam Narrative: General: elderly WD/WN male in NAD Heart: IRRR, normal S1 and S2; no rub Lungs: coarse and decreased at bases Abdomen: soft, nontender, nondistended,
--- NOTE | 2022-08-28 09:49 | PM.IMPN ---
Progress Note: A&P Assessment and Plan (1) Acute respiratory failure with hypoxia and hypercarbia: Code(s): J96.01 - Acute respiratory failure with hypoxia; J96.02 - Acute respiratory failure with hypercapnia Status: Acute Assessment and Plan: Patient presents with acute respiratory failure. Chest x-ray shows small right and moderate size left pleural effusion and airspace opacities noted consistent with atelectasis versus pneumonia. Would also consider heart failure. ABG 7.22/96/196 on BiPAP. BiPAP adjusted and repeat ABG today showing improvement 7.39/83/85. Weaned from BiPAP during the day. Some concern for pneumonia noted on CXR but no real signs of infection clinically. Started on Lasix with excellent UOP. Given his chronic hypercarbia, felt patient has untreated JH. His pCO2 higher related to metabolic alkalosis. Diamox added. He states he has never been diagnosed with JH but it is listed in his medical hx and he does require O2 at night. [place] resp failure from CHF exacerbation, untreated JH and right sided failure. CXR showing only small effusions and pulmonary edema. Continue IV diuresis. Pulmonary consult since he will need BiPAP at home. Still mildly somnolent. Not taking narcotics. Could be related to increasing pCO2 despite the normal pH . BUN elevated but now trending down. Check ammonia level. Check for ascites (but not seen by renal US) Discussed with Pulmonary and appreciate their input 4/2: Improving, weaned off BiPAP at this time, continue IV diuresis 4/3: Appreciate pulmonology consultation, continue diuresis per Nephrology and Cardiology management, noninvasive ventilation management per pulmonology, started on Trelegy, some trace ascites on abdominal ultrasound noted concerning for anasarca, all cultures negative 4/4: CT chest showed B/L pleural effusions, loculated on the left, inferior sternal dehiscence with surrounding mass/fluid concerning for hematoma/abscess, will initiate transfer to [facility] for CT surgery evaluation, thoracentesis being planned for today (2) Acute on chronic diastolic CHF (congestive heart failure): Code(s): I50.33 - Acute on chronic diastolic (congestive) heart failure Status: Acute Assessment and Plan: Chest x-ray consistent with CHF. BNP 9240. Echo shows EF of 65-70% with mildly increased LV wall thickness. The RV chamber is enlarged and the RV systolic function is reduced. There is mild biatrial enlargement and mild mitral regurgitation. The right atrial pressure is 10. Patient was on Lasix 40 mg po twice daily as well as metolazone 10 mg daily per home med rec. He has been started on IV Lasix here. Cardiology following. Excellent urine output and cumulative I/O -6.5L. Continue Lasix IV. Add back metolazone at half dose. Monitor elevated serum bicarb. Appreciate Cardiology input. 08/27: Continue acetazolamide, Lasix, metolazone, continues to diurese without significant clinical improvement (3) [id number] kidney injury: Code(s): N17.9 - Acute kidney failure, unspecified; N18.9 - Chronic kidney disease, unspecified Status: Acute Assessment and Plan: Creatinine was 1.6-2.0 at the rehab facility but patient was fluid overloaded so these might have been falsely low. He did have normal renal function last year with last creatinine listed was in December at 1.2. He was also on Bactrim just prior to admission which could have contributed to the worsening renal function. Here, Cr peaked at 2.9 but better at 2.3 Continue Aranda catheter. Nephrology following and appreciate their input. Continue IV diuretics. Continue monitor renal function closely. 08/27: Creatinine fluctuating around to, could be a new baseline, appreciate nephrology consultation, continue diuretics as above (4) Hyponatremia: Code(s): E87.1 - Hypo-osmolality and hyponatremia Status: Acute Assessment and Plan: Likely related to
[2022-08-28] MEDS: POTASSIUM CHLORIDE 20 MEQ PACKET (FOR LIQUID) 40 MEQ PO (09:52)
--- NOTE | 2022-08-28 11:43 | PCOTNOTE ---
Per RN, Patient not to be seen this A.M. Per RN, Patient is going to have a bedside thoracentesis. Patient may be seen later this afternoon.
[2022-08-28 11:58] LABS: Glucose Point of Care 212 mg/dl (65-105)
--- NOTE | 2022-08-28 13:15 | PCOTNOTE ---
Per MD, Patient is ok to participate in light activity this afternoon. Patient addressed to participate in OT services at this time. Patient declined stating he does not feel well and not today. MD let aware and stated, Ok, do not push him . Patient not seen for services this date.
[2022-08-28 14:10] LABS: Blood Urea Nitrogen 52 mg/dL (9-20); Calcium 7.6 mg/dL (8.4-10.2); Carbon Dioxide > 40 mmol/L (22-30); Chloride 92 mmol/L (98-107); Estimated CRCL calculation 38 ml/min; Estimated Glomerular Filt Rate 35; Glucose 195 mg/dL (65-110); Potassium 3.3 mmol/L (3.4-5.0); Sodium 141 mmol/L (137-145)
--- NOTE | 2022-08-28 14:16 | PCPTNOTE ---
The patient treatment was not able to be completed today. Patient had procedure at bed side this afternoon and following procedure he declined therapy due to not feeling well. Will plan to continue treatment per plan of care.
[2022-08-28 14:20] LABS: pH Pleural Fluid > 7.500 (7.210-7.500)
[2022-08-28] MEDS: ASPIRIN 81 MG ENTERIC TABLET PO (14:54)
[2022-08-28] MEDS: PANTOPRAZOLE 40 MG TABLET PO (14:55)
[2022-08-28] MEDS: CYANOCOBALAMIN 1,000 MCG TABLET 1000 MCG PO (14:55)
[2022-08-28] MEDS: metOLazone 5 MG TABLET PO (14:55)
[2022-08-28] MEDS: FUROSEMIDE INJ 40 MG/4 ML VIAL IV PUSH ×2 (14:55→20:06)
[2022-08-28] MEDS: EMPAGLIFLOZIN 10 MG TABLET BY MOUTH (14:55)
[2022-08-28] MEDS: ATORVASTATIN 40 MG TABLET PO (14:55)
[2022-08-28] MEDS: ESCITALOPRAM OXALATE 10 MG TABLET PO (14:56)
[2022-08-28 15:50] LABS: Appearance Pleural Fluid Bloody (Clear); Color Pleural Fluid Red (Colorless); Pleural fluid source Pleural fluid
[2022-08-28 15:51] LABS: Lymphocytes Pleural Fluid 66 %; Monocytes Pleural Fluid 26 %; Neutrophils Pleural Fluid 8 % (0-25)
[2022-08-28 16:26] LABS: Glucose Point of Care 258 mg/dl (65-105)
[2022-08-28] MEDS: INSULIN ASPART (*BKC) 100 UNITS/ML SUB-Q (17:59)
[2022-08-28] MEDS: FERROUS SULFATE 324 MG TABLET BY MOUTH (18:00)
[2022-08-28] MEDS: acetaZOLAMIDE TAB 250 MG TABLET PO (18:00)
[2022-08-28] MEDS: TAMSULOSIN HCL 0.4 MG CAPSULE PO (18:00)
[2022-08-28] MEDS: INSULIN ASPART (*BKC) 100 UNITS/ML 6 UNITS SUB-Q (19:50)
[2022-08-28] MEDS: GABAPENTIN 100 MG CAPSULE PO (20:06)
[2022-08-28] MEDS: MELATONIN 5 MG TABLET 10 MG PO (20:06)
[2022-08-28 20:15] LABS: Glucose Point of Care 336 mg/dl (65-105)
[2022-08-29] VITALS (8 sets, daily range): BP systolic 117–136; BP diastolic 41–43; PULSE 63–74; RESP 18–24; TEMP 36.6–36.7; O2SAT 92–96
[2022-08-29 04:50] LABS: Hematocrit 31.1 % (42.0-52.0); Hemoglobin 8.5 g/dL (14.0-18.0); Mean Corpuscular HGB Conc 27.3 g/dl (32-36); Mean Corpuscular Hemoglobin 28.8 pg (26-34); Mean Corpuscular Volume 105.4 fl (80-100); Mean Platelet Volume 10.6 fl (7.4-10.4); Platelet Count Result 104 k/mm3 (150-375); Red Blood Count 2.95 M/mm3 (4.6-6.20); Red Cell Distribution Width 21.2 % (11.5-14.5); White Blood Count 5.5 K/mm3 (4.5-10.0)
[2022-08-29 05:05] LABS: Alanine Aminotransferase 18 U/L (6-50); Alkaline Phosphatase 71 U/L (38-126); Aspartate Amino Transferase 30 U/L (17-59); Bilirubin,Total 0.9 mg/dL (0.2-1.3); Blood Urea Nitrogen 52 mg/dL (9-20); Calcium 7.7 mg/dL (8.4-10.2); Carbon Dioxide > 40 mmol/L (22-30); Chloride 91 mmol/L (98-107); Estimated CRCL calculation 38 ml/min; Estimated Glomerular Filt Rate 35; Glucose 187 mg/dL (65-110); Potassium 2.7 mmol/L (3.4-5.0); Sodium 140 mmol/L (137-145)
[2022-08-29] MEDS: POTASSIUM CHLORIDE INJ 40 MEQ in SODIUM CHLORIDE 0.9% IV 500 ML 130 MEQ IVPB (05:23)
[2022-08-29 05:44] LABS: Band Neutrophils Percent 25 % (0-6); Hypochromasia 3+ (NORMAL); Microcytosis 2+ (NORMAL); Monocytes Absolute Manual 0.27 K/mm3 (0.1-0.90); Monocytes Percent Manual 5 % (3-9); Neutrophils Absolute Manual 4.12 K/mm3 (1.3-6.7); Neutrophils Percent Manual 50 % (46-73); Platelet Estimate Adequate (Adequate); Schistocytes None Seen (NORMAL); Tear Drop Cells 1+ (NORMAL); Total Cells Counted 100
[2022-08-29 05:45] LABS: Anisocytosis 1+ (NORMAL); Macrocytosis 1+ (NORMAL); Smudge Cells PRESENT; Spherocytes 1+ (NORMAL)
[2022-08-29] MEDS: FLUTICASONE/UMECLIDIN/VILANTER 100-62.5-25 MCG ELLIPTA 1 PUFF INHALATION (07:10)
[2022-08-29 08:18] LABS: NT Pro B Type Natriuretic Pept 8030 pg/mL (19.9-100)
--- NOTE | 2022-08-29 08:27 | PM.TDS ---
Transfer Discharge Sum: Prov Provider Date of admission: 08/20/22 11:23 Primary care physician: Adela Gillespie DO Admitting clinician: Carie Gaston DO Consults: 08/20/22 Consult to Physician Routine Comment: Spoke with Ale Avendano and notified her of consult Consulting Provider: Maria A Dunlap crew caller/MD group to consult: [facility] cardiology Reason for consultation: volume overload, pleural effusions s/p CABG Has provider been notified: Yes Consult to Physician Routine Comment: Spoke with and notified him of consult Consulting Provider: Main Evans crew caller/MD group to consult: nephrology Reason for consultation: acute/chronic renal failure Has provider been notified: Yes 08/24/22 12:44 Consult to Physician Routine Comment: spoke with Dr. Hamilton @[id number]([facility]) Consulting Provider: Chace Hamilton crew caller/MD group to consult: pulmonary Reason for consultation: resp failure Has provider been notified: Yes DS: Admitting Diagnosis Discharge Date 08/29/22 Admitting Diagnosis chest pain, sob DS: Discharge Diagnosis Discharge Diagnosis (1) Acute respiratory failure with hypoxia and hypercarbia: Code(s): J96.01 - Acute respiratory failure with hypoxia; J96.02 - Acute respiratory failure with hypercapnia Status: Acute Assessment and Plan: Patient presents with acute respiratory failure. Chest x-ray shows small right and moderate size left pleural effusion and airspace opacities noted consistent with atelectasis versus pneumonia. Would also consider heart failure. ABG 7.22/96/196 on BiPAP. BiPAP adjusted and repeat ABG today showing improvement 7.39/83/85. Weaned from BiPAP during the day. Some concern for pneumonia noted on CXR but no real signs of infection clinically. Started on Lasix with excellent UOP. Given his chronic hypercarbia, felt patient has untreated JH. His pCO2 higher related to metabolic alkalosis. Diamox added. He states he has never been diagnosed with JH but it is listed in his medical hx and he does require O2 at night. [place] resp failure from CHF exacerbation, untreated JH and right sided failure. CXR showing only small effusions and pulmonary edema. Continue IV diuresis. Pulmonary consult since he will need BiPAP at home. Still mildly somnolent. Not taking narcotics. Could be related to increasing pCO2 despite the normal pH . BUN elevated but now trending down. Check ammonia level. Check for ascites (but not seen by renal US) Discussed with Pulmonary and appreciate their input 08/26: Improving, weaned off BiPAP at this time, continue IV diuresis 08/27: Appreciate pulmonology consultation, continue diuresis per Nephrology and Cardiology management, noninvasive ventilation management per pulmonology, started on Trelegy, some trace ascites on abdominal ultrasound noted concerning for anasarca, all cultures negative 08/28: CT chest showed B/L pleural effusions, loculated on the left, inferior sternal dehiscence with surrounding mass/fluid concerning for hematoma/abscess, will initiate transfer to [facility] for CT surgery evaluation, thoracentesis being planned for today (2) Acute on chronic diastolic CHF (congestive heart failure): Code(s): I50.33 - Acute on chronic diastolic (congestive) heart failure Status: Acute Assessment and Plan: Chest x-ray consistent with CHF. BNP 9240. Echo shows EF of 65-70% with mildly increased LV wall thickness. The RV chamber is enlarged and the RV systolic function is reduced. There is mild biatrial enlargement and mild mitral regurgitation. The right atrial pressure is 10. Patient was on Lasix 40 mg po twice daily as well as metolazone 10 mg daily per home med rec. He has been started on IV Lasix here. Cardiology following. Excellent urine output and cumulative I/O -6.5L. Continue Lasix IV. Add back metolazone at half dose. Monitor elevated serum bicarb. Appreciate Cardiology input. 08/27: Sammi
[2022-08-29] MEDS: ATORVASTATIN 40 MG TABLET PO (08:29)
[2022-08-29] MEDS: FERROUS SULFATE 324 MG TABLET BY MOUTH (08:29)
[2022-08-29] MEDS: EMPAGLIFLOZIN 10 MG TABLET BY MOUTH (08:29)
[2022-08-29] MEDS: ESCITALOPRAM OXALATE 10 MG TABLET PO (08:29)
[2022-08-29] MEDS: CYANOCOBALAMIN 1,000 MCG TABLET 1000 MCG PO (08:29)
[2022-08-29] MEDS: polyethylene glycoL 3350 17 GM POWD.PACK PO (08:30)
[2022-08-29] MEDS: metOLazone 5 MG TABLET PO (08:30)
[2022-08-29] MEDS: ENOXAPARIN 40 MG/0.4 ML SYRINGE SUB-Q (08:30)
[2022-08-29] MEDS: ASPIRIN 81 MG ENTERIC TABLET PO (08:30)
[2022-08-29] MEDS: PANTOPRAZOLE 40 MG TABLET PO (08:30)
[2022-08-29] MEDS: acetaZOLAMIDE TAB 250 MG TABLET PO (08:30)
[2022-08-29] MEDS: DOCUSATE SODIUM 100 MG CAPSULE PO (08:30)
[2022-08-29] MEDS: FUROSEMIDE INJ 40 MG/4 ML VIAL IV PUSH (08:30)
[2022-08-29 08:33] LABS: Glucose Point of Care 186 mg/dl (65-105)
--- NOTE | 2022-08-29 10:11 | PC.NURSE ---
Patient picked up by [facility] for transport to [facility] room 305-1. Report called to Amira VACA. Left a message for patient's daughter, Dorian, regarding transfer.
[2022-09-02 13:49] LABS: Glucose Pleural Fluid 192 mg/dL; LDH Pleural Fluid 148 U/L; Total Protein Pleural Fluid <3.0 g/dL
[2022-09-03 01:57] LABS: Amylase, Pleural Fluid 23 U/L
[2022-09-05 00:10] LABS: Albumin Pleural Fluid 1.2 g/dL
== END 2022-08-29 10:01 | disposition short-term general hospital (02) | DRG 291 ==
LOC: ANHED 11:09 → ANHIMU 13:36
PROVIDERS: Internal Medicine; Internal Medicine Cardiovascular Disease; Internal Medicine Nephrology; Internal Medicine Pulmonary Disease; Physician Assistant; Admitting Provider Student in an Organized Health Care Education/Training Program; Emergency Provider Emergency Medicine; PCP Family Medicine; Visit Provider Student in an Organized Health Care Education/Training Program
DX: I13.0 Hypertensive heart and chronic kidney disease with heart failure and stage 1 through stage 4 chronic kidney disease, or unspecified chronic kidney disease (principal); I50.33 Acute on chronic diastolic (congestive) heart failure; J96.01 Acute respiratory failure with hypoxia; J18.9 Pneumonia, unspecified organism; J96.22 Acute and chronic respiratory failure with hypercapnia; J90 Pleural effusion, not elsewhere classified; J98.11 Atelectasis; N17.9 Acute kidney failure, unspecified; E87.1 Hypo-osmolality and hyponatremia; J44.0 Chronic obstructive pulmonary disease with (acute) lower respiratory infection; I25.10 Atherosclerotic heart disease of native coronary artery without angina pectoris; D63.1 Anemia in chronic kidney disease; E11.22 Type 2 diabetes mellitus with diabetic chronic kidney disease; E87.5 Hyperkalemia; I48.0 Paroxysmal atrial fibrillation; Z95.1 Presence of aortocoronary bypass graft; Z87.891 Personal history of nicotine dependence; Z79.899 Other long term (current) drug therapy; M18.32 Unilateral post-traumatic osteoarthritis of first carpometacarpal joint, left hand
CPT/HCPCS: 32555; 36415; 36600; 51703; 71045; 71250; 76700; 76775; 80048; 80053; 80069; 80076; 81050; 82042; 82140; 82150; 82375; 82533; 82550; 82570; 82607; 82728; 82746; 82805; 82945; 82948; 83036; 83050; 83540; 83550; 83605; 83615; 83735; 83880; 83986; 84100; 84145; 84156; 84157; 84311; 84439; 84443; 84478; 84480; 84484; 85025; 85027; 85380; 85610; 85730; 85999; 86140; 87015; 87040; 87070; 87075; 87081; 87102; 87116; 87147; 87181; 87186; 87205; 87206; 88108; 88184; 88305; 89051; 93005; 93970; 94002; 94003; 94640; 94660; 94762; 96374; 96375; 97110; 97161; 97165; 97530; 97535; 99285; A9270; C8929; J0456; J0610; J0743; J1120; J1650; J1756; J1815; J1940; J3370; J3480; J7040; J7050; Q9957

== ENCOUNTER 2023-04-09 11:11 | Outpatient (CLI) | payer MEDICARE, SELFPAY ==
--- NOTE | ~2023-04-09 | XR_ITS ---
XR shoulder RT min 2V DATE: 04/09/2023 11:37 INDICATION: Pain and stiffness, decreased range of motion for one month. TECHNIQUE: 4 views COMPARISON: None FINDINGS: There is joint space narrowing and mild spurring at the right acromioclavicular joint. Ther e is mild. There is spurring of the right humeral head. . No fracture, dislocation, periosteal reaction or bone destruction or abnormal right shoulder soft t issue calcification. Plates and screws and cerclage wire of the sternum. Diffuse osteopenia IMPRESSION: Mild degenerative change at the right acromioclavicular joint Mild osteoarthritis of right glenohumeral joint Osteopenia Reviewed, dictated and finalized at location L. [employer] CONSULTANT
== END 2023-04-09 11:12 | disposition home or self-care (01) ==
PROVIDERS: PCP Family Medicine; Visit Provider Family Medicine
DX: S46.211A Strain of muscle, fascia and tendon of other parts of biceps, right arm, initial encounter (principal); M19.011 Primary osteoarthritis, right shoulder; M85.80 Other specified disorders of bone density and structure, unspecified site
CPT/HCPCS: 73030

== ENCOUNTER 2023-04-29 13:30 | Outpatient (RCR) | payer MEDICARE, SELFPAY | END 2023-04-29 14:44 | disposition home or self-care (01) | LOC: ANHCPREHAB 13:30 | PROVIDERS: PCP Family Medicine; Visit Provider Internal Medicine Cardiovascular Disease | DX: Z95.1 Presence of aortocoronary bypass graft (principal) | CPT/HCPCS: 93798 ==

== ENCOUNTER 2024-04-02 11:51 | Outpatient (CLI) | payer MEDICARE, SELFPAY ==
--- NOTE | ~2024-04-02 | XR_ITS ---
Left Forearm AP and lateral views of the left forearm were performed. Clinical History: Mana in the forearm Findings: No fracture or dislocation is seen. Osseous alignment in anatomic. Joint spaces are prese rved. There are approximately 10 metallic mana at the volar aspect of the proximal to mid forearm. Impression: 10 metallic maan within the volar soft tissues of the proximal to mid forearm. Reviewed, dictated and finalized at location M. HOUSE SPECIALIST Impression: 10 metallic mana within the volar soft tissues of the proximal to mid forear m.
== END 2024-04-02 11:52 | disposition home or self-care (01) ==
PROVIDERS: PCP Family Medicine; Visit Provider Family Medicine
DX: S50.852A Superficial foreign body of left forearm, initial encounter (principal); X58.XXXA Exposure to other specified factors, initial encounter
CPT/HCPCS: 73090